=== PATIENT | female | born 1945 | race Asian ===

== ENCOUNTER → 2021-02-09 | Day surgery (SDC) | payer OTHER ==
--- NOTE | 2021-02-05 13:18 | RAD REPORT ---
EXAM DESCRIPTION: RAD - Chest Pa And Lat (2 Views) - 02/05/2021 1:08 pm CLINICAL HISTORY: preop, pending cardiac catheterization COMPARISON: No prior chest imaging available. Lung base images from 2018 CT abdomen study were revie wed. TECHNIQUE: Frontal and lateral views of the chest were obtained. FINDINGS: The lungs are normal volume with mild scattered fibrotic lung change. In the lower right l shamir field superimposed on the posterior right ninth rib at is a 10 millimeter nodular density. The l shamir base images from the 2018 study are not sufficient for evaluating this portion of the chest. No o ther mass or nodule identified. No acute infiltrate. No failure or volume overload. Heart size is normal and central vasculature is within normal limits. No pleural effusion or pneumo thorax seen. No acute bony finding noted. No aortic abnormality. IMPRESSION: Small 10 mm nodule lower right lung field is present with no comparison imaging availabl e. Right lung field finding may be a true nodule or potentially remodeling from posterior right rib frac ture. Patient has underlying fibrosis. If no old outside chest imaging is available, contrast-enhanced CT chest study would be recommended f or further characterization.
[2021-02-05 13:56] LABS: BUN Blood Urea Nitrogen 14 mg/dL (7-18); Bicarbonate 30 mmol/L (21-32); Glucose Level 105 mg/dL (74-106); Sodium Level 142 mmol/L (136-145)
[2021-02-05 14:16] LABS: Absolute Lymphocytes (CBC) 0.8 K/uL (0.7-4.9); Basophils % 1.3 % (0-1.3); Lymphocytes % 17.7 % (15.3-44.8); MPV 7.6 fL (7.6-11.3); RBC Red Blood Cell Count 4.04 M/uL (3.86-4.86)
[2021-02-05 14:19] LABS: Protime INR 0.85
[~2021-02-09] MED LIST: ATROPINE SULF 1 MG/10 ML SYR IV ONE; FENTANYL CITR 100 MCG/2 ML ONE; HEPA 1000U/500MLS 1,000 UNIT/500 ML BAG IV ONE; LIDOCAINE 1% 20 ML MDV ONE; MIDAZOLAM HCL 2 MG/2 ML INJ ONE; NA CHLORIDE 0.9% 0 ML ONE; NA CHLORIDE 0.9% 500 ML ONE
[2021-02-09 08:16] VITALS: TEMP 97.1
--- NOTE | 2021-02-09 09:47 | OP ---
Date of Procedure: 02/09/2021 Surgeon: Eric Chin MD Machine Washer: Mr. Ritchie Terrell. Procedure In Detail: The patient was brought to the clinical lab scientist today on 02/09/2021. She underwent a l eft heart catheterization with selective coronary arteriogram. Indication was chest pain with abnorm al stress test. In the clinical lab scientist, she was prepped and draped in the routine sterile fashion. Given V ersed and fentanyl for sedation. A 6-Russian sheath introduced in the right common femoral artery suc cessfully. Angiography there was normal. Angio-Seal was used to close the case. Lance catheters left and right were used to cannulate the left main and right main respectively. Her RCA was normal and was right dominant. Her left system, left main, LAD, and circumflex were very small, but no foca l stenosis. There were no complications. Blood loss was 5 mL. Anesthesia: Total conscious sedation was 45 minutes. Postoperative Diagnoses: Abnormal stress test, atypical chest pain, normal coronaries, small coronar y arteries. Plan: Plan is to continue medical therapy. The patient will go home after 2 hours of bedrest and I will see her in the office in 2 weeks. KELSEY/CARLENE Voice ID: [id number] Report ID: [id number]
[2021-02-09 10:27] VITALS: BP 109/60; O2SAT 93
== END ==
LOC: CCL 07:27
DX: R07.89 Other chest pain (principal); I10 Essential (primary) hypertension; E78.2 Mixed hyperlipidemia; K21.9 Gastro-esophageal reflux disease without esophagitis
CPT/HCPCS: 93005; 85025; 80048; 36415; 85610; 85730; 71046; 93454; C1893; C1760; J2250; J3010; J7040; J1644; J0583; U0002

== ENCOUNTER 2021-08-31 12:27 | Day surgery (SDC) | payer OTHER ==
[2021-08-31] MEDS ORDERED: Ringers Lactate 1,000 ML IV ONE (12:44)
[2021-08-31 13:11] VITALS: TEMP 98.6
[2021-08-31] MEDS ORDERED: NA CHLORIDE 0.9% 1,000 ML ONE (14:13)
[2021-08-31] MEDS: LIDOCAINE 1% W/EPI 1:100,000 MDV 20 ML VIAL ONE ×2 (14:42→15:28)
[2021-08-31] MEDS ORDERED: LIDOCAINE 1% MPF 30 ML VIAL ONE (15:05)
[2021-08-31] MEDS ORDERED: MIDAZOLAM HCL 2 MG/2 ML INJ ONE (15:05)
[2021-08-31] MEDS ORDERED: propofoL 200 MG/20 ML VIAL IV ONE ×2 (15:06→15:30)
[2021-08-31] MEDS ORDERED: IBUPROFEN 200 MG TAB PO PRN (15:55)
--- NOTE | 2021-08-31 15:59 | P.BOP ---
Preoperative diagnosis: PMB, RLQ pain Postoperative diagnosis: same Primary procedure: Hysteroscopy d/c Estimated blood loss: min Specimen: EMC (curette and pipelle used) Findings: abn vascular tissue noted at fundal endometrium and the rightwall Anesthesia: MAC Complications: None Transferred to: Recovery Room Condition: Good
[2021-08-31 17:34] VITALS: BP 107/61; O2SAT 16
== END 2021-08-31 16:36 | disposition home or self-care (01) ==
LOC: OR 12:27
PROVIDERS: ATTEND Obstetrics & Gynecology
PROC: 0UJD8ZZ Inspection of Uterus and Cervix, Via Natural or Artificial Opening Endoscopic (ICD-10-PCS; 2021-08-31)
PROC: 0UDB7ZX Extraction of Endometrium, Via Natural or Artificial Opening, Diagnostic (ICD-10-PCS; principal; 2021-08-31 13:30)
DX: N95.0 Postmenopausal bleeding (principal); R10.31 Right lower quadrant pain; Z20.822 Contact with and (suspected) exposure to COVID-19
CPT/HCPCS: 88305; 58558; U0003; J2704 ×2; J2250; J7120; J7030

== ENCOUNTER 2021-11-14 08:34 | Emergency (ER) | payer OTHER ==
--- OUTSIDE RECORDS SUMMARY | 2021-11-14 08:44 | XMS REPORT | Clinical Summary ---
:1945 Author Organization [facility] MD [facility] Address [address] [place] [address] Care Team Providers Name Role Phone Belgicagopal Unavailable Lynda Rogers MD Primary Care Provider Suzanne Tipton MD Unavailable Tahir Rucker MD Unavailable Allergies No known active allergies Medications Medication Sig Dispensed Refills Start Date End Date Status atorvastatin (LIPITOR) Take 1 tablet by 0 03/16/2021 Active 20 mg tablet mouth as needed. pantoprazole (PROTONIX) Take 1 tablet by 0 Active 40 mg EC tablet mouth as needed. methotrexate 2.5 mg Take 4 tablets by 0 03/16/2021 Active tablet mouth once a week. leflunomide (ARAVA) 20 Take 1 tablet by 0 03/16/2021 Active mg tablet mouth once a week. melatonin 3 mg tablet Take 3 mg by 0 Active mouth nightly as needed. folic acid (FOLVITE) 1 Take 1 mg by 0 Active mg tablet mouth daily. 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 10/20/2021 Encounters Date Type Specialty Care Team Description 11/12/2021 Ancillary Procedure Radiology [place], Cancer Carole Howell MD 11/12/2021 Ancillary Procedure Radiology [place]astoalonzo[place], Cancer Carole Howell MD 11/12/2021 Ancillary Procedure Radiology Matthewt[place]oug Cancer Carole Howell MD 11/12/2021 Ancillary Procedure Radiology [place], Cancer Carole Howell MD 11/12/2021 Ancillary Procedure Radiology Matthewtoalonzoil, Cancer Carole Howell MD 11/12/2021 Ancillary Procedure Radiology Matthewt[place], Cancer Carole Howell MD 11/12/2021 Ancillary Procedure Radiology Kyleil, Cancer Carole Howell MD 11/10/2021 Telemedicine Lymphoma and [place], Follicular lymp luigi Myeloma Carole Howell MD grade II of l ymph nodes of multip le sites 11/09/2021 Telephone Lymphoma and Visitacion, Myeloma Nidia Angel RN 11/09/2021 Orders Only Lymphoma and Mathur, Staci, Follicular lymphoma Myeloma [employer] grade II of lym ph nodes of multip le sites (Primary Dx) 11/03/2021 Hospital Encounter Radiology Staci Mathur, Folli cular lymphoma [employer] grade II of lymph Amanuel Hardy MD nodes of mu ltiple sites 11/03/2021 Travel 11/02/2021 Telephone Radiology Ame Li MA 11/02/2021 Orders Only Radiology Edin Blake PA 10/30/2021 Ancillary Procedure Radiology [place], Cancer Carole Howell MD 10/30/2021 Ancillary Procedure Radiology [place], Cancer Carole Howell MD 10/30/2021 Ancillary Procedure Radiology [place], Cancer Carole Howell MD 10/30/2021 Ancillary Procedure Radiology [place], Cancer Carole Howell MD 10/30/2021 Ancillary Procedure Radiology Matthew[place], Cancer Carole Howell MD 10/30/2021 Ancillary Procedure Radiology [place], Cancer Carole Howell MD 10/29/2021 Orders Only Lymphoma [place], Carole Howell MD 10/29/2021 Orders Only Lymphoma and Mathur, Staci, Myeloma [employer] 10/29/2021 Lab Requisition Doug Ambrosio MD Fletes, James R, MD 10/21/2021 Lab Requisition Doug Ambrosio MD Witson, Anne S., MD 10/20/2021 Ancillary Procedure Radiology [place], Cancer Carole Howell MD 10/20/2021 Ancillary Procedure Radiology [place], Cancer Carole Howell MD 10/20/2021 Hospital Encounter Lab Staci Mathur, Folli cular lymphoma [employer] WORK[employer] grade II of lym ph nodes of multip le sites 10/20/2021 Office Visit Lymphoma and [place], Follicular lymp luigi Myeloma Carole Howell MD grade II of l ymph nodes of multip le sites (Primary Dx) 10/20/2021 Documentation Lymphoma and Chata Rubio Myeloma 10/20/2021 Orders Only Lymphoma and Mathur, Staci, Myeloma [employer] WORK[employer] 10/20/2021 Travel 10/20/2021 Lab Requisition Doug Ambrosio MD Joseph, John K., MD 10/19/2021 NPR Patient Access [place], Services Carole Howell MD 10/15/2021 Travel 10/15/2021 Telephone Patient Access Ahuja, Adelita Brown RN after 11/14/2020 Surgical History Surgery Date Site/Laterality Comments HERNIA REPAIR Medical History Medical History Date Comments Irregular heart beat 2 yrs ago Fatty liver 5 yrs ago Menopause 20 yrs ago Rheumatoid arthritis 20 yrs ago Arthritis 20 yrs ago Malignant lymphoma 5 yrs ago Family History Medical History Relation Name Comments Colon cancer Sister Relation Name Status Comments Sister Alive Social History Tobacco Use Types Packs/Day Years Used Date Never Smoker 0 0 Smokeless Tobacco: Never Used Alcohol Use Standard Drinks/Week Comments Not Currently 0 (1 standard drink = 0.6 oz pure alcoho l) Sex Assigned at Date Recorded Female 10/16/2021 3:21 PM [employer] Job Start Date Occupation Industry Not on file Not on file Not on file COVID-19 Exposure Response Date Recorded In the last month, have you been in contact with No / Unsure 11/03/2021 10:22 AM [employer] someone who was confirmed or suspected to have Coronavirus / COVID-19? Obstetrics History Last Filed Vital Signs Vital Sign Reading Time Taken Comments Blood Pressure 140/81 11/03/2021 3:55 PM [employer] Pulse 67 11/03/2021 3:55 PM [employer] Temperature 36.8 C (98.2 F) 11/03/2021 3:55 PM [employer] Respiratory Rate 13 11/03/2021 3:55 PM [employer] Oxygen Saturation 93% 11/03/2021 3:55 PM [employer] Inhaled Oxygen Concentration - - Weight 54.9 kg (121 lb 0.5 oz) 11/03/2021 10:48 AM [employer] Height 147.5 cm (4' 10.07") 10/20/2021 12:05 PM [employer] Body Mass Index 25.23 10/20/2021 12:05 PM [employer] Plan of Treatment Health Maintenance Due Date Last Done Comments COVID-19 Vaccination (1) 1957 Procedures Procedure Name Priority Date/Time Associated Comments Diagnosis IR CT GUIDED BIOPSY Routine 11/03/2021 3:01 Follicular Resu lts for this RETROPERITONEAL PM [employer] lymphoma grade II procedu re are in of lymph nodes of the result s multiple sites section. CYTOLOGY IMAGE-GUIDED Routine 11/03/2021 2:19 Follicular Re sults for this FNA INTERPRETATION PM [employer] lymphoma grade II proc edure are in of lymph nodes of the result s multiple sites section. HP FC LYMPHOMA B Routine 11/03/2021 2:19 EXTENDED INTERPRETATION PM [employer] AND REPORT HP FC FLOW CYTOMETRY Routine 11/03/2021 2:19 Res ults for this BLOOD COLLECTION PM [employer] procedure a re in the results section. PATHOLOGY BIOPSY Routine 11/03/2021 2:18 Follicular Results for this INTERPRETATION PM [employer] lymphoma grade II procedur e are in of lymph nodes of the result s multiple sites section. EKG, 12-LEAD (PORTABLE) Routine 11/03/[address] BOOTHE ROSETTE PATH Routine 10/20/2021 1:51 Resu lts for this REVIEW PM [employer] procedure are i n the results section. .DR. BOOTHE PROT ELEC Routine 10/20/2021 1:51 Res ults for this PATH REVIEW PM [employer] procedure are i n the results section. TMP HIV 1/2 AG&AB PATH Routine 10/20/2021 1:51 R esults for this INTERP PM [employer] procedure are i n the results section. TMP HCVAB INTERP Routine 10/20/2021 1:51 Results for this PM [employer] procedure are i n the results section. TMP INTERPRETATION Routine 10/20/2021 1:51 Resul ts for this ANTIBODY SCREEN NEGATIVE PM [employer] pro cedure are in the results section. CLOT EXPIRATION DATE Routine 10/20/2021 1:51 Res ults for this PM [employer] procedure are i n the results section. FREE KAPPA/FREE LAMBDA Routine 10/20/2021 1:51 R esults for this RATIO PM [employer] procedure are i n the results section. HEPATITIS B SURFACE AG Routine 10/20/2021 1:51 R esults for this W/CONFIRM PM [employer] procedure are i n the results section. HEPATITIS B CORE TOTAL Routine 10/20/2021 1:51 R esults for this ANTIBODY PM [employer] procedure are i n the results section. ANTIBODY SCREEN Routine 10/20/2021 1:51 Follicular Results for this PM [employer] lymphoma grade II procedure are in of lymph nodes of the result s multiple sites section. ABORH Routine 10/20/2021 1:51 Follicular Results for this PM [employer] lymphoma grade II procedure are in of lymph nodes of the result s multiple sites section. .GLOMERULAR FILTRATION Routine 10/20/2021 1:51 Follicular R esults for this RATE PM [employer] lymphoma grade II procedure are in of lymph nodes of the result s multiple sites section. SERUM CREATININE Routine 10/20/2021 1:51 Follicular Results for this PM [employer] lymphoma grade II procedure are in of lymph nodes of the result s multiple sites section. MANUAL DIFFERENTIAL Routine 10/20/2021 1:51 Follicular Resu lts for this PM [employer] lymphoma grade II procedure are in of lymph nodes of the result s multiple sites section. Results CBC Routine 10/20/2021 1:51 Follicular Results for this PM [employer] lymphoma grade II procedure are in of lymph nodes of the result s multiple sites section. IMMUNOFIXATION Routine 10/20/2021 1:51 Follicular Results f or this ELECTROPHORESIS PM [employer] lymphoma grade II procedu re are in of lymph nodes of the result s multiple sites section. FREE LAMBDA LIGHT CHAIN Routine 10/20/2021 1:51 Follicular Results for this PM [employer] lymphoma grade II procedure are in of lymph nodes of the result s multiple sites section. FREE KAPPA LIGHT CHAIN Routine 10/20/2021 1:51 Follicular R esults for this PM [employer] lymphoma grade II procedure are in of lymph nodes of the result s multiple sites section. HIV-1/2 ANTIGEN AND Routine 10/20/2021 1:51 Follicular Resu lts for this ANTIBODIES, FOURTH PM [employer] lymphoma grade II proc edure are in GENERATION of lymph nodes of the result s multiple sites section. HEPATITIS C VIRUS Routine 10/20/2021 1:51 Follicular Result s for this ANTIBODY PM [employer] lymphoma grade II procedure are in of lymph nodes of the result s multiple sites section. HEPATITIS B SURFACE Routine 10/20/2021 1:51 Follicular Resu lts for this ANTIGEN, SERUM PM [employer] lymphoma grade II procedur e are in of lymph nodes of the result s multiple sites section. HEPATITIS B CORE Routine 10/20/2021 1:51 Follicular Results for this ANTIBODY PM [employer] lymphoma grade II procedure are in of lymph nodes of the result s multiple sites section. THYROID STIMULATING Routine 10/20/2021 1:51 Follicular Resu lts for this HORMONE PM [employer] lymphoma grade II procedure are in of lymph nodes of the result s multiple sites section. FREE THYROXINE Routine 10/20/2021 1:51 Follicular Results f or this PM [employer] lymphoma grade II procedure are in of lymph nodes of the result s multiple sites section. BETA 2 MICROGLOBULIN Routine 10/20/2021 1:51 Follicular Res ults for this PM [employer] lymphoma grade II procedure are in of lymph nodes of the result s multiple sites section. IMMUNOGLOBULIN M SERUM Routine 10/20/2021 1:51 Follicular R esults for this PM [employer] lymphoma grade II procedure are in of lymph nodes of the result s multiple sites section. IMMUNOGLOBULIN G SERUM Routine 10/20/2021 1:51 Follicular R esults for this PM [employer] lymphoma grade II procedure are in of lymph nodes of the result s multiple sites section. IMMUNOGLOBULIN A SERUM Routine 10/20/2021 1:51 Follicular R esults for this PM [employer] lymphoma grade II procedure are in of lymph nodes of the result s multiple sites section. PROTEIN ELECTROPHORESIS, Routine 10/20/2021 1:51 Follicular Results for this SERUM PM [employer] lymphoma grade II procedure are in of lymph nodes of the result s multiple sites section. VITAMIN D 25 HYDROXY Routine 10/20/2021 1:51 Follicular Res ults for this LEVEL PM [employer] lymphoma grade II procedure are in of lymph nodes of the result s multiple sites section. ELECTROLYTE PANEL Routine 10/20/2021 1:51 Follicular Result s for this PM [employer] lymphoma grade II procedure are in of lymph nodes of the result s multiple sites section. ASPARTATE Routine 10/20/2021 1:51 Follicular Results for this AMINOTRANSFERASE PM [employer] lymphoma grade II proced ure are in of lymph nodes of the result s multiple sites section. MAGNESIUM LEVEL Routine 10/20/2021 1:51 Follicular Results for this PM [employer] lymphoma grade II procedure are in of lymph nodes of the result s multiple sites section. ALANINE AMINOTRANSFERASE Routine 10/20/2021 1:51 Follicular Results for this PM [employer] lymphoma grade II procedure are in of lymph nodes of the result s multiple sites section. LACTATE DEHYDROGENASE Routine 10/20/2021 1:51 Follicular Re sults for this PM [employer] lymphoma grade II procedure are in of lymph nodes of the result s multiple sites section. ALKALINE PHOSPHATASE Routine 10/20/2021 1:51 Follicular Res ults for this PM [employer] lymphoma grade II procedure are in of lymph nodes of the result s multiple sites section. FRACTIONATED BILIRUBIN Routine 10/20/2021 1:51 Follicular R esults for this PM [employer] lymphoma grade II procedure are in of lymph nodes of the result s multiple sites section. URIC ACID Routine 10/20/2021 1:51 Follicular Results for this PM [employer] lymphoma grade II procedure are in of lymph nodes of the result s multiple sites section. SERUM CREATININE Routine 10/20/2021 1:51 Follicular PM [employer] lymphoma grade II of lymph nodes of multiple sites BLOOD UREA NITROGEN Routine 10/20/2021 1:51 Follicular Resu lts for this PM [employer] lymphoma grade II procedure are in of lymph nodes of the result s multiple sites section. GLUCOSE, RANDOM Routine 10/20/2021 1:51 Follicular Results for this PM [employer] lymphoma grade II procedure are in of lymph nodes of the result s multiple sites section. PHOSPHORUS LEVEL Routine 10/20/2021 1:51 Follicular Results for this PM [employer] lymphoma grade II procedure are in of lymph nodes of the result s multiple sites section. CALCIUM LEVEL TOTAL Routine 10/20/2021 1:51 Follicular Resu lts for this PM [employer] lymphoma grade II procedure are in of lymph nodes of the result s multiple sites section. ALBUMIN LEVEL Routine 10/20/2021 1:51 Follicular Results fo r this PM [employer] lymphoma grade II procedure are in of lymph nodes of the result s multiple sites section. TOTAL PROTEIN Routine 10/20/2021 1:51 Follicular Results fo r this PM [employer] lymphoma grade II procedure are in of lymph nodes of the result s multiple sites section. TYPE AND SCREEN Routine 10/20/2021 1:51 Follicular PM [employer] lymphoma grade II of lymph nodes of multiple sites APTT Routine 10/20/2021 1:51 Follicular Results for this PM [employer] lymphoma grade II procedure are in of lymph nodes of the result s multiple sites section. PROTHROMBIN TIME Routine 10/20/2021 1:51 Follicular Results for this PM [employer] lymphoma grade II procedure are in of lymph nodes of the result s multiple sites section. COMPLETE BLOOD COUNT W/ Routine 10/20/2021 1:51 Follicular DIFFERENTIAL PM [employer] lymphoma grade II of lymph nodes of multiple sites CONFIRM ABORH TYPE Routine 10/20/2021 1:43 Resul ts for this PM [employer] procedure are i n the results section. OSI PET CT SKULL TO MID Routine 10/08/2021 3:58 Cancer Results for this THIGH PM [employer] procedure are i n the results section. OSI CT ABDOMEN AND Routine 09/04/2021 4:23 Cancer Resul ts for this PELVIS AM [employer] procedure are i n the results section. PATHOLOGY OUTSIDE Routine 08/31/2021 Results fo r this INTERPRETATION procedure are in the results section. OSI MAMMO BILATERAL Routine 04/06/2021 4:23 Cancer Resu lts for this AM CDT procedure are i n the results section. OSI CHEST Routine 02/05/2021 4:23 Cancer Results for this AM CDT procedure are i n the results section. after 11/14/[address] GUIDED BIOPSY RETROPERITONEAL (11/03/2021 3:01 PM [employer]) Specimen Narrative Amanuel Hardy MD - 11/03/2021 3:[address] Date of Procedure: 11/03/21 Attending Physician: Amanuel Hardy MD Customer Operations Intern: Vladimir Junior Pre Procedure Diagnosis: Follicular ly mphoma grade II of lymph nodes of multiple sites Post Procedure Diagnosis: Unchanged Indication: New mass / nodule for tiss ue diagnosis Protocol Number: N/A Title of Procedure: Percutaneous Computed Tomography-Guided Biopsy Operative Findings: Percutaneous image-guided biopsy of ri ght retroperitoneal mass. Consent: The procedure, risks, indicat ions and alternatives were explained. All questions were answered a nd informed consent was obtained. I have reviewed the history and physical dictated by the mid-level practitioner / fellow. Sedation/Anesthesia: Moderate sedation for pain control and a nxiety was administered by a dedicated nurse under my supervision. There was continuous monitoring of oxygen saturation, heart rate and interm ittent monitoring of blood pressure during the procedure. Medicat ion given was midazolam and fentanyl. I was present for the admin istration of the medications indicated above. Procedure Events Event Event Time Sedation Start 11/03/2021 2:15 PM Sedation End 11/03/2021 2:52 PM Procedure in Detail: A time out was performed prior to the st art of the procedure and the correct patient, procedure, presence of consent, site, and side were confirmed with all members of the team. With the patient in the prone position, the skin overlying the area of interest was prepped and draped in the u sual sterile fashion. Lidocaine 1% was used for local anesthesia. Using a posterior approach under Compute d Tomography image-guidance, a 17 gauge needle was advanced down to the ri ght retroperitoneal mass. An image was obtained and placed into the medical record. Samples were obtained for evaluation. Sampling: Cytology: A 22 gauge needle was use d to obtain sample(s) for cytologic assessment. Total number of samples: 5 Core Biopsy: An 18 gauge needle use d to obtain samples for surgical pathology evaluation. Total number of samples: 4 Specimens Disposition: Diagnostic Biopsy: The biopsy sampl es were submitted to pathology. Additional Comments: None Estimated Blood Loss: Minimal Immediate Complications: None Disposition: PACU Plan: 1. No follow-up with Interventional Radi ology required. I certify my physical presence at the [facility] of the procedure. I personally reviewed the image(s) and the REINIER's inte rpretation and agree with the written report. (ABNORMAL) Cytology Image-Guided FNA Interpretation (11/03/2021 2:19 PM [employer]) Gross Description A: [facility] Specimens procured: 3 Diff Quik; 2 Pap Stain Slides 10 ml, cloudy bloody fluid in RPMI 1 Flow 1 Cell Block 1H&E Date/Time Placed in Formalin: 11/03/21 @ 3:14 PM Size: N/A Immediate assessment for specimen adequacy was made x1 by Dr. Claire. Immediate Assessment Adequate cellularity, [facility] further review needed Major Classification MALIGNANT (A) [facility] Electr onically signed by Mercedes Claire MD on 11/05/2021 at 1 :30 PM Diagnosis A. Lymph node(s), right, retroperitoneum, fine n eedle aspiration: [facility] Electronically signed by Mercedes [id number] B-CELL LYMPHOMA (See comment) MD Alethea on 11/05/2021 at 1 :30 PM Comment Direct smears and cell block show predominantly small lymphocytes. Immunophenotyping by flow cytometry shows an aberrant B-cell population with lambda light chain restriction expressing CD10, CD19, CD20 [facility] , CD22, CD23 and CD38, and n egative for CD5, CD11c and CD30. The morphologic features along with these results are consistent with recurrent/persistent follicular lymphoma. Please see the concurrently a cquired needle core biopsy ([id number]) for additional evaluation. Retained/Biomarker SR: 5 S, 1 CB [facility] Testing Informational Points Some tests reported [facility] here may have been developed and performance characteristics determined by [facility] Pathology and Laboratory Medicine. These tests have not been specifically cleared or approved by the U.S. Food and Drug Administration. This case originated at [facility], [address] [place] [address]. Specimen Fine Needle Asp - Lymph Node(s), Right, Retroperitoneum Performing Organization Address City/[facility]/ZIP Code Phon e Number [facility] [place], [place] [id number] [place] [address] FC Lymphoma B Extended Interpretation and Report (11/03/2021 2:19 PM [employer]) Specimen Narrative This result has an attachment that is no t available. Flow Cytometry Specimen Collection -Fine Needle Asp (11/03/2021 2:19 PM [employer]) Pathologist [facility] Flow Cytometry Yes [facility] (Received) Comment: [facility] CENTER Test performed by: [facility] Flow Cytometry Laboratory [address] [place] [address] Hailey Ap Link [id number] [facility] Specimen Fine Needle Asp Performing Organization Address City/[facility] Phon e Number [facility] CANCER Unless otherwise noted, [place] [address] CENTER all lab tests performed by: Division of Pathology and Laboratory Medicine [address] [place] [address] Pathology Biopsy Interpretation (11/03/2021 2:18 PM [employer]) Submitted Follicular lymphoma grade [facility] Clinical History II of lymph nodes of multiple sites [C82.18] Diagnosis Lymph node, right retroperitoneum, core biopsies: [facility] Electronically signed by Alfredo lyles FOLLICULAR LYMPHOMA, FOLLICULAR PATTERN, LOW-GRADE (s ee comment) MD Greg on 11/07/2021 at 4:02 PM Comment This is a 76-year-old woman with a 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 The PET/histologic [facility] sections show needle shaped fragments of lymphoid tissue CT scan on 09/2021 showed hypermetabolic adenopathy above and below the diaphragm, suspicious for relapsed lymphoma. Histologic sections show nee dle shaped fragments of lymphoid tissue with atypical lymphoid infiltrate. The lymphoid infiltrate has a vaguely nodular growth pattern and is comprised of a mixture of smal l centrocytes and centroblas ts at variable proportions. The large cells are not increased (~8 per high-power field), supporting grade 2. Sheets of large cells or necrosis are not seen. Immunohistochemical staining shows that the majority of the lymphoid cells are positive for PAX5, BCL6 and BCL2, and negative for CD3, Cyclin D1 and SOX11. A small subset of the lymphoid cells are posi tive for CD10. CD3 stains s cattered T cells. CD21 is essentially negative except for the minimal residual foci of follicular dendritic cell meshworks. Ki-67 highlights those micro-follicles and shows a low proliferation index of approximately 20%. Flow cytometric immunophenot yping identified a lambda light chain restricted B cell population (79% of total cells) that expresses CD10 (partial), CD19, CD20, CD22, CD23, CD38, CD45 (dim) and CD200 (par tial). These aberrant B ginger ls are negative for CD5, CD11c, CD30, CD43, CD44 and ROR1. Overall, the morphologic and immunophenotypic findings are compatible with persistent follicular lymphoma, follicular pattern, low-grade. Medical necessity justificat ion for the immunohistochemical stains that were needed in addition to the flow cytometric immunophenotypic studies for the best diagnosis possible is as follows: The flow c ytometric studies are not cl early inbound customer service representative of all the features requiring evaluation in this specimen. Gross Description A: [facility] Lymph node(s), right, retrop eritoneum, right retroperitoneal lymph node biopsy: Three quiles-brown core biopsies ranging from 0.7 to 1.5 cm in length with a diameter of less than 0.1 cm, entirely submitted in A1-A2. GM Disclaimer "Some tests reported here [facility] may have been developed and performance characteristics determined by [facility] Pathology and Laboratory Medicine. These tests have not been specifically cleared or approved by the U.S. Food and Drug Administration. If applicable, controls were reviewed and showed appropriate reactivity." Specimen Tissue - Lymph Node(s), Right, Retroperi toneum Performing Organization Address City/State/ZIP Code Phon e Number [facility] [place] [address] [address] [place] EKG, 12-Lead (Portable) (11/03/2021) Specimen Narrative This result has an attachment that is no t available. Performing Organization Address City/State/ZIP Code Phon e Number TALISHA IECG Hepatitis B Core Total Antibody (10/20/2021 1:51 PM CLAM DREDGE BOAT CAPTAIN) [facility] HBc Total Ab-[place] Negative Negative [facility] Comment: CANCER CENTER Test Performed by: [facility] [address] [facility], [place] [address] Electrical Repairer: Danish Garcia M.D. Ph.D.; CLIA# [id number] Specimen Blood Performing Organization Address City/[facility]/ZIP Code Phon e Number [facility] CANCER Unless otherwise noted, [place] [address] CENTER all lab tests performed by: Division of Pathology and Laboratory Medicine [address] [place] [address] [facility]2 Ag&Ab Path Interp (10/20/2021 1:51 PM CLAM DREDGE BOAT CAPTAIN) [facility] HIV 1/2 Ag&Ab Negative for HIV-1 antigen a nd HIV-1/HIV-2 antibodies. No laboratory evidence of HIV infection. If acute HIV infection is suspected, consider testing for HIV-1 RNA. [facility] Interp Comment: CENTER KAMI RICH MD, PhD - [id number] Dictated by: KAMI RICH MD, PhD - [id number] Dictated Date/Time: 10.21.19 10:39 AM CLAM DREDGE BOAT CAPTAIN Transcribed Date/Time: 10.21.2021 10:39 AM CLAM DREDGE BOAT CAPTAIN Electronically Signed By: BRITTANY RICH MD, PhD - [id number] on 10.21.2021 10:39 AM Specimen Blood Performing Organization Address City/[facility]/ZIP Code Phon e Number [facility] CENTER [address] [place] [address] Protein Electrophoresis Path Review (10/20/2021 1:51 PM CLAM DREDGE BOAT CAPTAIN) [facility] SPE Path Interp The serum protein electropho retic pattern shows a barely discernible protein peak in the gamma region which corresponds with an IgM kappa band by immunofixation studies. 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 Comment: [place] [id number] Dictated by: [place] [id number] Dictated Date/Time: 10.21.19 16:27 PM CLAM DREDGE BOAT CAPTAIN Transcribed Date/Time: 10.21.2021 16:27 PM CLAM DREDGE BOAT CAPTAIN Electronically Signed By: [place] [id number] on 10.21.2021 16:27 PM Specimen Blood Performing Organization Address City/[facility] Phon e Number [facility] CANCER Unless otherwise noted, [address] all lab tests performed by: Division of Pathology and Laboratory Medicine [address] [place] [address] Jaiden ROSETTE Path Review (10/20/2021 1:51 PM CLAM DREDGE BOAT CAPTAIN) [facility] ROSETTE Path Int The serum protein immunofixa tion electrophoretic patterns obtained with the use of antisera against IgG, IgA, IgM, bound [place] and bound Lambda light chain proteins show a small IgM kappa band in the gamma region. 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 CANCER CENTER Comment: [place] [id number] Dictated by: [place] [id number] Dictated Date/Time: 10.21.19 16:27 PM CLAM DREDGE BOAT CAPTAIN Transcribed Date/Time: 10.21.2021 16:27 PM CLAM DREDGE BOAT CAPTAIN Electronically Signed By: [place] [id number] on 10.21.2021 16:27 PM Specimen Blood Performing Organization Address City/[facility] Phon e Number [place] [facility]CER Unless otherwise noted, [address] all lab tests performed by: Division of Pathology and Laboratory Medicine [address] [place] [address] Glucose, Random (10/20/2021 1:51 PM CLAM DREDGE BOAT CAPTAIN) [facility] Glucose Random 97 70 - 199 mg/dL [facility] Comment: CANCER CENTER Effective 04/14/16, the gluco se reference intervals have been updated based on [place] Diabetes [employer] guidelines (Standards of Medical Care in Diabetes 2016. Diabetes Care 2016; 39: S13-S22). Fasting blood glucose: Normal: 70-99 mg/dL Impaired fasting glucose (in creased risk for diabetes or pre-diabetes): 100- 125 mg/dL Diabetes mellitus: >/=126 mg/dL Random blood glucose: Normal: 70-199 mg/dL Note: Random glucose >100 mg/dL is assoc iated with increased risk for diabetes Specimen Blood Performing Organization Address City/[facility]/ZIP [facility] Phon e Number [facility] CANCER Unless otherwise noted, [address] all lab tests performed by: Division of Pathology and Laboratory Medicine [address] [place] [address] HIV-1/2 Antigen and Antibodies, Fourth Generation (10/20/2021 1:51 PM CLAM DREDGE BOAT CAPTAIN) [facility] HIV 1/2 Ag & Ab, Non Reactive Non Reactive [facility] 4th Gen Comment: CENTER Performed at: [facility] Blood [facility]or [facility] [address] [place] [address] Specimen Blood Performing Organization Address [facility] Phon e Number [facility] [address] [place] [address] .Serum Creatinine (10/20/2021 1:51 PM CLAM DREDGE BOAT CAPTAIN) [facility] nature Creatinine 0.53 0.51 - 0.95 mg/dL [facility] C ENTER Specimen Blood Performing Organization Address City/[facility]/ZIP [facility] Phon e Number [facility] CANCER Unless otherwise noted, [address] all lab tests performed by: Division of Pathology and Laboratory Medicine [address] [place] [address] (ABNORMAL) .CBC (10/20/2021 1:51 PM CLAM DREDGE BOAT CAPTAIN) [facility] WBC 3.6 (L) 4.0 - 11.0 [facility] K/[facility] CENTER RBC 3.99 (L) 4.00 - 5.50 [facility] CENTER Hgb 12.5 12.0 - 16.0 [facility] gm/dL CANCER CENTER Hct 38.3 37.0 - 47.0 % [facility] MCV 96 82 - 98 fL [facility] MCH 31.3 (H) 27.0 - 31.0 pg [facility] MCHC 32.6 31.0 - 36.0 [facility] gm/dL [facility] RDW-SD 48.0 (H) 35.1 - 46.3 fL [facility] RDW-CV 13.9 12.0 - 15.5 % [facility] Platelet count 217 140 - 440 K/uL [facility] MPV 9.0 4.0 - 10.4 fL [facility] INRBC 0.0 <=0.0 % [facility] Comment: [facility] The INRBC (instrument NRBC) value reflects the enumera tion of nucleated red blood cells contained in a 200uL samp le of whole blood analyzed by the instrument. This value may differ from the NRBC value reported in a manual differ ential, which is based on a 100 cell differential. Specimen Blood Performing Organization Address City/[facility] Phon e Number [facility] Unless otherwise noted, [place] [address] CENTER all lab tests performed by: Division of Pathology and Laboratory Medicine [address] [place] [address] HCV Ab Path Interp (10/20/2021 1:51 PM CLAM DREDGE BOAT CAPTAIN) Pathologist [facility] HCV Ab Path There is NO serologic evidence of Hepatitis C vi vicenta antibody. [facility] Interp Comment: CENTER KAMI RICH MD, PhD - [id number] Dictated by: KAMI RICH MD, PhD - [id number] Dictated Date/Time: 10.21.19 10:41 AM CLAM DREDGE BOAT CAPTAIN Transcribed Date/Time: 10.21.2021 10:41 AM CLAM DREDGE BOAT CAPTAIN Electronically Signed By: BRITTANY RICH MD, PhD - [id number] on 10.21.2021 10:41 AM Specimen Blood Performing Organization Address City/[facility] Phon e Number [facility] C[facility] [address] [place] [address] Clot Expiration Date (10/20/2021 1:51 PM CLAM DREDGE BOAT CAPTAIN) Pathologist Sig nature T & S Expiration 10/23/2021 [facility] Specimen Blood Performing Organization Address City/State/ZIP Code Phon e Number [facility] CANCER Unless otherwise noted, [address] all lab tests performed by: Division of Pathology and Laboratory Medicine [address] [place] [address] Free [place]/Free Lambda Ratio (10/20/2021 1:51 PM CLAM DREDGE BOAT CAPTAIN) Pathologist Sig nature FKap/FLam RT 1.14 0.26 - 1.65 [facility] Specimen Blood Performing Organization Address City/State/ZIP Code Phon e Number [facility] CANCER Unless otherwise noted, [address] all lab tests performed by: Division of Pathology and Laboratory Medicine [address] [place] [address] Glomerular Filtration Rate (10/20/2021 1:51 PM CLAM DREDGE BOAT CAPTAIN) eGFR-AA 106 >=60 [facility] Comment: mL/min/1.73 [facility] Normal eGFR: >= 60 mL/min/1.73 m2 sq. m Note: The eGFR is calculated using the CKD-EPI equation. The eGFR declines with age. eGFR <60 mL/min/1.73 m2 is considered as "decreased". This equation should only be used for patients 18 and older. According to the National dney Foundation's Kidney Disease Outcome Quality Initiative (KDOQI) classification and 2012 Kidney Disease Improving Global Outcomes (KDIGO) Clinical Practice Guideline, the stage of CKD should be categorized based on estimated GFR. Stage Description GFR mL/min/1.73 m2 1 Normal or high GFR >=90 2 Mildly decreased GFR 60-89 3a Mildly to moderately decreased GFR 45-59 3b Moderately to severely decreased GFR 30-44 4 Severely decreased GFR 15-29 5 Kidney failure <15 eGFR-ÁLVARO 92 >=60 [facility] Comment: mL/min/1.73 [facility] Normal eGFR: >= 60 mL/min/1.73 m2 sq. m Note: The eGFR is calculated using the CKD-EPI equation. The eGFR declines with age. eGFR <60 mL/min/1.73 m2 is considered as "decreased". This equation should only be used for patients 18 and older. According to the National dney Foundation's Kidney Disease Outcome Quality Initiative (KDOQI) classification and 2012 Kidney Disease Improving Global Outcomes (KDIGO) Clinical Practice Guideline, the stage of CKD should be categorized based on estimated GFR. Stage Description GFR mL/min/1.73 m2 1 Normal or high GFR >=90 2 Mildly decreased GFR 60-89 3a Mildly to moderately decreased GFR 45-59 3b Moderately to severely decreased GFR 30-44 4 Severely decreased GFR 15-29 5 Kidney failure <15 Specimen Blood Performing Organization Address City/[facility] Phon e Number [facility] CANCER Unless otherwise noted, [address] all lab tests performed by: Division of Pathology and Laboratory Medicine [address] [place] [address] Fractionated Bilirubin (10/20/2021 1:51 PM CLAM DREDGE BOAT CAPTAIN) Pathologist [facility] Bili Total <0.3 <=1.2 mg/dL [facility] Comment: CANCER CENTER Direct and indirect bilirubi n will not be reported when Total bilirubin result is <0.3 mg/dL Indocyanine Green (ICG) may cause falsely elevated bilirubin results. Total and direct bilirubin must not be measured from samples containing indocyanine green. False elevation of total negrito irubin can be seen in patients with IgG concentrations above 28 g/L. Bili Direct <0.2Comment: <=0.3 mg/dL [facility] Indocyanine Green (ICG) CANCER CENTER may cause falsely elevated bilirubin results. Total and direct bilirubin must not be measured from samples containing indocyanine green. Specimen Blood Performing Organization Address [facility] Phon e Number [facility] CANCER Unless otherwise noted, [address] all lab tests performed by: Division of Pathology and Laboratory Medicine [address] [place] [address] Hepatitis C Virus Ab (10/20/2021 1:51 PM CLAM DREDGE BOAT CAPTAIN) [facility] HCVAb. Non Reactive Non Reactive [facility] Comment: CENTER Antibody detection in the im munocompromised and immunosuppressed population may be delayed or absent entirely. Therefore serial testing, correlation with other clinical findings, and supplemental testin g (if available) should be taken into consideration when interpreting the results. Performed at: [facility] [address] [place] [id number] Specimen Blood Performing Organization Address City/[facility] Phon e Number [facility] [address] [place] [address] Hepatitis B Surface Ag w/Confirm (10/20/2021 1:51 PM CLAM DREDGE BOAT CAPTAIN) Hep Bs Ag-[place] Negative Negative [facility] Comment: CANCER CENTER Test Performed by: [facility] [address] [facility], [place] [address] Electrical Repairer: Danish Garcia M.D. Ph.D.; CLIA# [id number] Specimen Blood Performing Organization Address City/[facility] Phon e Number [facility] CANCER Unless otherwise noted, [address] all lab tests performed by: Division of Pathology and Laboratory Medicine [facility] Hepatitis B Total Ig Core Ab (SCREENING) (anti-HBc total Ig; HBcAb total Ig) (10/20/2021 1:51 PM CLAM DREDGE BOAT CAPTAIN) Pathologist Sig nature HBcAb Received See NoteComment: [facility] HBcAb was sent to a CANCER CENTER reference lab for testing. Expect results on Hepatitis B Core Total Ab within 96 hours. Specimen Blood Performing Organization Address [facility] Phon e Number [facility] CANCER Unless otherwise noted, [address] all lab tests performed by: Division of Pathology and Laboratory Medicine [facility] TMP Interpretation Antibody Screen Negative (10/20/2021 1:51 PM CLAM DREDGE BOAT CAPTAIN) Pathologist [facility] TMP Auto Neg ABSC At the present time, patien t plasma shows no evidence of RBC alloantibodies. [place] MD COOPER Interp Comment: [facility] KAMI RICH MD, PhD - [id number] Dictated by: KAMI RICH MD, PhD - [id number] Dictated Date/Time: 10.20.19 22:45 PM CLAM DREDGE BOAT CAPTAIN Transcribed Date/Time: 10.20.2021 22:45 PM CLAM DREDGE BOAT CAPTAIN Electronically Signed By: BRITTANY RICH MD, PhD - [id number] on 10.20.2021 22:45 PM Specimen Blood Performing Organization Address City/[facility] Phon e Number [facility] CANCER Unless otherwise noted, [address] all lab tests performed by: Division of Pathology and Laboratory Medicine Yoni Hwang aPTT (10/20/2021 1:51 PM CLAM DREDGE BOAT CAPTAIN) Pathologist Sig nature aPTT 30.8 24.7 - 36.8 second(s) [facility] CENTER Specimen Blood Narrative [facility] - 2 2:33 PM CLAM DREDGE BOAT CAPTAIN This lab cannot be scheduled at the foll owing locations due to collection/proccessing restrictions: [facility] and [facility]. Performing Organization Address City/[facility] Phon e Number [facility] Unless otherwise noted, [address] all lab tests performed by: Division of Pathology and Laboratory Medicine [address] [place] Free Lambda Light Chain (10/20/2021 1:51 PM CLAM DREDGE BOAT CAPTAIN) Pathologist Sig nature Free Lambda 20.49 5.71 - 26.30 mg/L [facility] Specimen Blood Performing Organization Address [facility] Phon e Number [facility] Unless otherwise noted, [address] all lab tests performed by: Division of Pathology and Laboratory Medicine [address] (ABNORMAL) Free [place] Light Chain (10/20/2021 1:51 PM CLAM DREDGE BOAT CAPTAIN) Pathologist Sig nature Free [place] 23.37 (H) 3.30 - 19.40 mg/L [facility] Specimen Blood Performing Organization Address [facility] Phon e Number [facility] CANCER Unless otherwise noted, [address] all lab tests performed by: Division of Pathology and Laboratory Medicine [address] [place] ABORh (10/20/2021 1:51 PM CLAM DREDGE BOAT CAPTAIN) Pathologist Sig nature ABORh. B POS [facility] Specimen Blood Performing Organization Address City/[facility] Phon e Number [facility] CANCER Unless otherwise noted, [address] all lab tests performed by: Division of Pathology and Laboratory Medicine [address] Vitamin D 25OH (10/20/2021 1:51 PM CLAM DREDGE BOAT CAPTAIN) Vitamin D 25 OH 55 30 - 100 ng/mL [facility] Comment: CANCER CENTER Reference Range: Deficiency: <10 ng/mL Insufficiency: 10-29 ng/mL Sufficiency: 30-100 ng/mL Potential toxicity: >100 ng/mL Specimen Blood Performing Organization Address City/[facility]/ZIP Code Phon e Number [facility] CANCER Unless otherwise noted, [address] all lab tests performed by: Division of Pathology and Laboratory Medicine Yoni Hwang (ABNORMAL) Differential (10/20/2021 1:51 PM CLAM DREDGE BOAT CAPTAIN) Neutrophil % 60.3 42.0 - 66.0 % [facility] Lymphocyte % 20.7 (L) 24.0 - 44.0 % [facility] Monocyte % 12.9 (H) 2.0 - 7.0 % [facility] Eosinophil % 4.1 (H) 1.0 - 4.0 % [facility] Basophil % 1.4 (H) 0.0 - 1.0 % [facility] IGRE % 0.6 (H)Comment: 0.0 - 0.4 % [facility] IGRE % count CANCER CENTER includes Metamyelocytes, Myelocytes, and Promyelocytes. Neutrophil Abs 2.19 1.70 - 7.30 [facility] Lymphocyte Abs 0.75 (L) 1.00 - 4.80 [facility] Monocyte Abs 0.47 0.08 - 0.70 [facility] Eosinophil Abs 0.15 0.04 - 0.40 [facility] Basophil Abs 0.05 0.00 - 0.10 [facility] IG Abs 0.02 0.00 - 0.04 [facility] Specimen Blood Performing Organization Address City/[facility]/ZIP Code Phon e Number [facility] CANCER Unless otherwise noted, [address] all lab tests performed by: Division of Pathology and Laboratory Medicine [facility] [place] Hepatitis B Surface Ag (10/20/2021 1:51 PM CLAM DREDGE BOAT CAPTAIN) Pathologist Sig nature HBsAg Received See NoteComment: [facility] HBsAg was sent to a CANCER CENTER reference lab for testing. Expect results on Hepatitis B Surface Antigen w/ Confirm within 96 hours. Specimen Blood Performing Organization Address City/[facility]/ZIP Code Phon e Number [facility] CANCER Unless otherwise noted, [address] all lab tests performed by: Division of Pathology and Laboratory Medicine [address] [place], [place] [address]irma Hwang Prothrombin Time (10/20/2021 1:51 PM CLAM DREDGE BOAT CAPTAIN) Pathologist Sig nature PT 12.3 11.5 - 13.9 second(s) [facility] ER CENTER INR 0.99 0.90 - 1.10 [facility] Specimen Blood Narrative [facility] - 2 2:33 PM CLAM DREDGE BOAT CAPTAIN This lab cannot be scheduled at the foll owing locations due to collection/proccessing restrictions: [facility] and [facility]. Performing Organization Address City/State/ZIP Code Phon e Number [facility] Unless otherwise noted, [address] all lab tests performed by: Division of Pathology and Laboratory Medicine [address] [place] Antibody Screen (10/20/2021 1:51 PM CLAM DREDGE BOAT CAPTAIN) Pathologist Sig nature ABSC. Negative ABSC [facility] CENTE R Specimen Blood Performing Organization Address City/[facility]/ZIP Code Phon e Number [facility] Unless otherwise noted, [address] all lab tests performed by: Division of Pathology and Laboratory Medicine [address] SERUM Immunofixation (10/20/2021 1:51 PM CLAM DREDGE BOAT CAPTAIN) Pathologist Sig nature ROSETTE susp. MK [facility] Specimen Blood Performing Organization Address City/[facility]/ZIP [facility] Phon e Number [facility] Unless otherwise noted, [address] all lab tests performed by: Division of Pathology and Laboratory Medicine [address] [place] Uric Acid (10/20/2021 1:51 PM CLAM DREDGE BOAT CAPTAIN) Pathologist Sig nature Uric Acid 4.3 2.4 - 5.7 mg/dL [facility] TER Specimen Blood Performing Organization Address City/[facility]/ZIP Code Phon e Number [facility] Unless otherwise noted, [address] all lab tests performed by: Division of Pathology and Laboratory Medicine [address] BUN (10/20/2021 1:51 PM CLAM DREDGE BOAT CAPTAIN) Pathologist Sig nature BUN 12 6 - 23 mg/dL [facility] Specimen Blood Performing Organization Address City/[facility]/ZIP Code Phon e Number [facility] Unless otherwise noted, [address] all lab tests performed by: Division of Pathology and Laboratory Medicine [facility] [address] H[address] Alanine Aminotransferase (10/20/2021 1:51 PM CLAM DREDGE BOAT CAPTAIN) Pathologist Sig nature ALT 23 <=33 U/L [facility] Specimen Blood Performing Organization Address City/[facility]/ZIP Code Phon e Number [facility] CANCER Unless otherwise noted, [address] all lab tests performed by: Division of Pathology and Laboratory Medicine [address] Aspartate Aminotransferase (10/20/2021 1:51 PM CLAM DREDGE BOAT CAPTAIN) Pathologist Sig nature AST 21 <=32 U/L [facility] Specimen Blood Performing Organization Address City/State/ZIP [facility] [place] Phon e Number [facility] CANCER Unless otherwise noted, [address] all lab tests performed by: Division of Pathology and Laboratory Medicine Yoni Hwang TSH (10/20/2021 1:51 PM CLAM DREDGE [employer] CAPTAIN) Pathologist Sig nature TSH 0.91 0.27 - 4.20 mcunit/mL [facility] CENTER Specimen Blood Performing Organization Address City/[facility]/ZIP Code Phon e Number [facility] Unless otherwise noted, [address] all lab tests performed by: Division of Pathology and Laboratory Medicine Yoni Hwang Free T4 (10/20/2021 1:51 PM CLAM DRED[employer]TAIN) Pathologist Sig nature T4 Free 1.55 0.93 - 1.70 ng/dL [facility] ENTER Specimen Blood Performing Organization Address City/[facility]/ZIP Code Phon e Number [facility] CANCER Unless otherwise noted, [address] all lab tests performed by: Division of Pathology and Laboratory Medicine Rufina5 Yumiko Hwang (ABNORMAL) SPEP (10/20/2021 1:51 PM CLAM DR[employer]) Pathologist Sig nature TOT PROTEIN 7.7 6.4 - 8.3 gm/dL [facility] Albumin 4.7 3.6 - 5.4 gm/dL [facility] Alpha 1 Globulin 0.3 0.2 - 0.4 gm/dL [facility] Alpha 2 Globulin 0.7 0.5 - 1.0 gm/dL [facility] Beta Globulin 0.8 0.5 - 1.1 gm/dL [facility] Gamma Globulin 1.2 0.7 - 1.6 gm/dL [facility] Paraprotein1 0.3 (H) 0.0 - 0.0 gm/dL [facility] Specimen Blood Performing Organization Address [facility] Phon e Number [facility] CANCER Unless otherwise noted, [address] all lab tests performed by: Division of Pathology and Laboratory Medicine [address] [place] Total Protein (10/20/2021 1:51 PM CLAM [employer]) Pathologist Sig nature Total Protein 7.7 6.4 - 8.3 g/dL [facility] TER Specimen Blood Performing Organization Address City/[facility] Phon e Number [facility]ER Unless otherwise noted, [address] all lab tests performed by: Division of Pathology and Laboratory Medicine [address] [place] Phosphorus Level (10/20/2021 1:51 PM CLAM [employer]) Pathologist Sig nature Phosphorus 3.4 2.5 - 4.5 mg/dL [facility] TER Specimen Blood Performing Organization Address [facility] Phon e Number [facility] Unless otherwise noted, [address] all lab tests performed by: Division of Pathology and Laboratory Medicine [address] [place] Alkaline Phosphatase (10/20/2021 1:51 PM CLAM [employer]) Pathologist Sig nature Alk Phos 98 35 - 104 U/L [facility] Specimen Blood Performing Organization Address City/[facility] Phon e Number [facility] Unless otherwise noted, [address] all lab tests performed by: Division of Pathology and Laboratory Medicine [address] [place] Magnesium Level (10/20/2021 1:51 PM CLAM [employer]) Pathologist Sig nature Magnesium 2.2 1.6 - 2.6 mg/dL [facility] TER Specimen Blood Performing Organization Address [facility] Phon e Number [facility] Unless otherwise noted, [address] all lab tests performed by: Division of Pathology and Laboratory Medicine [address] [place] (ABNORMAL) LDH (10/20/2021 1:51 PM CLAM DR[employer]TAIN) LDH 247 (H)Comment: 135 - 214 U/L [facility] Results greater than [facility] 1651 U/L may not be reliable due to matrix effect with extended dilution as it exceeds the front end assistant s recommended limit. Caution should be exercised when interpreting such values and done in conjunction with clinical context. Specimen Blood Performing Organization Address [facility] Phon e Number [facility] Unless otherwise noted, [address] all lab tests performed by: Division of Pathology and Laboratory Medicine [address] [place] IgA (10/20/2021 1:51 PM CLAM [employer]) Pathologist Sig nature IgA 240 85 - 499 mg/dL [facility] CENT ER Specimen Blood Performing Organization Address [facility] Phon e Number [facility] Unless otherwise noted, [address] all lab tests performed by: Division of Pathology and Laboratory Medicine [address] [place] (ABNORMAL) IgM (10/20/2021 1:51 PM CLAM [employer]) Pathologist Sig nature IgM 658 (H) 35 - 242 mg/dL [facility] CENT ER Specimen Blood Performing Organization Address [facility] Phon e Number [facility] Unless otherwise noted, [address] all lab tests performed by: Division of Pathology and Laboratory Medicine [address] [place] IgG (10/20/2021 1:51 PM CLAM [employer]) Pathologist Sig nature IgG 996 610 - 1,616 mg/dL [facility] C ENTER Specimen Blood Performing Organization Address [facility] Phon e Number [facility] Unless otherwise noted, [address] all lab tests performed by: Division of Pathology and Laboratory Medicine [address] [place] Calcium Level (10/20/2021 1:51 PM CLAM [employer]) Pathologist Sig nature Calcium Lvl 9.8 8.4 - 10.2 mg/dL [facility] CE NTER Specimen Blood Performing Organization Address [facility] Phon e [facility] CANCER Unless otherwise noted, [address] all lab tests performed by: Division of Pathology and Laboratory Medicine [address] [place] Beta 2 Microglobulin (10/20/2021 1:51 PM CLAM [employer]) Pathologist Sig nature Beta2 Microglob 2.0 0.8 - 2.3 mg/L [facility] Specimen Blood Performing Organization Address City/[facility]/ZIP [facility] [place] Phon e Number [facility] Unless otherwise noted, [address] all lab tests performed by: Division of Pathology and Laboratory Medicine Rufina5 Yumiko Hwang Albumin Level (10/20/2021 1:51 PM CLAM [employer]) Pathologist Sig nature Albumin Lvl 4.4 3.5 - 5.2 gm/dL [facility] TER Specimen Blood Performing Organization Address [facility] Phon e Number [facility] Unless otherwise noted, [address] all lab tests performed by: Division of Pathology and Laboratory Medicine [address] Electrolyte Panel (10/20/2021 1:51 PM CLAM [employer]) Pathologist Sig nature Sodium Lvl 142 136 - 145 mEq/L [facility] Potassium Lvl 4.2 3.5 - 5.1 mEq/L [facility] Chloride 106 98 - 107 mEq/L [facility] CO2 23 22 - 29 mEq/L [facility] Anion Gap 13 4 - 14 mEq/L [facility] Specimen Blood Performing Organization Address City/[facility]/ZIP [facility] [place] Phon e Number [facility] Unless otherwise noted, [address] all lab tests performed by: Division of Pathology and Laboratory Medicine [facility] Yumikoirma Hwang Confirm ABORh (10/20/2021 1:43 PM CLAM DR[employer]TAIN) Pathologist Sig nature ABORh Confirm. B POS [facility] CENT ER Specimen Blood Performing Organization Address [facility] Phon e Number [facility] Unless otherwise noted, [address] all lab tests performed by: Division of Pathology and Laboratory Medicine [facility] [place] OSI PET CT Skull to Mid Thigh (10/08/2021 3:58 PM CLAM DRED[employer] CAPTAIN) Specimen Narrative Systemgenerated, Documentation - 022 3:58 PM CLAM DR[employer]TAIN Study acquired at another institution. For comparison only. No MD Brandon originated interpretation requested or a vailable. OSI CT Abdomen and Pelvis (09/04/2021 4:23 AM CLAM DREDGE [employer] CAPTAIN) Specimen Narrative Systemgenerated, Documentation - 022 4:23 AM CLAM [employer]TAIN Study acquired at another institution. For comparison only. No MD Brandon originated interpretation requested or a vailable. Pathology Outside Interpretation (08/31/2021) Pathologist Sig nature Materials Received Accession#, Stained, Block, Unstained Collect ed Received [facility] A. [id number], 2 SS, 1 BLOCKS, 0 USS 08/31/2021 2 Diagnosis Outside ([id number], 08/31/20 21) designated as endometrial biopsy (L1, L2): [facility] Electronically sarai d by Magali Mucus and blood with scant f ragments of endocervical glands and rare strips of possible endometrial surface epithelium. (See comment) MD Eric on 10/21/2021 at 1: 35 PM Fragments of crushed stroma. PXR Comment The biopsy is [facility] insufficient for evaluation of the endometrium. Procurement of additional tissue may be considered, if clinically indicated. Biomarker Block(s) [facility] Disclaimer "Some tests reported [facility] here may have been developed and performance characteristics determined by [facility] Pathology and Laboratory Medicine. These tests have not been specifically cleared or approved by the U.S. Food and Drug Administration. If applicable, controls were reviewed and showed appropriate reactivity." Specimen Tissue Performing Organization Address City/State/ZIP Code Phon e Number [facility] [place] [address] [address] [place] OSI Mammo (04/06/2021 4:23 AM CDT) Specimen Narrative [facility] - 10/30/2021 4:23 AM CL[employer]TAIN Study acquired at another institution. For comparison only. No [facility] originated interpretation requested or a vailable. Performing Organization Address City/State/ZIP Code Phon e Number [facility] OSI Chest (02/05/2021 4:23 AM CDT) Specimen Narrative Systemgenerated, Documentation - 022 4:23 AM CLAM [employer]ED[employer]TAIN Study acquired at another institution. For comparison only. No [facility] originated interpretation requested or a vailable. after 11/14/2020 Insurance Payer Benefit Plan Subscriber ID Effective Phone Address Typ e / Group Dates MEDICARE MEDICARE PART [id number] 2009-Pres [phone] [facility] Medicare A AND B ent [id number] [address] [facility] [place] [address] AETNA SENIOR AETNA SENIOR [id number] 2019-Prese [address] [employer] [place] [id number] [place] [address] Care Teams Gaming Cashier Relationship Specialty Start Date End Date Marimar Tinajero PCP - External Hematology and Oncology 10/13/[address] [place] [address] Carole Rogers PCP - General Lymphoma and Myeloma 10/14/21 MD Lynda [address] [place] [address] [id number] Gabbie Tipton, Physician Rheumatology 10/15/[address] [place] [id number] Garfield Rucker Physician Internal Medicine 10/15/21 MD Tahir [address] [place] [address] [phone]
--- OUTSIDE RECORDS SUMMARY | 2021-11-14 08:45 | XMS REPORT | Continuity of Care Document ---
:1945 Author Organization [facility] t Address [address] [place] [address] Care Team Providers Name Role Phone [phone] Primary Care Physician Unavailable SYSTEM, NOT IN Attending Clinician Unavailable Gina Cho Attending Clinician Unavailable Lynda Rogers MD Attending Clinician Lynda ROGERS Attending Clinician Unavailable Zeus JARAMILLO, B Attending Clinician Kevan PINA Attending Clinician Antony LEUNG Attending Clinician KEVAN Attending Clinician Unavailable Johnathon Li MA Attending Clinician Unavailable Kya Perez Attending Clinician Libra Ambrosio MD Attending Clinician Gilma LEUNG, R Attending Clinician Juan Luis LEUNG, S. Attending Clinician Ana Rubio Attending Clinician Unavailable Elan LEUNG, K. Attending Clinician Seymour JARAMILLO Attending Clinician Unavailable KNOW Admitting Clinician Unavailable Payers Payer Name Policy Type Policy Effective Date Expiration Date Sour ce Number MEDICAREMEDICARE PART [id number] 2009 MD Brandon Palacios AND 00:00:00 [id number] 2009- [phone] [facility] [address] [address]Medicare AETNA SENIOR [id number] 2019 MD Taylor SUPPLEMENTAETOR[place]O SENIOR 00:00:00 SUPPLEMENT-SECONDARY [id number] 2020 -[facility] [address] [place] [id number] Problems Condition Condition Condition Status Onset Resolution Last Treating Co mments Source Name Details Category Date Date Treatment Clinician Date 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 of multiple multiple sites sites Paresthesi Problem Active 2021-04-06 M emoria a 00:34:14 l (finding) Bhanu Paresthesi a (finding) Active Problem 04/06/2021 [facility] Rheumatoid Problem Active 2021-04-06 M emoria arthritis 00:34:14 l (disorder) Frankie n Rheumatoid arthritis (disorder) Active Problem 04/06/2021 [facility] Chest pain Problem Resolve 2021-04-06 Memoria (finding) d 00:34:14 l Chest Bhanu pain (finding) Resolved Problem 04/06/2021 [facility] Carpal Problem Active 2021-04-06 Memor ia tunnel 00:34:14 l syndrome Carpal Frankie n (disorder) tunnel syndrome (disorder) Active Problem 04/06/2021 [facility] Hyperlipid Problem Active 2021-04-06 M emoria emia 00:34:14 l (disorder) Frankie n Hyperlipid emia (disorder) Active Problem 04/06/2021 [facility] Monoclonal Problem Active 2021-04-06 M emoria gammopathy 00:34:14 l (disorder) Frankie n Monoclonal gammopathy (disorder) Active Problem 04/06/2021 [facility] Allergies, Adverse Reactions, Alerts Allergy Allergy Status Severity Reaction(s) Onset Inactive Treating Comm ents Source Name Type Date Date Clinician No Known DA Active [facility] [place] [facility] [place] No Known DA Active [facility] [place] [facility] [place] Family History Family Member Diagnosis Comments Start Date Stop Date Source Natural sister Colon cancer MD Quintero son Social History Social Habit Start Date Stop Date Quantity Comments Source Exposure to Not sure MD Taylor SARS-CoV-2 (event) Alcohol intake 2021-11-03 2021-11-03 Ex-drinker MD [place] n 00:00:00 00:00:00 (finding) Tobacco use and 2021-10-20 2021-10-20 Smokeless tobacco MD Taylor exposure 00:00:00 00:00:00 non-user Sex [birth year] F MD Juan on 00:00:00 00:00:00 Smoking Status Start Date Stop Date Source Never smoked tobacco MD Taylor Medications Ordered Filled Start Stop Current Ordering Indication Dosage Frequency Signature Comments Components Source Medication Medication Date Date Medication? Clinician (SIG) Name Name melatonin 3 Yes 3mg Take 3 mg M D mg tablet 2-22 by mouth Drake o 14:37: nightly as n 58 needed. folic acid Yes 1mg Take 1 mg MD (FOLVITE) 1 2-22 by mouth Aleksandr rso mg tablet 14:37: daily. n 57 leflunomide Yes 0 Memori a 20 mg oral 6-28 Refill(s) l tablet 19:28: Bhanu 00 atorvastati Yes 20 mg = 1 M emoria n 20 mg 6-28 tab, 0 l oral tablet 19:28: Refill(s) H erm Folic Acid Yes 1 mg = 1 Mem oria 1 MG Oral 6-28 tab, PO, l Tablet 19:28: Daily, # Bhanu 00 30 tab, 0 Refill(s) predniSONE Yes 2.5 mg = 1 M emoria 2.5 mg oral 6-28 tab, PO, l tablet 19:28: Daily, # 7 Ana M nn 00 tab, 0 Refill(s) pantoprazol Yes 40 mg = 1 M emoria e 40 mg 6-28 tab, PO, l oral 19:28: Daily, # [place] enteric 00 30 tab, 0 coated Refill(s) tablet Famotidine Yes 0 Memoria 20 MG Oral 6-28 Refill(s) l Tablet 19:28: Bhanu 00 methotrexat Yes 0 Memori a e 2.5 mg 6-28 Refill(s) l oral tablet 19:28: Frankie n 00 atorvastati Yes 1{tbl} Take 1 MD n (LIPITOR) 6-28 tablet by And erso 20 mg 00:00: mouth as n tablet 00 needed. pantoprazol Yes 1{tbl} Take 1 MD e 6-28 tablet by Anderso (PROTONIX) 00:00: mouth as n 40 mg EC 00 needed. tablet methotrexat Yes 4{tbl} Take 4 MD e 2.5 mg 6-28 tablets by Leon so tablet 00:00: mouth once n 00 a week. leflunomide Yes 1{tbl} Take 1 MD (ARAVA) 20 6-28 tablet by Aleksandr rso mg tablet 00:00: mouth once n 00 a week. Vital Signs Vital Name Observation Time Observation Value Comments Source Systolic blood 2021-11-03 21:55:00 140 mm[Hg] pressure Diastolic blood 2021-11-03 21:55:00 81 mm[Hg] MD Mary Jane rosenberg pressure Heart rate 2021-11-03 21:55:00 67 /min MD Quintero son Body temperature 2021-11-03 21:55:00 36.78 Norma MD Suzanne frankelon Respiratory rate 2021-11-03 21:55:00 13 /min MD Suzanne frankelon Oxygen saturation in 2021-11-03 21:55:00 93 /min MD Taylor Arterial blood by Pulse oximetry Body weight 2021-11-03 16:48:00 54.9 kg MD Quintero son BMI 2021-11-03 16:48:00 25.23 kg/m2 MD Quintero son Body height 2021-10-20 18:05:00 147.5 cm MD Leon vanegas Systolic (mm Hg) 2021-04-03 13:39:00 Charly riajonathan Bhanu Diastolic (mm Hg) 2021-04-03 13:39:00 Kevin orial Bhanu Heart Rate 2021-04-03 13:39:00 [facility] Respitory Rate 2021-04-03 13:39:00 Kevinori al [place] Height 2021-04-03 13:39:00 152.4 cm [facility] [place] Weight 2021-04-03 13:39:00 [facility] [place] BMI Calculated 2021-04-03 13:39:00 Radha amezquita Bhanu Systolic (mm Hg) 2021-03-16 19:10:00 Charly plunkett [place] Diastolic (mm Hg) 2021-03-16 19:10:00 Mem orial Bhanu Heart Rate 2021-03-16 19:10:00 [facility] [place] Respitory Rate 2021-03-16 19:10:00 Memori al Bhanu Height 2021-03-16 19:10:00 147.32 cm [facility] [place] Weight 2021-03-16 19:10:00 [facility] Bhanu BMI Calculated 2021-03-16 19:10:00 Memmarlene al Bhanu Procedures Procedure Date / Time Performing Clinician Source Performed IR CT GUIDED BIOPSY 2021-11-03 21:01:52 Robb Mathur MD RETROPERITONEAL HP FC FLOW CYTOMETRY BLOOD 2021-11-03 20:19:00 Robb Mathur COLLECTION HP FC LYMPHOMA B EXTENDED 2021-11-03 20:19:00 Robb Mathur MD INTERPRETATION AND REPORT CYTOLOGY IMAGE-GUIDED FNA 2021-11-03 20:19:00 Robb Mathur MD INTERPRETATION PATHOLOGY BIOPSY 2021-11-03 20:18:00 Robb Mathur MD INTERPRETATION EKG, 12-LEAD (PORTABLE) 2021-11-03 00:00:00 Vladimir Junior MD COMPLETE BLOOD COUNT W/ 2021-10-20 19:51:00 Robb Mathur MD DIFFERENTIAL PROTHROMBIN TIME 2021-10-20 19:51:00 Robb Mathur MD APTT 2021-10-20 19:51:00 Robb Mathur MD TYPE AND SCREEN 2021-10-20 19:51:00 Robb Mathur MD TOTAL PROTEIN 2021-10-20 19:51:00 Robb Mathur MD ALBUMIN LEVEL 2021-10-20 19:51:00 Robb Mathur MD CALCIUM LEVEL TOTAL 2021-10-20 19:51:00 Robb Mathur MD PHOSPHORUS LEVEL 2021-10-20 19:51:00 Robb Mathur MD GLUCOSE, RANDOM 2021-10-20 19:51:00 Robb Mathur MD BLOOD UREA NITROGEN 2021-10-20 19:51:00 Robb Mathur MD SERUM CREATININE 2021-10-20 19:51:00 Robb Mathur MD URIC ACID 2021-10-20 19:51:00 Robb Mathur MD FRACTIONATED BILIRUBIN 2021-10-20 19:51:00 Robb Mathur MD ALKALINE PHOSPHATASE 2021-10-20 19:51:00 Robb Mathur MD LACTATE DEHYDROGENASE 2021-10-20 19:51:00 Robb Mathur ALANINE AMINOTRANSFERASE 2021-10-20 19:51:00 Robb Mathur MD MAGNESIUM LEVEL 2021-10-20 19:51:00 Robb Mathur MD ASPARTATE AMINOTRANSFERASE 2021-10-20 19:51:00 Robb Mathur ELECTROLYTE PANEL 2021-10-20 19:51:00 Robb Mathur MD n VITAMIN D 25 HYDROXY LEVEL 2021-10-20 19:51:00 Robb Mathur PROTEIN ELECTROPHORESIS, 2021-10-20 19:51:00 Robb Mathur MD SERUM IMMUNOGLOBULIN A SERUM 2021-10-20 19:51:00 Robb Mathur MD IMMUNOGLOBULIN G SERUM 2021-10-20 19:51:00 Robb Mathur MD IMMUNOGLOBULIN M SERUM 2021-10-20 19:51:00 Robb Mathur MD BETA 2 MICROGLOBULIN 2021-10-20 19:51:00 Robb Mathur MD rsema FREE THYROXINE 2021-10-20 19:51:00 Robb Mathur MD THYROID STIMULATING HORMONE 2021-10-20 19:51:00 Robb Mathur MD HEPATITIS B CORE ANTIBODY 2021-10-20 19:51:00 Robb Mathur MD HEPATITIS B SURFACE 2021-10-20 19:51:00 Robb Mathur MD ANTIGEN, SERUM HEPATITIS C VIRUS ANTIBODY 2021-10-20 19:51:00 Robb Mathur HIV-1/2 ANTIGEN AND 2021-10-20 19:51:00 Robb Mathur MD Leon vanegas ANTIBODIES, FOURTH GENERATION FREE KAPPA LIGHT CHAIN 2021-10-20 19:51:00 Robb Mathur MDson FREE LAMBDA LIGHT CHAIN 2021-10-20 19:51:00 Robb Mathur MD nderson IMMUNOFIXATION 2021-10-20 19:51:00 Robb Mathur MD ELECTROPHORESIS Results CBC 2021-10-20 19:51:00 Robb Mathur MD MANUAL DIFFERENTIAL 2021-10-20 19:51:00 Robb Mathur MD Leon vanegas SERUM CREATININE 2021-10-20 19:51:00 Robb Mathur MD .GLOMERULAR FILTRATION RATE 2021-10-20 19:51:00 Robb Mathur MD ABORH 2021-10-20 19:51:00 Robb Mathur MD ANTIBODY SCREEN 2021-10-20 19:51:00 Robb Mathur MD HEPATITIS B CORE TOTAL 2021-10-20 19:51:00 Robb Mathur MD ANTIBODY HEPATITIS B SURFACE AG 2021-10-20 19:51:00 Robb Mathur MD W/CONFIRM FREE KAPPA/FREE LAMBDA 2021-10-20 19:51:00 Robb Mathur MDson RATIO CLOT EXPIRATION DATE 2021-10-20 19:51:00 Robb Mathure rson TMP INTERPRETATION ANTIBODY 2021-10-20 19:51:00 Robb Mathur MD SCREEN NEGATIVE TMP HCVAB INTERP 2021-10-20 19:51:00 Robb Mathur MD TMP HIV 1/2 AG&AB PATH 2021-10-20 19:51:00 Robb Mathur MD INTERP .DR. BOOTHE PROT ELEC PATH 2021-10-20 19:51:00 Robb Mathur MD REVIEW .DR. BOOTHE ROSETTE PATH REVIEW 2021-10-20 19:51:00 Robb Mathur CONFIRM ABORH TYPE 2021-10-20 19:43:00 Robb Mathurers on OSI PET CT SKULL TO MID 2021-10-08 21:58:00 Nino Rogres MD THIGH OSI CT ABDOMEN AND PELVIS 2021-09-04 10:23:00 NastoupNino washington MD PATHOLOGY OUTSIDE 2021-08-31 00:00:00 Mya Mcknight MD INTERPRETATION OSI MAMMO BILATERAL 2021-04-06 09:23:00 NasNino carreon MD OSI CHEST 2021-02-05 09:23:00 NasNino carreon MD And erson Cardiac catheterization [facility] Plan of Care Planned Activity Planned Date Details Comments Source Future Scheduled Test 1956 00:00:00 COVID-19 Vaccination MD Taylor (1) [code = COVID-19 Vaccination (1)] Encounters Start End Encounter Admission Attending Care Care Encounter Source Date/Time Date/Time Type Type Clinicians Facility Department ID 2021-10-14 Outpatient SYSTEM, MDA ADRIAN [id number] 12:00:46 PROVIDER Drake dowell [id number] 07:30:00 [place] [id number] [facility] 2021-11-12 2021-11-12 Outpatient EL NASTOUPIL, MDA ADRIAN [id number] 09:39:20 09:39:20 NINO dowell 2021-11-12 2021-11-12 Outpatient EL NASTOUPIL, MDA ADRIAN [id number] 09:38:59 09:38:59 NINO dowell 2021-11-12 2021-11-12 Outpatient EL NASTOUPIL, ADRIAN CAMPBELL [id number] 09:38:45 09:38:45 NINO dowell 2021-11-12 2021-11-12 Outpatient EL NASTOUPIL, ADRIAN CAMPBELL [id number] 09:38:35 09:38:35 NINO dowell 2021-11-12 2021-11-12 Outpatient EL NASTOUPIL, ADRIAN CAMPBELL [id number] 09:38:21 09:38:21 NINO dowell 2021-11-12 2021-11-12 Outpatient EL NASTOUPIL, ADRIAN CAMPBELL 1089 [id number] 09:37:19 09:37:19 NINO dowell 2021-11-12 2021-11-12 Outpatient EL NASTOUPIL, MDA MDA 1089 [id number] 09:37:01 09:37:01 NINOSOLEDAD Juan robbie dowell 2021-11-10 2021-11-10 Outpatient EL NASTOUPIL, MDA MDA 1089 [id number] 08:03:01 08:03:01 NINOSOLEDAD Juan robbie dowell 2021-11-03 2021-11-03 Outpatient EL MATHUR, MDA MDA [id number] 10:23:18 23:59:00 ROBB Juan robbie dowell 2021-10-30 2021-10-30 Outpatient EL NASTOUPIL, MDA MDA 1089 [id number] 03:56:29 03:56:29 NINOSOLEDAD Juan robbie dowell 2021-10-30 2021-10-30 Outpatient EL NASTOUPIL, MDA MDA [id number] [id number] 03:56:28 03:56:28 NINOSOLEDAD Juan robbie dowell 2021-10-30 2021-10-30 Outpatient EL NASTOUPIL, MDA MDA 1089 [id number] 03:56:27 03:56:27 NINOSOLEDAD Juan robbie dowell 2021-10-30 2021-10-30 Outpatient EL NASTOUPIL, MDA MDA 1089 [id number] 03:56:26 03:56:26 NINOSOLEDAD Juan robbie dowell 2021-10-30 2021-10-30 Outpatient EL NASTOUPIL, MDA MDA 1089 [id number] 03:56:25 03:56:25 NINOSOLEDAD Juan robbie dowell 2021-10-30 2021-10-30 Outpatient EL NASTOUPIL, MDA MDA 1089 [id number] 03:56:24 03:56:24 NINOSOLEDAD Juan robbie dowell 2021-10-19 2021-10-22 Outpatient EL NASTOUPIL, MDA MDA [id number] 13:34:15 08:04:25 NINO Drake robbie dowell 2021-10-20 2021-10-20 Outpatient EL MATHUR, MDA MDA [id number] 13:30:00 23:59:00 ROBB Drake robbie dowell 2021-10-20 2021-10-20 Outpatient EL NASTOUPIL, MDA MDA [id number] 15:48:21 15:48:21 NINO dowell 2021-10-20 2021-10-20 Outpatient EL NASTOUPIL, MDA MDA 1088 [id number] 15:47:14 15:47:14 NINO dowell 2021-10-20 2021-10-20 Outpatient EL NASTOUPIL, MDA MDA [id number] 11:34:40 13:53:05 NINO dowell 2021-06-10 2021-06-10 Outpatient EL Marquis, [facility] [id number] [facility] 05:53:00 05:53:[address] [place] [address] 2021-06-04 2021-06-04 Outpatient MHIE JAY [id number] Memoria 10:15:00 10:15:00 02 l Bhanu 2021-04-03 2021-04-04 Outpatient nullFlavo MNA [id number] Memoria 13:15:00 04:59:59 r Neurology 01 l Rosa Drummond 2021-03-16 2021-03-17 Outpatient nullFlavo MNA [id number] Memoria 19:00:00 04:59:59 r Neurology 00 l Rosa Drummond Results Test Description Test Time Test Comments Results Result Comments Source Pathology Biopsy Interpretation 2021-11-07 22:02:05 Test Item Value Reference Range Interpretation Comme nts Submitted l6bwfBHlFAHhm3ygZHNtbGCxVsPaNwIcMzYjQaakwDDvIIypchVmRNkhr3JkF7UmGrLqBZlpebOkELRm SesgcewiNDVjGAE3vuTfBKQaUGhtXNCeRWggNd4coINiuDwePtBnRUPye4gdguFUutvatEo3g0iwAJGm KsA3pUJnROqaR6zkdgTmwDQwYBPaVYe7wU05OLPzzL5 Clinical frLBbMMpcsnBcRmX2CJdrNIZrTcA8LWWmrHWvJNGeR1hbIGGlGWvfRBUsRCfhtLXcMVB8dChmk8D0fIU bgNHbvQfcCkWbDmSuCgLHm7VhRPu4aGntB9WfHPRwSwH2aEZpVDAyBBsmDKAuDHMrhmR5fT42DYsfazB 4dLFdi5Lpu35an464zE0eyLChJHZ5LQJmOBZrgYUuGX History QbVKH2MDDzbTEaU3jtPAKoMJ8cjvjeHRixYJtcVVAbzSM5ZVHbzUBzH5JbTECwNCpeHXCmmhn7AgRnRf 5kdFYklPjwPFszv7pjf9akgNUgVio3IFYcMcCvCoyrCEmvx8Bja6jnIEPpvh4gZFF1qAXzsJstr1O7dJ UkGYFtlEJxvdZpIRCjWqJ3EVunND0tgu16UDMmBIG7r (test code s9hbSVgjHojcuEnyOOdDVedG2VfUCXkd127OCKcF7DcQUWfp0O8cnDsKiWhWOGbzGH4tpC0RCPsNSx2g UVptrE7efHuuTJxN4prtU3wBYMyUO0hznipn7nqWBriSNnaRHYonRN3mmA7OXWmkDRaC1OwvJ6qESPrA NlsGXQqpac0YcNeFs7bbYEysQlbUSfpHkliEIazJXOo = 82773) koAiqdUlwCqmRANmMMBzYPhfECItWFbfHERbOSRtLjHqmAbfdCjpvE6kPbDeIqRqPOwuTD1nXRSdD6cr gUCoXLHrJDQwJ3fnXiZopO9tsYklSYocdbUcHVOspIeeZ1QlTSRadXqhdUfneRSdC2IcCDRxJKgdq3Te tLulbCfdpy4tLVZmu0HawNNeaJepfIVfn9l1DZAdF2G 3Ue2bWS8nuFrbwY3ySvXpEkHxEuzoLP1yNMQaS4eniCOuQKYzAXLbN4yjFgXcsN5sxWtpQMfkroAdYBM hcn19 Diagnosis b4cqvCWuVMGcdRI2QeKbXXSxg6ygh6YcuYUkyUBkBCiauADeofWqvf27eRK8xW04CF4hJSNbBkO0DUHv sxC9Pyv3QENkNPTyjGQnY273q9mms4jfoyQapYA1yJfeJBPspmixNuH9TZckIZDxvdglUXl5ISmeMPLb mYW4FAMdeDNsU0AlSYVcGI8mnbv0UPO5GDxkFEIgIqU (test code 5WAJgzIQcUGIszZlhAWhpr380BHH2QgDgWHBiuxNjjDvjvQ8wKmPdEKCHgO2tkAUeu7HmWEGvzXfqbOE gRPObq7Agrfh5q78xiX2bPODltmTaChncsECcNXW1LBIflqwqKDDaqCKnNEZKUAaPT9TFUAEzYRsACJw QSEQkPTAJBScYD7OQPRNzHQFVWUOFTkpkMX8AQOlTBX = 34) BNGVnaTGGjS02jbKXbvMyqhMCrFZYzbs7= Comment q9eaxKLaOAPscAK3DxQoTRYev2utv7CubVFevLLxUOowgBZthgSnmq61qWU9sG27CC0aCKCuIjX1ANCh thL7Gfr9BGYxWBXqrEQbF010f8dnn5kfuxTzcWT0WEKkXXOwP6DwPF1cOFGsrUSwO26atGWbTIQ4XWEp BEPajNTbWIEgEYP3OGCiaHUeP7ibOSSfEG9wvkuuASs (test code sFNuaONUjeRQ1OISodWIpM2JkASAqOFxkAKIynan8CwSmQx7dzFLajVqwTCtcZQAkWLOvRLafZCLlTcK qXLrzfzEspkViKQa4WRdqSPFyh6vkYJbqhCYgDYdztLkuLOLvbXX3u3I6KL9dHUmxRYEfNLWpGVRbp23 fG1evjeFtGLxevM8wbQA6zTjjv2LzgA4sNFXgnp2zfi = 9835) [file] lbnRpZmllZCBhIGxhbWJkYSBsaWdodCBjaGFpbiByZX H3tmrhxRGoYQRrV9WyoHZyp6F2pLL0qA2vBNt8LTUsa9WswX76IGnsL4ZhvIKmEQGiMMGpREuftfVcx9 EeXNGWODFjSBJsgkTuXPijJYLFUAV1JTJZPYIvMIZEKXQuXRSWBCJxHQSBAVB7NMYGEDR7IUpuiX6qRM FuZCBDRDIwMCAocGFydGlhbCkuICBUaGVzZSBhYmVyc dWfgKVKYDOdvXioNSCmQVCmUHkjhEd4OULgc0GcR6E7VUWZFYOdRilfR3IdGLaoI5V4UpfgU8L0MEDka eCdSk2YJT7vbMWuNAKordHDvrFbKJzuJSJ4kCRrsW3woAgszP7buINtLG5wACfotGOzo7MyDL5gcNnfg FVcEzaqLBgmX5BvDTUbVIAstDWnhOdfqWMba9h5dFGd PPMiyND2KL56JIUppOgpE0AuWYVqyZbrvMpgrYAcWXGwfZwvS7McOVTicQA2gDPavwjtvF72CLfwBNBx WgWcsULnLEXrlotsnZTjjxexBIivmxGdT5IdGE3iYMzhQDlfvoFsNPXpzAJ1SCk1l5VcGrciEEFcw02j Bt2fXECkUXDfrY06nw2soHG3l9CiTD1hC4ExJXR3NJc goeA7cBI2TIzirxKxluVkWMQcQTfsVTTpZFf7qJ4yHDBqHHJoFIHjgR99QKX0jI3gCDQiePBjjJ9wkJ9 xrCeawa04jBFzKsMnyGIgbOPeDPHsdeC4dPFcOvCihMYndWOmqw7nxGHmhR8vo2lmvKOsrBNfALFwXb2 crP29guovclJNfNXuZfjxusTdqDLatQF4udmiNDQ1tF QsHUFpVZPdSU5hjSNorBRjkyb1RMKgjZOuc7MujPS4mHWcYU1tEWKkwLF7yVTtLiLpcRXfFVEyouNnsM yjrU5dTAP9GLi0JQXon07bqJ0bjIrqntQzpLCuuM2kuw8luRCoQUFxikUhQ3HeEJNdeu9= Gross u8vazIRwATDeyYLJYGxqLMiukqUxXZCabVEcZ7PvmkhoSElyYC9dVG1ijVnobVLmmECuTB3ZYAFhRwUx GPGixOKhbzFhUdZyLFXxfARmrEH8TSBoEK4ldeouFTwaIEhzGQLancM2ZKEimXZhW8WyTEAsSE5mxwns BCG7OBptbN4vuqUOLjdcTi8dvIFqjBpdWtTjMcOnUZL Descriptio tLBDwDGDfyAftQGFzPNm1tC7EFrblS27xu9O8Krj2SBJrTQNrV6StPT5jUAEuzURbC03SVtwbTLV4TTQ FKkiyCAMhIX9Cz8egXJSvyADsGAP4CQryqPExZIFhVLWhWXg1OAOqRNjedNRcMM6vbVxqOlivqWjee4Y rcHKvZDilOSYsEUAnIVroBSGvTC0BYiJhODMyRUV0Nm n (test luQLo1VQw1PT7JCgPqKBPbIIOnNYHdWyXvBZy6DJstQG9EMMs9QtkhDFt0ZTG2GOL5HOTeSGPlYaYvCU WeUUPsINcaFDaxseWlGSDiKLUtGYatZkpuKDfgQ78yoEszoM4rKcebwdPrMQU2JJTwvyZYVfwkzMSawi xlcGljTmVzdERvYzEgDQpcbHRycGFyXGxpbjBccmluM code = HKIRnjinMNdnEbbXTHiNXbutqJcWTt2lFLqGN3dTJVzeqxjXENmZ7q7ONSiRBMzn6Fumsz3r68phP1eE LVhF8n3HUSckSKjvMDmuEJiibYcsVRouM3giSXxz7JuYDEqh9TimNeuTsGfF1DvMNJUvUUeFYL1GC6vX qWib61iW07jAMSizV4iq9gxmaQfUN5taW0gNQGau14x [id number] BU38BRHyXCTeRFVngFEehjRbOW1lkKcrm8a5lJZrVQOrRQ3xtOIjAU8iIPzrd9EanUgewgFhNvZsE98e CEOucCnzTBl0USY9Lr1ykZXiBLYzwgPMIZ8XUk8pEIuilv76YZR5y6izbPRnPSosUcbqqABqmyF9YOhB IFZFFGcLAvGlSI1eQVtVRchCCGxGFtfqFRHwPjqwwGT ) JSZN9PPrriEbaeId6y2sfhBBzu7g2SJvxJIO0pOjTs9frjVZgVLipNtqwyELvafG2XGzHSHLQXGwTIgI lXA0gYDeVHisGNgN8FaNlUDL3KMzUN2GHuLY2Hvz8HIo5ySwxZxtbdrOzgHZyRxEQpY0kgJrorY8daPT aQ3iyVkJfUOSRNiitfMgbSeUzpPDeXdBfimR3UKCfkR HqWGX8JU0gGVKdxtnzOZBuZFHmEKO2EJarwL90hPMzJNMyKYIuvZBwcWfzbCJosnUDGglmbM6zJhXge3 xotJg1WBGTWzaohYZldyqbiuL2IUUtp4lswIzue8DqlBKmXL3wsKmdwC0uXyNcAxQUEq2= Disclaimer e2zxiCZqXLJioXAeOaLkSIFdZHLzw7oeZFWhrZYeIfXzJqGdQdZyVgwvrBKcSJBcBuPyc1vkf218oHEi w9qpAVAiWnR3qHZdBJHxmGCpL906JRRjMShxi2vqm6FxMAOhbBApw5N0RHATqfnwvXa1dBdbJ99mo5Y5 VzjgL4oeRHXcFAOuV8HmFV9rQVZyFtl3BHS8TWB8UHJ (test code lCDUuN4UcCB1dVNXexMGfEJt1a5hwaBiqWZCrGLR7j4brNQidcnKnED7ahb6zeWn7h2yzuyEtXZYdAUF xyIRHMCVrK0EoePswSi0maYn7iKsiFaojHGR9Obg2NZ5ndb66mzr5pGgoBJJlnyeqBnY9HZcdYYWlasj zEQs9HTgdXNSrlST2VSWqgRJfO4LqKKNyIS4eanv2ZL = 9844) A3VDknJAWkQhV0ZAXcmZVdPLZmfHcrQVpox609ZAJ4VkRhBC5sY3Yrp0K2gU3cxUPzQKAvqUGpBkTeEU Bede4fvMOuNRxts1BxSJM5eqS8vVHfkUXdBCMuFO67Fqwkk8OrZsxnKIC8TRDvubJie8Tfc3huBkOgkr CvX1ltV9QcQRCxDCIuSTGhEuZitcPnu3Oil9UwxKGnf Rb1l0sgXBHfZZLdzSsxm8ukTBS9GNHuT7R1tCXbt6ooJCceOJTdtBJ6bpT4MYBsmENvN0YkdN6vFNFlB I0cayk1l4zlQMO8EKuqFKTzIkC0wrO8SBTyeBFnHWAvdKsnCPxkt518KWN0YwZsXHKox8DsX4EkeQvoR 48ytXmfV24wEIYygTariL4xlJstbM2mDrFgYhYlUAhv cQfvjUItwxbuKRzrtxA1OKsqdrzrPREcOIaoU6hhEjTsXYVuyWjfNAmqo0PiPEImMSZuRxvkefH7GAUG x51fKGSku5AjWJJxcI3ccDZaZOxyzaVjiFD0OBshloVtMzWhcaKbXYPumX1fHVZsIA8oEVQwnpTnrc1p lmIiCDYuBNVtC5QruiwqyKeutbAfAOLmtr9qqmLaCRV 0WNYXMY2QHJArTPVyd60fQGHieBctqD9owGHgysQrOIPgm3RuzQ6mbSAQUUFtI1dmQC4uXRgxo3MjgTD pvSGjqNT5XIDmo7OnZmDfqfWyfPPqpCWlU1WhiEegS9obKORuASPtdaCnvNJpl8XzIQPapIQ7jJJxCI5 QFvFHm36qNYCrKWHFcpAaZONbxNlwvSQ7waR0vY5fWg ICKqMaeIDmpWEpItyiMFDbq048uw6ozeM5LUNgSEEwlqpfs9IaZIVhMBKhxG90CXEuMFReom2gczxejS FjuiBnJ0Psfvu9sY2qELIqTZxiJJUxMJJzQwSkwBLfGhNqWhQvbUqmtDnaDQzuUxDiVFBlTRrcN2unIz FcZnMyMlxwYXJ9 [facility] Oogvagkhhjoerg5676-48-27 19:30:47 Test Item Value Reference Range Interpretation Comments Gross Description (test z2djkWNeIUVxhFRLVWgw code = [id number]) KIunzmDnSCZapAPvG9Ke ipmxDQknYY4iSO4dkRkj nHTnvBQcWM7TBFOhBtBj XHBhcGVydzEyMjQwXHBh sVHwjZW3IOMwZT4vdbpu VCuhIAezIJJynmT3QNYe gKOzX6FrHZLxEH9hcwky YIU5MDbwnI0rnzSQGuya Jt7hyUAksNxmPtWzVvLt YXJzZXQwXGZuaWwgQXJp ZZm8yO3EKfidY01kn8A1 Wkj4QWJzMWSlY5MkFJ7z NZHzgWKyZ68MWfhmYMC8 EHGKSfslARQxVC8Jk7qo OLHsxPZtVCE9KZpzwEDd XINyGKSjDUy0SNGfTYao tCQzGZ4yhTtvItdluLkp h9RzhFFpXPdfZFZkNWHr BSabAIVkAM8NAdOuVWZc EMEoEDfsRFr4GMf7PC2Y UyAiICAgNTAxOTQwMiIg EMh2NPsgOA7CCVz5EuX0 QkUwHXG6FNG4XyZhHGUg MiBcXGYgQXJpYWwgXFxm cyAxMCBcXGZiIFxcZmwg LJqhP85lpUeikZ1aPxyb wqQlOBV6TTNhsxVXResv bGFpblxlcGljTmVzdERv YzEgDQpcbHRycGFyXGxp bjBccmluMCANClxsdHJj aFxjZjFcZnMyMCBTcGVj xK3zcvSwdBEuP9CgRGU6 XHBhciANCjMgRGlmZiBR dWlrOyAyIFBhcCBTdGFp olHCaSfdNCUnqXNwEH5T GIWskAvxZKqfay91IKV2 n8enrZCeXBnuOpslaIEd qcR1KZsLGLLCHYaYDbDk WS4cYYuOF5VDDSxFAjmx UUT3GDfveUI8y3kxtSUx u3p2CBngBXU6bGVji1Vi yGEeeKJjuHMfcRS0IVUa AFzzd1tfNQAoCZqlk5Tm DLmQZRFEXE8ZLT3mfBJ1 S2rIKMHAY4lJbXZ7l1vg gOEtl7m8MOraKDO5sQHd f09iuPyyEpzysML8CJbv GrqlcA6ocSQZNZXCZeqT YxuttsOrLX6WUWcFVX1V vKH8m4qeqHNfv3n0AXcv XTV5dSopzRPfynwnxSJr nWywbn57AHS4KUWgZErb czIwICBmbHVpZHtcZmll aNG4UAvgYlcglK0srNLG TBLQTdrWSpodlfUqMX2L QAZIIO6NhAY6WkEayUP1 TA13MVSwIBZtqEDaCTgx P320WHCxMNkgULr4asEf XGNmMVxmczIwICBpbiBS KO7HECEnazHQGlCtKdio r5esDYRnAIvdGFWpwTbg NgffR7oiJYfjUIdnKKHs RCiBDXYdI6AujXWePTbi T6BqBYjoHVGmso5mxYmd OiBccHJvdGVjdHtcZmll iGG5VPbgUbcokJ4wrQEL XCGWYmcURkdsnfYdCS1A LQ6DCcYXLB60TYCbUsP9 X0yIN5RKGJWHCTO7TQg6 xGE9dW79XDXgRXCbiAUz IVegW488JNBsDKEtRkZ6 KDXrQQnax2ikEEMiBLva z8OhFYtAKUAQDG2YFO1s tJQ3ZLtAH1DTZIn9UWN1 MnwzfFRPREFZREFURXww aZe5ZGx0qXiuWrpesnDc rEAnTtUMnD5eoDqyfC6e xGEpX5qvX6OdDZDmOkFy ZSKsOXCfw1PmY3F3GLNn KXplh2iwJDXkJAapi3Us QWdVLEGAEN4JHB5qjHD2 BHfZG5EVR2eEtFssqBG2 Ae9ZrAL7lGckaXl8k5nx oWDbp7v8XRnrMQL4zAV3 ONGdQQ01WUAfDPvqo6mz JGWgLMinh3MrKPkIPBKC LL4HRT8ivZF9WGkVM6VU GUf1Pqc0qX0LL9ggwPy4 IGv3uDtkPwihiwFqdSCo YaENpQ2vdQhnhE6ijDUj I5zeT6OdORVeGeVjkKCd SU5ODALxxjGAPxKvlxO6 PL7hLLxxJZKiZCmIrC8d ZGlhdGUgYXNzZXNzbWVu bDAxk2Uav0JnJ4mmPT0q NVAetCYtT0irl2QoKB5m ZYEgIZCfn0CfF9S1ASFv LNujn2igBZXqTCpqj0Hj TMhHCDTDEM3BUG4gzAX3 LStECYCYA9lDxFU8HvK4 wOO1XQ36CXZyWXLdlDCu RMilR050sQD4STRyEQyj o7ikOATlJJwtn2JhRWoI IMJMYK7OET4kgJS7KPtR KIOHCNgiHZq2MRw4vJE3 o0kycMKqc6l6ZLleLLP2 fVxwbGFpblxsdHJjaFxj ZjFcZnMyMCAgYnkgRHIu NXpgoAwjdg5JSxa6MWXS PRJXPUaFAJ6JRZGXPXHX PF5SHIzKIbHoBYR8KKum YGM4LoMoQtT6LaC0WN3k JHLXJAYADXcHYX6LXDCY TEXCHE3ZUfCzF2zCNMPP UkRfTUVUQURBVEFfQkVH FB8rAup0Gcdyf0V2L3vT RENBUkRfTUVUQURBVEFf HO3QDTKVTRBFBP1XSVVC I83RGKHVCBBWB9KGC3iA TEJry4RbrUjyWmD7IiGr BM47FSb5DKRkunD5Wfdi GYl2OSj6YOAOYUEUQZ4E DHIXS40KICLPPKDVG6OB AOOHOdIFMOOOO21GHZXF DTVXT7EYF8cOOCVOYtNS RGOSS97ZNHJOTWHKR6WF INNSIMKHDvDDFuBCNL6I NCIDGHSPCB1XZDcEMjPb KFENZ2WZLcATA6oaDDSF OSRMLWPjIB6LJRidBARz I69jn4JSj9FqSGBrx6cl eFdeh5GimTTcHYlyDUCi mNJvRDqeqN4uZsPni2bn jMq4IBjfqyW9QCUzuf0j tDztrC4eEYqny2vyMIK1 XHNsbXVsdDAgDQpccGxh jB1yZdNpKzn2LUprSYYu B2GoO8KdkwV3ASVgTMlk XGZzMTYgDQp9 Immediate Assessment Adequate (test code = 9837) cellularity, further review needed Major Classification MALIGNANT A (test code = 9839) Diagnosis (test code = k2uumHDbIAZnuTT7IsYt 34) LFWkq3mfs4ZhpSJpsPUb IPmmbVVqwjJuzv35qLQ6 tY01QZ9rYWNlPwH8NFRo tbD8Ggb6HYKnRVYhjLTy V567j3eza7ixxbIlqQV1 JBAaNETtV9GwRX9eDHKw pEQdU60awEMqFSS4RIHe WAQtsLYcLMFoNQG5MESd jGPeQ0ixISXhKW3jpree BMefEUjuRWXcwKQ5LBHj fFZqG5ZxYHLsLCppAPNj uun7SdFuGl2icQSviWkw SXtiI9flgT5iDyP6IMhe N8yeoB6aJSn3TCtrRHHp pDW5snD0CTTogHXrA8Cm lB0eOORsXU5hnpp5t0il CBT8GDhePJRxJiV7vtL5 NDBccGFyZFxwbGFpblxm gdOwRGEmWIWKAyEMfG2z rUGxd0XjFRLiZBNcvVhv pXpwvfW1wt9rXNOtkZ1x FWNyJFIvlA6tQT9cJNOx IJPuq7YktdU1gC5xKiwv YXJcdGFiXHBhclxmaTcy MGURQAAqATUVL6rSDUPB UMEtQ6WDXUDMAH7PVZ5D APLtO1BzAFxPKYLzW95c bWVudClccGFyXGNmMVxw TRHxhZn0WwBgGwkyXBGq cn0= Comment (test code = c9zceYLoTCAqiDK1OyEe 9835) RMFeu7aai2LcgIVaqNFk REeuvNSplwHdav87sCR8 yI80AO2sRXUwXeQ2DEEe ilT1Vhe9JKGkWZVvaNDj B541o3smj3mosaVhkTH4 gNrgLXCuxggsZxK0VNbh LFSttlhxIHa4ANilMKEp jPE0ABSzcXQcO9VcQQQz YM8sxfk0BOW1FWzwUODd EsR8HMWhrFSwPHSnpNyf WHdpb382VSL4WvLhWUEv ktFcoOeukA7lVeBkKRVT pTLtQ6Faf43gBFMjLJGm TGOzDOruSPZmi8YpCUEe i3dcbWKfLC6axF3ghwUv lQKpaRTdlWResW2lkM4d uUUeya0fPC9rgA0tvNqb nz21mQNhmwbnWmksAzlv snWoxQHmgKU0bhulp1ha p3HuZP8aLGOrlvAbadMf Ko9mHLtzBGNibPJeARKm d77gi4n9uODiHN0kAIOd wLiwhHJkQ6xayM3cowCt sRRtD4Cmm53kWOqirvYv u7udClCNMQBtMVWBIMQ7 LCBDRDIwLCBDRDIyLCBD ZAWvAOUvCTXVCII2MSVt axJzsdKjDAAulkYyZv3k FOUCSIlwG9KwXCQzXT5h WHXWVpDhPSIeYYOtj4Yb lB9wa9zyPsUxDTF2gDRo pcCxvB4aTsU0dNQdLELd SQPsRQPsn8OerMRyIGRm FYWgpbFkl3SockTxj1c4 ePAwJTV8kkBxdyYpgPTz j5gnyELjoVQex3zqzPE5 lLWiSRd9tUAdl84pMiME fNVnz1Ken0RcVFAiGSHz g75koDRfHI18zXwaESTq dWlyZWQgbmVlZGxlIGNv dlRzZogrtKZ7DUqNLvLs NOV3MPTgAJSrb2NmEKIh gQOqx38ecXGwacOhbMQ7 hC6eOdJkqTShSNYenaxn YXJ9 Retained/Biomarker s9fmhGOjUXOmkUS1DoKz Testing (test code = ZMFzr6xtv9MhmIErsGEn 9838) LWueeCPkdlWcqk13fWI9 eA93ZC7pBVUdAyM6NUCp dtU3Dfb3HXRyFVFafTWy A328q9xxi4mztdXsyPE0 oAlwNLIshtsaXiS4ITwm AUBjvesbGAu9QBtkIKBt zYD6KHGbxTPbD1CvPRNu FG8itwo9LXD6KQjjAILy UxT5LKZhmGKnVRHekLrc UIcxu366KIU3HjBmDULo rpCflHsybQ7gUxUeFOGB UjogNSBTLCAxIENCXHBh cn0= Informational Points l8gdrFBgDUGbgMQaKsHw (test code = 9836) CFJmRLHgu9nnGNIawJMq ZzEwMzNcZnRuYmpcdWMx KHVnDtIad7qfu590pDQe r0ywVQAmUrA3uTEgPJYn kFHjD408UCHoNDvrg5bf p5SdRLZkcKMhn8T8BPCI JXcyPEDGLCw7p7cjRzYw PzP8hPNaMTeiJ3ikqiUx kWOxMNYqFNy0jT50TAGv pW5tcVKgSFruaqVfKxT9 ZPpnTGOuIwQ0FYJyvKFr TCUuF8ylGKPeRTlcGSOc UYxegBWnEOP3dSywh1X7 bGVzaGVldHtcZjBcZnMy EnZMt7QjQEr9xZhvF6Bl ZAPvAaP0gJWmABSkOWuk KVUqJZLpbkZ5sV16YEbs ffW3nWXur1Zec17um060 qR2tcZJtLII7UKWrJHFf qYQrDAZcRRE3FTJylGGc O3cwUSVaRO7evjeoAIcz NIbmHMTxcPI8NVRbwCKf R0HuNVBkMBvlQAZhynd3 HqKhUe8tfIYxhAyhOThq z2wzs9uylEXqSjv9KWCp EtAxYzqzJFmjy0Swh7dq ZMIjgs8kWVR9nSXmwOli n4L0kAMmOLKjmUEdjtKx ZCBtyi18zITvdFZxvTDf gf4musLjkSArxFWlFXB3 cHNocnRuXGZldDRcYWVu PGRbM6keOzVkkbRrT9xd P2QuLTRbMAQyESUrWpUl paLgm8Cfx0BdrEAhaGh9 v0zfCXMkFXIwkBlug0mk DRB4VUWiP9E6aQVcu5bk NDpeTOMtxHP3gtR6NLTw rDAuS9JyeD2vYMYmSD2w syg0t5pfAMC5ZMkiOTTs XuX9yuQ1NMDriKQoGGSj gEjsVEtqo177YZX2BySr EMEhv4SeY8NmkHywE54u eZrrZ56yNKZfxIufnC7s nQgqjB0pPuVoMgHlBLok bFxwbGFpblxmMVxmczE4 TWpxuvfjRSVuHMqtH6kr KtUvAVEagQkrYSgpd2Sl DNUlFJFaDClfwSMIy75i AWFhg8LqSGYrkZ5epSVd ABczwlWvbGQ2PWawwyJi EtEgwfIdKVDpqA2uZZUv MQ0oRKBflxOnir8wdnIi CJJgCXBnV7NszebogNnh ieKrDAZfve2brlShGZL7 LBKUOG5QGXMhIGJqn35y DYJzzRfyuQ9uoNRmooXl MPUep1WupJ6ilWJFZJWn C8rfLG9wVAvrc6OsrRAr pOPfmXI1EMJrx1HwHpZh bnDpzITkaTLhJ6LvqNrh V6boQGCxFBXciqKxfSAv f6MwGNHekDM5gQDvOW4N HbHRl17lMQAxFHYGdeRl BTCvbDmukXH8slT3bR8r EkRUjAtjSFIsp2Qsw8Ah J8wsAQTpVLDegFBhnVmt rR4kDbZwDoQnLNyaHD5u EZXtS3eilAHjGQNqAMIw O6ixFeYrqX8khKivAHrd ZjJcZnMxOFxsdHJjaFxp WQofc5MtPR3ydvCVnQTt yGT7iM6fp7e1XPibYx1g LUYpxymzfNmrlK8pBmIo TiPrVCtzVM0zOKCvS1ec yIJzHJIoLKRhC8lrXrOg dI7rbRdtCRztVvCvCrBk OFxpICwgXHBsYWluXGYx XGZzMThcbGFuZzEwMzNc aGljaFxmMVxkYmNoXGYx QMxaW8ybArErG9DaUPVl ZUvhyDTwA1rftTNnCTTo HoEfaS33j3hzzUJXutm5 XNbeM94mgc1wSRTESBfh cdR4HeF6HR0pbBoqhB1w FoUaUlOdPxofNW8mYMVk W2ojnLOrZYMpZXCxU3rs SlAlaQ8cjGbdTivfhiIt XHBhcn0= Lab Interpretation (test Abnormal code = 11835-4) MD Taylor[facility] Cytometry Specimen Collection -Fine Needle Kbk4565-22-49 14:05:08 Test Item Value Reference Range Interpretation Comments Flow Cytometry Yes Test performe d by:The (Received) (test [facility] code = 8319) MD Taylor Can cer CenterFlow Cyto metry Bgyzdaqtov1014 [place] [address] Beaker Ap Link (test [id number] A code = 28583) MD TaylorProtein Electrophoresis Path Fuekmp6295-33-45 22:27:31SPE Path InterpThe serum protein electrophoretic pattern shows a barely discernible protein peak in the gamma region which corresponds with an IgM kappa band by immunofixation studies. 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 Comment: ASH BOOTHE MD, PhD [id number] by: ASH BOOTHE MD, PhD [id number] Date/Time: 10.21.2021 16:[address] TRAFFIC CONTROL TECHNICIAN Transcribed Date/Time: 10.21.2021 16:27 PM CSTElectronically Signed By: [place] [id number] on 10.21.2021 16:27 PM 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 Comment: ASH BOOTHE MD, PhD [id number] by: ASH BOOTHE MD, PhD [id number] Date/Time: 10.21.2021 16:[address] TRAFFIC CONTROL TECHNICIAN Transcribed Date/Time: 10.21.2021 16:27 PM CSTElectronically Signed By: [place] [id number] on 10.21.2021 16:27 PM [facility] Center[facility] Avdbudjctujplx2685-62-07 22:27:29 Test Item Value Reference Range Interpretation Comments ROSETTE (test code = 5948) susp. [facility]tl[facility]ZE[facility]61[facility]58-38 22:27:28 Test Item Value Reference Range Interpretation Comments TOT PROTEIN (test code = 7.7 See_Comment [A utomated message] 8545) The system [employer] generated this result transmitted ref erence range: 6.4 - 8. 3 gm/dL. The refe rence range was not u sed to interpret this result as normal/abnor mal. Albumin (test code = 4.7 See_Comment [Autom ated message] 4081-7) The system [employer] generated this result transmitted ref erence range: 3.6 - 5. 4 gm/dL. The refe rence range was not u sed to interpret this result as normal/abnor mal. Alpha 1 Globulin (test 0.3 See_Comment [Aut omated message] code = 2865-4) The system [employer] generated this result transmitted ref erence range: 0.2 - 0. 4 gm/dL. The refe rence range was not u sed to interpret this result as normal/abnor mal. Alpha 2 Globulin (test 0.7 See_Comment [Aut omated message] code = 2868-8) The system [employer] generated this result transmitted ref erence range: 0.5 - 1. 0 gm/dL. The refe rence range was not u sed to interpret this result as normal/abnor mal. Beta Globulin (test code 0.8 See_Comment [A utomated message] = 2871-2) The system [facility] generated this result transmitted ref erence range: 0.5 - 1. 1 gm/dL. The refe rence range was not u sed to interpret this result as normal/abnor mal. Gamma Globulin (test 1.2 See_Comment [Autom ated message] code = 2874-6) The system [employer] generated this result transmitted ref erence range: 0.7 - 1. 6 gm/dL. The refe rence range was not u sed to interpret this result as normal/abnor mal. Paraprotein1 (test code 0.3 See_Comment H [Au tomated message] = 35808-9) The system [facility] generated this result transmitted ref erence range: 0.0 - 0. 0 gm/dL. The refe rence range was not u sed to interpret this result as normal/abnor mal. Lab Interpretation (test Abnormal code = 17099-5) MD Zuleyma Angel Core Total Gyhcruhp2561-54-63 21:57:51 Test Item Value Reference Range Interpretation Comments HBc Total Ab-Lewis Negative Negative Test Perf ormed by:Lewis (test code = [facility] - 62475-0) [employer] [address] [place], [place] [address]Jhb Director: Shahram Garcia M.D. Ph. D.; CLIA# [id number] MD Zuleyma Angel Surface Ag w/Odudvsh6136-79-36 21:40:33 Test Item Value Reference Range Interpretation Comments Hep Bs Ag-Lewis Negative Negative Test Perform ed by:Lewis (test code = [facility] - 5196-1[facility] Super ior [address] [place], [place] [address]Juy Director: Shahram Garcia M.D. Ph. D.; IA# [id number] [facility] Tkanzusztcgpvk8791-74-79 19:35:36 Test Item Value Reference Range Interpretation Comments Materials Received (test o5ghuTOmRMPwzUOnWlPj code = 9973) QQSoMZWab1uyDHUxcYRo ZzEwMzNcZnRuYmpcdWMx OJLyAtTnm0dgv443dOTr o6hjVDNwXcK6yCQrHUWw dVYcG791WYZrKNgct8wk h3TkVKNyyHEcv8X0NQKL svjhcGa8lItwF45xi8R1 WmcmE7nsJCBjPKKrC4Rr OV0eOXSxHso6EPQ8UTZ7 JKIbVSZmH5RoVV9mYUZs lSYpLDd4j9nziBfyJISt SRL8h5ygIHqwdjEeVX5q hw4dhPx5z6olerPjNFIq SKEmzKHCLIToK9EozWbd Yd1isWe5mVzcGuxzBTK1 Xjy7KI3ppw82svs3gWcz KCAiupewYlP5JSnwFHIr dkddFZm5DQzjLKRnaHnd MFxtYXJncjcyMFxtYXJn fAD9ZYHvbLRkK0NlKNYa YZmlGAHuyvr0WpPjTg4g tXJksEbcIQbbm8kvq1dj rAPmNis0LXDhMoBrYrlm XHcwi5Vdo6itVKWgys9z IES5zQRbhMdcf8V1cIQf TEOqaMZwplQvPMApyt21 jYAhvPEyeZBlyl9kccGd cOSayYZyXZA9dBWuppZn WTFafNEmQEUtRJ8gsCUz PGLldH5usyxyRSBgGyAa resoVYHpsKfkujGwDg5q nTlnYGP3LDgiK1bkaH2g SxQ3UCkhD1fhsW3xNSu1 BIgoePT5LOBhcW1eBU7o yofzw8czRmTrKF9qrozc l3pbOfYlFQ6uodr6f6ro QQH6BJilIIBgLvS0rvK5 NDBcaGVhZGVyeTcyMFxm f542LRF1AgOrYLFsy7Gs S6PrtIbzH11kuImxA51a KDAmpGyqlX3weLpxnF8b EfXqJxVhGIs1sk46KUe9 wzydxTptAAm8gqGfZVCv BYP2VGFljKYhBLMhT8a6 eaNzVATmIVM2HBXovIDn ANKiT4g5bnDdVJU7JGq1 cnBhZGRmdDNcdHJwYWRk YjBcdHJwYWRkZmIzXHRy aQHejLAhtPQumT7alPkg IXLtbGYybA5lVVR4AZLj cmgzMjBcdHJoZHJcbHRy vs28FXBqjjOlqURyzMpd mIVjHZO1KORnDICyUFHu OTM1WZUbMoLuqnVhRGcz bGJyZHJiXGJyZHJzXGJy NFS3GJNsNcPyaxGwTHxb bGJyZHJsXGJyZHJzXGJy FIE2YCZiOdRitsBnCUrl bGJyZHJyXGJyZHJzXGJy OGU6DCNaRtUvfvQmWYyp bHBhZHQxMFxjbHBhZGZ0 A5xpdUOyVJGoNRuvoBYn EFUrG9znsSHfYQjhOHSv cGFkZmwzXGNscGFkYjBc S5hePGSgFmBhF6RsaKq4 MDAwXGNsdmVydGFsdFxj dYQcJLY0DDPtDROzTMGc KEZ8TPMaBkVnelJhENfw bGJyZHJiXGJyZHJzXGJy EIJ9NBEsIfJhjyHtGRnm bGJyZHJsXGJyZHJzXGJy AAD5NCCwStTfjqQnKCes bGJyZHJyXGJyZHJzXGJy NOC4DURwLbRoiuHqHCuv bHBhZHQxMFxjbHBhZGZ0 X6bfaQCsOFTeEEvnkBQz KDZjQ7levGVzOWgoVUYv cGFkZmwzXGNscGFkYjBc V3cxRMHnKnHcM1TpmVg4 NjAwXGNsdmVydGFsdFxj bBSfLRX9PYQxUGQfINLd GCS8JBHyWlGnesTbBVnu bGJyZHJiXGJyZHJzXGJy YNU0UGIwBmWkumMpDNiy bGJyZHJsXGJyZHJzXGJy EOR4ZNYlKvPvssIgTBbp bGJyZHJyXGJyZHJzXGJy HBY5GPBfOtHqwyUdPVyi bHBhZHQxMFxjbHBhZGZ0 Q9bajIShTWHyMQtjoGSy GMJkH7okmYMzUJhiFDBc cGFkZmwzXGNscGFkYjBc T2skATDoFvYhR6BmmXs8 HmLfLKTghsEjiS17Mnxu b6NtJCBiFDS9IRdqOVzu bFxwbGFpblxmMVxmczIw ZSoqlfwvGVRwXHaaZ5cy ZtLjZHObiYhbSZwxa1Ga XGYxXGNmMlxmczIwXGIg WAXrXUYskX4zGsbjS2Bn qX6sUHnzIscrV2ayYRBy e6SwiS7eKRfyoJOqpovm MVxmczIwXGxhbmcxMDMz GUnpY7dvKgMgPPLxpQew CLdno5RrOXNuJZSaLphk rvTiVBn8anRrKVDxiFdh jWKfXRmhlqIqsJrjw9Dc noAuwFciNKBrWLz5aiAj rapzeIj1kVGqiAisUDWy cHqajX8aStFvCtMeAFyz bGFpblxmMVxmczIwXGxh rprxICGpFJzpW7efYhLp GQHimGctOXssm8FiOMOy JVKtAdphqmLmFVQnX24v bGVjdGVkXHBsYWluXGYx XGZzMjBcbGFuZzEwMzNc aGljaFxmMVxkYmNoXGYx XIwtE3mzYmVaG5PhKJIa VwXspIVvL9sfG9DucCrc YXJkXGludGJsXHNzcGFy EPO6hCZhdoScfPLvjGEm UQVvQAdvYPT8zTShxtvt cRVevzmjTXbmadN9CDUq YWluXGYxXGZzMjBcbGFu ZzEwMzNcaGljaFxmMVxk GaQzJGZeOHmbC3otFlBp X9KtQWXwMsRgCcYQPEFi aXZlZFxwbGFpblxmMVxm czIwXGxhbmcxMDMzXGhp A7tyAvTrNNWznKygOLhb h4ZpOEApNZZqUhxzstSu XAo1qlRcVWVcgFepmK04 Pzecqe86CCPtg0hqMFFc B3OpoLFvCSPniBDlIHkg MDhcdHJwYWRkZmwzXHRy cGFkZHIxMDhcdHJwYWRk ZnIzXHRycGFkZHQwXHRy vRBuLCY2R3e4pyDnJJSi FOq7qlJoSEFiGxPnmJEp VOK2LZa3AfhdafO2eOGb K1q3JfdyorIyLJxjoFUw pp53IAHdlhRzoPNoaFrb pSAuXUF1NNMhKLCoXLGl OVJ4DQTvUkOqhcPsUCak bGJyZHJiXGJyZHJzXGJy ABV9PUYrRlIettXwXGnu bGJyZHJsXGJyZHJzXGJy ZZE8TGUyWfKkagIqMDtk bGJyZHJyXGJyZHJzXGJy JOZ7VGSiJaUbrcLpHYyj bHBhZHQxMFxjbHBhZGZ0 D6yjcDBpEJCsZLmobGJp PEOgS0uvzAMlUPhdKTCs cGFkZmwzXGNscGFkYjBc O8bxBVTfBuWcC8JkoVa2 MDAwXGNsdmVydGFsdFxj nZLeZZH5YPIfHAScYZTj NUR1MJEuPuYnveZuKKlb bGJyZHJiXGJyZHJzXGJy REE9RYSqPvCkflRkFMeb bGJyZHJsXGJyZHJzXGJy VFB2QRWtSwNhhsScQCna bGJyZHJyXGJyZHJzXGJy ZUR6EHJwXxDsfyQzIXut bHBhZHQxMFxjbHBhZGZ0 G7fprERwVEYxOInvmHNx DUFmI7zgaVTfNXojQTDv cGFkZmwzXGNscGFkYjBc P9hwYZJpJlAeG9HhkMw7 NjAwXGNsdmVydGFsdFxj iCVrFXG6YZNxJEFbAYKe IRJ5YMZyVbGvekGcQSyq bGJyZHJiXGJyZHJzXGJy QND4EFQoSyFfgaJwKEjd bGJyZHJsXGJyZHJzXGJy JPE2OAPlUhSilqXaVBaj bGJyZHJyXGJyZHJzXGJy OTJ6HFPjEwPyfeRiZJrz bHBhZHQxMFxjbHBhZGZ0 C5tcbFVnNARdQVvzxPWd UMRhI9siiFZbRYedKREy cGFkZmwzXGNscGFkYjBc A4szBUBxEqSeF0VaiRy6 InKuAPYepgSelV22Svxi a7YsXZBpAHJ7WPyhICcp bFxwbGFpblxmMFxmczI0 XHBsYWluXGYxXGZzMjBc bGFuZzEwMzNcaGljaFxm LInrLzTiBTQiAEjiI8li RpBeT6AdDCEkLiOwWT7n HkO1OIZmJKDaXCCnAAAX KDWvWIOBA5HBWrsuXJYD T6KfsXjxaF1cTnGjWtIh KYmjWY6mZDDfZ1uqsAVu SZQlSWTeE9spXnRzdB1h aFxmMVxjZjJcZnMyMFxs dHJjaFxjZWxsXHBhcmRc jQ61Mhxsq2GnMEXvCTN1 MFxzMFxxbFxwbGFpblxm DVnjiaA9EXSvZWumQHXn XGZzMjBcbGFuZzEwMzNc aGljaFxmMVxkYmNoXGYx MHjpT2qeExDrP8OlXOZu MjAgMTIvMTMvMjAyMVxw bGFpblxmMVxmczIwXGxh fqmfVXBjMLgcG7qdWoYf VHTlgWdwAQwyk2UqRREz YFCvYvypjdIeKIk5fiKo XGNlbGxccGFyZFxpbnRi sLree4ZqnbSmbJuuTPCq XHFsXHBsYWluXGYwXGZz FkIkeDebbB2vTeRxUaKi EOnmXJ3bKGHqB2medNBw MRSaWSLlG2umKvTiaF7f aFxmMVxjZjJcZnMyMCAy LzIvMjAyMlxwbGFpblxm MVxmczIwXGxhbmcxMDMz NYdpS7yiWcCsDTAdbUai SSlfd7LzFGZeRCOyAhsi pcFzWIg4gzLcAXYwwOix fL15Rfxjhl87BZEdwoFl v6CoNNNuHZA3GMeqQVsf bFxwbGFpblxmMFxmczI0 XHBsYWluXGYxXGZzMjBc bGFuZzEwMzNcaGljaFxm TWbqAvMpXOWcZPtxI1gd ZjFcZnMyMFxwYXJ9 Diagnosis (test code = k7dstDXgGWDwmBU4FsUe 34) VMLrp5lxm1OapUQmgJZr XYilaNGypvKdrk08fAU4 vV36KN1mZYStTdU3MXIr zxE4Ztz2ZDKrSNYvaKQr X650j2bhe4hptyFslYY5 FMAtDLYqN2RrMJ0lLKAt cBXeL96nzEAbFWL9NPLu EVFbfOYdRUTmQHT4XSCz fBTiY7lcAHIkDA4abgqw KCdiKWddPSPowGF2PYPv oYOuJ2IhWMMtGLnzAHFm ajn3MoRkKn8dgCYpsMpd MFxwYXJkXHBsYWluXGZz LtLjF8LkWN02wNHlRNEj KDIxOklTMTgyMCwgMTIv MTMvMjAyMSkgZGVzaWdu YXRlZCBhcyBlbmRvbWV0 qhnmhWSawB4ri4esVSgr BUSXCsy6ANZragyqRbCg cGFyXGxpNzIwXGxpbjcy GOHWkWG6raJamtPhShpw o1Hfh9b7sCCmX6CaxANb zkCvoZLfgQAmo2CwDV9i f9AvxvGiI7DkXAysLK5a cyBhbmQgcmFyZSBzdHJp uZOpj8UetV9be4exbMSp FP2ru62ilKZjQGcvl4Er ZaGoRDQdiEx9yANkgUHl WkSxT5WaXWYmvM6ziiUp XGLmbrozYSUaQoCeB36r xjIuDE4cORPupUVvTZHz s9Aeo46mZkchQYYmpRks XGxpbjBccGFyXHBhcmQg UFhSXHBhcn0= Comment (test code = n0smfXJiEPQxxJT3OvRx 9835) HDCjs0abe0KtbXHexIQc OCunaUHmeuOsuv06fIM3 lN90YF6nEELzPfC3NSKx ysE4Xvw6CAAoPZRaqNRm K383j7wum2qljlTzsNZ9 hZefTDFnddlkGcQ7CUvc QVAmyfyeXPx5TDhqWIJt eUJ0LDGojYBtH1KqNACp NI0sjhx3PPK2OZtfVHUa LeZ0XEOelNVmNNIpaKhr TOyfe474GZL7YsDvSPRz guKuzQjmrU6wAxXzVVAA eNMtToxrtOF0BJqbQWxk r0MpHrlaoFGdqGBub1Yo ZXZhbHVhdGlvbiBvZiB0 kJEiMB8bq20rpLAwbR3l YSVZeq9xyQJbjKRqpCJd ZiBhZGRpdGlvbmFsIHRp k2X9JOYfENfrUuTvI68d l2evTXOiXQaunUFgW5fe hlywTQwelDIixhYsE7H5 ZWQuXHBhcn0= Biomarker Block(s) (test v7rsuPCmZBBiwMI1FyWp code = 9841) PTVhl1ppd4UagSYakJLy ZXuglKOeabPzmf40vEG0 xW65PR5zEICuTfZ0KAJr jjB5Wxw1FXPoVDFbwTWt U912h3ovh7qymuPypAQ0 mJfnCDNiyapqZiC2QKsn LDOitbfnCIq9QHasZVXp mYR8DYRgzGZiI4YeCRLh TT2zlom1NGH8DAtdCGWe RtJ8SORcrIRtNORafPmi LKfzf160RHC4WiFyRZGc gnRscDtppJ9hXfMhVGCE QVxwYXJ9 Disclaimer (test code = n7aqiOEbAZPsqURmVcNa 9844) XHCkRIKhn4jfHZRgmDZd ZzEwMzNcZnRuYmpcdWMx POUuVyScc8mkn800qUCz i3lfRMNpWuH5zOAyPOEu aQMhJ158MDUpAIdxo4lx m1HnDEVniDHkx4V1KUWU qadhkVf1pPyrN92jv8T8 OnvaW4geJQJsBYAvO6Dp ND7jATKrVwp2RME8PMJ6 UBZpMJVcZ9FuUC3dDKIw dGWnDNz6k5tawVphRBTy EXA9w9meJSnpseNiAC0j mi2frDf4s8nywkDqISQy FPNwyMSKPVKiV4YmvMdx Jr3jyTz3sUllVobcPVQ1 Lhp1QR6emy38bew1qWsn WTPpkcewYlP6LQsaQNLb xkfuHDf7LHbeHNJyuPE5 WMZdbVSpR9VvEYBwKP2o heu8PML4SXgsMSOxQbO1 NDBcaGVhZGVyeTcyMFxm t176FLE4YkZlSJ3dL5Iw g6L3jT9ikSTrOYSdnQVa SpMhSZKoyt2jwUJlGFtp m4DcXGZ4klZ6cXSyqZOm RZOmBY90Amxvm5RkZzwi GOC2KFWxldUip6Eum8po PuRsezFoP4ybI7IxXSFb MFSuHXBfNuAcfbKtp5Mw f5FsoDIelEq2o6ghRCYo UDMtoAemk1ukYHB4QLTf P9B5uJMhy2miXRhhXYLv oEG0leJ9FMWljURxF4Uf yL5eQNRnWM9vkjs2a6qo PWU0ICtiWEJtWxX7baJ6 NDBcaGVhZGVyeTcyMFxm o319NOH8ViByMMBwz5Gs G4DvqNbuM54kgXcwY71i ZWBdgAbjdB0brRavwL7v ZjBcZnMyNFxxbFxwbGFp vxmbPLsiexG6CTiocdba GCVrPInqG4oiGqIbNYGx hGzdEZpmr2ElLMDbFOHf TyhslpD8YFJRb03wUOUk o9FiENSjpE9ckUDsGYjg mvXrkXY4TZnrbbZnShDf ghScQCPoyS4hWNPtNF3d ESDlboVncc8vasGxHTMs CTWvK7CzsftruAasmvPx YONzqj6ppkAaMPB7LVIB EB1WQPGtOOBlj70sOKCc cPsuuJ5tkYBlvxWhUQAq h7QeaJ1piCENKEHaY7ni JM8nZVewl6YdyRUhzTSi hMQ9AGZte7ViAhXurqEj sZCtiGHwQ5IyuKmuI8fj FAPvWOHlsiSgcZLnp4Hg TIEsxBG7rTVoDM3NVxKG h21uZUKqSZCLgdFuVVAi xKhlnMZ2mbC2tV9pUaOE ZiBhcHBsaWNhYmxlLCBj f141iy8jssM5TFRuSQOm djpii8QcFYKoIPUxlJ18 ZNZkNMEjwi1cehaeaJAa fkGzL1Ckuok3wP6zJDIm YWluXGYxXGZzMjJcbGFu ZzEwMzNcaGljaFxmMVxk VrZxHMXlIRevN2hsNsZv ZnMyMlxwYXJ9 MD Leigh March Arb/Free Lambda [id number] 18:12:56 Test Item Value Reference Range Interpretation Comments FKap/FLam RT (test code = 5566) 1.14 0.26-1.65 MD Leigh Lambda Light [id number] 18:12:55 Test Item Value Reference Range Interpretation Comments Free Lambda (test code = 5630) 20.49 mg/L 5.71-26.30 MD Leigh March Arb Light [id number] 18:12:54 Test Item Value Reference Range Interpretation Comments Free March Arb (test code = 5629) 23.37 mg/L 3.30-19.40 H Lab Interpretation (test code = Abnormal 25263-7) MD TaylorBeta 2 Bokrjfwyziawy7927-07-01 18:12:53 Test Item Value Reference Range Interpretation Comments Beta2 Microglob (test code = 5090) 2.0 mg/L 0.8-2.3 MD TaylorUhgrdmcjUpW1708-68-65 18:12:52 Test Item Value Reference Range Interpretation Comments IgM (test code = 6023) 658 mg/dL 35-242 H Lab Interpretation (test code = Abnormal 26738-4) MD TaylorYpfpuadhHdW7387-89-01 18:12:51 Test Item Value Reference Range Interpretation Comments IgG (test code = 6001) 996 mg/dL 610-1616 MD WashingtonTncqtkhmBzR6424-52-37 18:12:50 Test Item Value Reference Range Interpretation Comments IgA (test code = 5992) 240 mg/dL 85-499 MD TaylorChristine HCV Ab Path Ziqlfs7928-38-27 16:41:24 Test Item Value Reference Range Interpretation Comments HCV Ab Path There is NO Interp (test serologic code = 8923) evidence of ____KAMI RHOADES EA Hepatitis C MD HILARIO, PhD - virus antibody. [id number] d by: Payam GAGNON, PhD - [id number] D ate/Time: 10.21.2021 10:[address] [employer]FFIC CONTROL TECHNICIAN Transcribed Da te/Time: 10.21.2021 10:4 1 AM CSTElectronical ly Signed By: KAMI RICH MD, PhD - [id number] on 10.21.2021 1 0:41 AM MD Farris HIV 1/2 Ag&Ab Path [id number] 16:39:21 Test Item Value Reference Range Interpretation Comments HIV 1/2 Ag&Ab Negative for Interp (test HIV-1 antigen and code = 9394) HIV-1/HIV-2 ____KAMI RHOADES EA antibodies. No MD HILARIO, Ph D - laboratory [id number] b y: KAMI evidence of HIV KIRAN Palacios MD, PhD - [place] [id number] Date/Time: acute HIV 10.21.2021 10:[address] TRAFFIC CONTROL TECHNICIAN infection is Transcribed Da te/Time: suspected, 10.21.2021 10:3 9 AM consider testing CSTElectron ically Signed for HIV-1 RNA. By: KAMI RICH MD, PhD - [id number] on 10.21.2021 1 0:39 AM MD TaylorHIV-1/2 Antigen and Antibodies, Fourth [id number] 04:59:03 Test Item Value Reference Range Interpretation Comments HIV 1/2 Ag & Ab, Non Reactive Non Reactive Performed a t: 4th Gen (test code [facility] = 9280) [address] [address] MD Farris Interpretation Antibody Screen Rnyttyas1426-30-99 04:45:54 Test Item Value Reference Range Interpretation Comments TMP Auto Neg At the present ABSC Interp time, patient (test code = plasma shows no ____KAMI Ramirez ORREA 7535) evidence of RBC MD HILARIO, P hD - alloantibodies. [id number] d by: Payam GAGNON, PhD - [id number] D ate/Time: 10.20.2021 22:[address] TRAFFIC CONTROL TECHNICIAN Transcribed Da te/Time: 10.20.2021 22:4 5 PM CSTElectronical ly Signed By: KAMI RICH MD, PhD - [id number] on 10.20.2021 2 2:45 PM MD Amor C Virus [id number] 04:10:08 Test Item Value Reference Range Interpretation Comments HCVAb. (test Non Reactive Non Reactive Antibody detect ion in the code = 5762) immunocompromis ed and immunosuppresse d population may be delayed or absent entirely. There fore serial testing, correl ation with other clinical findings, and supplementa l testing (if available) should be taken into cons ideration when interpreti ng the results.Perform ed at:[facility] [id number] [place] [address] MD TaylorAntibody [id number] 00:31:15 Test Item Value Reference Range Interpretation Comments ABSC. (test code = 890-4) Negative ABSC MD TaylorVxtxlsnkVSVAj1398-99-19 00:31:14 Test Item Value Reference Range Interpretation Comments ABORh. (test code = 882-1) B POS MD TaylorClot Expiration [id number] 00:31:08 Test Item Value Reference Range Interpretation Comments T & S Expiration (test code = 10/23/2021 5318) MD TaylorConfirm [id number] 00:07:10 Test Item Value Reference Range Interpretation Comments ABORh Confirm. (test code = 882-1) B POS MD TaylorVitamin D [id number] 22:02:24 Test Item Value Reference Range Interpretation Comments Vitamin D 25 OH (test 55 ng/mL 30-100 Refere nce Range: code = 8018) Deficiency: <10 ng/mLInsuff iciency: 10-29 ng/mLSufficienc y: 30-100 ng/mLPotential toxicity: >10 0 ng/mL MD Zafarpatitis B Surface [id number] 21:37:06 Test Item Value Reference Range Interpretation Comments HBsAg Received (test See Note HBsAg w as sent to a code = 75506) reference lab for testing. Expec t results on Hepa titis B Surface Antigen w/ Confirm within 96 hours. MD TaylorHepatitis B Total Ig Core Ab (SCREENING) (anti-HBc total Ig; HBcAb total Ig)2021-10-20 21:37:05 Test Item Value Reference Range Interpretation Comments HBcAb Received (test See Note HBcAb w as sent to a code = 63751) reference lab for testing. Expec t results on Hepa titis B Core Total Ab w ithin 96 hours. MD [id number] 21:35:06 Test Item Value Reference Range Interpretation Comments TSH (test code = 0.91 See_Comment [Automated message] The 7578) system which ge nerated this result transmit ethel reference range : 0.27 - 4.20 mcunit/mL. The reference range was not used to interpr et this result as rakel l/abnormal. MD TaylorFractionated Uxmxaoyco4728-09-23 21:35:05 Test Item Value Reference Range Interpretation Comments Bili Total (test <0.3 See_Comment Direct and indirect code = 5096) bilirubin will not be reported when T otal bilirubin resul t is <0.3 mg/dLIndocyanin e Green (ICG) may cause false ly elevated bilirubin resul ts. Total and direct bilirubi n must not be measured from s amples containing indo cyanine green. False el evation of total bilirubin can be seen in patients wit h IgG concentrations above 28 g/L. [Automated mes feliciano] The system which ge nerated this result transmit ethel reference range: <=1.2 mg /dL. The reference range was not used to interpret th is result as normal/abnormal . Bili Direct (test <0.2 See_Comment Indocyanin e Green (ICG) may code = 5094) cause falsely e levated bilirubin resul ts. Total and direct bilirubi n must not be measured from s amples containing indo cyanine green. [Automat ed message] The system whic h generated this result tra nsmitted reference range : <=0.3 mg/dL. The refe rence range was not used to interpret this result as normal/abnormal . MD Leigh [id number] 21:35:03 Test Item Value Reference Range Interpretation Comments T4 Free (test code = 7502) 1.55 ng/dL 0.93-1.70 MD TaylorGlucose, [id number] 20:59:40 Test Item Value Reference Range Interpretation Comments Glucose Random (test 97 mg/dL 70-199 Effecti ve 04/14/16, the code = 9360) glucose referen ce intervals have been updated based o n [employer] jose delines (Standards of M edical Care in Diabete s 2016. Diabetes Care 2 016; 39: S13-S22).Fastin g blood glucose:Normal: 70-99 mg/dLImpaired f asting glucose (increa sed risk for diabetes or pre-diabetes): 100-125 mg/dLDiabetes m ellitus: >/=126 mg/dL Ra ndom blood glucose:N ormal: 70-199 mg/dLNot e: Random glucose >100 mg /dL is associated with increased risk for diabetes MD TaylorGlomerular Filtration [id number] 20:59:39 Test Item Value Reference Range Interpretation Comments eGFR-AA (test code 106 See_Comment Normal eG FR: >= 60 = 8062) mL/min/1.73 m2N ote: The eGFR is calculated u sing the CKD-EPI equatio n. The eGFR declines with a ge. eGFR <60 mL/min/1.73 m2 is considered as "decreased". This equation should only be used for patients 18 and older. According to e [employer]'s Kidney Disease Outcome Quality Initiative (KDO QI) classification and 2012 Kidney Disease Improving Global Outcomes (KDIGO) Clinical Practi ce Guideline, the stage of CK D should be categorized bas ed on estimated GFR. Stage Description GFR mL/min/1.73 m21 Normal or high GFR >=902 Mildly decrease d GFR 60-893a M ildly to moderately decr eased GFR 45-593b Moderat lupe to severely decrea sed GFR 30-444 Severely decreased GFR 15-295 Kid dora failure <15 [Automa ethel message] The system foc.us generated this result tra nsmitted reference range : >=60 mL/min/1.73 sq. m. The reference range was not used to interpret is result as normal/abnormal . eGFR-ÁLVARO (test code 92 See_Comment Normal e GFR: >= 60 = 8063) mL/min/1.73 m2N ote: The eGFR is calculated u sing the CKD-EPI equatio n. The eGFR declines with a ge. eGFR <60 mL/min/1.73 m2 is considered as "decreased". This equation should only be used for patients 18 and older. According to e [employer]'s Kidney Disease Outcome Quality Initiative (KDO QI) classification and 2012 Kidney Disease Improving Global Outcomes (KDIGO) Clinical Practi ce Guideline, the stage of CK D should be categorized bas ed on estimated GFR. Stage Description GFR mL/min/1.73 m21 Normal or high GFR >=902 Mildly decrease d GFR 60-893a M ildly to moderately decr eased GFR 45-593b Moderat lupe to severely decrea sed GFR 30-444 Severely decreased GFR 15-295 Kid dora failure <15 [Automa ethel message] The system foc.us generated this result tra nsmitted reference range : >=60 mL/min/1.73 sq. m. The reference range was not used to interpret is result as normal/abnormal . MD TaylorPhosphorus [id number] 20:59:38 Test Item Value Reference Range Interpretation Comments Phosphorus (test code = 6817) 3.4 mg/dL 2.5-4.5 MD TaylorUric [id number] 20:59:37 Test Item Value Reference Range Interpretation Comments Uric Acid (test code = 7955) 4.3 mg/dL 2.4-5.7 MD [id number] 20:59:36 Test Item Value Reference Range Interpretation Comments LDH (test code = 6111) 247 U/L 135-214 H Resul ts greater than 1651 U/L may no t be reliable due to matrix effect w ith extended diluti on as it exceeds the roulette dealer s recommended l imit. Caution should be exercised when interpreting gunderson ch values and done in conjunction wit h clinical contex t. Lab Interpretation (test Abnormal code = 05780-0) MD TaylorTotal [id number] 20:59:35 Test Item Value Reference Range Interpretation Comments Total Protein (test code = 7649) 7.7 g/dL 6.4-8.3 MD TaylorCalcium [id number] 20:59:34 Test Item Value Reference Range Interpretation Comments Calcium Lvl (test code = 5258) 9.8 mg/dL 8.4-10.2 MD TaylorMagnesium [id number] 20:59:33 Test Item Value Reference Range Interpretation Comments Magnesium (test code = 6359) 2.2 mg/dL 1.6-2.6 MD TaylorAlbumin [id number] 20:59:32 Test Item Value Reference Range Interpretation Comments Albumin Lvl (test code 4.4 See_Comment [Aut omated message] The = 7774) system which ge nerated this result tra nsmitted reference range : 3.5 - 5.2 gm/dL. The refe rence range was not used to interpret this result as normal/abnormal . MD TaylorAlkaline [id number] 20:59:31 Test Item Value Reference Range Interpretation Comments Alk Phos (test code = 4768) 98 U/L 35-104 MD TaylorAspartate [id number] 20:59:30 Test Item Value Reference Range Interpretation Comments AST (test code = 21 U/L See_Comment [Automated message] The 8031) system which ge nerated this result transmit ethel reference range : <=32. The reference range was not used to interpr et this result as rakel l/abnormal. MD TaylorAlanine Wvbxmzoqxptndmvw7226-11-23 20:59:29 Test Item Value Reference Range Interpretation Comments ALT (test code = 23 U/L See_Comment [Automated message] The 3545) system which ge nerated this result transmit ethel reference range : <=33. The reference range was not used to interpr et this result as rakel l/abnormal. MD TaylorElectrolyte [id number] 20:59:28 Test Item Value Reference Range Interpretation Comments Sodium Lvl (test code = 142 See_Comment [Au tomated message] The 5943) system which ge nerated this result tra nsmitted reference range : 136 - 145 mEq/L. The reference range was not u sed to interpret this result as normal/abnormal . Potassium Lvl (test 4.2 See_Comment [Automa ethel message] The code = 6854) system which ge nerated this result tra nsmitted reference range : 3.5 - 5.1 mEq/L. The reference range was not u sed to interpret this result as normal/abnormal . Chloride (test code = 106 See_Comment [Auto mated message] The 4162) system which ge nerated this result tra nsmitted reference range : 98 - 107 mEq/L. The refe rence range was not u sed to interpret this result as normal/abnormal . CO2 (test code = 5227) 23 See_Comment [Aut omated message] The system which ge nerated this result tra nsmitted reference range : 22 - 29 mEq/L. The refe rence range was not u sed to interpret this result as normal/abnormal . Anion Gap (test code = 13 See_Comment [Aut omated message] The 9325) system which ge nerated this result tra nsmitted reference range : 4 - 14 mEq/L. The refe rence range was not u sed to interpret this result as normal/abnormal . MD Taylor.Serum [id number] 20:59:27 Test Item Value Reference Range Interpretation Comments Creatinine (test code = 5399) 0.53 mg/dL 0.51-0.95 MD [id number] 20:59:26 Test Item Value Reference Range Interpretation Comments BUN (test code = 5055) 12 mg/dL 6-23 MD [id number] 20:33:10 Test Item Value Reference Range Interpretation Comments aPTT (test 30.8 See_Comment [Automated mes fleiciano] code = 6773) The system foc.us generated this result transmitted ref erence range: 24.7 - 3 6.8 second(s). The reference range was not used to int erpret this result as normal/abnormal . ELIZABETH (test code This lab cannot be = ELIZABETH) scheduled at the following locations due to collection/proccess ing restrictions: [email or web address] and [facility]. MD TaylorProthrombin [id number] 20:33:09 Test Item Value Reference Range Interpretation Comments PT (test code 12.3 See_Comment [Automated me ssage] = 6746) The system foc.us generated this result transmitted ref erence range: 11.5 - 1 3.9 second(s). The reference range was not used to int erpret this result as normal/abnormal . INR (test code 0.99 0.90-1.10 = 5973) ELIZABETH (test code This lab cannot be = ELIZABETH) scheduled at the following locations due to collection/proccess ing restrictions: [email or web address] and [facility]. MD TaylorX[id number] 20:29:48 Test Item Value Reference Range Interpretation Comments Neutrophil % (test code = 60.3 % 42.0-66.0 6491) Lymphocyte % (test code = 20.7 % 24.0-44.0 L 6194) Monocyte % (test code = 12.9 % 2.0-7.0 H 6422) Eosinophil % (test code = 4.1 % 1.0-4.0 H 5520) Basophil % (test code = 1.4 % 0.0-1.0 H 5068) IGRE % (test code = 5958) 0.6 % 0.0-0.4 H IG RE % count includes Metamyelocytes, Myelocytes, and Promyelocytes. Neutrophil Abs (test code 2.19 K/uL 1.70-7.30 = 6492) Lymphocyte Abs (test code 0.75 K/uL 1.00-4.80 L = 6195) Monocyte Abs (test code = 0.47 K/uL 0.08-0.70 6423) Eosinophil Abs (test code 0.15 K/uL 0.04-0.40 = 5521) Basophil Abs (test code = 0.05 K/uL 0.00-0.10 5069) IG Abs (test code = 5954) 0.02 K/uL 0.00-0.04 Lab Interpretation (test Abnormal code = 06926-4) MD Taylor.[id number] 20:29:36 Test Item Value Reference Range Interpretation Comments WBC (test code = 8034) 3.6 K/uL 4.0-11.0 L RBC (test code = 6932) 3.99 See_Comment L [Aut omated message] The system foc.us generated this result transmitted ref erence range: 4.00 - 5 .50 M/uL. The refer ence range was not u sed to interpret this result as normal/abnor mal. Hgb (test code = 5898) 12.5 See_Comment [Aut omated message] The system foc.us generated this result transmitted ref erence range: 12.0 - 1 6.0 gm/dL. The refe rence range was not u sed to interpret this result as normal/abnor mal. Hct (test code = 5860) 38.3 % 37.0-47.0 MCV (test code = 6222) 96 fL 82-98 MCH (test code = 6220) 31.3 pg 27.0-31.0 H MCHC (test code = 6221) 32.6 See_Comment [Au tomated message] The system foc.us generated this result transmitted ref erence range: 31.0 - 3 6.0 gm/dL. The refe rence range was not u sed to interpret this result as normal/abnor mal. RDW-SD (test code = 48.0 fL 35.1-46.3 H 6972) RDW-CV (test code = 13.9 % 12.0-15.5 6971) Platelet count (test 217 K/uL 140-440 code = 6832) MPV (test code = 6282) 9.0 fL 4.0-10.4 INRBC (test code = 0.0 % See_Comment The INRBC (instrument 5974) NRBC) value ref lects the enumeration of nucleated red b lood cells contained in a 200uL sampleof whole blood analyzed by the instrument. Thi s value maydiffer from the NRBC value repo rted in a manual differential,wh ich is based on a 100 cell differential. [Automated mess age] The system foc.us generated this result transmitted ref erence range: <=0.0. T he reference range was not used to int erpret this result as normal/abnormal . Lab Interpretation Abnormal (test code = 71999-4) MD TaylorUNC [facility]ERNLuis-[id number] 06:51:00 Test Item Value Reference Range Interpretation Comments HEMOGLOBIN POC (test code = HBP) 11.6 g/dL 12-17 L HEMATOCRIT POC (test code = HCTP) 34.0 % 38-51 L SODIUM POC (test code = NAP) 145 mmol/L 138-146 N POTASSIUM POC (test code = KP) 4.5 mmol/L 3.5-4.9 N CHLORIDE POC (test code = CLP) 108 mmol/L 98-109 N CO2 POC (test code = CO2P) 23 mmol/L 24-29 L IONIZED CALCIUM POC (test code = 1.18 mmol/L 1.12-1.32 N CAIP) GLUCOSE POC (test code = GLUP) 93 mg/dL 70-105 N BUN POC (test code = BUNP) 27 mg/dL 8-26 H CREATININE POC (test code = 0.5 mg/dL 0.6-1.3 L CREATP) GLOMERULAR FILTRATION RATE POC 120 mL/min 60-115 H (test code = GFRP)
[2021-11-14] MEDS ORDERED: HYDROCODONE/APAP 5/325 MG TAB ONE (09:16)
[2021-11-14] MEDS ORDERED: KETOROLAC 30 MG/ML INJ ONE (10:02)
--- NOTE | 2021-11-14 11:06 | EDPHYS ---
Physician Documentation [facility] Name: Deepti Rome Age: 76 yrs Sex: Female : 1945 Arrival Date: 11/14/2021 Time: 08:37 Bed 11 Private MD: ED Physician Saman Ferreira HPI: 11/14 08:51 This 76 yrs old Female presents to ER via Ambulatory with complaints of Left ms3 Ankle Pain. 08:51 The patient presents with pain, that is chronic. The complaints affect the left foot. ms3 Context: resulted from Stopped RA medications. Onset: The symptoms/episode began/occurred acutely. Modifying factors: the symptoms are aggravated by weight bearing. Associated signs and symptoms: The patient has no apparent associated signs or symptoms. Severity of symptoms: in the emergency department the symptoms are unchanged. 6-year-old female presents for left ankle pain that has been ongoing since she was instructed to quit taking her methotrexate secondary to diagnosis of lymphoma. Patient states her pain is worse with walking. Patient denies alleviating factors. Patient states her pain is a 9/10 and throbbing.. Historical: - Allergies: 08:48 No Known Allergies; ph - PMHx: 08:48 Hypertensive disorder; Rheumatoid arthritis; GERD; ph - Immunization history:: Client reports receiving the 2nd dose of the Covid vaccine. - Social history:: Smoking status: Patient denies any tobacco usage or history of. ROS: 08:54 Constitutional: Negative for fever, and chills. Eyes: Negative for injury, pain, ms3 redness, and discharge, ENT: Negative for injury, pain, and discharge, Neck: Negative for injury, pain, and swelling, Cardiovascular: Negative for chest pain, and palpitations. Respiratory: Negative for shortness of breath, cough, wheezing, and pleuritic chest pain, Abdomen/GI: Negative for abdominal pain, nausea, vomiting, diarrhea, and constipation, Back: Negative for injury and pain, : Negative for injury, bleeding, discharge, and swelling, Skin: Negative for injury, rash, and discoloration. 08:54 MS/extremity: Positive for pain. Exam: 08:55 Constitutional: This is a well developed, well nourished patient who is awake, alert, ms3 and in no acute distress. Head/Face: Normocephalic, atraumatic. Neck: Trachea midline, no cervical lymphadenopathy. Supple, full range of motion without nuchal rigidity, or vertebral point tenderness. No Meningismus. Chest/axilla: Normal chest wall appearance and motion. Nontender with no deformity. Cardiovascular: Regular rate and rhythm with a normal S1 and S2. No gallops, murmurs, or rubs. Normal PMI, no JVD. No pulse deficits. Respiratory: Lungs have equal breath sounds bilaterally, clear to auscultation and percussion. No rales, rhonchi or wheezes noted. No increased work of breathing, no retractions or nasal flaring. Abdomen/GI: Soft, non-tender, with normal bowel sounds. No distension or tympany. No guarding or rebound. No evidence of tenderness throughout. Back: No spinal tenderness. No costovertebral tenderness. Full range of motion. Skin: Warm, dry with normal turgor. Normal color with no rashes, no lesions, and no evidence of cellulitis. Neuro: Awake and alert, GCS 15, oriented to person, place, time, and situation. Cranial nerves II-XII grossly intact. Motor strength 5/5 in all extremities. Sensory grossly intact. Cerebellar exam normal. Normal gait. Psych: Awake, alert, with orientation to person, place and time. Behavior, mood, and affect are within normal limits. 08:55 Musculoskeletal/extremity: Extremities: noted in the left lateral ankle, left Achilles, left medial ankle and anterior aspect of left ankle: pain, ROM: intact in all extremities, Pulses: are normal with no appreciated deficits, Sensation intact. Compartment Syndrome exam of affected extremity: is normal. Joints: All joints are normal except Weight bearing: able to fully bear weight. Vital Signs: 08:45 BP 177 / 99; Pulse 78; Resp 18; Temp 97.7; Pulse Ox 100% on R/A; ph 11:11 BP 159 / 89; Pulse 71; Resp 18; Temp 97.9; Pulse Ox 99% on R/A; ph MDM: 08:49 Patient medically screened. ms3 08:57 Differential diagnosis: arthritis. Data reviewed: vital signs, nurses notes. ms3 11:10 Counseling: I had a detailed discussion with the patient and/or guardian regarding: the ms3 historical points, exam findings, and any diagnostic results supporting the discharge/admit diagnosis, the need for outpatient follow up, a lockstitch tunnel elastic operator. 11:11 ED course: Discussed physical exam findings with patient. Patient follow-up with her ms3 lockstitch tunnel elastic operator in 48 hours. Patient understands agrees with plan. All questions were answered. Return precautions discussed include worsening symptoms, or any other concerns. On reevaluation patient's pain mildly improved, no apparent distress, ambulatory in emergency department.. Administered Medications: 09:15 Drug: HYDROcodone-acetaminophen 5 mg-325 mg 1 tabs Route: PO; ph 11:12 Follow up: Response: No adverse reaction; Pain is unchanged, physician notified; RASS: ph Alert and Calm (0) 10:02 Drug: Ketorolac 15 mg Route: IM; Site: right deltoid; ab2 11:12 Follow up: Response: No adverse reaction ph Disposition Summary: 11/14/21 11:05 Discharge Ordered Location: Home ms3 Condition: Stable ms3 Diagnosis - Pain in left ankle and joints of left foot ms3 - Rheumatoid arthritis, unspecified ms3 - Elevated blood-pressure reading, without diagnosis of hypertension ms3 Followup: ms3 - With: Private Physician - When: - Reason: Re-evaluation by your physician Discharge Instructions: - Discharge Summary Sheet ms3 - Joint Pain ms3 - Arthritis ms3 Forms: - Medication Reconciliation Form ms3 - Thank You Letter ms3 - Antibiotic Education ms3 - Prescription Opioid Use ms3 Signatures: Sandrita Gonzalez, RN RN ph Saman Ferreira DO DO ms3 Contreras Bueno ab2
--- NOTE | 2021-11-14 11:06 | ER ---
Nurse's Notes [facility] Name: Deepti Rome Age: 76 yrs Sex: Female : 1945 Arrival Date: 11/14/2021 Time: 08:37 Bed 11 Private MD: Diagnosis: Pain in left ankle and joints of left foot;Rheumatoid arthritis, unspecified;Elevated blood-pressure reading, without diagnosis of hypertension Presentation: 11/14 08:45 Chief complaint: Patient states: L ankle/foot pain, hx RA, states that she was recent;y ph dx w/ lymphoma and reports that her DR instructed her to stop taking her methotrexate, has tried taking Tylenol #3 w/ no relief. Coronavirus screen: Vaccine status: Patient reports receiving the 2nd dose of the covid vaccine. Ebola Screen: No symptoms or risks identified at this time. Initial Sepsis Screen: Does the patient meet any 2 criteria? No. Patient's initial sepsis screen is negative. Does the patient have a suspected source of infection? No. Patient's initial sepsis screen is negative. Risk Assessment: Do you want to hurt yourself or someone else? Patient reports no desire to harm self or others. Onset of symptoms was November 14, 2021. 08:45 Method Of Arrival: Ambulatory ph 08:45 Acuity: ALEXANDRA 3 ph Historical: - Allergies: 08:48 No Known Allergies; ph - PMHx: 08:48 Hypertensive disorder; Rheumatoid arthritis; GERD; ph - Immunization history:: Client reports receiving the 2nd dose of the Covid vaccine. - Social history:: Smoking status: Patient denies any tobacco usage or history of. Screenin:51 Abuse screen: Denies threats or abuse. Denies injuries from another. Nutritional ph screening: No deficits noted. Tuberculosis screening: No symptoms or risk factors identified. Fall Risk None identified. Assessment: 08:50 General: Appears in no apparent distress. Behavior is calm, cooperative, appropriate ph for age. Pain: Complains of pain in L ankle. Neuro: Level of Consciousness is awake, alert, obeys commands, Oriented to person, place, time, situation. Derm: Skin is intact, is healthy with good turgor, Skin is pink, warm \\T\\ dry. Musculoskeletal: Circulation, motion, and sensation intact. Range of motion: intact in all extremities. 11:10 Reassessment: Patient appears in no apparent distress at this time. Patient and/or ph family updated on plan of care and expected duration. Pain level reassessed. Patient is alert, oriented x 3, equal unlabored respirations, skin warm/dry/pink. Pt states, " The medicines really haven't helped much but I am ready to go home." PT d/c home, states that she will follow up w/ PCP. Vital Signs: 08:45 BP 177 / 99; Pulse 78; Resp 18; Temp 97.7; Pulse Ox 100% on R/A; ph 11:11 BP 159 / 89; Pulse 71; Resp 18; Temp 97.9; Pulse Ox 99% on R/A; ph ED Course: 08:37 Patient arrived in ED. rg4 08:48 Triage completed. ph 08:48 Saman Ferreira DO is Attending Physician. ms3 08:48 Arm band placed on. ph 08:50 Sandrita Gonzalez RN is Primary Nurse. ph 08:51 Patient has correct armband on for positive identification. Bed in low position. Call ph light in reach. Side rails up X 1. Door closed. Noise minimized. 11:09 No provider procedures requiring assistance completed. Patient did not have IV access ph during this emergency room visit. Administered Medications: 09:15 Drug: HYDROcodone-acetaminophen 5 mg-325 mg 1 tabs Route: PO; ph 11:12 Follow up: Response: No adverse reaction; Pain is unchanged, physician notified; RASS: ph Alert and Calm (0) 10:02 Drug: Ketorolac 15 mg Route: IM; Site: right deltoid; ab2 11:12 Follow up: Response: No adverse reaction ph Outcome: 11:05 Discharge ordered by . ms3 11:12 Discharged to home ambulatory. ph 11:12 Condition: good 11:12 Discharge instructions given to patient, Instructed on discharge instructions, follow up and referral plans. Demonstrated understanding of instructions, follow-up care. 11:12 Patient left the ED. ph Signatures: Sandrita Gonzalez, Connie Goncalves RN, ph rg4 Saman Ferreira DO DO ms3 Contreras Bueno ab2
[2021-11-14 11:40] VITALS: BP 159/89; TEMP 97.9; O2SAT 99
== END 2021-11-14 11:12 | disposition home or self-care (01) ==
LOC: ER 08:34
DX: M06.9 Rheumatoid arthritis, unspecified (principal); I10 Essential (primary) hypertension
CPT/HCPCS: 96372; 99283

== ENCOUNTER 2023-02-17 05:43 | Emergency (ER) | payer OTHER ==
--- OUTSIDE RECORDS SUMMARY | 2023-02-17 05:47 | XMS REPORT | Clinical Summary ---
:1945 Author Organization [facility] MD Quintero [facility] Address [address] [place] [address] Care Team Providers Name Role Phone TanviMarimar Unavailable Carole Rogers MD Primary Care Provider [phone] Gabbie Tipton MD Unavailable Garfield Rucker MD Unavailable [phone] Allergies No known active allergies Medications Medication Sig Dispensed Refills Start Date End Date Status atorvastatin Take 1 tablet 0 03/16/2021 Ac tive (LIPITOR) 20 mg by mouth as tablet needed. pantoprazole Take 1 tablet 0 03/16/2021 Ac tive (PROTONIX) 20 mg by mouth as EC tablet needed. methotrexate 2.5 Take 4 0 03/16/2021 Ac tive mg tablet tablets by mouth once a week. leflunomide Take 1 tablet 0 03/16/2021 Act ricky (ARAVA) 20 mg by mouth tablet every other day. folic acid Take 1 mg by 0 Active (FOLVITE) 1 mg mouth daily. tablet coenzyme Q10 (Co Take 100 mg 0 A ctive Q-10) 100 mg by mouth capsule daily. UNABLE TO FIND Take 1 tablet 0 A ctive by mouth daily. Immune system magnesium oxide Take 400 mg 0 Ac tive (MAOX) 400 mg by mouth as tablet needed. multivit with Take 1 tablet 0 Ac tive calcium,iron,min by mouth (MULTIPLE VITAMIN, daily. WOMENS ORAL) melatonin 3 mg Take 3 mg by 0 Di scontinued tablet mouth nightly 2 (Thera py as needed. 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 10/20/2021 Encounters Date Type Specialty Care Team Description 05/04/2022 Office Visit Lymphoma and Myeloma NastoupilCarole ollicular lymphoma MD Lynda grade II of lym ph nodes of multip le sites 05/04/2022 Travel 04/12/2022 Telephone Lymphoma and Myeloma Jes Seymour RN 03/15/2022 Orders Only Lymphoma and Myeloma NastoupilCarole ollicular lymphoma MD Lynda grade II of lym ph nodes of multip le sites (Primary Dx) after 02/17/2022 Surgical History Surgery Date Site/Laterality Comments HERNIA [...] Tobacco Use Types Packs/Day Years Used Date Smoking Tobacco: Never Smokeless Tobacco: Never Alcohol Use Standard Drinks/Week Comments Not Currently 0 (1 standard drink = 0.6 oz pure alcoho l) Sex Assigned at Date Recorded Female 10/16/2021 3:21 PM [employer]LE [employer] Job Start Date Occupation Industry Not on file Not on file Not on file Obstetrics History Last Filed Vital Signs Vital Sign Reading Time Taken Comments Blood Pressure 144/75 05/04/2022 12:27 PM CDT Pulse 73 05/04/2022 12:27 PM CDT Temperature 36.4 C (97.5 F) 05/04/2022 12:27 PM CDT Respiratory Rate 20 05/04/2022 12:27 PM CDT Oxygen Saturation 97% 05/04/2022 12:27 PM CDT Inhaled Oxygen Concentration - - Weight 55.1 kg (121 lb 7.6 oz) 05/04/2022 12:24 PM CDT Height - - Body Mass Index 25.33 10/20/2021 12:05 PM [employer]OUBLE NEEDLE [employer] Plan of Treatment Health Maintenance Due Date Last Done Comments COVID-19 Vaccination (#1) 02/15/1946 Procedures Procedure Name Priority Date/Time Associated Comments Diagnosis FRACTIONATED BILIRUBIN Routine 05/04/2022 11:07 Follicular R esults for this AM CDT lymphoma grade II procedure are in of lymph nodes of the result s multiple sites section. TOTAL PROTEIN Routine 05/04/2022 11:07 Follicular Results fo r this AM CDT lymphoma grade II procedure are in of lymph nodes of the result s multiple sites section. ASPARTATE Routine 05/04/2022 11:07 Follicular Results for this AMINOTRANSFERASE AM CDT lymphoma grade II proced ure are in of lymph nodes of the result s multiple sites section. ALANINE AMINOTRANSFERASE Routine 05/04/2022 11:07 Follicular Results for this AM CDT lymphoma grade II procedure are in of lymph nodes of the result s multiple sites section. ALKALINE PHOSPHATASE Routine 05/04/2022 11:07 Follicular Res ults for this AM CDT lymphoma grade II procedure are in of lymph nodes of the result s multiple sites section. ALBUMIN LEVEL Routine 05/04/2022 11:07 Follicular Results fo r this AM CDT lymphoma grade II procedure are in of lymph nodes of the result s multiple sites section. CALCIUM LEVEL TOTAL Routine 05/04/2022 11:07 Follicular Resu lts for this AM CDT lymphoma grade II procedure are in of lymph nodes of the result s multiple sites section. .GLOMERULAR FILTRATION Routine 05/04/2022 11:07 Follicular R esults for this RATE AM CDT lymphoma grade II procedure are in of lymph nodes of the result s multiple sites section. SERUM CREATININE Routine 05/04/2022 11:07 Follicular Results for this AM CDT lymphoma grade II procedure are in of lymph nodes of the result s multiple sites section. ELECTROLYTE PANEL Routine 05/04/2022 11:07 Follicular Result s for this AM CDT lymphoma grade II procedure are in of lymph nodes of the result s multiple sites section. BLOOD UREA NITROGEN Routine 05/04/2022 11:07 Follicular Resu lts for this AM CDT lymphoma grade II procedure are in of lymph nodes of the result s multiple sites section. GLUCOSE LEVEL Routine 05/04/2022 11:07 Follicular Results fo r this AM CDT lymphoma grade II procedure are in of lymph nodes of the result s multiple sites section. MANUAL DIFFERENTIAL Routine 05/04/2022 11:07 Follicular Resu lts for this AM CDT lymphoma grade II procedure are in of lymph nodes of the result s multiple sites section. Results CBC Routine 05/04/2022 11:07 Follicular Results for this AM CDT lymphoma grade II procedure are in of lymph nodes of the result s multiple sites section. THYROID STIMULATING Routine 05/04/2022 11:07 Follicular Resu lts for this HORMONE AM CDT lymphoma grade II procedure are in of lymph nodes of the result s multiple sites section. LACTATE DEHYDROGENASE Routine 05/04/2022 11:07 Follicular Re sults for this AM CDT lymphoma grade II procedure are in of lymph nodes of the result s multiple sites section. COMPREHENSIVE METABOLIC Routine 05/04/2022 11:07 Follicular PANEL AM CDT lymphoma grade II of lymph nodes of multiple sites COMPLETE BLOOD COUNT W/ Routine 05/04/2022 11:07 Follicular DIFFERENTIAL AM CDT lymphoma grade II of lymph nodes of multiple sites after 02/17/2022 Results .Serum Creatinine (05/04/2022 11:07 AM CDT) athologist Signature Creatinine 0.63 0.51 - 0.95 [facility] mg/dL [facility]ENTER Specimen Anatomical Collection Method Collection Time Receive d Time (Source) Location / / Volume Laterality Blood 05/04/2022 11:07 05/04/2022 AM CDT 11:27 AM CDT Carole Rogers MD LAB BLOOD ORDERABLES Performing Organization Address City/State/ZIP Code Phon e Number [facility] DIAGNOSTIC Unless otherwise noted, [place], [place] [address] CENTER all lab tests performed by: Division of Pathology and Laboratory Medicine [address] [place] (ABNORMAL) .CBC (05/04/2022 11:07 AM CDT) Analysis Performed At Patho logist Time Signature WBC 3.7 (L) 4.0 - 11.0 [facility] K/uL DIAGNOSTIC CENTER RBC 3.59 (L) 4.00 - [facility] 5.50 M/uL DIAGNOSTIC CENTER Hgb 12.3 12.0 - [facility] 16.0 gm/dL DIAGNOSTIC CENTER Hct 35.6 (L) 37.0 - [facility] 47.0 % DIAGNOSTIC CENTER MCV 99 (H) 82 - 98 fL [facility] CENTER MCH 34.3 (H) 27.0 - [facility] 31.0 pg DIAGNOSTIC CENTER MCHC 34.6 31.0 - [facility] 36.0 gm/dL DIAGNOSTIC CENTER RDW-SD 45.6 35.1 - [facility] 46.3 NM DIAGNOSTIC CENTER RDW-CV 12.9 12.0 - [facility] 15.5 % DIAGNOSTIC CENTER Platelet count 164 140 - 440 [facility] K/uL DIAGNOSTIC CENTER MPV 8.7 4.0 - 10.4 [facility] CENTER INRBC 0.0 <=0.0 % [facility] Comment: The INRBC (instrument NRBC) value reflec ts the enumeration of nucleated red blood cells contained i n a 200uL sample of whole blood analyzed by the instrumen t. This value may differ from the NRBC value reported in a manual differential, which is based on a 100 cell differentia l. Specimen Anatomical Collection Method Collection Time Receive d Time (Source) Location / / Volume Laterality Blood 05/04/2022 11:07 05/04/2022 AM CDT 11:19 AM CDT Carole Rogers MD LAB BLOOD ORDERABLES Performing Organization Address City/State/ZIP Code Phon e Number [facility] DIAGNOSTIC Unless otherwise noted, [place], [place] [address] CENTER all lab tests performed by: Division of Pathology and Laboratory Medicine [address] [place] [address] Glomerular Filtration Rate (05/04/2022 11:07 AM CDT) athologist Signature eGFR-AA 100 >=60 [place] [facility] mL/min/1.73 DIAGNOSTIC sq. m CENTER Comment: Normal eGFR: >= 60 mL/min/1.73 m2 Note: The eGFR is calculated using the C KD-EPI equation. The eGFR declines with age. eGFR <60 mL/min/1.73 m2 is considered as "decreased". This equation should only be used for patients 18 and older. According to the National Kidney Foundat ion's Kidney Disease Outcome Quality Initiative (KDOQI) classification and 2012 Kidney Disease Improving Global Outcomes (KDIGO) Clinical Practice Guideline, the stage of CKD should be categorized based on estimated GFR. Stage Description GFR mL/min/1. 73 m2 1 Normal or high GFR >=90 2 Mildly decreased GFR 60-89 3a Mildly to moderately decreased GFR 45-59 3b Moderately to severely decreased GFR 30-44 4 Severely decreased GFR 15-29 5 Kidney failure <15 eGFR-ÁLVARO 87 >=60 mL/min/1.73 sq. m [place] [facility] Comment: Normal eGFR: >= 60 mL/min/1.73 m2 Note: The eGFR is calculated using the C KD-EPI equation. The eGFR declines with age. eGFR <60 mL/min/1.73 m2 is considered as "decreased". This equation should only be used for patients 18 and older. According to the National Kidney Foundat ion's Kidney Disease Outcome Quality Initiative (KDOQI) classification and 2012 Kidney Disease Improving Global Outcomes (KDIGO) Clinical Practice Guideline, the stage of CKD should be categorized based on estimated GFR. Stage Description GFR mL/min/1. 73 m2 1 Normal or high GFR >=90 2 Mildly decreased GFR 60-89 3a Mildly to moderately decreased GFR 45-59 3b Moderately to severely decreased GFR 30-44 4 Severely decreased GFR 15-29 5 Kidney failure <15 Specimen Anatomical Collection Method Collection Time Receive d Time (Source) Location / / Volume Laterality Blood 05/04/2022 11:07 05/04/2022 AM CDT 11:27 AM CDT Carole Rogers MD LAB BLOOD ORDERABLES Performing Organization Address City/State/ZIP Code Phon e Number [facility] Unless otherwise noted, [address] all lab tests performed by: Division of Pathology and Laboratory Medicine [address] [place] [address] Fractionated Bilirubin (05/04/2022 11:07 AM CDT) athologist Signature Bili Total 0.3 <=1.2 mg/dL [facility]ENTER Comment: Indocyanine Green (ICG) may cause falsel y elevated bilirubin results. Total and direct bilirubin must not be measured from samples containing indocyanine green. False elevation of total bilirubin can b e seen in patients with IgG concentrations above 28 g/L. Bili Direct <0.2 <=0.3 mg/dL [facility] Comment: Indocyanine Green (ICG) may cau se falsely elevated bilirubin results. Total and direct bilirubin must not be measure d from samples containing indocyanine green. Bili Indirect See Note 0.0 - 0.9 mg/dL [place] [facility] Comment: Unable to calculate Indirect Bi lirubin result due to some parameters are outside reportable range Specimen Anatomical Collection Method Collection Time Receive d Time (Source) Location / / Volume Laterality Blood 05/04/2022 11:07 05/04/2022 AM CDT 11:27 AM CDT Carole Rogers MD LAB BLOOD ORDERABLES Performing Organization Address City/State/ZIP Code Phon e Number [facility] DIAGNOSTIC Unless otherwise noted, [place] [address] [place] all lab tests performed by: Division of Pathology and Laboratory Medicine [address] [place] [address] (ABNORMAL) Differential (05/04/2022 11:07 AM CDT) athologist Signature Neutrophil % 64.4 42.0 - [facility] 66.0 % DIAGNOSTIC CENTER Lymphocyte % 14.6 (L) 24.0 - [facility] 44.0 % DIAGNOSTIC CENTER Monocyte % 15.9 (H) 2.0 - 7.0 [facility] % DIAGNOSTIC CENTER Eosinophil % 3.0 1.0 - 4.0 [facility] % DIAGNOSTIC CENTER Basophil % 0.5 0.0 - 1.0 [facility] % DIAGNOSTIC CENTER IGRE % 1.6 (H) 0.0 - 0.4 [facility] % DI[facility] CENTER Comment: IGRE % count includes Metamyelo cytes, Myelocytes, and Promyelocytes. Neutrophil Abs 2.39 1.70 - 7.30 K/uL [place] [facility] Lymphocyte Abs 0.54 (L) 1.00 - 4.80 K/uL [place] [facility] Monocyte Abs 0.59 0.08 - 0.70 K/uL [place] [facility]STIC [place] Eosinophil Abs 0.11 0.04 - 0.40 K/uL [place] [facility] Basophil Abs 0.02 0.00 - 0.10 K/uL [place] [facility]IC [place] IG Abs 0.06 (H) 0.00 - 0.04 K/uL [place] [facility] L[place] [facility] [place] Specimen Anatomical Collection Method Collection Time Receive d Time (Source) Location / / Volume Laterality Blood 05/04/2022 11:07 05/04/2022 AM CDT 11:19 AM CDT Carole Rogers MD LAB BLOOD ORDERABLES Performing Organization Address City/State/ZIP Code Phon e Number [facility] DIAGNOSTIC Unless otherwise noted, [place] [address] [place] all lab tests performed by: Division of Pathology and Laboratory Medicine [facility] BUN (05/04/2022 11:07 AM CDT) athologist Signature BUN 16 6 - 23 [facility] mg/dL DIAGNOSTIC CENTER Specimen Anatomical Collection Method Collection Time Receive d Time (Source) Location / / Volume Laterality Blood 05/04/2022 11:07 05/04/2022 AM CDT 11:27 AM CDT Carole Rogers MD LAB BLOOD ORDERABLES Performing Organization Address City/[facility]/ZIP Code Phon e Number [facility] DIAGNOSTIC Unless otherwise noted, [address] all lab tests performed by: Division of Pathology and Laboratory Medicine [facility] [place] ALT (05/04/2022 11:07 AM CDT) athologist Signature ALT 31 <=33 U/L [facility] Specimen Anatomical Collection Method Collection Time Receive d Time (Source) Location / / Volume Laterality Blood 05/04/2022 11:07 05/04/2022 AM CDT 11:27 AM CDT Carole Rogers MD LAB BLOOD ORDERABLES Performing Organization Address City/[facility]/ZIP Code Phon e Number [facility] DIAGNOSTIC Unless otherwise noted, [address] all lab tests performed by: Division of Pathology and Laboratory Medicine [facility] [place] (ABNORMAL) Aspartate Aminotransferase (05/04/2022 11:07 AM CDT) athologist Signature AST 33 (H) <=32 U/L [facility] Specimen Anatomical Collection Method Collection Time Receive d Time (Source) Location / / Volume Laterality Blood 05/04/2022 11:07 05/04/2022 AM CDT 11:27 AM CDT Carole Rogers MD LAB BLOOD ORDERABLES Performing Organization Address City/[facility]/ZIP [facility] Phon e Number [facility] DIAGNOSTIC Unless otherwise noted, [address] all lab tests performed by: Division of Pathology and Laboratory Medicine [address] [place] [address] [place] TSH (05/04/2022 11:07 AM CDT) athologist Signature TSH 1.79 0.27 - 4.20 [facility] mcunit/mL DIAGNOSTIC CENTER Specimen Anatomical Collection Method Collection Time Receive d Time (Source) Location / / Volume Laterality Blood 05/04/2022 11:07 05/04/2022 AM CDT 11:27 AM CDT Carole Rogers MD LAB BLOOD ORDERABLES Performing Organization Address City/[facility]/ZIP Code Phon e Number [facility] DIAGNOSTIC Unless otherwise noted, [address] all lab tests performed by: Division of Pathology and Laboratory Medicine [address] Total Protein (05/04/2022 11:07 AM CDT) athologist [facility] Total Protein 7.5 6.4 - 8.3 [facility] g/dL DIAGNOSTIC CENTER Specimen Anatomical Collection Method Collection Time Receive d Time (Source) Location / / Volume Laterality Blood 05/04/2022 11:07 05/04/2022 AM CDT 11:27 AM CDT Carole Rogers MD LAB BLOOD ORDERABLES Performing Organization Address City/[facility]/ZIP Code Phon e Number [facility] DIAGNOSTIC Unless otherwise noted, [address] all lab tests performed by: Division of Pathology and Laboratory Medicine [address] Alkaline Phosphatase (05/04/2022 11:07 AM CDT) athologist [facility] Alk Phos 87 35 - 104 [facility] U/L DI[facility]STIC CENTER Specimen Anatomical Collection Method Collection Time Receive d Time (Source) Location / / Volume Laterality Blood 05/04/2022 11:07 05/04/2022 AM CDT 11:27 AM CDT Carole Rogers MD LAB BLOOD ORDERABLES Performing Organization Address City/[facility]/ZIP Code Phon e Number [facility] DIAGNOSTIC Unless otherwise noted, [place] [phone] [place] all lab tests performed by: Division of Pathology and Laboratory Medicine [address] (ABNORMAL) LDH (05/04/2022 11:07 AM CDT) athologist [facility] LDH 310 (H) 135 - 214 [facility] U/L [facility] CENTER Comment: Results greater than 1651 U/L m ay not be reliable due to matrix effect with extended dilution as it exceeds the manu facturer's recommended limit. Caution should be exercised when interpreting such valu es and done in conjunction with clinical context. Specimen Anatomical Collection Method Collection Time Receive d Time (Source) Location / / Volume Laterality Blood 05/04/2022 11:07 05/04/2022 AM CDT 11:27 AM CDT Carole Rogers MD LAB BLOOD ORDERABLES Performing Organization Address City/[facility]/ZIP Code Phon e Number [facility] DIAGNOSTIC Unless otherwise noted, [address] all lab tests performed by: Division of Pathology and Laboratory Medicine [address] [place] Glucose Level (05/04/2022 11:07 AM CDT) athologist Signature Glucose Level 93 70 - 99 [facility] mg/dL DI[facility]IC [facility]ENTER Comment: Effective 04/14/16, the glucose reference intervals have been updated based on [place] [employer] guidelines (Standards of Medical Care in Diabetes 2016. Diabetes Care 2016; 39: S13-S22). Fasting blood glucose: Normal: 70-99 mg/dL Impaired fasting glucose (increased risk for diabetes or pre-diabetes): 100- 125 mg/dL Diabetes mellitus: >/=126 mg/dL Random blood glucose: Normal: 70-199 mg/dL Note: Random glucose >100 mg/dL is assoc iated with increased risk for diabetes Specimen Anatomical Collection Method Collection Time Receive d Time (Source) Location / / Volume Laterality Blood 05/04/2022 11:07 05/04/2022 AM CDT 11:27 AM CDT Carole Rogers MD LAB BLOOD ORDERABLES Performing Organization Address City/[facility]/ZIP Code Phon e Number [facility] DIAGNOSTIC Unless otherwise noted, [address] all lab tests performed by: Division of Pathology and Laboratory Medicine [address] [place] (ABNORMAL) Calcium Level (05/04/2022 11:07 AM CDT) P athologist Signature Calcium Lvl 10.3 (H) 8.4 - 10.2 [facility] mg/dL DIAGNOSTIC CENTER Specimen Anatomical Collection Method Collection Time Receive d Time (Source) Location / / Volume Laterality Blood 05/04/2022 11:07 05/04/2022 AM CDT 11:27 AM CDT Carole Rogers MD LAB BLOOD ORDERABLES Performing Organization Address City/State/ZIP Code Phon e Number [facility] DIAGNOSTIC Unless otherwise noted, [place] [phone] [place] all lab tests performed by: Division of Pathology and Laboratory Medicine [facility] [place] Albumin Level (05/04/2022 11:07 AM CDT) athologist Signature Albumin Lvl 4.7 3.5 - 5.2 [facility] gm/dL DIAGNOSTIC CENTER Specimen Anatomical Collection Method Collection Time Receive d Time (Source) Location / / Volume Laterality Blood 05/04/2022 11:07 05/04/2022 AM CDT 11:27 AM CDT Carole Rogers MD LAB BLOOD ORDERABLES Performing Organization Address City/[facility] Code Phon e Number [facility] DIAGNOSTIC Unless otherwise noted, [place] [phone] [place] all lab tests performed by: Division of Pathology and Laboratory Medicine [facility] [place] (ABNORMAL) Electrolyte Panel (05/04/2022 11:07 AM CDT) athologist Signature Sodium Lvl 142 136 - 145 [facility] mEq/L DIAGNOSTIC CENTER Potassium Lvl 4.5 3.5 - 5.1 [facility] mEq/L DI[facility]IC CENTER Chloride 105 98 - 107 [facility] mEq/L DI[facility]STIC CENTER CO2 30 (H) 22 - 29 [facility] mEq/L DI[facility] CENTER Anion Gap 7 4 - 14 [facility] mEq/L DI[facility] CENTER Specimen Anatomical Collection Method Collection Time Receive d Time (Source) Location / / Volume Laterality Blood 05/04/2022 11:07 05/04/2022 AM CDT 11:27 AM CDT Carole Rogers MD LAB BLOOD ORDERABLES Performing Organization Address City/[facility]/ZIP Code Phon e Number [facility] DIAGNOSTIC Unless otherwise noted, [place] [phone] [place] all lab tests performed by: Division of Pathology and Laboratory Medicine [place] after 02/17/2022 Insurance Payer Benefit Plan Subscriber ID Effective Phone Address Typ e / Group Dates MEDICARE MEDICARE PART [id number] 2009-Pres [phone] [facility] Medicare A AND B ent [id number] [facility] 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
--- OUTSIDE RECORDS SUMMARY | 2023-02-17 05:50 | XMS REPORT | Continuity of Care Document ---
:1945 Author Organization [facility] t Address [address] [place] [address] [place] [id number] Care Team Providers Name Role Phone Asked, No Pcp Primary Care Physician Unavailable SYSTEM, PROVIDER NOT IN Attending Clinician Unavailable MEI_Marquis_Elan_ Attending Clinician Unavailable Elan Cho Attending Clinician Unavailable Elan Cho Attending Clinician [phone] Nino Rogers MD Attending Clinician NINO ROGERS Attending Clinician Unavailable Dawn JARAMILLO, Jes Smith Attending Clinician Unavailable Nayla LEUNG, Sukhjinder Blake Attending Clinician Nidia Schulz RN Attending Clinician Kevan PINA, Staci Attending Clinician Amanuel Hardy MD Attending Clinician Ame Li MA Attending Clinician Unavailable Hayden PIZANO, Edin Boland Attending Clinician Doug Ambrosio MD Attending Clinician Kenny Dillard MD Attending Clinician Mya Mcknight MD Attending Clinician Chata Rubio Attending Clinician Unavailable Shekhar Ansari MD Attending Clinician Seymour JARAMILLO, Stephanie Attending Clinician Unavailable Joe Stack Attending Clinician MEI_Marquis_Elan_ Admitting Clinician Unavailable Physician, No Primary or Family Admitting Clinician Unavaila ble KNOW, DOES_NOT Admitting Clinician Unavailable Payers Payer Name Policy Type Policy Number Effective Date Expiration Date Sami grier MEDICARE B-[place]: [id number] 2009 Poll Everywhere 00:00:00 [employer] LIFE [id number] INS[employer]ANCE COMPANY (MEDICARE SUPPLEMENT) Problems Condition Condition Condition Status Onset Resolution Last Treating Co mments Source Name Details Category Date Date Treatment Clinician Date 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 00:00: [place] of lymph of lymph 00 MD nodes of nodes of [place] o multiple multiple n sites sites [facility] Trigger Trigger Problem Active Sherice thumb of Thumb of 8-23 Orthop e right hand Right Hand 00:00: di c 00 Sports Medicin e 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 00:00: dic of right of Right 00 Sports wrist Wrist Medicin e 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 00:00: dic of left of Left 00 Sports wrist Wrist Medicin e Paresthesi Paresthes Problem Active 2021-04-06 Memoria a ia 00:34:14 l (finding) (finding) Herm rocael Active Problem 04/06/2021 [facility] Rheumatoid Problem Active 2021-04-06 M emoria arthritis Rheumatoid 00:34:14 l (disorder) arthritis Her hadley (disorder) Active Problem 04/06/2021 [facility] Chest pain Chest Problem Resolve 2021-04-06 Memoria (finding) pain d 00:34:14 l (finding) [place] Resolved Problem 04/06/2021 [facility] Carpal Carpal Problem Active 2021-04-06 Charly nora tunnel tunnel 00:34:14 l syndrome syndrome Frankie n (disorder) (disorder) Active Problem 04/06/2021 [facility] Hyperlipid Problem Active 2021-04-06 Payam moya emia Hyperlipid 00:34:14 l (disorder) emia Frankie n (disorder) Active Problem 04/06/2021 [facility] 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 l 00:34:14 l (disorder) gammopathy El rmann (disorder) Active Problem 04/06/2021 [facility] Allergies, Adverse Reactions, Alerts Allergy Allergy Status Severity Reaction(s) Onset Inactive Treating Comm ents Source Name Type Date Date Clinician No Known DA Active [facility] 06[facility]11 [facility] 00:[facility]: [facility] 00 are [place] No Known DA Active U [facility] Allergie 06-04 [facility] 00:[facility]: [facility] 00 are [place] No Known DA Active U [facility] Allergie 06-04 [facility] 00:00: [facility] 00 are [place] No Known No Known Active Memori a Medicati Medicati l on on Bhanu Allergie Allergie s s Family History Family Member Diagnosis Comments Start Date Stop Date Source Natural sister Colon cancer [facility] MD [facility] Social History Social Habit Start Date Stop Date Quantity Comments Source Sexual orientation 2022-04-07 Heterosexual Meth odist 09:09:40 (finding) Hospital Gender identity 2022-04-07 Identifies as Method ist 09:09:40 female gender [facility] (finding) Alcohol intake 2022-04-09 2022-04-09 [facility] 00:00:00 00:00:00 non-drinker Hospital (finding) History of Social 2022-04-09 2022-04-[address] function 00:00:00 00:00:00 Hospital Tobacco use and 2021-10-20 2021-10-20 Smokeless tobacco Un iversity of exposure 00:00:00 00:00:00 non-user [place] MD Taylor [facility] Sex Ass[birth year] F [facility] 00:00:00 00:00:00 Hospital Smoking Status Start Date Stop Date Source Social History [facility] Medications Ordered Filled Start Stop Current Ordering Indication Dosage Frequency Signature Comments Components Source Medication Medication Date Date Medication? Clinician (SIG) Name Name coenzyme Yes 100mg Take 100 Univ ers Q10 (Co 8-16 mg by ity of Q-10) 100 12:51: mouth [place] mg capsule 41 daily. MD Anna dowell [facility] UNABLE TO Yes 1{tbl} Take 1 Univ ers FIND 8-16 tablet by ity of 12:51: mouth [place] [address] [facility] magnesium Yes 400mg Take 400 Uni vers oxide 8-16 mg by ity of (MAOX) 400 12:51: mouth as John as mg tablet 41 needed. MD Anna dowell [facility] multivit Yes 1{tbl} Take 1 Unive rs with 8-16 tablet by ity of calcium,iro 12:51: mouth [place] n,min 41 daily. (MULTIPLE Anderso VITAMIN, n WOMENS Cancer ORAL) [place] coenzyme Yes 100mg Take 100 Univ ers Q10 (Co 8-16 mg by ity of Q-10) 100 12:51: mouth [place] mg capsule 41 daily. MD Anna dowell [facility] UNABLE TO Yes 1{tbl} Take 1 Univ ers FIND 8-16 tablet by ity of 12:51: mouth [place] [address] [facility] magnesium Yes 400mg Take 400 Uni vers oxide 8-16 mg by ity of (MAOX) 400 12:51: mouth as John as mg tablet 41 needed. MD Anna dowell [facility] multivit Yes 1{tbl} Take 1 Unive rs with 8-16 tablet by ity of calcium,iro 12:51: mouth [place] n,min 41 daily. (MULTIPLE Anderso VITAMIN, n WOMENS Cancer ORAL) [place] coenzyme Yes 100mg Take 100 Univ ers Q10 (Co 8-16 mg by ity of Q-10) 100 12:51: mouth [place] mg capsule 41 daily. MD Anna dowell [facility] UNABLE TO Yes 1{tbl} Take 1 Univ ers FIND 8-16 tablet by ity of 12:51: mouth [place] [address] [facility] magnesium Yes 400mg Take 400 Uni vers oxide 8-16 mg by ity of (MAOX) 400 12:51: mouth as John as mg tablet 41 needed. MD Anna dowell [facility] multivit Yes 1{tbl} Take 1 Unive rs with 8-16 tablet by ity of calcium,iro 12:51: mouth [place] n,min 41 daily. (MULTIPLE [place] VITAMIN n WOMENS Cancer ORAL) [place] folic acid Yes 1mg Take 1 mg Un laly (FOLVITE) 1 8-16 by mouth ity of mg tablet 12:49: daily. [place] 43 MD Anna dowell [facility] folic acid Yes 1mg Take 1 mg Un laly (FOLVITE) 1 8-16 by mouth ity of mg tablet 12:49: daily. [place] 43 MD Anna dowell [facility] folic acid Yes 1mg Take 1 mg Un laly (FOLVITE) 1 8-16 by mouth ity of mg tablet 12:49: daily. [place] [address] MD Anna dowell [facility] melatonin 3 2021- No 3mg Take 3 mg Univers mg tablet 05-04 by mouth ity o f 12:49: 00:00 nightly as [place] 20 :00 needed. MD Anna dowell [facility] melatonin 3 2021- No 3mg Take 3 mg Univers mg tablet 05-04 by mouth ity o f 12:49: 00:00 nightly as [place] 20 :00 needed. MD Anna dowell [facility] melatonin 3 2021- No 3mg Take 3 mg Univers mg tablet 05-04 by mouth ity o f 12:49: 00:00 nightly as [place] 20 :00 needed. MD Anna dowell [facility] ubidecareno Yes Take by Met josseline jaimes (COQ-10 7-[address] ORAL) 13:10: Hospita 21 l ubidecareno Yes Take by Met josseline jaimes (COQ-10 7-[address] ORAL) 13:10: Hospita 21 l ubidecareno Yes Take by Met josseline jaimes (COQ-10 7-[address] ORAL) 13:10: Hospita 21 l folic acid Yes 1mg QD Take 1 mg Me thodi (FOLVITE) 1 7-[address] MG tablet 13:10: daily. Hospit a 01 l folic acid 0 Yes 1mg QD Take 1 mg Me thodi (FOLVITE) 1 7-[address] MG tablet 13:10: daily. Hospit a 01 l folic acid 0 Yes 1mg QD Take 1 mg Me thodi (FOLVITE) 1 7-[address] MG tablet 13:10: daily. Hospit a 01 l pantoprazol Yes TAKE 1 Meth ani e 5-[address] (PROTONIX) 00:00: MOUTH ONCE H ospita 40 MG EC 00 DAILY IN l tablet THE MORNING ONE HOUR BEFORE FOOD pantoprazol Yes TAKE 1 Meth ani e 5-[address] (PROTONIX) 00:00: MOUTH ONCE H ospita 40 MG EC 00 DAILY IN l tablet THE MORNING ONE HOUR BEFORE FOOD pantoprazol Yes TAKE 1 Meth ani e 5-[address] (PROTONIX) 00:00: MOUTH ONCE H ospita 40 MG EC 00 DAILY IN l tablet THE MORNING ONE HOUR BEFORE FOOD atorvastati Yes 20 mg = 1 M emoria n 20 mg 6-28 tab, 0 l oral tablet 19:28: Refill(s) H ermann 00 Folic Acid Yes 1 mg = 1 Mem oria 1 MG Oral 6-28 tab, PO, l Tablet 19:28: Daily, # Bhanu 00 30 tab, 0 Refill(s) predniSONE 2020-0 Yes 2.5 mg = 1 M emoria 2.5 mg oral 6-28 tab, PO, l tablet 19:28: Daily, # 7 Ana M nn 00 tab, 0 Refill(s) pantoprazol 0 Yes 40 mg = 1 M emoria e 40 mg 6-28 tab, PO, l oral 19:28: Daily, # [place] enteric 00 30 tab, 0 coated Refill(s) tablet Famotidine Yes 0 Memoria 20 MG Oral 6-28 Refill(s) l Tablet 19:28: Bhanu 00 methotrexat 0 Yes 0 Memori a e 2.5 mg 6-28 Refill(s) l oral tablet 19:28: Frankie n 00 leflunomide Yes 0 Memori a 20 mg oral 6-28 Refill(s) l tablet 19:28: [place] 00 atorvastati Yes 20 mg = 1 [...] tab, PO, l oral 19:28: Daily, # [place] enteric 00 30 tab, 0 coated Refill(s) tablet Famotidine Yes 0 Memoria 20 MG Oral 6-28 Refill(s) l Tablet 19:28: [place] 00 methotrexat Yes 0 Memori a e 2.5 mg 6-28 Refill(s) l oral tablet 19:28: Frankie n leflunomide Yes 0 Memori a 20 mg oral 6-28 Refill(s) l tablet 19:28: [place] 00 atorvastati Yes 1{tbl} Take 1 Un laly n (LIPITOR) 6-28 tablet by ity of 20 mg 00:00: mouth as [place] tablet 00 needed. MD Anna dowell [facility] pantoprazol Yes 1{tbl} Take 1 Un laly e 6-28 tablet by ity of (PROTONIX) 00:00: mouth as John as 20 mg EC 00 needed. MD evan dowell [facility] methotrexat Yes 4{tbl} Take 4 Un laly e 2.5 mg 6-28 tablets by ity o f tablet 00:00: mouth once [place] 00 a week. MD Anna dowell [facility] leflunomide Yes 1{tbl} Take 1 Un laly (ARAVA) 20 6-28 tablet by ity of mg tablet 00:00: mouth [place] 00 every [facility] 1{tbl} Take 1 Un laly n (LIPITOR) 6-28 tablet by ity of 20 mg 00:00: mouth as [place] tablet 00 needed. MD Castillo [facility] pantoprazol Yes 1{tbl} Take 1 Un laly e 6-28 tablet by ity of (PROTONIX) 00:00: mouth as John as 20 mg EC 00 [facility]. [facility] 4{tbl} Take 4 Un laly e 2.5 mg 6-28 tablets by ity o f tablet 00:00: mouth once [place] a week. MD Anna dowell [facility] leflunomide Yes 1{tbl} Take 1 Un laly (ARAVA) 20 6-28 tablet by ity of mg tablet 00:00: mouth [place] 00 every [facility] Yes 1{tbl} Take 1 Un laly n (LIPITOR) 6-28 tablet by ity of 20 mg 00:00: mouth as [place] tablet 00 needed. MD Castillo [facility] pantoprazol Yes 1{tbl} Take 1 Un laly e 6-28 tablet by ity of (PROTONIX) 00:00: mouth as John as 20 mg EC 00 needed. [facility] Yes 4{tbl} Take 4 Un laly e 2.5 mg 6-28 tablets by ity o f tablet 00:00: mouth once [place] 00 a week. MD Castillo [facility] leflunomide Yes 1{tbl} Take 1 Un laly (ARAVA) 20 6-28 tablet by ity of mg tablet 00:00: mouth [place] 00 every MD other day. [facility] methotrexat Yes 4{tbl} Take 4 Me thodi e 2.5 MG 6-[address] tablet 00:00: mouth. Hospita 00 l leflunomide Yes 1{tbl} Q7D Take 1 Me thodi (ARAVA) 20 6-[address] MG tablet 00:00: mouth once Ho spita 00 a week. l methotrexat 0 Yes 4{tbl} Take 4 Me thodi e 2.5 MG 6-[address] tablet 00:00: mouth. Hospita 00 l leflunomide 0 Yes 1{tbl} Q7D Take 1 Me thodi (ARAVA) 20 6-[address] MG tablet 00:00: mouth once Ho spita 00 a week. l methotrexat 0 Yes 4{tbl} Take 4 Me thodi e 2.5 MG 6-[address] tablet 00:00: mouth. Hospita l leflunomide Yes 1{tbl} Q7D Take 1 Me thodi (ARAVA) 20 6-[address] MG tablet 00:00: mouth once Ho spita 00 a week. l acetaminoph acetaminoph No acetaminop Sherice en 300 en 300 hen 300 Orthope mg-codeine mg-codeine mg-codeine dic 30 mg 30 mg 30 mg Sports tablet Take tablet Take tablet Medicin 1 tablet by 1 tablet by Take 1 e mouth every mouth every tablet by six to six to mouth eight hours eight hours every six as needed as needed to eight for pain for pain hours as needed for pain allopurinol allopurinol No allopurino Sherice 100 mg 100 mg l 100 mg Orthope tablet TAKE tablet TAKE tablet dic 1 TABLET BY 1 TABLET BY TAKE 1 Sports MOUTH ONCE MOUTH ONCE TABLET BY Medicin DAILY DAILY MOUTH ONCE e DAILY allopurinol allopurinol No allopurino Sherice 300 mg 300 mg l 300 mg Orthope tablet TAKE tablet TAKE tablet dic 1 TABLET BY 1 TABLET BY TAKE 1 Sports MOUTH ONCE MOUTH ONCE TABLET BY Medicin DAILY - DAILY - MOUTH ONCE e START 48 START 48 DAILY - HOURS HOURS START 48 BEFORE BEFORE HOURS FIRST FIRST BEFORE TREATMENT TREATMENT FIRST TREATMENT atorvastati atorvastati No atorvastat Sherice n 10 mg n 10 mg in 10 mg Ortho pe tablet tablet tablet dic Sports Medicin e atorvastati atorvastati No atorvastat Sherice n 20 mg n 20 mg in 20 mg Ortho pe tablet TAKE tablet TAKE tablet dic 1 TABLET BY 1 TABLET BY TAKE 1 Sports MOUTH ONCE MOUTH ONCE TABLET BY Medicin DAILY -STOP DAILY -STOP MOUTH ONCE e PRAVASTATIN PRAVASTATIN DAILY -STOP PRAVASTATI N cephalexin cephalexin No cephalexin Sherice 500 mg 500 mg 500 mg Orthope capsule capsule capsule dic TAKE 1 TAKE 1 TAKE 1 Sports CAPSULE BY CAPSULE BY CAPSULE BY Medicin MOUTH EVERY MOUTH EVERY MOUTH e 12 HOURS 12 HOURS EVERY 12 FOR 10 DAYS FOR 10 DAYS HOURS FOR 10 DAYS folic acid folic acid No folic acid Sherice 1 mg tablet 1 mg tablet 1 mg O rthope TAKE TWO TAKE TWO tablet dic (2) (2) TAKE TWO Sports TABLET(S) TABLET(S) (2) Medic in BY MOUTH BY MOUTH TABLET(S) e ONCE A DAY. ONCE A DAY. BY MOUTH ONCE A DAY. leflunomide leflunomide No leflunomid Sherice 10 mg 10 mg e 10 mg Orthope tablet tablet tablet dic Sports Medicin e leflunomide leflunomide No leflunomid Sherice 20 mg 20 mg e 20 mg Orthope tablet TAKE tablet TAKE tablet dic ONE (1) ONE (1) TAKE ONE Sport s TABLET BY TABLET BY (1) TABLET Medicin MOUTH THREE MOUTH THREE BY MOUTH e DAYS A DAYS A THREE DAYS WEEK. WEEK. A WEEK. methotrexat methotrexat No methotrexa Sherice e sodium e sodium te sodium Or thope 2.5 mg 2.5 mg 2.5 mg dic tablet TAKE tablet TAKE tablet Sports FIVE (5) FIVE (5) TAKE FIVE Me dicin TABLETS BY TABLETS BY (5) e MOUTH ONCE MOUTH ONCE TABLETS BY A WEEK. A WEEK. MOUTH ONCE A WEEK. pantoprazol pantoprazol No pantoprazo Sherice e 20 mg e 20 mg le 20 mg Ortho pe tablet,nakia tablet,nakia tablet,del dic yed release yed release ayed S ports release Medicin e pantoprazol pantoprazol No pantoprazo Sherice e 40 mg e 40 mg le 40 mg Ortho pe tablet,nakia tablet,nakia tablet,del dic yed release yed release ayed S ports TAKE 1 TAKE 1 release Medicin TABLET BY TABLET BY TAKE 1 e MOUTH ONCE MOUTH ONCE TABLET BY DAILY IN DAILY IN MOUTH ONCE THE MORNING THE MORNING DAILY IN ONE HOUR ONE HOUR THE BEFORE FOOD BEFORE FOOD MORNING ONE HOUR BEFORE FOOD prednisone prednisone No prednisone Sherice 5 mg tablet 5 mg tablet 5 mg O rthope TAKE ONE TAKE ONE tablet dic (1) TO TWO (1) TO TWO TAKE ONE Sports (2) (2) (1) TO TWO Medicin TABLET(S) TABLET(S) (2) e BY MOUTH BY MOUTH TABLET(S) DAILY WITH DAILY WITH BY MOUTH FOOD OR FOOD OR DAILY WITH MILK. MILK. FOOD OR MILK. propranolol propranolol No propranolo Sherice 10 mg 10 mg l 10 mg Orth[facility] tablet TAKE tablet TAKE tablet dic 1 TABLET BY 1 TABLET BY TAKE 1 Sports MOUTH TWICE MOUTH TWICE TABLET BY Medicin DAILY DAILY MOUTH e BEFORE BEFORE TWICE MEAL(S) MEAL(S) DAILY BEFORE MEAL(S) sulfamethox sulfamethox No sulfametho Sherice azole 800 azole 800 xazole 800 Orthope mg-trimetho mg-trimetho mg-trimeth dic prim 160 mg prim 160 mg oprim 160 Sports tablet TAKE tablet TAKE mg tablet Medicin 1 TABLET BY 1 TABLET BY TAKE 1 e MOUTH EVERY MOUTH EVERY TABLET BY 12 HOURS 12 HOURS MOUTH FOR 10 DAYS FOR 10 DAYS EVERY 12 HOURS FOR 10 DAYS valacyclovi valacyclovi No valacyclov Sherice r 500 mg r 500 mg ir 500 mg Or thope tablet TAKE tablet TAKE tablet dic 1 TABLET BY 1 TABLET BY TAKE 1 Sports MOUTH ONCE MOUTH ONCE TABLET BY Medicin DAILY DAILY MOUTH ONCE e DAILY allopurinol allopurinol No allopurino Sherice 100 mg 100 mg l 100 mg Orthope tablet TAKE tablet TAKE tablet dic 1 TABLET BY 1 TABLET BY TAKE 1 Sports MOUTH ONCE MOUTH ONCE TABLET BY Medicin DAILY DAILY MOUTH ONCE e DAILY allopurinol allopurinol No allopurino Sherice 300 mg 300 mg l 300 mg Orthope tablet TAKE tablet TAKE tablet dic 1 TABLET BY 1 TABLET BY TAKE 1 Sports MOUTH ONCE MOUTH ONCE TABLET BY Medicin DAILY - DAILY - MOUTH ONCE e START 48 START 48 DAILY - HOURS HOURS START 48 BEFORE BEFORE HOURS FIRST FIRST BEFORE TREATMENT TREATMENT FIRST TREATMENT atorvastati atorvastati No atorvastat Sherice n 10 mg n 10 mg in 10 mg Ortho pe tablet tablet tablet dic Sports Medicin e atorvastati atorvastati No atorvastat Sherice n 20 mg n 20 mg in 20 mg Ortho pe tablet TAKE tablet TAKE tablet dic 1 TABLET BY 1 TABLET BY TAKE 1 Sports MOUTH ONCE MOUTH ONCE TABLET BY Medicin DAILY -STOP DAILY -STOP MOUTH ONCE e PRAVASTATIN PRAVASTATIN DAILY -STOP PRAVASTATI N folic acid folic acid No folic acid Sherice 1 mg tablet 1 mg tablet 1 mg O rthope TAKE TWO TAKE TWO tablet dic (2) (2) TAKE TWO Sports TABLET(S) TABLET(S) (2) Medic in BY MOUTH BY MOUTH TABLET(S) e ONCE A DAY. ONCE A DAY. BY MOUTH ONCE A DAY. leflunomide leflunomide No leflunomid Sherice 10 mg 10 mg e 10 mg Orthope tablet tablet tablet dic Sports Medicin e leflunomide leflunomide No leflunomid Sherice 20 mg 20 mg e 20 mg Orth[facility] tablet TAKE tablet TAKE tablet dic ONE (1) ONE (1) TAKE ONE Sport s TABLET BY TABLET BY (1) TABLET Medicin MOUTH THREE MOUTH THREE BY MOUTH e DAYS A DAYS A THREE DAYS WEEK. WEEK. A WEEK. methotrexat methotrexat No methotrexa Sherice e sodium e sodium te sodium Or thope 2.5 mg 2.5 mg 2.5 mg dic tablet TAKE tablet TAKE tablet Sports FIVE (5) FIVE (5) TAKE FIVE Me dicin TABLETS BY TABLETS BY (5) e MOUTH ONCE MOUTH ONCE TABLETS BY A WEEK. A WEEK. MOUTH ONCE A WEEK. pantoprazol pantoprazol No pantoprazo Sherice e 20 mg e 20 mg le 20 mg Ortho pe tablet,nakia tablet,nakia tablet,del dic yed release yed release ayed S ports release Medicin e pantoprazol pantoprazol No pantoprazo Sherice e 40 mg e 40 mg le 40 mg Ortho pe tablet,nakia tablet,nakia tablet,del dic yed release yed release ayed S ports TAKE 1 TAKE 1 release Medicin TABLET BY TABLET BY TAKE 1 e MOUTH ONCE MOUTH ONCE TABLET BY DAILY IN DAILY IN MOUTH ONCE THE MORNING THE MORNING DAILY IN ONE HOUR ONE HOUR THE BEFORE FOOD BEFORE FOOD MORNING ONE HOUR BEFORE FOOD prednisone prednisone No prednisone Sherice 5 mg tablet 5 mg tablet 5 mg O rthope TAKE ONE TAKE ONE tablet dic (1) TO TWO (1) TO TWO TAKE ONE Sports (2) (2) (1) TO TWO Medicin TABLET(S) TABLET(S) (2) e BY MOUTH BY MOUTH TABLET(S) DAILY WITH DAILY WITH BY MOUTH FOOD OR FOOD OR DAILY WITH MILK. MILK. FOOD OR MILK. propranolol propranolol No propranolo Sherice 10 mg 10 mg l 10 mg Orthope tablet TAKE tablet TAKE tablet dic 1 TABLET BY 1 TABLET BY TAKE 1 Sports MOUTH TWICE MOUTH TWICE TABLET BY Medicin DAILY DAILY MOUTH e BEFORE BEFORE TWICE MEAL(S) MEAL(S) DAILY BEFORE MEAL(S) valacyclovi valacyclovi No valacyclov Sherice r 500 mg r 500 mg ir 500 mg Or thope tablet TAKE tablet TAKE tablet dic 1 TABLET BY 1 TABLET BY TAKE 1 Sports MOUTH ONCE MOUTH ONCE TABLET BY Medicin DAILY DAILY MOUTH ONCE e DAILY Vital Signs Vital Name Observation Time Observation Value Comments Source Height 2022-07-06 00:00:00 57 [in_i] [facility] BP Diastolic 2022-05-28 00:00:00 79 mm[Hg] [facility] Height 2022-05-28 00:00:00 57 [in_i] [facility] BMI (Body Mass 2022-05-28 00:00:00 26 kg/m2 Sherice [facility]opedic Index) Sports Medicine BP Systolic 2022-05-28 00:00:00 110 mm[Hg] [facility] Body Weight 2022-05-28 00:00:00 120 [lb_av] [facility] Systolic blood 2022-05-04 17:27:32 144 mm[Hg] Univer [facility]ity of [facility] Diastolic blood 2022-05-04 17:27:32 75 mm[Hg] Unive rsity of pressure [facility] Heart rate 2022-05-04 17:27:32 73 /min [facility] Body temperature 2022-05-04 17:27:32 36.39 Norma Univ ers[facility] Respiratory rate 2022-05-04 17:27:32 20 /min Univ ers[facility] Oxygen saturation in 2022-05-04 17:27:32 97 /min [facility] of Arterial blood by Calvin bustillo Pulse oxim[facility] Body weight 2022-05-04 17:24:00 55.1 kg [facility] BMI 2022-05-04 17:24:00 25.33 kg/m2 [facility] Systolic blood 2022-04-07 18:04:00 127 mm[Hg] [facility] pressure Diastolic blood 2022-04-07 18:04:00 75 mm[Hg] [facility] pressure Heart rate 2022-04-07 18:04:00 82 /[facility] Body height 2022-04-07 18:04:00 [facility].8 [facility] Body weight 2022-04-07 18:04:00 53.071 kg [facility] BMI 2022-04-07 18:04:00 25.32 kg/m2 [facility] Body height 2021-10-20 18:05:00 147.5 cm [facility] Systolic (mm Hg) 2021-04-03 13:39:00 Charly rial Bhanu Diastolic (mm Hg) 2021-04-03 13:39:00 Mem orial Bhanu Heart Rate 2021-04-03 13:39:00 [facility] [place] Respitory Rate 2021-04-03 13:39:00 Memori al [place] Height 2021-04-03 13:39:00 152.4 cm [facility] Weight 2021-04-03 13:39:00 [facility] BMI Calculated 2021-04-03 13:39:00 Memori al [place] Systolic (mm Hg) 2021-03-16 19:10:00 Charly rial Bhanu Diastolic (mm Hg) 2021-03-16 19:10:00 Mem orial [place] Heart Rate 2021-03-16 19:10:00 [facility] Bhanu Respitory Rate 2021-03-16 19:10:00 Memori al Bhanu Height 2021-03-16 19:10:00 147.32 cm [facility] B[facility]u Weight 2021-03-16 19:10:00 [facility]haun BMI Calculated 2021-03-16 19:10:00 Memori al [place] Procedures Procedure Date / Time Performing Clinician Source Performed XR, hand, 3 or more view 2022-05-28 00:00:00 Hannah finnegan [facility] COMPLETE BLOOD COUNT W/ 2022-05-04 16:07:00 Nastoupil, Nino [facility] DIFFERENTIAL [facility]. [facility] COMPREHENSIVE METABOLIC 2022-05-04 16:07:00 Nastoupil, Nino [facility] PANEL J. [facility] LACTATE DEHYDROGENASE 2022-05-04 16:07:00 Nastoupil, Nino Uni [facility] Center J. [facility] THYROID STIMULATING 2022-05-04 16:07:00 Nastoupil, [facility] HORMONE J. MD Taylor [facility] Center Results CBC 2022-05-04 16:07:00 Nastoupil, [facility] Gina. [facility] MANUAL DIFFERENTIAL 2022-05-04 16:07:00 Nastoupil, [facility] Gina. [facility] GLUCOSE LEVEL 2022-05-04 16:07:00 Nastoupil, [facility] Gina. [facility] BLOOD UREA NITROGEN 2022-05-04 16:07:00 Nastoupil, [facility] Gina. [facility] ELECTROLYTE PANEL 2022-05-04 16:07:00 Nastoupil, [facility] J. [facility] SERUM CREATININE 2022-05-04 16:07:00 Nastoupil, [facility] Gina. [facility] Center .GLOMERULAR FILTRATION 2022-05-04 16:07:00 [facility] CALCIUM LEVEL TOTAL 2022-05-04 16:07:00 Nastoupil, [facility] Gina. [facility] ALBUMIN LEVEL 2022-05-04 16:07:00 Nastoupil, [facility]. [facility] ALKALINE PHOSPHATASE 2022-05-04 16:07:00 Nastoupil, [facility] Gina. [facility] ALANINE AMINOTRANSFERASE 2022-05-04 16:07:00 Nastoupil, [facility] ASPARTATE AMINOTRANSFERASE 2022-05-04 16:07:[address] [facility] Lynda LEUNG [facility] TOTAL PROTEIN 2022-05-04 16:07:00 [facility] FRACTIONATED BILIRUBIN 2022-05-04 16:07:00 Nino Rogers [facility] Lynda LEUNG [facility] IR CT GUIDED BIOPSY 2021-11-03 21:01:52 Staci Mathur [facility] RETROPERITONEAL [facility] HP FC FLOW CYTOMETRY BLOOD 2021-11-03 20:19:00 Staci Mathur [facility] COLLECTION [facility] HP FC LYMPHOMA B EXTENDED 2021-11-03 20:19:00 Staci Mathur [facility] INTERPRETATION AND REPORT [facility] CYTOLOGY IMAGE-GUIDED FNA 2021-11-03 20:19:00 Staci Mathur [facility] INTERPRETATION [facility] PATHOLOGY BIOPSY 2021-11-03 20:18:[address] [facility] INTERPRETATION [facility] EKG, 12-LEAD (PORTABLE) 2021-11-03 00:00:00 Vladimir Junior [facility] COMPLETE BLOOD COUNT W/ 2021-10-20 19:51:00 Staci Mathur [facility] DIFFERENTIAL [facility] PROTHROMBIN TIME 2021-10-20 19:51:00 Staci Mathur [facility] APTT 2021-10-20 19:51:[address] [facility] TYPE AND SCREEN 2021-10-20 19:51:[address] [facility] TOTAL PROTEIN 2021-10-20 19:51:00 Kevan [facility] ALBUMIN LEVEL 2021-10-20 19:51:00 Kevan [facility] CALCIUM LEVEL TOTAL 2021-10-20 19:51:00 Staci Mathur [facility] PHOSPHORUS LEVEL 2021-10-20 19:51:00 Staci Mathur [facility] GLUCOSE, RANDOM 2021-10-20 19:51:[address] [facility] BLOOD UREA NITROGEN 2021-10-20 19:51:00 [facility] CREATININE 2021-10-20 19:51:00 Staci Mathur [facility] URIC ACID 2021-10-20 19:51:[address] [facility] FRACTIONATED BILIRUBIN 2021-10-20 19:51:00 Staci Mathur [facility] ALKALINE PHOSPHATASE 2021-10-20 19:51:00 Staci Mathur [facility] LACTATE DEHYDROGENASE 2021-10-20 19:51:00 [facility] ALANINE AMINOTRANSFERASE 2021-10-20 19:51:00 Staci Mathur [facility] MAGNESIUM LEVEL 2021-10-20 19:51:[address] [facility] ASPARTATE AMINOTRANSFERASE 2021-10-20 19:51:00 Staci [facility]ur [facility] ELECTROLYTE PANEL 2021-10-20 19:51:00 Staci Mathur [facility] VITAMIN D 25 HYDROXY LEVEL 2021-10-20 19:51:00 Staci Mathur [facility] PROTEIN ELECTROPHORESIS, 2021-10-20 19:51:00 Staci Mathur [facility] SERUM [facility] IMMUNOGLOBULIN A SERUM 2021-10-20 19:51:00 Staci Mathur [facility] IMMUNOGLOBULIN G SERUM 2021-10-20 19:51:00 Staci Mathur [facility] IMMUNOGLOBULIN M SERUM 2021-10-20 19:51:00 Staci Mathur [facility] BETA 2 MICROGLOBULIN 2021-10-20 19:51:00 Staci Mathur [facility] FREE THYROXINE 2021-10-20 19:51:[address] [facility] THYROID STIMULATING 2021-10-20 19:51:00 Staci Mathur [facility] HORMONE [facility] HEPATITIS B CORE ANTIBODY 2021-10-20 19:51:00 [facility] SURFACE 2021-10-20 19:51:00 Kevan [facility] ANTIGEN, SERUM [facility] HEPATITIS C VIRUS ANTIBODY 2021-10-20 19:51:00 [facility] HIV-[facility]/2 ANTIGEN AND 2021-10-20 19:51:00 Staci Mathur [facility] ANTIBODIES, FOURTH [facility] FREE KAPPA LIGHT CHAIN 2021-10-20 19:51:00 Staci Mathur [facility] FREE LAMBDA LIGHT CHAIN 2021-10-20 19:51:00 Staci Mathur [facility] IMMUNOFIXATION 2021-10-20 19:51:00 Staci Mathur [facility] ELECTROPHORESIS [facility] Results CBC 2021-10-20 19:51:[address] [facility] MANUAL DIFFERENTIAL 2021-10-20 19:51:00 Staci Mathur [facility] SERUM CREATININE 2021-10-20 19:51:00 Kevan [facility] .GLOMERULAR FILTRATION 2021-10-20 19:51:00 [facility] RATE [facility] ABORH 2021-10-20 19:51:[address] [facility] ANTIBODY SCREEN 2021-10-20 19:51:[address] [facility] HEPATITIS B CORE TOTAL 2021-10-20 19:51:00 [facility] ANTIBODY [facility] HEPATITIS B SURFACE AG 2021-10-20 19:51:00 Staci Mathur [facility] W/CONFIRM [facility] FREE KAPPA/FREE LAMBDA 2021-10-20 19:51:00 Staci Mathur [facility] RATIO [facility] CLOT EXPIRATION DATE 2021-10-20 19:51:00 Staci Mathur [facility] TMP INTERPRETATION 2021-10-20 19:51:00 Staci Mathur [facility] ANTIBODY SCREEN NEGATIVE MD Brandon [facility] TMP HCVAB INTERP 2021-10-20 19:51:00 Staci Mathur [facility] TMP HIV 1/2 AG&AB PATH 2021-10-20 19:51:00 Staci Mathur [facility] INTERP [facility] .DR. BOOTHE PROT ELEC PATH 2021-10-20 19:51:00 [facility] .DR. BOOTHE ROSETTE PATH REVIEW 2021-10-20 19:51:00 Staci Mathur [facility] CONFIRM ABORH TYPE 2021-10-20 19:43:00 Staci Mathur [facility] OSI PET CT SKULL TO MID 2021-10-08 21:58:00 Nino Rogers [facility] THIGH J. [facility] OSI CT ABDOMEN AND PELVIS 2021-09-04 10:23:[address] [facility] Lynda [facility] PATHOLOGY OUTSIDE 2021-08-31 00:00:[address] [facility] INTERPRETATION [facility] Cardiac catheterization [facility] Plan of Care Planned Activity Planned Date Details Comments Source Future Scheduled 2022-12-18 COVID-19 VACCINE (#1) [facility] Test 03:59:45 [code = COVID-19 VACCINE (#1)] Future Scheduled 2022-12-18 65+ [facility]UMOCOCCAL [facility] Test 03:59:45 VACCINE (1 - PCV) [code = 65+ PNEUMOCOCCAL VACCINE (1 - PCV)] Future Scheduled 2022-12-18 Hepatitis C screening [facility] Test 03:59:45 (procedure) [code = 969560283] Future Scheduled 2022-12-18 SHINGLES VACCINES (1 [facility] Test 03:59:45 of 2) [code = SHINGLES VACCINES (1 of 2)] Future Scheduled 2022-12-18 INFLUENZA VACCINE [facility] Test 03:59:45 [code = INFLUENZA VACCINE] Future Scheduled 2022-10-12 COVID-19 Vaccination [facility] [place] Test 10:54:26 (#1) [code = COVID-19 [facility] (#1)] Center Future Scheduled 2022-06-18 HEPATITIS B VACCINES [facility] Test 10:02:34 (1 of 3 - 3-dose series) [code = HEPATITIS B VACCINES (1 of 3 - 3-dose series)] Future Scheduled 2022-06-18 COVID-19 VACCINE (#1) [facility] Test 10:02:34 [code = COVID-19 VACCINE (#1)] Future Scheduled 2022-06-18 65+ PNEUMOCOCCAL [facility] Test 10:02:34 VACCINE (1 - PCV) [code = 65+ PNEUMOCOCCAL VACCINE (1 - PCV)] Future Scheduled 2022-06-18 Hepatitis C screening [facility] Test 10:02:34 (procedure) [code = 240449332] Future Scheduled 2022-06-18 SHINGLES VACCINES (1 [facility] Test 10:02:34 of 2) [code = SHINGLES VACCINES (1 of 2)] Future Scheduled 2022-06-18 INFLUENZA VACCINE [facility] Test 10:02:34 [code = INFLUENZA VACCINE] Future Scheduled 2022-06-11 COVID-19 Vaccination [facility] [place] Test 14:12:19 (#1) [code = COVID-19 [facility]ination (#1)] Center Future Scheduled 2022-06-11 COVID-19 Vaccination [facility] [place] Test 14:12:19 (#1) [code = COVID-19 [facility] Vaccination (#1)] Center Future Scheduled 2022-05-20 COVID-19 VACCINE (#1) [facility] Test 13:12:19 [code = COVID-19 VACCINE (#1)] Future Scheduled 2022-05-20 65+ P[facility]UMOCOCCAL [facility] Test 13:12:19 VACCINE (1 - PCV) [code = 65+ PNEUMOCOCCAL VACCINE (1 - PCV)] Future Scheduled 2022-05-20 Hepatitis C screening [facility] Test 13:12:19 (procedure) [code = [id number]] Future Scheduled 2022-05-20 SHINGLES VACCINES ([address] [facility] Test 13:12:19 of 2) [code = SHINGLES VACCINES (1 of 2)] Future Scheduled 2022-05-20 INFLUENZA VACCINE [facility] Test 13:12:19 [code = INFLUENZA VACCINE] Future Scheduled 2022-05-20 HEPATITIS B VACCINES [facility] Test 13:12:19 (1 of 3 - 3-dose series) [code = HEPATITIS B VACCINES (1 of 3 - 3-dose series)] Encounters Start End Encounter Admission Attending Care Care Encounter Source Date/Time Date/Time Type Type Clinicians Facility Department ID 2022-05-06 Outpatient SYSTEM, ADRIAN CAMPBELL [id number] 12:50:43 PROVIDER Drake o delmer 2021-10-14 Outpatient SYSTEM, ADRIAN CAMPBELL [id number] 12:00:46 PROVIDER Drake o delmer 2022-07-06 2022-07-06 Outpatient AO_Marquis_Br AO AO [id number] Sherice 00:00:00 00:00:00 Zeinab [id number] [facility] 2022-07-06 2022-07-06 Elan AO [place] - Orth[place] [id number] Sherice 00:00:00 00:00:00 MD Marquis: [place] - Orthope 25396 AO_Ofc dic [place] LWO_[place] [facility] [place] [address] [place] [address] , Ph. 2022-07-05 2022-07-05 Outpatient AO_Parass_Br AOSM AO [id number] Sherice 00:00:00 00:00:00 Zeinab [id number] [facility] 2022-06-30 2022-06-30 Outpatient AO_Mills_Br AOSM AOSM [id number] Sherice 00:00:00 00:00:00 Zeinab [id number] [facility] 2022-06-23 2022-06-23 Outpatient AO_Mills_Br AOSM AOSM [id number] Sherice 00:00:00 00:00:00 Zeinab [id number] [facility] 2022-06-21 2022-06-21 Outpatient AO_Mills_Br AOSM AOSM [id number] Sherice 00:00:00 00:00:00 Zeinab [id number] [facility] 2022-06-16 2022-06-16 Outpatient DAVID ParikhIA DAYS [id number] 07:46:00 07:46:00 Elan Brown [facility] [place] 2022-05-28 2022-05-28 Outpatient AO_Mills_Br AOSM AOSM [id number] Sherice 00:00:00 00:00:00 Zeinab [id number] [facility] 2022-05-28 2022-05-28 Outpatient Marquis, AOSM AOSM [id number] 00:00:00 00:00:00 Elan [id number] 2022-05-28 2022-05-28 Elan SANTIAGO [place] - Ortho [id number] Sherice 00:00:00 00:00:00 MD Marquis: Ember Nobles - Orthope [id number] AO_Ofc dic [place] NCO_[address], [facility] [address] [place] [address] , Ph. 2022-05-27 2022-05-27 Outpatient AO_Mills_Br AOSM AOSM [id number] Sherice 00:00:00 00:00:00 Zeinab [id number] [facility] 2022-05-17 2022-05-17 Outpatient AO_Mills_Br AOSM AOSM [id number] Sherice 00:00:00 00:00:00 Zeinab [id number] [facility] 2022-05-04 2022-05-04 Office EL Nastoupil, 1.2.840.1 [id number] Univers 13:20:00 13:21:31 Visit Nnio Howell 89936.1.1 i ty of 3.412.2.7 [place] .3.781019 MD Tripp [facility] 2022-05-04 2022-05-04 Office Nastoupil, 1.2.840.1 [id number] [facility] 13:20:00 13:21:31 Visit Nino Howell 74436.1.1 i ty of 3.412.2.7 [place] .3.000056 MD Tripp [facility] 2022-05-04 2022-05-04 Outpatient EL NASTOUPIL, MDA MDA [id number] 10:46:52 10:46:52 NINO dowell 2022-05-04 2022-05-04 Travel 1.2.840.1 1.2.096.971 [id number] Univers 00:00:00 00:00:00 03901.1.1 350.1.13.41 ity of 3.412.2.7 [place].698 [place]3.932[place] 084.Raven Tripp [facility] 2022-05-04 2022-05-04 Travel 1.2.840.1 1.2.519.534 [id number] Univers 00:00:00 00:00:00 18455.1.1 350.1.13.41 ity of 3.412.2.7 [place]7.3.698 [place] .3.500591 084.8 MD Tripp [facility] 2022-04-12 2022-04-12 Telephone Seymour, 1.2.840.1 [id number] [id number] Univers 00:00:00 00:00:00 Jes Smith 58166.1.1 ity of 3.412.2.7 [place] .3.219608 MD Tripp [facility] 2022-04-12 2022-04-12 Telephone Seymour, 1.2.840.1 [id number] [id number] Univers 00:00:00 00:00:00 Jes Smith 12557.1.1 ity of 3.412.2.7 [place] .3.015649 MD Tripp [facility] 2022-04-07 2022-04-07 Office Winslow, 1.2.840.1 [id number] Methodi 13:00:00 13:50:49 Visit Sukhjinder 26568.1.[address] [facility] 3.430.2.7 Hospit a .3.143272 l .8 2022-04-07 2022-04-07 Office [place]low, 1.2.840.1 [id number] Methodi 13:00:00 13:50:49 Visit Sukhjinder 69097.1.[address] [place] 3.430.2.7 Hospit a .3.299022 l .8 2022-04-07 2022-04-07 Travel 1.2.840.1 1.2.507.466 8270 [id number] Methodi 00:00:00 00:00:[address] 3.430.2.7 0.2.7.3.698 Ho spita .3.760874 084.8 l .8 2022-04-07 2022-04-07 Travel 1.2.840.1 1.2.584.929 4259 [id number] Methodi 00:00:00 00:00:[address] 3.430.2.7 0.2.7.3.698 Ho spita .3.282689 084.8 l .8 2022-03-15 2022-03-15 Orders Nastoupil, 1.2.840.1 [id number] Univers 00:00:00 00:00:00 Only Nino Howell 82781.1.1 i ty of 3.412.2.7 [place] .3.677696 MD .8 [facility] 2022-03-15 2022-03-15 Orders Nastoupil, 1.2.840.1 [id number] [id number] Univers 00:00:00 00:00:00 Only Nino Sue50.1.1 i ty of 3.412.2.7 [place] .3.982337 .8 [facility] 2022-02-03 2022-02-03 Outpatient AO_Mills_Br AOSM AOSM 509 [id number] Sherice 00:00:00 00:00:00 Zeinab [id number] [facility] 2021-11-12 2021-11-12 Ancillary EL Nastoupil, 1.2.840.1 [id number] 1 [id number] Univers 20:30:00 20:35:00 Procedure Nino Howell 81327.1.1 ity of 3.412.2.7 [place] .3.205909 MD Guillen8 [facility] 2021-11-12 2021-11-12 Ancillary EL Nastoupil, 1.2.840.1 [id number] 1 [id number] Univers 20:25:00 20:30:00 Procedure Nino Howell 79318.1.1 ity of 3.412.2.7 [place] .3.255889 MD Tripp [facility] 2021-11-12 2021-11-12 Ancillary EL Nastoupil, 1.2.840.1 [id number] 1 [id number] Univers 20:20:00 20:25:00 Procedure Nino Howell 32328.1.1 ity of 3.412.2.7 [place] .3.720235 MD Guillen8 [facility] 2021-11-12 2021-11-12 Ancillary EL Nastoupil, 1.2.840.1 [id number] 1 [id number] Univers 20:15:00 20:20:00 Procedure Nino Howell 24415.1.1 ity of 3.412.2.7 [place] .3.085805 MD Guillen8 [facility] 2021-11-12 2021-11-12 Ancillary EL Nastoupil, 1.2.840.1 [id number] 1 [id number] Univers 20:10:00 20:15:00 Procedure Nino Howell 67575.1.1 ity of 3.412.2.7 [place] .3.296305 MD Tripp [facility] 2021-11-12 2021-11-12 Ancillary EL Nastoupil, 1.2.840.1 [id number] 1 [id number] Univers 20:05:00 20:10:00 Procedure Nino Howell 53850.1.1 ity of 3.412.2.7 [place] .3.569116 MD Tripp [facility] 2021-11-12 2021-11-12 Ancillary EL Nastoupil, 1.2.840.1 [id number] 1 [id number] Univers 20:00:00 20:05:00 Procedure Nino Howell 87550.1.1 ity of 3.412.2.7 [place] .3.582051 MD Tripp [facility] 2021-11-10 2021-11-10 Telemedici EL Nastoupil, 1.2.840.1 [id number] Univers 15:40:00 16:00:00 ne Nino Howell 01632.1.1 i ty of 3.412.2.7 [place] .3.844515 MD Tripp [facility] 2021-11-09 2021-11-09 Telephone Visitacion, 1.2.840.1 [id number] Univers 00:00:00 00:00:00 Nidia Angel 66068.1.1 ity of 3.412.2.7 [place] .3.004058 MD Tripp [facility] 2021-11-09 2021-11-09 [facility] Kevan, 1.2.840.1 [id number] Univers 00:00:00 00:00:00 Only Staci 36585.1.1 ity of 3.412.2.7 [place] .3.236061 MD Tripp [facility] 2021-11-03 2021-11-03 [facility] Staci Scanlon 1.2.840.1 [id number] Univers 10:23:18 23:59:00 Amanuel Hernandez 30721.1.1 ity of 3.412.2.7 [place] .3.262940 MD Guillen8 [facility] 2021-11-03 2021-11-03 Travel 1.2.840.1 1.2.967.653 6355 [id number] Univers 00:00:00 00:00:00 14791.1.1 350.1.13.41 ity of 3.412.2.7 [place]7.3.698 [place] .3.427241 084.8 MD Guillen8 [facility] 2021-11-02 2021-11-02 Yogi Li 1.2.840.1 [id number] Univers 00:00:00 00:00:00 Ame Diego 68150.1.1 ity of 3.412.2.7 [place] .3.160266 MD Guillen8 [facility] 2021-11-02 2021-11-02 Edin Rosa 1.2.840.1 [id number] [id number] Univers 00:00:00 00:00:00 Only Boland 18540.1.1 ity of 3.412.2.7 [place] .3.017206 MD Tripp [facility] 2021-10-30 2021-10-30 Ancillary EL Nastoupil, 1.2.840.1 [id number] 1 [id number] Univers 02:40:00 02:45:00 Procedure Nino Howell 11774.1.1 ity of 3.412.2.7 [place] .3.124246 MD Tripp [facility] 2021-10-30 2021-10-30 Ancillary EL Nastoupil, 1.2.840.1 [id number] 1 [id number] Univers 02:35:00 02:40:00 Procedure Nino Howell 57881.1.1 ity of 3.412.2.7 [place] .3.264425 MD Tripp [facility] 2021-10-30 2021-10-30 Ancillary EL Nastoupil, 1.2.840.1 [id number] 1 [id number] Univers 02:30:00 02:35:00 Procedure Nino Howell 65901.1.1 ity of 3.412.2.7 [place] .3.960535 MD Tripp [facility] 2021-10-30 2021-10-30 Ancillary EL Nastoupil, 1.2.840.1 [id number] 1 [id number] Univers 02:25:00 02:30:00 Procedure Nino Howell 36919.1.1 ity of 3.412.2.7 [place] .3.567418 MD Guillen8 [facility] 2021-10-30 2021-10-30 Ancillary EL Nastoupil, 1.2.840.1 [id number] 1 [id number] Univers 02:20:00 02:25:00 Procedure Nino Howell 34893.1.1 ity of 3.412.2.7 [place] .3.548376 MD Guillen8 [facility] 2021-10-30 2021-10-30 Ancillary EL Nastoupil, 1.2.840.1 [id number] 1 [id number] Univers 02:15:00 02:20:00 Procedure Nino Howell 67136.1.1 ity of 3.412.2.7 [place] .3.815714 MD Guillen8 [facility] 2021-10-29 2021-10-29 Orders Nastoupil, 1.2.840.1 [id number] Univers 00:00:00 00:00:00 Only Nino Howell 37651.1.1 i ty of 3.412.2.7 [place] .3.298155 MD Guillen8 [facility] 2021-10-29 2021-10-29 Orders Mathur, 1.2.840.1 [id number] Univers 00:00:00 00:00:00 Only Staci 25603.1.1 ity of 3.412.2.7 [place] .3.585791 MD Guillen8 [facility] 2021-10-29 2021-10-29 Lab Doug Ambrosio Libra 1.2.840.1 [id number] Univers 00:00:00 00:00:00 Kenny Mathew 09187.1.1 ity of n 3.412.2.7 [place] .3.431755 MD Tripp [facility] 2021-10-19 2021-10-22 NPR EL Nastoupil, 1.2.840.1 [id number] [id number] Univers 15:00:00 08:04:25 Nino Howell 94071.1.1 i ty of 3.412.2.7 [place] .3.273884 MD Tripp [facility] 2021-10-21 2021-10-21 [facility] Doug Ambrosio 1.2.840.1 [id number] Univers 00:00:00 00:00:00 Mya Flores 42682.1.1 ity of n 3.412.2.7 [place] .3.552479 MD Tripp [facility] 2021-10-20 2021-10-20 Hospital [facility], 1.2.840.1 [id number] [id number] Univers 13:30:00 23:59:00 Tray Small 53928.1.1 it y of 3.412.2.7 [place] .3Wilmer750705 MD Tripp [facility] 2021-10-20 2021-10-20 Ancillary EL Nastoupil, 1.2.840.1 [id number] 1 [id number] Univers 20:05:00 20:10:00 Procedure Nino Howell 59919.1.1 ity of 3.412.2.7 [place] .3Wilmer741579 MD Tripp [facility] 2021-10-20 2021-10-20 Ancillary EL Nastoupil, 1.2.840.1 [id number] 1 [id number] Univers 20:00:00 20:05:00 Procedure Nino Howell 94998.1.1 ity of 3.412.2.7 [place] .3Wilmer788627 MD Tripp [facility] 2021-10-20 2021-10-20 Office EL Ken, 1.2.840.1 [id number] Univers 12:00:00 13:53:05 Visit Nino GinaWilmer 63380.1.1 i ty of 3.412.2.7 [place] .3.180210 MD Guillen8 [facility] 2021-10-20 2021-10-20 Documentat Ramiro, 1.2.840.1 [id number] 10 [id number] Univers 00:00:00 00:00:00 talia Perez 75270.1.1 ity of 3.412.2.7 [place] .3.317401 MD Guillen8 [facility] 2021-10-20 2021-10-20 Neel Mathur, 1.2.840.1 [id number] Univers 00:00:00 00:00:00 Only Staci 47187.1.1 ity of 3.412.2.7 [place] .3.179587 MD Guillen8 [facility] 2021-10-20 2021-10-20 Travel 1.2.840.1 1.2.705.828 [id number] Univers 00:00:00 00:00:00 07514.1.1 350.1.13.41 ity of 3.412.2.7 [place]7.3.698 [place] .3.5034[place] 084.8 MD Guillen8 [facility] 2021-10-20 2021-10-20 Doug Lockwood 1.2.840.1 [id number] Univers 00:00:00 00:00:00 Shekhar Kiran 50326.1.1 ity of n 3.412.2.7 [place] .3.312164 MD Guillen8 [facility] 2021-10-15 2021-10-15 Travel 1.2.840.1 1.2.888.139 [id number] Univers 00:00:00 00:00:00 21674.1.1 350.1.13.41 ity of 3.412.2.7 2.[place]7.3.698 [place] .3.991484 084.8 MD Guillen8 [facility] 2021-10-15 2021-10-15 Telephone Ahuja, 1.2.840.1 [id number] Univers 00:00:00 00:00:00 Stephanie 06538.1.1 it y of 3.412.2.7 [place] .3.502792 MD Guillen8 [facility] 2021-06-10 2021-06-10 Inpatient JUSTO Cho, [facility] DAYS [id number] [facility] 07:30:00 05:53:[address] 2021-06-04 2021-06-04 Outpatient MHIE MHIE [id number] [facility] 10:15:00 10:15:00 02 jonathan [place] 2021-06-04 2021-06-04 Outpatient MHIE MHIE [id number] [facility] 10:15:00 10:15:00 02 jonathan Bhanu 2021-04-03 2021-04-04 Outpatient nullFlavo MNA [id number] Memoria 13:15:00 04:59:59 r Neurology 01 jonathan Lee [place] 2021-04-03 2021-04-04 Outpatient nullFlavo MNA [id number] [facility] 13:15:00 04:59:59 r Neurology 01 jonathan [place] 2021-04-03 2021-04-03 Outpatient ALEX Stack OLESYA [id number] 08:15:00 23:59:59 Joe 01 Danish 2021-04-03 2021-04-03 Outpatient MHIE MHIE [id number] Memoria 08:15:00 08:15:00 01 jonathan Drummond 2021-03-16 2021-03-17 Outpatient nullFlavo MNA [id number] Memoria 19:00:00 04:59:59 r Neurology 00 jonathan Drummond 2021-03-16 2021-03-17 Outpatient nullFlavo MNA [id number] Memoria 19:00:00 04:59:59 r Neurology 00 jonathan Drum[place] 2021-03-16 2021-03-[id number] 14:00:00 23:59:59 Joe 00 [place] 2021-03-16 2021-03-16 Outpatient [facility] [id number] [facility] 14:00:00 14:00:00 00 l [place] Results Test Description Test Time Test Comments Results Result Comments Source VÍCTOR 2022-06-16 08:49:00 Test Item Value Reference Range Interpretation Comme nts HEMOGLOBIN POC (test code = HBP) 12.2 g/dL 12-17 N HEMATOCRIT POC (test code = HCTP) 36.0 % 38-51 L SODIUM POC (test code = NAP) 144 mmol/L 138-146 N POTASSIUM POC (test code = KP) 4.0 mmol/L 3.5-4.9 N CHLORIDE POC (test code = CLP) 108 mmol/L 98-109 N CO2 POC (test code = CO2P) 26 mmol/L 24-29 N IONIZED CALCIUM POC (test code = CAIP) 1.21 mmol/L 1.12-1.32 N GLUCOSE POC (test code = GLUP) 106 mg/dL 70-105 H BUN POC (test code = BUNP) 24 mg/dL 8-26 N CREATININE POC (test code = CREATP) 0.6 mg/dL 0.6-1.3 N GLOMERULAR FILTRATION RATE POC (test code = GFRP) > 60 mL/min 60-1 15 N Pathology Biopsy Aulunzfadilqbm9080-21-46 22:02:05 Test Item Value Reference Range Interpretation Comments Submitted Clinical History i2oizDAbVCInm3yrAXO (test code = 75880) mbGFuZzEwMzNcZnRuYm pcdWMxIHtccnRmMVxzc 4NhL3BsJiIoUQsstkPj XGRlZmxhbmcxMDMzXGZ 0bmJqXHVjMVxkZWZmMH azNj6ifYDmxQmfStYgW OPue5toncTGqmjzmNg0 b9jxHWYqPxO9zLUnBTe wC4wrepUxnEDgONWvVK d2fX12QPWfiX9qlUZeA CrfdgAmNbA1AEkgTFVx ZwY9KXUviXZzURFlI9b yZWQwXGdyZWVuMFxibH JfDZE8gHsec0A1tLXgg GVldHtcZjBcZnMyMiBO o8QuPRh4zCssF9LuYMD vSnC5dSKmEAQbDEunIC DpUIAnvvD3mU88ZDywr sV5hXRpu5Bau90qh418 cW8dgLQxQCF7LWMlRNV hfXAeKMMeLPC1DNUdhJ VcR8mfHHVwKW8nodlhH FiwJHdpCFUasUU1RRDk oOUfJ2AeVKDtBMvmBPM fipn9FqSbQg6svVSmaP juKDvcw5pzs1esiWNeU hx0GAXoWkDgGcyiYKwq b5Idy3vfYDEfaz2oRRP 2eNVvzInby8F2mIJwBM PwnERlwyUzQWHyWiV0N GonVT0thy54BMGjLPV9 sc6pkQIfqHsvgoSwkQR zIDqeR9XuULPmx852UG MsB7PrIFZyo8H5dbOjS eEzYMLokLM6ypA8HYWg FAa2dRVcdpT3khUrqTD qT8qcyW5zBWWeUP5jgx lqv9ctAYwhYMzoNOFbr UW5wkQ6YAHonTRhX7Ag jP5lSVQcJKcqIJJktud 5ZtEmJe3otCPdqPxmRJ xzYmtwYWdlXHBnbmNvb nRccGduZGVjXHBsYWlu XHBsYWluXGYwXGZzMjR atEbbdAlicU0mHmSbEe GbQMczEQ7lVUKrG4tai DAlNASzNTEbJ2hlQlJy cE4pwVmcEYcvwtVsWGO adOawA8MpROEqlMyoaB zszDUwW4AbBEZpSErmx 0WcfKwlzMdqvi3lLURg m5LlbPYpmXthmOXzf3r 4UTIrX3V2Bj8eLU0amG wauF4qNsJvNlHsGqudZ U8hOPNwH6biqQWpDYCd HWOmG4ijHnHdoH9djUx dVEaugkUhHFBngw52 Diagnosis (test code = 34) p7pvcRNqMILfgHJ2DzB eMMVie6yjt9IigOFmgA RxUNqziXOkkaIinf03o JV4uR51RP1sLJGcNhX0 ECWwnyY4Hme4HHQeONI coZAjH340e1kfs2fcnr TszJA3jYxfNWEjhanyA vH5MTblMPMgfzbePDk8 IQrhHTXpeFY9ZBKpmMQ jF4JeWZRyDP2zhzg2OT Q8YPubHERrPuW8HZBcg HYbRZGlfMurSMsve652 DBU2CuNzPKHyboJqqOg oiS2uYfUkGLDMoF4htL Kex1RjIEPncKjvqPTjP MGpj4Gmidl8h93tqL6s IGNvcmUgYmlvcHNpZXM 6XHBhclxwYXJcdGFiIE BYKNjFX8JUIGEcUIoRN NzWEVGxMUIUZRvKU4XV QVIgUEFUVEVSTiwgTE9 XLUdSQURFIChzZWUgY2 9tbWVudClccGFyXHBhc n0= Comment (test code = 9835) j9awxKCuAEAhvWO6QmD aSPBhj0nxb1AipJDimQ SmVExrqQItvuZjbo41o MN2zC42YZ4nPZXqGqD1 WZKczjZ3Soa0TXUbPLW xdNAvC998c5wik6etzk QznNA2EPVbSUZaH8HbK J4xCVOqaVKpL54dxUUm JLG6KEOhGVQieVFdGDG wIZO8VHXtbBCfR3wjNL DmRX3lrhsjNPmuNEznO APqdDY8MOAntAIpU1Pk APTsKFciWULoptq4YyS jIw3qxVIsqYihCFhsDV JkXHBsYWluXGZzMjAgV RyuxfLbarTeUFg1RCau UAZiq5maHClsvQSsLVu atLmpJHGwlFP9v2L6VE 9mIElnTSBrYXBwYSBtb 93rF0kypdLwHMfsuA6h xCS8nSofw2DvrA6gAVC vjz1jidOaZVTnB30rNx zxUP6rHDHnQKhAFuoxY F1kLDJdbTshU6PsXPCv wQgnqXrhvPCdpI9jNiO jAuLnaXT7oHLfyI7zoZ EuXXVxJHLbm77kxA6iu iQfiMHbcI8xUrBnQEmc RAWTOW4zfQL5o4tfK7s cENKoE5Paz57qRWLqy4 cgbmVlZGxlIHNoYXBlZ FTxvmCuhVBudLHms4Lt nMvlqFiecMJgaQwac1X pPNDFXYMyVE6fj82lSU 6pZQYpZIHet3klPXFsr SBbzc7gtNLpu6tlMtUf GHVky2BwpCy8YIEas7E wTHQzZVDiTSnwaqI6sD UgZGlhcGhyYWdtLCBzd YXduDBcs0AxPNSgpdSg EYdkfMZeILSrwS6tyD6 sPI1utYTsDZKvdwROoA B6s5pmK5teXCIeD0Fls 23pGVMxf4invuBrLCpr IHNoYXBlZCBmcmFnbWV svZSuf7EvjDngyVcrrI JuvYffx3GbABvviUdfA XP3dAyvVJvfvNwjwMtc tXFooO6pcHa0wfL7UJ3 xQPByUFMthE0feV8zAF BpbmZpbHRyYXRlIGhhc aZbLSQpN2YktFimzw1b lNfviaOzvj00kDivsCP 0dEOdfaVeqjGlkZDnD3 0liJRmm3AdHR0iFXErt Gl7rOJhMPBlScHmgYFc iEYjWI81ym9dnMQrrtG auyClI5DihURrXozwo7 XuFFS8OHKoqakfAqqfY PDfo8MnqkQnz85tFtZy VGhlIGxhcmdlIGNlbGx uPVXfWPGzc1MwaR3kpl Puf4GxQRb+OCBwZXIga MkbeH9xa2bfbtCznGWs RFjbCSW6nIDsrhVhemj nS3XuDHNcDp5nYZQsJV A3ayJdKlYuOSDvIUUyG NuedoRpkvUyZJKeo3Fe erXejdFlex18WOTtAE4 tXKLgbsyeDQDfIV5zvP 1ncDvxnS9pxZQhwWIhj IJzbHCglppqZnZyeK27 fvL1sGQ2FWMdAPUyMWt saxr0aAOcGbJ6oOVnwS dxjFopvCZdE4DriRYgC VTvOTUba7v3qEOaZGHv ldZKZEa8BKUBN1z2ZPO uDETKZ9ixPBHsgjRgmf ApSSVfqjMiNx6gPFELN rphT7gmwQksEOWiFLOv RUFHP8wrTK9uLNEjy28 zgNvrx1Mtj8K5AJ0pMY FxBGNleH3feV8nYWHfO LdqaeQmdjKexK5pgGNw tkLkBw6cJRBBYECeVMK WDIHbd0FnnO7iVURjMY O8RSVxLAESQQKapDhjA iWsU6LgWDJyfbXqs3Wi bnRpYWxseSBuZWdhdGl 2GNJcxSMwmEPgFq1pVW FgPFMczU5xiPRmWLVfj 3ryzMSgHVYjL1zka7Re Hd4vlYdeeFrtweRqYO2 mrdf4dQAhE0CbuODoEM Psx95iz6PjLGHDlC38B yBoaWdobGlnaHRzIHRo e8NkUY7wU1OsFEVtlNo nA8ejjdYblkQng6gdi4 ZfMVKur8xdyWZalVczO XJhdGlvbiBpbmRleCBv NzRcbKBpm9nsgCU7FQg 2CSGeZI8raBRtMBEftl JVfR72KUT2wM0kIGFsw TXgwZ3suW6xfPnizx40 eXBpbmcgaWRlbnRpZml lZCBhIGxhbWJkYSBsaW ubqARliMInxrQmIRD0h gwraQKfMVReO7FawCEo r1D6zPE2xR3ePXn6RXR td0DklQ61UOtlV1WgvC MpIHRoYXQgZXhwcmVzc 2VzIENEMTAgKHBhcnRp LAtdOSCABKA4RRNQPYB wLCBDRDIyLCBDRDIzLC SCDVH6QWZVTQQ8OXwjl J5lYRRlESQIMMRlMZAt cGFydGlhbCkuICBUaGV zZSBhYmVycmFudCBCIG NlbGxzIGFyZSBuZWdhd Vn3TPIed1DmM6H0GZKL FSRuZhlzL7OoAXcxU7O 8HgopO0O7REIsdaSiDq 9UWH9wySIoKYGoijTTl bWdQJncTBF8cNIkrF6u oXswvI9gpHLzRQ7xBNr xzCJxa9CcRK7ecGmvtC QkYlsjDQyaL0PuANTfW AIodNWyrGyomNPgz8w3 xOHbCKQakZP9CN58CBQ kgVngH1VtABQvcNkokB tvmWWzVAHbrLanV7KhX WIjxTG6mIUomxvppE96 LWdyYWRlLiBccGFyXHB hclxsaTFccmkxXGxpbj MwA2YpNQ5oGPreXQwjw dZpMZLmgKT4SEp6z3Lj LmgrLHUiv39gWw5cHJA eGAEjrO32os5qhPM1n0 IcBB3gO4OyHNL7ZKgor kF2bZS2EOhypjObapZq HOUkFNrdQDBbQXd3bK3 jHLOuMOHsACYzyS51LP B9wE4yPFOkvLIxuQ2gh J9waOuqes93sDReVnNb bJHiwIDvQBQgvpL7yEM pExCxqNZefORuxn9epA DonW6dt1tkrVHmpRTiT PYiHx9duZ95ykeaxrIZ aGUgZmxvdyBjeXRvbWV 0jjltVWV1pNYgTXZvOA JmCA2cwHQywDBhjrn0R RBuoLMwf5CzcEM7lQCb WD2xBIQhyVW5kYZnXtJ hdHVyZXMgcmVxdWlyaW 7xBZO5LIz4PHQew49xm B3hfTyeelXpbWGhmH9e us0ajBQbGHDpsgRfO2K wXHBhcn0= Gross Description (test t4klmVLzVOIgeSZRXAs code = [id number]) wMFxhbnNpXHNwbHRwZ3 VosqrhSLkwFF8tUR8hk SrmiZFelPCqCB6JOTMi ZmYxXHBhcGVydzEyMjQ cOIZliJYjuXS4QOPxBV 1hcmdsMTgwMFxtYXJnc pP7ORHjlJSvD9WtGDUc II1bmjdaHYX1ISdmwU4 hsbLLUaqlWl8bpERgqY tcZjFcZmNoYXJzZXQwX XIutMaaAFEyRZb2eT3Y IjnrA51cp7W1Peg7HHP jHSWkG1YkCP9uDIXdxO SxI47WJjqyOFV3BJWKI oeeRSKoVM4Iz1kfHDQs vDNrMAI7KOjiwAAvGGX rQURnGWy8IRQeSHxujS VkPE6hxZbaIiusoXmiy 2VjdCBcXGlkIDUxMDAy AGleWJMcXG6GUpNgDKK qTBM7JluqXXy2CYi2DP 9WUyAiICAgNTAxOTQwM rUvCMz7GPkdIY4QGWc0 EmleXIr2SFD9JCZ4KEG cXHQgMiBcXGYgQXJpYW wgXFxmcyAxMCBcXGZiI LxfFepkTXqiO55jfGxf qF7sIxlpudYlNLE9WUG hciANClxwbGFpblxlcG ljTmVzdERvYzEgDQpcb HRycGFyXGxpbjBccmlu MCANClxsdHJjaFxiXGN zRMrztfBiSGx4cOCvOC 7vTRMvodndMJVjJ0h8S YYqQJQyw9Fqped9x56t mN8yNZAkP8d6DTOxnEA vcGVyaXRvbmVhbCBseW 5xyBDwl1ObADYus6Nso QcyUmIqE1HaYBEFnNHm LUP3OF2xHfLnl59eX29 fSFKxzW9mp5voedIwIZ 9doF8lJCErs64lPL21S HRvIDEuNSBjbSBpbiBs WK7lhPvht1w7tAAuKVO lLQ8ljJYqGZ5mFMunb5 KoxWfkfnRbEtCuI53kY SMheEksNPs8QWX3Gm4y uYDuKDFewgWGSZ4FMi7 rSEhuos88GYH5e4cawS IfJFvqCiajzGHauxN0J DyQUEAOLDcNLgFnOU5c PUxJTktCRUdJTnwyMTA mGngxgWPYBTJ2XPiiyT bhvEs0o6uyeGRdl1b7E UfuQYT0dUdLs9lxcQWz HAliZmpdpMUmziG2TFl BSEYQENpEJzFbFG3eOJ qMQmnWCkB1VlQyYON4D PmKA3IHhEZ4Pod4MOk5 fXtcZmxkcnNsdCBcJzF QdA6afAxvbP2svAKbY7 hcZnMyMCANClxlcGljT sGisTIgLiJhltM4YILo aHHgGNL3VS8sZSCshuo qTOBlSHIlFJL7UBtmhY 11bHQwXGZzMTZccGFyf SnusVAekaGATeodmA0f PjYrk4lesQh1TBEVSut rmPKetgyyqnE1RVAfw7 nutPoet2GsqNPeCP3yk QtfgB9hHcWsZnZKYd4= Disclaimer (test code = x2eqdKTkILDaiIWuScF 9844) mJHMyDAFnk0pyKRIldF FuZzEwMzNcZnRuYmpcd ZYxAYRfLtPgr6ybd221 cAAcz7ckCUCoZrQ4kLP vCIQazPSdX130KBHqHO jhx3slu6OiAUYdhEBvd 6W2BDTPyltayRl8pFnk G31ff7W8YrecQ0nzPPH fJYYkO3MuAI4zFOSoPc y2KCE7YEY3ODAdYFWwO 0JlCE0xKKGcgLQjSCj4 o0uadSabMSIgSXD7l8h nTYdaejOhOE1cus1ybJ c9r7iajoBiXOZaABDyo BQNXXBcL8McdEkaCm9e oTg8yNftEehsHJI4Qbp 1UX2wtk64iwk6cDiaKZ VcmmlyDyV7HTceKLPln qevHOd4GWttTAUgoTD5 BCGphIJvY3CwESXjDG4 ttdw5TKS7VJfeMLKnSp P7WOWagXEiVMZswHynX Xzts902NTX4XdZnAF6u E2Oix7D9aE2ivNHmDRJ frGZbKuPyDLOdjd5mfJ FuSAfvv7PzYFS5qaV0o JAtfHTsUGRyDU63Gzmx n0RnBrapRKV3YEAnisH il5Fip3dtLlPrdzOfY6 tdB0ZxZUVjBDObVZKaA rHtwcQme6Sex4WqmCPz iKl9x9elEZZwDTSytEr yl1lbFNU8XTTcX3Q6cE Jsc7tyEYdiHIQxzHV5n hA1ZKLtvNKrT3ZdgJ8j NUSoKX6utds4y4ftEHS 1UKdaZGQdCsP3vgY4VM BcaGVhZGVyeTcyMFxmb 548GMG1KmZuLRPfo2Dr N2ScxUrhF75pyBymJ06 uKRFnaYfqyX4sfRyetR 5cZjBcZnMyNFxxbFxwb UGixlbmKBocnbW7RCsy pkgnSPByJBikX5ggOeU xSCAzgKhoDVwqk1TyEW SbRUTcQegdaaZ9OQWOl 64kKKUpx4TlISYwlO5z dRHdSNweabUzmPL3QNa hdmUgYmVlbiBkZXZlbG 8kVAKmBG0kTYFmgxUyg h8odiVfOLRvIRUeF0Wb cmlzdGljcyBkZXRlcm1 ogiCcAJA2GJYZQJ5UXK DaBXPeb40jLTHulVtiz A7osZFxthHkXVTee0Ij mL4fqCNJTXUtD6lxMY7 uFBbbn1OwjWImbYVarM B8LCAeg0DjDoTogoBqr FEcuALcD9HhbVveG3hk YPTqQBZtkkTjoYErn0Q sSLJnsPV4xUCyQM9KTg CFv79rQOQhMHPKjsDeO MYqlNwirTQ9leS5bT6z LiBJZiBhcHBsaWNhYmx uQBMon073vi7jnkV5RV LgLALfgrwnf7WaVAXtL QDrhI44BBCmZTOovb2i hppuwYRsnsQoC8Ghxto 4dM7eXQXpTGqwQBVmUK ZzMjJcbGFuZzEwMzNca GljaFxmMVxkYmNoXGYx UYblQ6epDpPqNvQiCwg wYXJ9 [facility] Interpretation 2021-11-07 22:02:05 Test Item Value Reference Range Interpretation Comments Submitted Clinical History t8qmhVCdFGZwp0vmRXS (test code = 27264) mbGFuZzEwMzNcZnRuYm pcdWMxIHtccnRmMVxzc 5OdG1WgQpPxWAjsojKq XGRlZmxhbmcxMDMzXGZ 0bmJqXHVjMVxkZWZmMH ldHj6ebUMytTwfEjSsM KLzt7xvgtLRatugeNa6 k4qcGFBjWxM3xYVdBPc xA1qcriKgiPMcKZCwYY k7uF41EHOcqL0llETwA EzxpgEdXpG9SCbtVZSw CkF2CSQlfZAzBGIoG9y yZWQwXGdyZWVuMFxibH TpSIR5aSvqx4C1qZAjz GVldHtcZjBcZnMyMiBO v4JgXZd1lPxwD9PqBNK eWyK6tYQkWMGnEUvwLG BdUZVqukM1eX40CBkho yR8sAYlq0Zjb89yb811 uZ6llYRyPXE8VUQcGWQ wnIUeQCXrJSE3KOVbpV CpH0luIHIjYG5edfuqU AfkCMviARYzeBR2BQNf gJXkJ8JgBZCcCXwkSOI prea4WvOgSb9ngZZwdE gnJMnrq1jcf4dcmIUtO di2UCSoEcCeQtjcQHvd p6Shg1qlGZLxbm9lZAK 2zEAoePldt6A6nPTwSI StnVZnuqSiPFDdIuL4S YoePY7ztk64OJVeXAE5 sr0paREndZuyaxSirOA iLHviS9JrZKUip012BO HqC4LxPBJcz4P8bhTkT wHsBCYqvED7waJ0KRXq NIg6pMMqryL3vvUmdQX mE5efvQ9hUKZoRH4ftd pry5xoJUssFKdlCYTje LM8paC1SPBjvKEcB1Ul dA9dCSQyMYosAJMxwqy 4JjGuVz8zsSMnxQkuKF xzYmtwYWdlXHBnbmNvb nRccGduZGVjXHBsYWlu XHBsYWluXGYwXGZzMjR rhIivaOethV2gNlGsKg WwYYbtET0jFFEeZ4qiv XWwTFApVFNpS1evYuOw mZ8qaWboKDfpblBcNAQ wrRrdO5HyMTPigEbyfP nmrSCxY3DaWMLwTUbvf 4IfoSyupUjiyz0hBVVl l0CniQIfrMozjOHre1t 5RNOgX5J0Zy7sQQ6lxB xaeL6bHfWqLrAwMvahG O0rIPYcG3vidZQzTOSh HIDcH4erJsIlyS1khSp kSVfzcsQrAVEcte55 Diagnosis (test code = 34) f0isjYMfKZNzjXO6ZcT cKZFde8nim7LguINgkQ WwXGrroFBqlgSkyq55u EV2lP21VW5kGWJpCxY7 CJWjmnK7Iad7PGSbIRR kxXRsR970b8gab9qioe JtbTV3kPohADFgeaybY cB9VJgmTGBpxktkRKk8 GIprFVWhfPE2HXXwfTN oG2CmAMBzSZ4tept0SA G5AAgvBAFzXfU8MBToz EWlGUIltKphOQrdp852 CVZ5HpSkTCVpepCtmUg riC2iWjQaUVPMlL5alX Rcu7RvEAEqsUiajVMlH ZBek4Acioj2t43ksV6e IGNvcmUgYmlvcHNpZXM 6XHBhclxwYXJcdGFiIE IAQImYL3WCMQRuUIySQ BzABEJmEMYFCSaVE6OO QVIgUEFUVEVSTiwgTE9 XLUdSQURFIChzZWUgY2 9tbWVudClccGFyXHBhc n0= Comment (test code = 9835) v2oxrIXfBMAdaEC1ImB iNWTtk9wod2QfbHBumQ NmCJdaxKXsnlTnzl06v WE3yV43EG5oVMTuFnE6 TMEbqtN8Pen4YSMtOJR rxKImE509h1bwq0entu CfnPW8CAMwZMRdL6PuT J7lGSZhiEWnI84qcHDn EXZ2TOThOSCteIZnHEV rDCS4EAHvtFEpM3flEC FpQF0prpvoAOjoXKuvX MYqjAE5XNUdtIUjY7Bi CJBgJXulMZQubdd2CgD hGr8mbHBwgRroAXwtVR JkXHBsYWluXGZzMjAgV GingdWxfoRwMZu2MGlt SWKsp6llZCxlaHOrNXk edMjzDCIjvYG6x3U0VB 9mIElnTSBrYXBwYSBtb 93tS8kychViFRvgfL8l qRK3mVnrc7TtxB4xNAT vgl2duuXlZDRqN73xQv xyLO8zPFWwJNjTWlffD F1dOHFlyKbuK8FmOZAh qJqpgUfuwUJbnA1kDlI gGrJuqFK4pNWtlT7khJ XsWVPuRMAyk04qhU7ah vTphTGcgN5rIkQdYLpw MWGQMN2qtLP1e5alV3u tKRXtL2Afa57fACSdw3 cgbmVlZGxlIHNoYXBlZ VSjbpGviGUleWHqu5Iy fCnyvDpruVTweTfmn4W mISVMOTKzUU0iz02mIU 6iDBPiEZXed4lpUMVyw HHjtv8vhRQvu8kbSqFg ODZjj4SvqMj3HNLej0T uLIFsNBNaHUxwwbN7oE UgZGlhcGhyYWdtLCBzd HWnxJJer2XaEPZpwtKh HFoieXDsQYFmoQ3miU4 bMW9axNZtZZBovcIRqA U3i4awY2ufPOXuZ0Gyv 98rMEBad1jrnkZgJJny IHNoYXBlZCBmcmFnbWV vhSTzc3NpgVpkiQxeoI NhmTiwi4XpWUrqdWsxU SP6qWkeXVvfzVqxhRrp xTKlsZ4vgRg7dyX3AZ1 kBTWqFSTkhL9ctE2hMF BpbmZpbHRyYXRlIGhhc pAvGWDyA1ZqiTmlms8y fXjparAove41tBdkzVF 7sQQpolTdkdPchYFaS1 7oxMAer9NyKM2wGALnm Ng8vSPjPLEvHpJoeQUo oIJmUV92gd8edCBhjzW sjrDyX0TpsFEaQtnkw8 LcHPZ6KZBgnzabIwlbA OBdn1AyzvVxa18tHfBm VGhlIGxhcmdlIGNlbGx cNHLeMBSci2TnaN2imo Ydp8OcHGl+OCBwZXIga BmxmU1dp6iqhvHkrKPo PIxxWCV2jRNnroQwuro mN8CsTUZbNe1vHCKyYC X1tlOpCvYcIHIqXXFuO QuamjIwcuGvRKCnx1Sw zzEudaPhdv62YNEdRM3 cRXQsfsymCWFqJO8uvR 7vqYmzpA8guZUgaRIir JUgjGZjwepkWiIxvB35 slH5vEH7MHFgTIWcNPb thij4jHJcGvS2cAXiqS dwsUzbzGUnQ8GudWNrF FAnWGQsb6o3uDHfLKBl llESLHa2HQWXG4f4IJG xTSJGS9hmDWXkznXpwp NdJHUdjtPvKc8aUSCYR uusQ4cpnGipZNUuZSXt UUYIR5mdBC1vOXMjm35 ovKkjp3Mkq4R0WR8vYN YrACAgsB2huT2jGOHeE VxjhnPvddCkzC2bcQQe imYwGm4vBQWOCOGzNTS HTZCzs3KvvG7hVOJmNT Q8NNYaUQHLZGMuhEmfN lMpN3AkXMNxgsBtl3Ij bnRpYWxseSBuZWdhdGl 8ALEzoWQteCUoLw5iBP ZoPHBlsI4dsOIyVJPny 7cijTZeFPZqL8zdx8Yl Aw2tnMuhnCkoplXdZG0 mvlf2vWNvG1AuzDGqSL Hwe78rk8MlBBNOmY37I yBoaWdobGlnaHRzIHRo v9AnPD4eO6MtALNkuEq uS7cbnpOollGlg2obi9 XpSEYrm3lglQLxzUvdG XJhdGlvbiBpbmRleCBv XeJayFWyz8lsbLD2YHs 2VIGcNL7nsTRwBHWpfz BKbK75VBS3tR8iOQFrv ESboC5afW2ebBmwpc06 eXBpbmcgaWRlbnRpZml lZCBhIGxhbWJkYSBsaW fydBRseLNmhiIzAJT0a ubsjJApWBWqB5WaiBKt n4V8jSN9bW2aWWq8WRL cn4ElpK77OAqeK2HbdB MpIHRoYXQgZXhwcmVzc 2VzIENEMTAgKHBhcnRp TZdbJABOBFP7PPLHBDV wLCBDRDIyLCBDRDIzLC YHHWG1JUZNHVF8EKsqg S6cWGJvKRMVQMDhLFTl cGFydGlhbCkuICBUaGV zZSBhYmVycmFudCBCIG NlbGxzIGFyZSBuZWdhd Gi3DLOrl6GpK8E5UQSU NVEqPpygG0CuLWllK8W 5UkeqL3X5DZKfxrWcAx 9EWQ6ipYPjZQXatgXLd zHuMCtzEMA9yFPxdN8d iFjmvH0zvOWmCT8hRCf zgJZtq5MnRR6rgKavmZ MvLxkjHFscE1TzMSMtN WZgeGCfoXhtyUDkd0y8 dXSjGBBzrKW4TH14GYW nbJrxB8WqYFClvToveJ fbpKEeJGYksVexB9GcP LStzSG6iSKqwthxnP71 LWdyYWRlLiBccGFyXHB hclxsaTFccmkxXGxpbj GbK2GsXE3nTUycFLper bEaHNBtqIC3RMh2l5Sa XnqgBSAuk94xYl2iBWZ hXNQshC99ss6laZP1e8 LpOB9sF2YcSSK6TXwsx wF0mRR9EVkoyvJzrpLr YCEtMFdsVUWsDXv6oY2 mPUVzDKWfQQHfsM52KF U7eN0cGWTjcFZqhH6ic L5ncSygbd57fZFdIbRr xQEirGViDNNzkiX6sSL eViTtpOGlaIGoaj5vvT UqvA8bh7kdvLJadAUtW RQiLo3cxU49nomalzRE aGUgZmxvdyBjeXRvbWV 3lbvlLEQ3lCFbIGByKS BbNB5jwLGstKPzgoc4A CUhjKUei5WmzZE1oKUq RH4mDBVdcMJ5gQNkVgV hdHVyZXMgcmVxdWlyaW 5rJNY0LHw1SVIlg46za H0hkHcgceGnfOCpxV2f ex4mwUYiBHLcbtVbD9N wXHBhcn0= Gross Description (test z2mwgPMbCWMazPYOUXl code = [id number]) wMFxhbnNpXHNwbHRwZ3 DmhqlcUMnhCE6eNR9lb JcnsXAlzVHhXL6JFGSe ZmYxXHBhcGVydzEyMjQ kQGQzfTWwbUU6JZRyIQ 1hcmdsMTgwMFxtYXJnc eW9QURarWSmI5KkZUMv MH7rwvimAYO8LXsnaQ8 ezpQPNmijHj7xmCPqxW tcZjFcZmNoYXJzZXQwX KOwqNhjCVUvBRo7yY1A UiidA56ie0E3Lcw6RED bGIAuH6KoLV8sRZKfeP CgB83ZTfsyMQB3GWGTC abnTUHxYZ2Nk4rqSTKj oURvRKF2TWznpOFpASU nJNDiYWo7ZPPlBWblcH LkAS0lrEilZdnjcLvwt 2VjdCBcXGlkIDUxMDAy JZzgBIHmSU9BArKvFIM mZBZ8CpgqOBa9AAl6RJ 9WUyAiICAgNTAxOTQwM aTqWOj2KAhxGL4YYRb5 CugjZUp5WYR0WDT3NWB cXHQgMiBcXGYgQXJpYW wgXFxmcyAxMCBcXGZiI JbhZkjyLTyuC48zmGgp lV1cMmhmakJwTUT4NFI hciANClxwbGFpblxlcG ljTmVzdERvYzEgDQpcb HRycGFyXGxpbjBccmlu MCANClxsdHJjaFxiXGN rCFrqkkPsZUy2uWXiPO 4qYEZjhjfaFKNgF8e9J MHqFUXzu4Gqvta5f57j wZ8gMUNiJ1i0HQJvbDO vcGVyaXRvbmVhbCBseW 4bdTZyl7ZcVJJpd5Nrg ZasBoUgO7JhDOMMcEHl OBJ3WU1zVwLah65yK23 vQEKwxZ8pk8tuyqCvZX 1oqL3iAVUjy15xJX71X HRvIDEuNSBjbSBpbiBs XS3kwDsjf1u5qNViYYI zKE7amDNtYE0bTIuve9 TboFdktbRjScFuE77lO GRugFerGAx9JDP6Wk1g yRZrHOBwqpRZDQ8UCx1 sZYtlbs49GQR8i9teiT TtEIvhNvwpeLVrdaR0U PiPHTJSODjDDdKpGH2w PUxJTktCRUdJTnwyMTA vUxymhHBTNCK8OXrheP lmkTb5x8uymIGtj9m6V OmoVZQ5xRvPh6piaWQx OOspMyshsYKhywX8YDg GFEZKCUvZJzNxAU9eHB yYHljGKpK8VcRqPPG6K EkWX3ZClNP9Yti4WIu8 fXtcZmxkcnNsdCBcJzF IrW7phFsleI5qdWElH6 hcZnMyMCANClxlcGljT uRbqMTdJeYczlB5LOZg yLZgTWD9AJ4jVCEjder hIZYoHUXtFOA4UHqgiL 11bHQwXGZzMTZccGFyf VkenIWbukZYUbsgpT4k ZlQed2feyRp5UFELHao enOKgycvdjgC9WOJlw1 pyvLgjq4VyfJLbJM0cs GkpaJ4tGyNfAlYZHt6= Disclaimer (test code = c4svyGVrJQRwyCRzGlB 9844) gYLVmNRRws5beAARixX FuZzEwMzNcZnRuYmpcd VMaKWCbIjSig1zzw243 aONxx5ljGEVmNpV1bGE oNKWyoQJeA515YYTkNX pax8paf0ZuVMUkrBThu 1S3QJNLsulniQh6iPxs J50dl4S2TmmyP9lkXNN wFALlV8IiPX5rTZKsSk v8AQG5UBV2BUTxPKEhN 1ChEC4wQRGnyVUiNMy8 m2ijyKhzEDGtUUJ8y5o qJQoehvAuKW4jno1xkT b8x4dlpxLjLUTeCCQfy DPQFNOoY4MiyQffMr9m cLe0hKvbXpghLBB9Kub 1TF1gmx26tgq1fHmlON IcffgyKhX3DMltUNYla pfkFYk7DKzxOXMsrOZ3 ARBdfRQpM3BwHQMoMX4 snmb1HPG8UUkvYEKtMw U7HHEniQVzPYHusYdwD Kxya809BKQ9DeUcDA8c V0Mdn8Y9kF2xxYJdAXN obIVkChZhDWQlod7yqE EmDAppv4CfULY6uvO3h QNjrQLvQRYdPP67Jchl k9RbVnryISK2GVQvpkP ca3Ugv0lcCjDdycZhY6 ccL0GxGAOjIBVlRXXkK cJgtnHqb6Mxt4CutZIc oFy4c2jwSTOtDFJtcLa rq9wfFOC9VGHkE7D7wS Nwa3aoSBlbKVTxzRE1x qJ0YARnqUMoP1HhvQ9x BQZvMJ0xfag6r2bwWUZ 6DOplJHUuGhM7dqG1OW BcaGVhZGVyeTcyMFxmb 592ZVV6LmFvPWLfh4Vt D9PlsYviV32huLdiH55 yNZSxeTdxvZ3qzJswiP 5cZjBcZnMyNFxxbFxwb LGbrwtwZAmtwbJ6EJzb dpsdBZVvWMpdZ7fgWxW cVSPkbUavZRawi2GoZA RwKODqXyougoH9OHEWf 11yGUIba4JjJWEexX7r fSHiJAsmttEpgFV6CDf hdmUgYmVlbiBkZXZlbG 7oUJAyOA0fDDEievWix l6vcwZnEWVnIAScK4Yo cmlzdGljcyBkZXRlcm1 avuDbQBS1DVPLZH8ZWE SsPGOyu31fVJKyiHhsp Z6yqSEdwvSkPTAyt8Ib iF5cmMPJOVWiY4qrXS1 nBNqyf7ObjOJwlOOgjF F9KKTwc6OlFfHqzkYuu LVmsBSjM2NubSgdM8nw GGBgZTHbzlOunEThu8W rHFGspSI4vPOqMV5NFk NGy32yZTRyTSXNtkLvT NKtrUqjaYY1lmA7kX3n LiBJZiBhcHBsaWNhYmx aRGZtj745xz8tlmP9TE WzSDJqkjtdc4XaLGRdZ JFikK11QTAcKLShup4q pxkgrSOowbFjS0Nnyky 6jP6iIHLrKAhqTGBhAV ZzMjJcbGFuZzEwMzNca GljaFxmMVxkYmNoXGYx TRiwF7rgFlGgYwEfLno wYXJ9 [facility] Xqmfvibggnekru4098-34-07 19:30:47 Test Item Value Reference Range Interpretation Comments Gross Description (test x3zdcDUnEJEayFPNWJft code = [id number]) LHfzqcEtWWIspERdW5Xf knmnNRsfYR3pVF4zoHhu gMZgbZTsIC0NSHGkUcOw XHBhcGVydzEyMjQwXHBh oYXxpYE6XGGiQN9eeymq LKezUYasRCQzdyO6ZIOt qCFwW7TqGKIfNC0vvkuq UEY6WHmejR4ygzLBNytp Ph5yjNCahLdoJnYoJsAu YXJzZXQwXGZuaWwgQXJp QOe0dE8XGjjcR05tv9I2 Urx3OSXfJSUtJ7TnQX9n PZDvdKFfU51DAnjiXLJ6 SKZTXaukEWSaOF1Hx8yq UTAboFCtDJQ4XSphnGYl BFPmPAAzXIj9WWCcKElu aDXhTH7xoWcuGpwleTwa e1WpkUViHCozTTZwUMKo TFylYFZmTQ8BAgUyGDRs VXIjUQzqJSu7VIf3HB6K UyAiICAgNTAxOTQwMiIg QNv6CYenQW4ZLDl2VeL1 MoBeRQF9GYL7WeQxGCWd MiBcXGYgQXJpYWwgXFxm cyAxMCBcXGZiIFxcZmwg ACwyH40vdTxfcD8fItin vtHrFXO5URNdovFZAfrf bGFpblxlcGljTmVzdERv YzEgDQpcbHRycGFyXGxp bjBccmluMCANClxsdHJj aFxjZjFcZnMyMCBTcGVj uH4cpbYflUQwI3NdEZV0 XHBhciANCjMgRGlmZiBR dWlrOyAyIFBhcCBTdGFp vxSEtBlyDSIyqFFkZL5V HBHwuPzkXMssho63GNK1 r4rjlAKuTJlwLubdpNJx bmY1LLjKYWBUWPoGJqEu VU4wIUhOK0CJWNeAEqtd IHD6RCcpbTU3c3rcnYWv t4m3IVmzLOS7eRShj6Bs oUFnaMLglBRkkKS6IXXa POdgu3jqRRIwTGkxv3Sa HQnDFVVYVA7VAV9fwCS8 R2aOHGRZC4xXzZC9k1xx uEKun6c0VAkgXMT2nVDt h98uwJlbJcihhQE7XLlh OuvgxA3pqIKXHYUHDprP TawkxaBuOO2RRDcGZP8T pPQ4i0jrnHCfo8a4OBuw MZV3pIetjEMujcjduFVx sVgfvg37PNF8TMUkTPvw czIwICBmbHVpZHtcZmll tBI7HQtpSdwiwK3rfXKH TISYVkfSWgjvujQxJP2K ONCKDE0SmJH6TxPsvRX3 XJ24WFZjBKYqpAVyRYzr Y840PUVdTPicHZr8irDq XGNmMVxmczIwICBpbiBS GB0TUXEvbrPMOzIzGxhs y8bvCHTwRXxzKSFcnUko LlroZ9fsLJpzBCugEXRk ASrUERKuV8PhfJTbEDel U3PkGYoqSUWwjh1uoCil OiBccHJvdGVjdHtcZmll xNB1SQdnYobaoA2ruYFE OCJXGwcUVfqugcOnME5W OL0HQiCLBV81VTVfRwT8 W4yBF9TQMKXAKCE1FZq1 nZT1sR73RSZqWVBocAFp FMurX353XBVyTUBgHfK9 RFQoZWjzf0wgZGUnNUgy u5GuQWeSQLEXTD0FRU8l jED2SJjRC4CTKBk9PGE3 MnwzfFRPREFZREFURXww hDm7MOx4mGgvKxjkhgIe wEBuGeQUmD8enIinaB9f jSQhS7dzO4OmBLYtNtOg VHVxDBWjx3BnI1D4VVOu YQemb8rxUMAjABqpu4Jx XDdNXHLJSA7SQK9kbYV7 ILxEL1QIG0kGkHsnkIV6 Uw9RbRB5kLuujZf2z4qn iQYnd4h0ITgwJSK3zFH1 NYZbBR30ADYnKFldp1te LAVbFWtmp5ApKUwQWREB XS6ILX9cpQI9VLvLK9HU YVx6Ydl6vQ3IU7gaoUu5 ZVa0tSlcWgpsrwGctBNt FuQLfY3phHqktK5lgBQd X9puV2WsTFQuUqSibWZb GP4HJQAqdjLAZbMmvoG6 DO4qNAcgEWHpFAqUqF8w ZGlhdGUgYXNzZXNzbWVu xTWcj8Hyw4OcZ3mmWU5l DRSagMRmG7qzr3XjXI6h VOHsYGTwb0UoM3M4RQMu CCpco0qgLIBxQFmsy3Bf WObHWMVNNF5ONL4epXB3 LHmDQXONH6pMtLP4NvG0 pAV9US08NULzRZFjnEBq OGlyD709sGX5HHLxXRjy t6wvMMOqHApjm4MrBGpH KYOJFJ0ENU0xeED5ZIbG RBAADDzvCTc2YDq6iPK6 d0pegWKft2e5XAkxGID5 fVxwbGFpblxsdHJjaFxj ZjFcZnMyMCAgYnkgRHIu TNrpmAcvdj1ESms7LSBB OKPRKNhFIX6EDTWHQOPJ MN0EWNiSYuWvZEY8QOon BKR7UcOkPfT5XlU4IR6f KKPZWIMJHNtXMQ3LVHWL XRXBHP4HZcFiB7eRXCCS UkRfTUVUQURBVEFfQkVH PQ3nJac2Qiluj0Q1V7cK RENBUkRfTUVUQURBVEFf VM3LWKHUTEQCJV1CFMEO F84CXHVGXJPJH7FQN4eB TFQky9FvkCykLcT0PnBj FL73CNr7MOOmtsY2Ntxo VNk7PMc9CNWJMBGZJD8Y CHTMX05NECDUQPIOK3VC GVWDOmRKMZGFE62JVDPD VMIOU7CIQ2qLJGEGFhVJ VDLJO38JBEYJEGHEF7KT VYGSVCQNEpCEYlPLRF9Z EBIZOXBFEK2MWBuQKzJo VKNSQ5EGCkXCT3vkOACR LFMXRNVpFT3NNPchMONd N16vr7CUb7VwRDBpk4yg kRdim7JjaAJaWBcmDOHm cFXfMUaggF4wGyMbz0bg lVr1QXutbsB0PKMwgl9q jAscyX6fUYfmm7leOTY0 XHNsbXVsdDAgDQpccGxh vI3nMpXlThv8QKgaTQOl V3MjJ2JgdjU9XCBeQJzy XGZzMTYgDQp9 Immediate Assessment Adequate (test code = 9837) cellularity, further review needed Major Classification MALIGNANT A (test code = 9839) Diagnosis (test code = s2ubkBDtASRovGN9YhIb 34) KLGxe4jjv5MsyTTokLFv JDpguQYvjbJxvr30gIM1 yE57FN2wUKQxMlU9DXTm grF7Omx8LRWbSPPsnGIr T813i9run0afxhJwrNL2 BFQqZDXiI1LaPI0xGDLb yBSrG76nlEWyGQG1HEIl UNUvdBBzFYKhNYF6WDZc cHFlS8ioXVSqTA9rqguu CHspPRuhVHNttQX3JBAi fOOzP1WkVPGnXUahLZGr svn1RlTdSq5guZKyeLxs BCfnE1wvcY2qRoU3WEee H0ympU0lYTt0VGmdXMIr dHU5rbP4TIBgkAHpS7Km lB5fFCXoEQ3dggr1f4bt VWK1HXeiZVPbJkB2nqH5 NDBccGFyZFxwbGFpblxm pgVfOTHdISKGPfAAcP8i cTUid3DbBLDtSERjsYwy aOebqgT8bo7nZVWduE9t OSKtXWUcoI3lWM5zAOWc XRQwp9VafqD1iK4oCmth YXJcdGFiXHBhclxmaTcy GZJJRWRiNVUDG2lAVDXI NQLiJ8USJWPJTB3ZBN4J SDHpX9KfATmAAOWvO59y bWVudClccGFyXGNmMVxw NCMqvKa6QhGeBaywCMSw cn0= Comment (test code = f5gtaDZiYVMalXG3KyNh 9815) XJWql9def3KdlJYurNXr AFwqtZDfsqQfjg91vSL6 iJ80BZ2gYVVlIrB3CRSv rvJ5Adl4ZIYzRLBtdSYw J756w2jvl8cmecTjqHS7 rNiqVKApecnmKxD2FWwr TCOnkzbuDPz4JFmwZJWk oTV6HRLhgUKaA5CbYQKf AD6kqbk4UZI8UNfoMSZj MsS9WTBemSDzXHNpsBvd PFszv942YSU9LwDoJETu jvMfsFpxjH1bZgDmQSKH hEMiZ4Izs47zAAUnAWAb MBPlLUhxRJQts6FpFGSb m5hksHBaZE6ffT0oqtFq zOOroQYhaQLabQ2dqM2v nWIxty6mBN8mzE1hkYfw pg51lTZcybsuOvwxNlok xvIdjNIioEO7gdrgh8gm n3OoKE0eOVZhlyJnyfXb Ni5wTFamBNBemFAdOCUc v28cz4s9fMLcJQ5kCYGc zUvwjQKlM1hifX1exbYr rDPwU5Vmt92pHHnmqjHu g7fqPxMLLKKpMINQWFM1 LCBDRDIwLCBDRDIyLCBD XLEbYBLbJWYTTPP7GHQz wxZmvpWrYNKdzxPnCd9i MHUASKteW0VnOFNuXI0h MOSMBnJsFNKcOQAhe5Er jZ9kl1nnHyYuGGE5uMPd rlYatJ1vViV8vWWoUAAz UHYqBZJxl6YehGDsOLOz GYTljiZqj2JbjoOef6i0 aDAdKAP8urMzhxDxqNSk p7fiyTPlvMCax2oiiAL2 oBVbGHb5hWVdo83qXxQA sWMbm2Ihc0EbSBHhFABn h06vuUUxSJ58rBhoYQJq dWlyZWQgbmVlZGxlIGNv bpPjHfvvnIN1PWdCBwXl HDO6UOIaZTQza4KtBDHf jBBeo43swSXgczNzdFN6 rG4zGxOfhPZpXDUjknau YXJ9 Retained/Biomarker a0xkpNOoQQBmrRJ5UuFj Testing (test code = WCWvc3ktm3JwlJWigILi 9841) OVdjaSVqhgDzas91rYN1 rG13FA5sRAYoXeQ2YZCo nrQ4Yyt0QOTrWEUgoHDl A803d8mfe6kxqcLqhYT6 wXyxPTIhmwknXnT5JIfo PHQniocxOPz7XQjtATNw aTB0CJChiKYtR3UlZFDf MM0hjmx3OVK1RVcjNHIi BcU5IYMcfLLyJOMruNjn UOqoq383WIN9LjCcVAVk caGntPuwnA8kGrEcCVUE UjogNSBTLCAxIENCXHBh cn0= Informational Points u8anyKLvSRErlJIbVvHg (test code = 9836) BTQgHQLko7aeSFUaiXTh ZzEwMzNcZnRuYmpcdWMx THJxJcNpk6tjk618iIBq s2svXWGbIxU2lCMwRKCv oXEfV377RTJuZEizs1bo q7XmQRIxcUEqy5K9DYGR RMfwGQEHASe6x0jxNzSr BlJ7eGVhIYvvP8dqmhQp hTGrVLGcCBw8eN04UVDg rD9ocOOfQQlztpFkQrU4 PEagPMGiBiI1ZJQofLUi CGSfQ6rvRSJhUPivMXVq YQoegIIfWOX4zJtbe9B1 bGVzaGVldHtcZjBcZnMy WuGFh4OoDCc3mEdiE8Ot MJVcOaE1cWIzFVEhIHbj KHBgRNRxxbM3iC67BYxx acA5eSPpe9Wma45ho145 lV1wwMFcTNJ1UVCiJUOi lQGaOPNrRJF7JWAdhYRm Q1zxCMIlEX3hhsbyKLmh BXfqBMSzoWC2RGOpzCMt N3CsBFBoMPqkIJWkbay7 PpEyXd9hpJJdhDrkSLrc d7cec1nxuVQzMhn3KKQt ZkKwJfapSOejz4Tjz9zq ORFzdz1uGIW3mFTybKqt n2L3kZXqAMRreXNobyMy GOTvxd20uCDpzEZegMPx rw2gopKfyNIyhFBuNVJ2 cHNocnRuXGZldDRcYWVu SZYqT2zwKzKtgmXkW9va E6JzUYGiYJCzSMJgGbSc xgHlo2Cdd4CggYNrgUj3 i2pyUZXnABKtkEyyo0ly ZVK4WLGhO6G6xEErj5gx TOouOWXcvNF9pnP7EUFs zURnX9TexG2vZATuCY2c ldo9v8imSRS5BVgaFHGj CuW8zoH8VQGogBOcIPGd aUpgCQrzw688XAI7IzZn XQDyg7AjP4QfnIcdM32b qZlgU43dULEzrPfxxB4l yHujvE3uCgLpJvOhYGtd bFxwbGFpblxmMVxmczE4 HHqptqvsWXChPLhuU0qf MaFaWCQfeGwjYJpbp6Kp DQVxMYFoAAbtnGGQp50h FFUei0JlZACgoK8lnBNy SPpwnjNwiEV6EVxqasSi HpNwoqIeYRBsfT5iBAQd VB0iTJGlzmTekf3acrDc XQVcMRAdZ1WpwmtipHsa wrScLEBlwp5qxdSyQAB3 ZGOLLH7HFIUzYXXma10u JVOuyMwqzV8ifRTqcgPl NRPfa6FcpE7owIYFBXNa Q5kgJI8kQQjac2AllEIj jCLohRD6BREfc3GrToYu kaCzpODrrXGaS5YeyQng Y1toSPFrLLQgqtSzrHIw p7EiVBTngEP4mKBrQR1A ZvOOd54kFTQdCQGDqfJi TNGpuHwcjLT3fdB5uV4m KhFQuKehIOUyw5Pos3Tn K3qvHFNpAJGsrGAbaNhe kD0xDoZdQiEbMNmjWW4y JYPfN7dksNXaSDBpOOWr N4aiCfMenF5ucXurASaz ZjJcZnMxOFxsdHJjaFxp OKddn8SsGQ3qjcTUcZAw jWI7dU1sp6y4MDqbWi9q COSnagvqdDbmdN9xWrYh FxWgHTzhBZ8jXYLpO9zq pUEeIEXvKAZxP9ooEsGn vG0lbSynWWctFzAxFgQk OFxpICwgXHBsYWluXGYx XGZzMThcbGFuZzEwMzNc aGljaFxmMVxkYmNoXGYx CGtsF4oiQoBfH6TsFVWe HVkoqBUjR2ahjTEsAEHb LwEwdO46q3etrAOIqgq9 DIqaH86uis7iZZVYNTef ndN8QoQ4OH9idYxliL3a NqAsQnKvNljiSV4fLAIq S2yshCOcZXGvCFSsX5tw TvMdfL7ayClvGgcxouBt XHBhcn0= Lab Interpretation (test Abnormal code = 54380-0) [facility] Bbiahokbyafnem8667-32-87 19:30:47 Test Item Value Reference Range Interpretation Comments Gross Description (test r7edbJAdMQLbnXHLLRtd code = [id number]) DVwkntYwCCRniURvE6Us lwjaIYakEE9lWN6diOpc pMVtfVIzJG8PDZTaMyXu XHBhcGVydzEyMjQwXHBh hDRnfUD7IGUkDO0bbccd RXcqYHbfSXVlzeL5KOWl hEKkE5OyMISsQP2gxrjq FLE8RLsjeU1ebdFOYbwm Bx1zvXNzdJskSdXaXjUf YXJzZXQwXGZuaWwgQXJp CAz6wB6NAuocG96ig4O8 Uem4PMDqGJIlA1GfAI6j IEFokEQhA60HVhykDLR0 PPHGQqdnROTlPS6Da2ix CLNphPHtXIY0KLnmmOOd ZLVfFLRlFRj7CUThFNhk oMZfVH8kkXqnLbsdtIhi w5NaoNSfUQnmZBQfVIQa HEpdHAFxIP6EIdDmLBHr NRGcLJhxDLk6FBi0RF3B UyAiICAgNTAxOTQwMiIg NYl8DYrwSH8VUJx7RgT4 TjJiNBF4FCJ1PoDjTGGn MiBcXGYgQXJpYWwgXFxm cyAxMCBcXGZiIFxcZmwg JZytU40alYisaE4rHhqo hjCpRDE1CHNqglRSQcjt bGFpblxlcGljTmVzdERv YzEgDQpcbHRycGFyXGxp bjBccmluMCANClxsdHJj aFxjZjFcZnMyMCBTcGVj rX1porTsjWXxH9AeBOP1 XHBhciANCjMgRGlmZiBR dWlrOyAyIFBhcCBTdGFp uuGKnZdnMCUumCRcGE2B UBQclMreFGdirs56QYK5 j9dslYPuBHiqRejdfVLg jhK0JApGIOJVXXtYVoHq JW5fLSrIG1QHNBeWQnpz AID7ATtenRT9r2bqySIj t0f2ABvmGIC9rMAgl6Zc bMJbpGRvwAWifSC9PIKl MIdot3yrBTVhXKxtm4Wa QFwMZOPDGV9SJS7ymLM9 Y5gYNFNUZ0oYyNA1k5ew kPRlk2y1FPkkSSE2jBQp o10nkPmqXknzaNT0BWoj HcvhaB8lfEZXNUDDWbdA NaafqpZbRQ7WTMfJJT1C vIA9m7thcUWpc7x7GOpt QYI8uQgjiUZzdwdvpVMk qUqtfo83SGH6STGwZRqq czIwICBmbHVpZHtcZmll nOM8RNdtQnrjnD8qbXHY XQCMSmmNTgbnsjMdXO3B UAMMZM8TkZB1FpSleMZ6 ER08KNApCNNpeEXnOJnr D791IOHwBKgwFNi3fpEr XGNmMVxmczIwICBpbiBS OP0ELZFqqoYRDzMeDunx s1opDZQaEHaiLTNohRei PjfwI3pdRHwqYYveGJCn NZuDYVMiP8PvrOAyHIja D4NxVNpcQSFkft1unTjm OiBccHJvdGVjdHtcZmll jYS6HWlqBpxekR9cdMNR QTPYPkpLRybmvmJvGC8Q GZ4XSiRMAR91VPTrJwJ6 Z3kTV0YLFWBMCQJ4WWk4 cYI3nS00UZVvFXElmHYx WTwrP944OMUdGYHhAjQ3 QHEpWNysh2whHGUgAFhp o6WwPYkQWMCUCL9HLW9g gLS7FLlQO4BTVWc9KYW0 MnwzfFRPREFZREFURXww zHj8KHo6tVvfIbuiwpSi eDCcVgKDiM5quYrefZ5v rNNuJ7vqR8FzLUYtVqUv QHMtNIMku4BrO1J3OGHp WRjwf7zeKXMlNQhzw1Mi IPlKJHGFQO1HRB1hhNO8 GNsBO5GAR7aWjMmdrDC0 Ns1GaGJ0wTcmbXq8p3en uFLnv0p6ZSjrKMR6oZU3 ABIkJB68NPMhNOcre8in EPRcXExdr2TkNLuFUPPC LX3VQJ1xyLF8CLhJW2XV ZKk6Xsj3lA0AF8wnbOd6 NFg8tXecXxmvwfDvsRBr DvNLsA0naZmcuI4coPDc W6klA0UdNLGeYmXptSDr WI0QCPQwkwSKDnUexfB4 OG2oNQuxUGTeTVyVyP0q ZGlhdGUgYXNzZXNzbWVu zVToe4Xye3CqH0icMO4a FWRbaCOsZ5csm1BeZM1z PGFtNWJom7CjL9P7CMSl CFyya2vtCAMbPQdqd3Ay SVzRRDPXUS7PKF6ceOK8 OJyEKTLKJ5jBjKS8YjO1 lZM6QM38WKPgYEVzmWGx DYurX477wPL0GHZmAZqr r7efNZVxZMcqr1PxTUkB LLCCTZ9SSA0seET4VLbJ DDBKHJfqVLx5SQd5hWA7 x7fnnIUjy9c8BBxuELB6 fVxwbGFpblxsdHJjaFxj ZjFcZnMyMCAgYnkgRHIu IStyxQmbff3SWlp7PWSD PEFPNCtQBZ9BMSULRYVG IC4DRNcJVlHzBSE6URoo ONX6CuPrIpO1YmX1WE7s DQHNEONDCUdLRA9EWXGN FHCIRU4SWeFmX4nFTCNL UkRfTUVUQURBVEFfQkVH YX7aDvi2Itkki1D7P5dS RENBUkRfTUVUQURBVEFf NQ1KSFHLJEYGOF3EKZXS S74CWJFZYEIKG9VKY7mX MDMcj8CuuCcjPfC7RmXy BX69XHp1DKImiaB1Ikzu TIi6XTt8KOGGXSEFUB3S JVNUM49OURDMWYRDM5TZ SDNNJmZCQSWUH31HMWOB QNHLD6PSB3nBZVDXFkOV PKBTZ75GAEIEVOAYO3JE FHPKDGOCOyAYQrVAWC3B JOAUSIMENU9EVRcGKkGl KMVQJ2VOQjCWJ5ghRZBG KWTEMBIzLG1VGIjuRAHr B18ol4VVg0PcOVObg7xi sWncs4ZltSRgPXjwHODv iAAgURbnyU5jRuSaj6fe fGe5SMvqdpU0JWPniw4k xQaahQ5vJBjzj0bvCSZ3 XHNsbXVsdDAgDQpccGxh qV7bUsTnQfl3PXnoNSVo Y7HtE7RarxA7ATZtEFap XGZzMTYgDQp9 Immediate Assessment Adequate (test code = 9837) cellularity, further review needed Major Classification MALIGNANT A (test code = 9839) Diagnosis (test code = b7xuxPZfBEXivFD3AqWs 34) QPCrn5thn5IswHUfnDGi JOifsIGihuPmvc67iIF5 vI17YK3fYRQyGhT4CKGj hnE8Rgn0DCOlNYXhlLNf D606i8rnd9fkdsLnzSL5 VACkIUXaS5QgSX7pNGYe zFIhX54hiFWkGZR3CFEj KUAazGRpEZStLTC0NFCs gSKbF2vfPSAmZF0exrgd YZwzLPxwJPMctYS6GGSq nBLbU7DbIBCcTBpaYZJc lzn8SyYvOf7dtGYdlAqn ROacM9fzqH0wGfE6NUfb G8vqxV7nEWo3DJnyKGJr bOH1txP5OAZxgIFrE7Ur aP6tCRJxDI0kjyk0a9qb KHB5SYiyOZZcNcT5hxZ5 NDBccGFyZFxwbGFpblxm arGgWLXuUFGIDjDVaZ6f pJImn3KfMOKmJAChcEcy rChqonT9no2yJYMvdP8z ISGcOLSgcH8xXA0cRGGo JSHcg9IvfuD9tK8sZnwl YXJcdGFiXHBhclxmaTcy NZGDZBUdXFQZG2xGPWWC EZIfB3KNNNPYAO2BUS7B IMJzG8LtMGsRJKYjX27i bWVudClccGFyXGNmMVxw FPRlaVs3ZoWuWilaTNYr cn0= Comment (test code = g8mjgKEeAMClnHF8ExPg 9835) YLBii0ysx4EyjATdpOTf RQvvrPAmywFjvn49lDR1 sC89FN9bMMPxUzL2LGUu qtT6Wgj0JDJnYRCfqYPv I430y1tvs1phrsUpaAE5 eRrqIEBlmbgrQkW8ASdd TBPuijqhFVo7LKqhLKFh xXA4INRoaISiU1FeGFYw FA6tmur4DYG4WKsgXYAk LsP3YMZvcUPrWLGuhJld RYgva840JZT9XtUeQGWv ujMzdKjuyX7eNaCgTNIG kJUjG4Dbj89mXHDoWLYz DCUtONpwMYRyp3VfXPAy v8tfzRKeGF7anL2nxcVl kSHmwLFinTPzqX6utE0n pUGada3fNW0scE7kpMwn au48mMLmxfesAtmaXqas ijHjyPNclRF4bqgyo7rm h4IgWJ7rRTOtjnVxxlOp Tm2iXIlbAXNivYWeJCMv t79xd4o2gLDlII7pCIBg wUskgJGsQ8lnvP8cazXg iMFiH4Wfs86dRNhahlWl r8jrLtTGXOFmZRJQGHC7 LCBDRDIwLCBDRDIyLCBD RVNrHNUvIRIEEJG5FOZa paHaqnTrOPUrvnLoFv1k OWWVAWuoN6WtAAIsFS9w XNBETzYyLLXmOHDdw0Tu qD8gt8yoYpFhMBO4fTZk wjIvfU1oXjN7dMUqLSGt GVUdNEHke0EkbYDiWKMr ACWllnFfv1PftnGaq0t5 nFMfRLT0gvZohaVwrNOq i1occHUtqGEoy6cuuOP8 iYUlHOt9sYEqy02eXaRS oTTbv0Czw3VbYECeDTOx k45pvOCfJD31yCxhFBAs dWlyZWQgbmVlZGxlIGNv xgPgPieumIG4SKyBGgIs ENA8OCOhWVUla6PrBSWr dDZuz35lvEFqngBwsOO1 sT2uMiHtnIDtWEXnesle YXJ9 Retained/Biomarker i3mezBOwSVVdcWP2XcLp Testing (test code = MROqx4cxs8YwkWVhcAIo 9838) QDmnuTSlsrNxxd42rEC4 pV05LJ3dVUOaDsG0LWAm whM4Yzp8LWNeMCMrxPEz Q831x3cga8dblfJrhIS5 bYhvKZMoaszlEhH4XZwy IBRxpefkVWm3CMeoNWCl mYQ7RWUhzRKnY8GcYAYd BT5xogg4VBE1QSxoRGLt EbU6MLWgkBQqOUUocEel EUnez801EHW4GyEnEYKz njNbvPcahE9uUfNrHUMM UjogNSBTLCAxIENCXHBh cn0= Informational Points w4jduOUuCCWwuEHdEiJf (test code = 9836) KUHqRXSzo9seQCJuwZXg ZzEwMzNcZnRuYmpcdWMx WBTgSnZpz5gcc372eRTy v9xaQLIbOxQ0mNKhOWTh kFIbZ216ESYnRRkhe2aq s4CtERAtjUCol9T6XRDI RZciRGEOQCb7r6akVtOd RxG9uHGmRAjdB5tjguNz xAAsQTDuZVf0xZ47WOBm uZ4snPMaZLxefeYnBtU6 CBnhGQNmUgK7ZVEmfXXw IOPgQ4olGPUvIGiqVCRj RUiycBYiGAU9cEpce8K3 bGVzaGVldHtcZjBcZnMy IpHDi8YlRMw3eUrfE4Bb LEMnOxQ5tEKcPKWgRWbu FUJgAQJqqtK1dC65UQym znN7dHXdf0Rul13fw823 lK0ngOCiMXQ5UGYuBMVs sACmBTEsCMR4GYRtrPFn H4vrZTDsHK9mycvwLCkx ILmoPMPunHO8LGUjwNXi W4LkOFTxQBgqBQOuebn3 OzJxSz3khEVewUtbAEmh t6icb4hcbVBbYzg8KMHy QpAdRsmpUEtuy9Jeq9vb QEGhwr2xTIR3vIGnkEek p6P8vCYyOLEcuWPwakVl BRYulu83rNRxyUEywWSw an3vhcElhEBmiNAyECU1 cHNocnRuXGZldDRcYWVu ANQcH8llYfBndlCkJ9ar I1GmXQMyPEXxSCCxSfNz ddSnf9Zph0PqyVGcoYs6 a8qdANSrDOAdxVnol7ap WOP0ITTdJ2Y8sWGsf3zj DXkeQAUvoFR1owG1FVDe bYYyS2AgiO3jITSxKA6m mpg9k0enGST9SGxvKFJh BwV8jbE6KLAtlKNtOIUj rLeuGNjoo015AYT3TbPj RZQkf1IxT0PgiIbtG43h eUedT68bPRSztFimeH9o zWgemG7rAkDxUdKvKVrb bFxwbGFpblxmMVxmczE4 ZXrutjscQAOpZWbnG0cg WwUmQVOtmSckCMxxx3Zj AKIzVLUaLDywpJNLz56s PNMfv1XjSPYhlO0cxFGz IOxvbkLpgPL9FBejpvLy RgKutxCvFDResM3yPNCg OK7cHWIogvKnjs3wmaXp SHPjHZSgR5CwuvlksNtk mnLuEOWndq7ppzEbOUC7 HWYISW7QPLRbDMJgb04z NVWdjJsbsK0lpIIysxLy OUVod7UvxH4vpTECBCNx E0jeEP1iVChlw5MtsXCv cOMujWJ2PDOck8GlCfGs ttCevCAynWNrM1TmbRtm Y5rdHJWyZUOajcUovXXy a4OuNFBcoLK3fGIoOF2V QeYYd30bWHIgHCSMbyBr RENdsIhjaTJ1bxI2dK2f YaDWxOeqFZYai5Nka4Oe X1emLYWeLYQinXPmlVhe wI6kGuCqIgNjNItaYE7o KKNpE6bpeLIyPAAxMHBh H1hdFwNqwK4zcVrrLXot ZjJcZnMxOFxsdHJjaFxp RKtzi0QtLU4evgJZdIBo oDU9nQ7rc7y9AXuzQe6g DLRdvgcwzZyrgM4vVsEn VyOjHNomUF5uUSZgV4ol cNAxVUVdTVJfL1dsAjWt mE1xwYglYVjmNbXyMgOi OFxpICwgXHBsYWluXGYx XGZzMThcbGFuZzEwMzNc aGljaFxmMVxkYmNoXGYx AWquF3dePgUdQ6UaFLXk GBjbfBCtL9eowHVsPTZp JkSpxF74g9vqcCQKgpd1 EVdoV56flz8tJSENXPde wyK2QlA0OW4bxEhtvN9u MeGyTfDeJzvaAY7mMPCe R8lypHEzJFYfBMAvL4uh FgVvbP8keSpkTsomdxAw XHBhcn0= Lab Interpretation (test Abnormal code = 94900-4) [facility] Spec[facility] Collection -Fine Needle [id number] 14:05:08 Test Item Value Reference Range Interpretation Comments Flow Cytometry Yes Test performe d by:The (Received) (test [facility] code = 8319) [facility] Cyto metry [id number] [place] [address] [employer] Link (test [id number] A code = 61998) [facility] Cytometry Specimen Collection -Fine Needle [id number] 14:05:08 Test Item Value Reference Range Interpretation Comments Flow Cytometry Yes Test performe d by:The (Received) (test [facility] code = 8319) [facility] [employer] Centerpay[facility] Cyto metry [address] [place] [address] [employer] Link (test [id number] A code = 17082) [facility]aProtein Electrophoresis Path Review 2021-10-21 22:27:31SPE Path InterpThe serum protein electrophoretic pattern shows a barely discernible protein peak in the gamma region which corresponds with an IgM kappa band by immunofixation studies. 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 [facility]roph[facility] Path Ydokni2707-46-48 22:27:31SPE Path InterpThe serum protein electrophoretic pattern shows a barely discernible protein peak in the gamma region which corresponds with an IgM kappa band by immunofixation studies. 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 [facility] MARYVALEUnAud[facility] L[facility] HospitalIFE Path Huqyaq0328-97-89 22:27:30IFE Path IntThe serum protein immunofixation electrophoretic patterns obtained with the use of antisera against IgG, IgA, IgM, bound 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 [facility] MARYVALEUnAudie L[facility] HospitalIFE Path Review 2021-10-21 22:27:30IFE Path IntThe serum protein immunofixation electrophoretic patterns obtained with the use of antisera against IgG, IgA, IgM, bound 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 [facility] LakeERUM Pdzsicldwlsplv0660-36-34 22:27:29 Test Item Value Reference Range Interpretation Comments ROSETTE (test code = 5948) susp. [facility] TomballERUM Rwnjqbwchajrph8973-83-32 22:27:29 Test Item Value Reference Range Interpretation Comments ROSETTE (test code = 5948) susp. [facility] TomballPEP2022-02-02 22:27:28 Test Item Value Reference Range Interpretation Comments TOT PROTEIN (test code = 7.7 See_Comment [A utomated message] 6695) The system [employer] generated this result transmitted ref erence range: 6.4 - 8. 3 gm/dL. The refe rence range was not u sed to interpret this result as normal/abnor mal. Albumin (test code = 4.7 See_Comment [Autom ated message] 5663-7) The system [facility] [employer] generated this result transmitted ref erence range: 3.6 - 5. 4 gm/dL. The refe rence range was not u sed to interpret this result as normal/abnor mal. Alpha 1 Globulin (test 0.3 See_Comment [Aut omated message] code = 2865-4) The system [employer] generated this result transmitted ref erence range: 0.2 - 0. 4 gm/dL. The refe rence range was not u sed to interpret this result as normal/abnor mal. Alpha 2 Globulin (test 0.7 See_Comment [Aut omated message] code = 2868-8) The system [facility] generated this result transmitted ref erence range: 0.5 - 1. 0 gm/dL. The refe rence range was not u sed to interpret this result as normal/abnor mal. Beta Globulin (test code 0.8 See_Comment [A utomated message] = 2871-2) The system [facility] [employer] generated this result transmitted ref erence range: 0.5 - 1. 1 gm/dL. The refe rence range was not u sed to interpret this result as normal/abnor mal. Gamma Globulin (test 1.2 See_Comment [Autom ated message] code = 2874-6) The system [facility] generated this result transmitted ref erence range: 0.7 - 1. 6 gm/dL. The refe rence range was not u sed to interpret this result as normal/abnor mal. Paraprotein1 (test code 0.3 See_Comment H [Au tomated message] = 12530-0) The system [facility] generated this result transmitted ref erence range: 0.0 - 0. 0 gm/dL. The refe rence range was not u sed to interpret this result as normal/abnor mal. Lab Interpretation (test Abnormal code = 82569-3) [facility] Cancer [id number] 22:27:28 Test Item Value Reference Range Interpretation Comments TOT PROTEIN (test code = 7.7 See_Comment [A utomated message] 8545) The system [facility] [employer] generated this result transmitted ref erence range: 6.4 - 8. 3 gm/dL. The refe rence range was not u sed to interpret this result as normal/abnor mal. Albumin (test code = 4.7 See_Comment [Autom ated message] 1407-7) The system [employer] generated this result transmitted ref erence range: 3.6 - 5. 4 gm/dL. The refe rence range was not u sed to interpret this result as normal/abnor mal. Alpha 1 Globulin (test 0.3 See_Comment [Aut omated message] code = 2865-4) The system [employer] generated this result transmitted ref erence range: 0.2 - 0. 4 gm/dL. The refe rence range was not u sed to interpret this result as normal/abnor mal. Alpha 2 Globulin (test 0.7 See_Comment [Aut omated message] code = 3488-8) The system [employer] generated this result transmitted ref erence range: 0.5 - 1. 0 gm/dL. The refe rence range was not u sed to interpret this result as normal/abnor mal. Beta Globulin (test code 0.8 See_Comment [A utomated message] = 2871-2) The system [employer] generated this result transmitted ref erence range: 0.5 - 1. 1 gm/dL. The refe rence range was not u sed to interpret this result as normal/abnor mal. Gamma Globulin (test 1.2 See_Comment [Autom ated message] code = 2874-6) The system [employer] generated this result transmitted ref erence range: 0.7 - 1. 6 gm/dL. The refe rence range was not u sed to interpret this result as normal/abnor mal. Paraprotein1 (test code 0.3 See_Comment H [Au tomated message] = 12972-9) The system [employer] generated this result transmitted ref erence range: 0.0 - 0. 0 gm/dL. The refe rence range was not u sed to interpret this result as normal/abnor mal. Lab Interpretation (test Abnormal code = 03281-0) [facility] B Core Total Antibody 2021-10-21 21:57:51 Test Item Value Reference Range Interpretation Comments HBc Total Ab-[place] Negative Negative Test Perf ormed by:[place] (test code = [facility] - 18577-0) [facility] ior [address] [employer] [address] [place] [id number] Director: Shahram Garcia M.D. Ph. D.; CLIA# [id number] [facility] B Core Total Antibody 2021-10-21 21:57:51 Test Item Value Reference Range Interpretation Comments HBc Total Ab-[place] Negative Negative Test Perf ormed by:[place] (test code = [facility] - 15818-1) [place] [employer] [address] [address] [employer] [address] [place], [place] [address]Lab Director: Shahram Garcia M.D. Ph. D.; CLIA# [id number] [facility]aHepatitis B Surface Ag w/Confirm 2021-10-21 21:40:33 Test Item Value Reference Range Interpretation Comments Hep Bs Ag-[place] Negative Negative Test Perform ed by:Charlotte (test code = [facility] - 5196-1) [facility] ior [address] [employer] [address] Director: Shahram Garcia M.D. Ph. D.; CLIA# [id number] [facility] B Surface Ag w/Confirm 2021-10-21 21:40:33 Test Item Value Reference Range Interpretation Comments Hep Bs Ag-Marcano Negative Negative Test Perform ed by:Charlotte (test code = [facility] - 5196-1) [facility] ior [address] [employer] [address] [place], [place] [address]Lab Director: Shahram Garcia M.D. Ph. D.; CLIA# [id number] [facility] Outside Interpretation 2021-10-21 19:35:36 Test Item Value Reference Range Interpretation Comments Materials Received (test k5gllYUaWSRopPUwLdPw code = 9973) CIPrZSUzl7gxTMSaeBDf ZzEwMzNcZnRuYmpcdWMx WMGuVoDcm2rve047oCUv j0veKWZgQfD8kKKnWEAq yTKbZ299CUHxTJjxr7fy d0ByNNFrxIDhq8V6BQCT zwuurGh3zIyiY03jv4G9 ZsfcF3hdOBVcDTDxQ7Bd KE1wVIUzRog6SGN2AVS3 XRAoCUGnN5GsBM7nXLEv hEXvKKn0j3ywyYlkRSUz VRH6g0vlUOvzncBoFG0l xu7xmCz9h9sgknWxVGJy JZZxzNNANEYcK5TqjPkh Ya9gmZd3xUjlIwekBGK2 Hoh9GF9lkb07yjd3dAqm VEYolwgjElY8WMwgDOJy yjkpSTo7ASbmPARztFwt MFxtYXJncjcyMFxtYXJn bBJ7TXYtjVKzG6ZiTFOm GLdjLSZubbj1InFtBn6w wROzbAcpNZdzc8atq6yh zAGqIxe4RXVyEeToBywm BQipw9Glv2qwUYAzvo2h KIM8cVCxvThmm5H1zKVi DLBduXNohkKkVJKbgg27 hPFhkKJzkVLgpg2nqlPf vFNoeNSoRLX4uOFdioYg SRKtdGAkLXJcTY6bbVSx ATYtkI1rvhgmIAPnTuPt gbpqOIYmmNqnoaGzPo8z gPvrDFN7WMtvN7cfgC6t DbU3WRngC2mjvG3yGSd5 NUlmuAK6AWYakT4tYQ0g llbet9umDqOyBM6diddp r6hsKnXjDU4qrtu2l3xk XJN7QLlzPLHbMbW5qtH5 NDBcaGVhZGVyeTcyMFxm w208OJK0XiYcUAVhk1Ob A9SznGqeJ93dnNupM58l YMJkqAsslD3uvAavbF8x GdChGrZgJQg5ae83PSc5 avwkgHqkCIn2maWoLVJa DHE2CTLxtRWpAECoP5d6 xtMcTOExIYE6VVQtlYSs LFBzN9j9ttBgTZS4MCy3 cnBhZGRmdDNcdHJwYWRk YjBcdHJwYWRkZmIzXHRy eUSthOZbrBEgaY6gaAlx LZVyfGUyzT5tHMR6XOQz cmgzMjBcdHJoZHJcbHRy mc64NQQgwwUdzDXabKdl cVLtRCM1QOMzICTtOGRe VRQ4ZFGjMoBzsdJvMImx bGJyZHJiXGJyZHJzXGJy OEU0DFEsCtBdelUwCJra bGJyZHJsXGJyZHJzXGJy QRT6BVIaGpRrzxMxETqr bGJyZHJyXGJyZHJzXGJy ITD5XQEjPoGwriZxBTjp bHBhZHQxMFxjbHBhZGZ0 O8fklJLwGCPgYYkpxLZl IFHsB7vllORrPBhnGNJw cGFkZmwzXGNscGFkYjBc P0pdZQRsPxMnK1CxpLs2 MDAwXGNsdmVydGFsdFxj eDZfCNQ3TXXiNYFwPKNc BIH8EKEtNtYmceIeAUko bGJyZHJiXGJyZHJzXGJy KEO0GXAkNnXvorYfGRuz bGJyZHJsXGJyZHJzXGJy FNY8DLFkBoQemgHnWYni bGJyZHJyXGJyZHJzXGJy BLT6PSIlHlHqrmLoQYft bHBhZHQxMFxjbHBhZGZ0 B0uyiFXsBGNkTVesoUPq BEKeN0lkrRDyXYqiOTKx cGFkZmwzXGNscGFkYjBc Q6bjEJMlLfVgX8SerAp7 NjAwXGNsdmVydGFsdFxj eMNmZOQ9NGSnIRZoJBLv UGY1OPBiGhQxrdUjPLel bGJyZHJiXGJyZHJzXGJy IMT5GZZjOvKlsaTbSLwd bGJyZHJsXGJyZHJzXGJy XOW2YZCmCfGpjhIxRBzz bGJyZHJyXGJyZHJzXGJy RSF4FKEqNiEavwJmCMax bHBhZHQxMFxjbHBhZGZ0 G1pypUEoXENxKObymMUk TBWnC7ohwVAuELgyZUNe cGFkZmwzXGNscGFkYjBc N2ybPDNuYzUjU2IwcHt1 ZoFkWVXwwsNbmP11Scvg j5HcQROkMJV1MTorFUfa bFxwbGFpblxmMVxmczIw VTueriarOPVcYYawF1sz ZzIjTNUseSpoUNarb1Dy XGYxXGNmMlxmczIwXGIg OEMgNLDxrU7gDxhvV0Xy rR0mLZlaOtzfF9dcGRDz n3JprB1cCWkosIPrujtq MVxmczIwXGxhbmcxMDMz WPrvP2cvTxKaZISqdRec RMixe9NgFOKhXKFfMvcj igWzRRr5vxYmOJTcrPax yZNaKFdtxlCwaJaaa3Aa uoZyjMimVKOjGKg7rfOe gcdktHg8nBQlkNocXMIp aSdatO2mLtMzSuXcOMwm bGFpblxmMVxmczIwXGxh inkqDBEaCFlyU3dxYoEr CFGmkWbnCReqr8JtEEXb TQZmRjdotvJiWDYdC37v bGVjdGVkXHBsYWluXGYx XGZzMjBcbGFuZzEwMzNc aGljaFxmMVxkYmNoXGYx JTerS5qsVlKuX8VeCZCi FoGntQJqA2wlH9PupHqo YXJkXGludGJsXHNzcGFy FQO8sCKwltPjvWHtnEYu LEOiRWyaBBB1aMNjbncq gWAuawrwJQkacuK4LWHw YWluXGYxXGZzMjBcbGFu ZzEwMzNcaGljaFxmMVxk ZnUtJIUsBFriK1dvBiPl L6IsCHUbErIpBiNBLXUn aXZlZFxwbGFpblxmMVxm czIwXGxhbmcxMDMzXGhp S8nvCkYnSLLgdRgjWYfx u9DdXTAgYGDqUtyrtxLl DRh9mfYfQTDnrAfrgM46 Kuveuk86CSOst1lwTKQu U7UduJHiBNEarBMkMPbx MDhcdHJwYWRkZmwzXHRy cGFkZHIxMDhcdHJwYWRk ZnIzXHRycGFkZHQwXHRy yRZqXQU5Z9l8vvSfNMGg KUq5pjJfLQQmWmLfmHTd MXP8VQn1ZlgqrnM0pQDa R8v0SbcwrjVdJSujcKBa ak01PUSzzfDpsTGpoAns pIBmPCS2LMAeEWZgHYMr TSX5VJSlLuKlopFsUGjz bGJyZHJiXGJyZHJzXGJy KMW7CAJkJaVhspIvEKtc bGJyZHJsXGJyZHJzXGJy DRB2ZEHfOpIfgyYzKBne bGJyZHJyXGJyZHJzXGJy QST5VELuGuAxmcJoQCbw bHBhZHQxMFxjbHBhZGZ0 P5yhiCXaFSArXOvddHWi JMBkL7iovZLuQGbwYOBh cGFkZmwzXGNscGFkYjBc J2ktIKCcCjIbA3ZwbNt5 MDAwXGNsdmVydGFsdFxj lDClCUZ0XESzNTKbFNIo HIG8LWJxLfZcpoOfXVrm bGJyZHJiXGJyZHJzXGJy MUS3WGZtIqDcziIuECty bGJyZHJsXGJyZHJzXGJy BJK3NXKrGiDtgkUkNPzc bGJyZHJyXGJyZHJzXGJy PUU4VLMtOiWqowTlTZkn bHBhZHQxMFxjbHBhZGZ0 N6uzxNWnATNlDSgevHUm YQTwZ9myiDAoWRccVHJt cGFkZmwzXGNscGFkYjBc U4uuDJBzKmViK0QxhOp0 NjAwXGNsdmVydGFsdFxj cARaXCP9AZFlPIEuUSRz FJF9TYGfMlZnqpOpCXto bGJyZHJiXGJyZHJzXGJy LEU1MZExCwGrxzClMQcg bGJyZHJsXGJyZHJzXGJy OWX3ZVUlMwOxifPoVFvr bGJyZHJyXGJyZHJzXGJy ARR7OHSiBbUfutIqVZjr bHBhZHQxMFxjbHBhZGZ0 C5xrsPKcZDThRUpvbUZv GPJyC8xxoRZzXJtbODHl cGFkZmwzXGNscGFkYjBc X3hyPAKuNsVaI3YeeYg3 QvYjSWYfygXchQ70Pqtu v0EiZUOlKZA5YMflXUbc bFxwbGFpblxmMFxmczI0 XHBsYWluXGYxXGZzMjBc bGFuZzEwMzNcaGljaFxm QCliYsQdREZkHHjwL0ey YlBlP6LyADVzMuNrJL4p KuJ7FMZgLWImZDBoPOYQ MIWfOOEEK1ILLqpyLAOF I8JaqPqlnZ9dGcIdCxVu JJzuYD2bAKZmF7qwuWUj TCApOIBgW3lfHwQfyD1c aFxmMVxjZjJcZnMyMFxs dHJjaFxjZWxsXHBhcmRc uX42Ekyrx7UvGIOoJTP9 MFxzMFxxbFxwbGFpblxm DXvxfyN5BDDrDQedTQQb XGZzMjBcbGFuZzEwMzNc aGljaFxmMVxkYmNoXGYx MWbyO9mgDeIaX1LjQDUm MjAgMTIvMTMvMjAyMVxw bGFpblxmMVxmczIwXGxh xyvrZEIbCQfjA6toTiHo AONwgBfqZOhyz0KwLRSj RPToZuezswCqPOv0xtJx XGNlbGxccGFyZFxpbnRi xEybk5WzxbYuwMfbEKJf XHFsXHBsYWluXGYwXGZz DjUlhOqhjU6oBwMtDdQv BObbPQ7mFLCeL0xieASw ZFLwGOWxA5edYhOnvV2d aFxmMVxjZjJcZnMyMCAy LzIvMjAyMlxwbGFpblxm MVxmczIwXGxhbmcxMDMz YZinI0heQvVsZWFqdVbd FJenq4QiORAdPOGgDbdl ruMzBZf0khOfIOHlnElz yB06Xuvmko21QRNlunGz e9MrBYZpLFF0THqtUXbf bFxwbGFpblxmMFxmczI0 XHBsYWluXGYxXGZzMjBc bGFuZzEwMzNcaGljaFxm HLvrFzRsBDRnIKqfN0nn ZjFcZnMyMFxwYXJ9 Diagnosis (test code = d6qjdRCjBQQdnIG7XjNm 34) UKMqe3idj1BtdWMfqHPx KKmvmTPmmcJfwk60cTQ5 qV16PF0pOPPoNkZ5XRXi kgF5Jwy4FFVsJLKdySNj F080m1udt8yxovDjvQG2 YLEkGSQhQ6XfOE7nQRAy bYGwD43rkGTzFVO2FQOz OYByqXRsWVPqTZL7QWPo vWEuT7hrCYRrIQ2hcote CJmzHTjlGQHmfMN0XRJv jTJxR6PfYZPqXEzjRSOc bdz3IaIqOx0maHNebAwa MFxwYXJkXHBsYWluXGZz AzPsB5ZrNB89iEPbOBZw KDIxOklTMTgyMCwgMTIv MTMvMjAyMSkgZGVzaWdu YXRlZCBhcyBlbmRvbWV0 vfywdESnlU6re0qxJJkd BYNIEay7LCBfdrakGdEw cGFyXGxpNzIwXGxpbjcy FNXCzHX6obBvuaKdJvut f6Cke7u3zSUyZ6XkmQYr ymBgdBZkfBMju0JqSL6l p5KurtHmP1IkXOsnWW2b cyBhbmQgcmFyZSBzdHJp uDYyh3HxbC9xv0cvgNGt FG7cm73eaXKiRIpsf0Bg YqBuVCZukWu6pXPnxHJd ZpKfN0XoLHOuiE8ydlBw JAKxkgsnCOKlGnYdY31l wyEbNH7cBHHahSQqFRBe o7Yzy64bTwutORWbvAtm XGxpbjBccGFyXHBhcmQg UFhSXHBhcn0= Comment (test code = b2ttuFTgDLGusUK4CzDl 9835) NYIgw1xre1UcvNUxyKIv YTlkjBVzhzFiad60yZP0 yF98AD6wQJRaFmH6KWBr rmC2Cmm7YKKnVLXcfSHl X803w5nqc6uiskSchEO0 xTygQBGertxtOeP0KFlz ORXgwnvdZCi4FHijKOMo aTY2KRDodAQzD8YgGFGg EU7ydoz9RTO6VXxpOLZe SyH6MGRfgUHiPDCdaCdk RGrbb740QRR2ZtGbIHOz jvPcvGlseF9kTpGyXSPU yYPlUvumwMS0CTawLHat m1OeTagzkRFsyARjn1Qo ZXZhbHVhdGlvbiBvZiB0 xBInRB4yx16gpDJcwN1p VUVCtj4oyMRvwNFyiIKx ZiBhZGRpdGlvbmFsIHRp e1L9XNXgYOfrExPgX87q j7chUFNoIUirkMKfV0mn cuwsPOltsYSpusNfF0O4 ZWQuXHBhcn0= [employer](s) (test y7qpeHCzGPPcfQQ1HdIy code = 9841) AXGzt9uat1IfjSCrkQQv UOepsCHqynVszu90uPG4 zC42DR5uNSLiXfT9AGOa rjJ4Nkd4LVOmDUSsfRZu L694o2rxw6wcoyZzwXI2 kJxgCHFanzmsHwN5KNsd HYGhqrofBCx7VWdfVEKg hGE5UNKwnAYzG9BtMUJe TQ7kjbq3HUI1RAlxFHXe OuM2TGQmwPQzKZWzsIva HPgjo064IZE8SeCiHYPj scUzfLcatY6kWnJdKCDT QVxwYXJ9 Disclaimer (test code = s4pclPCjWOSvtITlNeKt 9844) YMDeRCTfx7iaGDQtyLEh ZzEwMzNcZnRuYmpcdWMx VYUrRjMsd2kmx099qFJs f6gcLSBjOaC1uTVdIEPc rBIuI287ZNPnGXgul8uc k8DcCLOewRDmu1I9MHNU toeonIb9kEpeU20us9F7 NixhT9kyWLTxNJNwB4Df VY3bZCReWeg4AVD4UOP8 IFVcYUCaI5TlBC4vHJNi eRIaOSr5u8opuPoeIXJx ZWG3g0acEVvzhkMsCN5q uj1tkFb7s5dmoeGcVYAw KCHcoZYFMBJbY0GtuCxv Gj1hkEk3aMslLnoiWBI0 Dao9FK4jrt30amb5yZwp CMFagzxwRmX6SXotXZHo lphgEZn6MAyvCCWczUS2 YKOqfYQyM6DvVXHgIZ0z lxa4RIG1RXgwTTNgLbY3 NDBcaGVhZGVyeTcyMFxm y536VND3MhFcAG9gW5Sg w4P5sO6mcVBtIJVdgIBk YuMuEMSuin7kpRGfEBui a8XeTAP1htB5aMHohYAc KGTtNE80Dcdqy9ElTdvb ZLH9NOWdqkOpx0Zxp1ng ReCiacKiQ7xrW4BjGOTf JAMhMVWlVmVztpBwe2Pp u0RcxZKffKq7w1bdKAJh FKEddRwxj8cjFSN3JGRx X3R8sSLtx2hfOJuvXUCl kKB3ntW4SMCluNIfD6Al iN1dHNLpEH1psbd4m4gs TAW3HNlpUMZfAkA8yyG7 NDBcaGVhZGVyeTcyMFxm o850ECW8KdZmYPItc0Tt M7TohUexR40dqGbiS33u TCGlpMuwcQ0yvWjttQ2y ZjBcZnMyNFxxbFxwbGFp arxhQUrmtvU1DZclmjkv LZEjZSjbT8laYcVzZRUm zZmzJCvac5GcIPDhIOSj TfwkqzP4OTRQy79mMZIr v2PkUBBomP1eiHXwZNth kiMfsZU6STjqkvGmYmRv uiVbMKJgsB4gGVNjUB5n RYIwfiOrnj2hvpHsUQYc BZKoI1LtblvtlBdqbbUh JYAhwq5iyqFdMHO7KEIB AQ0HICPdTVUsg87pDQAh eHgvjE1jqVSgquIsQCNj d9KmpR7ucSEPZCVdB6rv KX4gEKpde3KmnTZgzDGk nJM2EEFoq3OrKeBylrAl mWQblKPxW6QnsIiaJ7zr TIPcAJQoieWfuDAzg8Oi EPJyxMT9iCYdAQ7YSfAN e02mJFAlAPNArlPsWLJh jDxgeKR1hkJ9gA9uCbDS ZiBhcHBsaWNhYmxlLCBj n622pi5syhT6PUMmDTZo osrkv0UbZKImSEXfqN32 REInVEJyzz9fiavsmAMu itHiD4Zwyyh7jO9pHDCb YWluXGYxXGZzMjJcbGFu ZzEwMzNcaGljaFxmMVxk GwUvIQLeFMwuW5vuJrBf ZnMyMlxwYXJ9 [facility] Interpretation 2021-10-21 19:35:36 Test Item Value Reference Range Interpretation Comments Materials Received (test s5furQReFLLhuTUzEbGz code = 9973) IKFlISOvi9xtMRWjeSPc ZzEwMzNcZnRuYmpcdWMx IYKqQqEdu6ezs646nPPf h2cqNQOoOvA0bPZdGAUq aOUpI840WLJhBHgue1lh v2QzCKGdnTSvh4W0TKLH ghifxXf9jDqqG83jm7P1 BomoU3rcTOHyZCDxS2Wl BU6jHXAiXdz5ZBU8YCC4 GBAwOBKgZ1ShMD0rMMAu mZCsOMo5l1iflCdzGIYt NLO3d7hbIDubpwXuGQ0l xn1ckEj6i7jbtwXwFVVs EZZrhXHBVDQkP4ElaPdl Rf3baUs6tTfzQfsvSHG4 Jxk0ZC4ako38ygr7kJsg QAMmxdszHtX7IXdfOEMk uxynUSa9YUwwYQKjeViq MFxtYXJncjcyMFxtYXJn tQE6LHIbcNJdA9LpIYQt UFhaXVBiakp9TiYuPm7x vGNlkYuaFPual9qru0xw hTUrOjz8YEFbJxZgXanx GVbaf4Qqz5seRXOoyn0i EVZ8hRJxnXhnj2N0hTWw EQFxiAFdylPuANTxlb46 eICzfHTyvKQqqc6nwlKu vMFlqGMiSOE4jVVbhoGo HENysKEeFODtPA8weMRt NRRxzA2audhcMSSoVmJy zhxvGSEfdZiztdScOo6n xRvxPAP2PFzlN0kkdZ2q BhN1LBhlP6beyM5yLRa7 BNzmuCZ8PBRjmC3gKQ1l yiukv9xaCyLgFB8hcpxy d2xbDtRyMZ4goyo1r7gm HPR0LTobALCjAiZ0bdU9 NDBcaGVhZGVyeTcyMFxm a588ONJ3CwMhFIKcg0Ft X9AhgVepJ98mwZikV48t GWPgnJlwdX9rtFpckP9j MzHxVxFtADt5ub38MZd2 ivaywHfgASk3osBnHRNv DVD8YAMycFCjDNCeA4p8 rgDdTZKcJOU7VAVkpRUh NAVsO9w4gkBwOSS0GOm3 cnBhZGRmdDNcdHJwYWRk YjBcdHJwYWRkZmIzXHRy gNQgyBWmkSPpzO2fkFki DABouLAwkX8zBRE4LTGj cmgzMjBcdHJoZHJcbHRy yy05PWUdjaGcdCKfmYdo dFFzKEF4OZMeRMFjLBNg QKM7RKSsAcPdpkEmODpx bGJyZHJiXGJyZHJzXGJy AAJ3JIByOgUkhjZuEIhg bGJyZHJsXGJyZHJzXGJy BJH0YOHxWiGvbfUoYGdh bGJyZHJyXGJyZHJzXGJy RHH2KGGjTlIydkMsIYns bHBhZHQxMFxjbHBhZGZ0 C7inwSNlZRCgAXqxpIQm BEIyJ5wlnVGvKDfqUUWx cGFkZmwzXGNscGFkYjBc F1odQDStFsReD9IevTt4 MDAwXGNsdmVydGFsdFxj qXGjPOS5TFReYRCqFGNr MQD0XKUgMcUotlWeOEkx bGJyZHJiXGJyZHJzXGJy YBK8AOJiPqHoocDlWAfg bGJyZHJsXGJyZHJzXGJy RQC3EEZlSpPbyfOeZTrq bGJyZHJyXGJyZHJzXGJy SXH1BHKtCpJwlxWiAPul bHBhZHQxMFxjbHBhZGZ0 S8qbwKYtNSDdYRfmgHEc JIWfF1xtdWLaRHkpWZVe cGFkZmwzXGNscGFkYjBc D3kvHKYoGdJdX6CouEy7 NjAwXGNsdmVydGFsdFxj wRPuMGR2TFXpZWElLGGo UYJ9GAEfAuWbgyNeBIcn bGJyZHJiXGJyZHJzXGJy MRC3OUZaNrZkleVyKEnj bGJyZHJsXGJyZHJzXGJy GLO5IPQsOaVlxhTwTPup bGJyZHJyXGJyZHJzXGJy NPG3IPRlZkTocxNtKWoc bHBhZHQxMFxjbHBhZGZ0 E8emjDKbPDKrTFinuLQr YWIfD2lhpREwFPpvINEa cGFkZmwzXGNscGFkYjBc S3zjRCRjWuNbC9BbvLe3 QsLuLYLhdbQegA51Nkgy h9SqSJYfAIC4FKjcCXei bFxwbGFpblxmMVxmczIw EGplkzetNWJwNZdsO3qg LwFdOBVxbQotRDfyq2Ej XGYxXGNmMlxmczIwXGIg HULtUZMjaM9wOglmJ7Lh bO3aMUfwXtalP2bbLJHa f1DoaS9wSKcaeFRwdgwz MVxmczIwXGxhbmcxMDMz TPemD5kvZjUpVRPpoEey RYotl8KrALSkUJVaJpjv jwXlHIe0cxSsVECezDku cCFwJGoogcXlaPkfw7Qm luFwgXpiYWIqQTf3faPv wwvktUt6kOXufJmkUZLj wWrxkJ1qBqKqXpSfZLvj bGFpblxmMVxmczIwXGxh mbcyGFRjQHdvZ2psYfYb UKQwyXklLPmny7MsRGPx JBLpPdvftyQsIIRwH03c bGVjdGVkXHBsYWluXGYx XGZzMjBcbGFuZzEwMzNc aGljaFxmMVxkYmNoXGYx GOeqF4veZmCcB5MlJRXn QoXjdLMtB6sbI2QzjGcf YXJkXGludGJsXHNzcGFy EWX2iYDmfuSqdZMzoJJr KJFeUPwhZZC3uQVsbcmm kOOluiziIQglxxW7NVSq YWluXGYxXGZzMjBcbGFu ZzEwMzNcaGljaFxmMVxk YjQsUFLaJPimL8ubBcHm Y1HuMISaCsPuJlQQAWRo aXZlZFxwbGFpblxmMVxm czIwXGxhbmcxMDMzXGhp T5fcRwPeGEMmjCilCZyf v6HgTJZoAPBwMcwxyaPc SWp9oiShQDVjqVzgyY49 Gxatwv75UQEai0zjGULm F4UmsJKyVTQoeFItGNco MDhcdHJwYWRkZmwzXHRy cGFkZHIxMDhcdHJwYWRk ZnIzXHRycGFkZHQwXHRy sWGcUKF0V4g2fjAsMAEm XYs9dhEqLYXpRmSgcPHa EHP7VRb2HrzfjhS0wDLi Z9u0JbmarjAaOMayaEMg ob97ESCcrqPvjFKxxUdx hMXeIZG4VCSeBJAuHPBk PEO4ABFzYaUotlRfBQxk bGJyZHJiXGJyZHJzXGJy NLY4ECExEjFjbvSqFQtg bGJyZHJsXGJyZHJzXGJy WYC8BUPjMsEemwZuIMka bGJyZHJyXGJyZHJzXGJy HAC1NFIpUlXzwiOgZAgu bHBhZHQxMFxjbHBhZGZ0 N0huaRNoDHAtIUzhoZKw PDScO5dvcOTyLCqnRKJt cGFkZmwzXGNscGFkYjBc D8zdVOKvYxPyB9ChbOn6 MDAwXGNsdmVydGFsdFxj xRHqRSE7YYXmHMPjHRZa QXC2KJKgZxOqwmAwWAah bGJyZHJiXGJyZHJzXGJy XOX8VHVbCvIybuWgCXwi bGJyZHJsXGJyZHJzXGJy RFJ4OPZoOeSojaUgUYxz bGJyZHJyXGJyZHJzXGJy LED8RZIxJzIlxwUyOAcw bHBhZHQxMFxjbHBhZGZ0 T6nhuNKuARPbITtleEEt OAGpB9cemLWcYTtqTVAs cGFkZmwzXGNscGFkYjBc Z5niESFoWhSdV2RjrCx4 NjAwXGNsdmVydGFsdFxj mBUhYUA0OVNoZTXlYBKh FAD2KGWjXgMbugTfUHvr bGJyZHJiXGJyZHJzXGJy VNU5EOFcXmXsleViYYsq bGJyZHJsXGJyZHJzXGJy DHX6SEUqMxNngwKzTZhn bGJyZHJyXGJyZHJzXGJy NKL4IUXyYpHmrmVgJNmy bHBhZHQxMFxjbHBhZGZ0 E9edgKPlAMFtDInhcHQu EFMbL2tfnZCkJKsxYMUb cGFkZmwzXGNscGFkYjBc A3khOEWdZcIzV8TjxQj3 ZnMsKFDfnoNrsI34Shjw u0EhJDVxMYO5EHssKSss bFxwbGFpblxmMFxmczI0 XHBsYWluXGYxXGZzMjBc bGFuZzEwMzNcaGljaFxm SXnyHcLwEUKcFXowV7fk FcSeB0KiISYnLuAiXU5y LpN7GVAiIFLiRKScWZNI YHEyHZVRC3APOmcdBYGL D2NqoQlywV5mBsPoZyXi AVkdGO8dXBOuP6gyzKUh JZSkBVQcL6fiCvFoyO5e aFxmMVxjZjJcZnMyMFxs dHJjaFxjZWxsXHBhcmRc jN43Hekfq1TyRQBeNNX9 MFxzMFxxbFxwbGFpblxm RJhwqgB0OPMzABwtXUOj XGZzMjBcbGFuZzEwMzNc aGljaFxmMVxkYmNoXGYx ITvwE6ykMnQpF8XbSMCt MjAgMTIvMTMvMjAyMVxw bGFpblxmMVxmczIwXGxh faozMLAcUMooG7upAfYx VGXywNsmSQuov8RhQIAs IESoHyskqmCpXKp5mfBl XGNlbGxccGFyZFxpbnRi kKawu8GrulBzkDidKOKh XHFsXHBsYWluXGYwXGZz VtAbsVfpnB1oTnUuShIt SWhuDP1jDQXkF3lroYSt XHHgURIbM7tjCyZgvA5k aFxmMVxjZjJcZnMyMCAy LzIvMjAyMlxwbGFpblxm MVxmczIwXGxhbmcxMDMz HHwnT8itNxMdWHJgySnf XLayc8FmMNUlPTIuWfpc ndAnLLc4bwDbSFDyuDaf gV91Qwjviu03CGKpouAz x6YnNTCwDUO7AIhcWZsi bFxwbGFpblxmMFxmczI0 XHBsYWluXGYxXGZzMjBc bGFuZzEwMzNcaGljaFxm ZLviXzMxFGKiRJfdJ5kn ZjFcZnMyMFxwYXJ9 Diagnosis (test code = f3kgpXZtAOGluFS3WdAk 34) SFTpi3kpn5GovXFhqBNp AKcbbFNbfsEhdn11wBA0 bE48XE9jTTYbTeR7GIRt amI1Iar4LKCfYPGdsIJe Y077z0wxe2xqquLtnLH2 CMXvQMRrK6VqEX1fEBEw bBBaG15yfKQqNAY6HCSh IWVbaDEhWYGqEMW9MPJs rHXzC2owLQFuCW9qenum NQhpUSnmPMActYA8VVRf jCBsR0YdWSClWWxtFQTf oya6XvYjOz2wxDSqoWhc MFxwYXJkXHBsYWluXGZz RlMjS5NcOM84sDWzPTAb KDIxOklTMTgyMCwgMTIv MTMvMjAyMSkgZGVzaWdu YXRlZCBhcyBlbmRvbWV0 lsiveTJqbZ3iu3asTSdu XCSOCal7KAFzugowIuKc cGFyXGxpNzIwXGxpbjcy GQVZkCG5gnRyvvSuHmiu m7Mlv5y9xKTmR8PbnSDm itJyhOAshRLgi5ZdLD2j e9UmddVwL2DiOTllZF6e cyBhbmQgcmFyZSBzdHJp mJZcm5ItnR3hp4oynPQa HI9xi85voBZuLBkiw9Lq EvZkQYQjkOc6mSEvoTBk JvYoY4VgEWXwfC0ncgCo SPQridigULLzGqPwV48j jnMyBV2yIJLdcKVgNSGr x1Ztq46tCfyvQDWbzSoh XGxpbjBccGFyXHBhcmQg UFhSXHBhcn0= Comment (test code = z1ejlMXyWUInvCQ4EnBf 9835) LYIpi9his2DhdNJsoSZo MIprwYZsffIipn29iFD6 qA34SQ6vLJXqCxH4WOIg dpX3Mct7AKQcZAGfmMAm K754u4axn5jtulIboVP2 fRwbNFLnndzzYjZ5TMvr YFDiuhjmQMc9CYydUXXq kKP4CPYofLRoN0FvGMXe CH6wxkx1VOO7CIvjMBKi EzQ5HQGyoPIaMXKfuQvr MQaoc151JRL8OxNoJKQw lxSglQlffO9cIqKeRYDF wBCoFblusMN9XCpcJAnc a6DxIbgzeQAklQDqg4Ka ZXZhbHVhdGlvbiBvZiB0 mTMjSX8si00yoMWjvE6f BFNYrm9pmWWzlQZblYCz ZiBhZGRpdGlvbmFsIHRp j4U1OXTtKSehPcDtZ50z b2dqGYFcYAmvpKCoT2tv ofluJHfswTSuciTtO0K7 ZWQuXHBhcn0= Biomarker Block(s) (test u6xqxTCyTLKztEL5LvMy code = 9841) FUIcw9qsv0GzfGUvkKDn USckoREhltTfqe24oVU1 rQ38OT5pIOWpTxE1OEVn xtG9Tpm2FVOqLZWbiLPk E628p8ljn3noizHkmGJ0 lNokUQOzitseKsF0STjg TUCrxmbmXDv2XXfrQMNk tOV0YZGtbWAlU5DvUDXl DY4elks6AWA4XAgnRHGj WfW0ALCzyDOuHXUfkDem JKvzu668ITC0MhXhWTCh edWdtBtabE8fMwQuCRVU QVxwYXJ9 Disclaimer (test code = t3wiiEXnPZCbaOTtDcWs 9881) IGGgPMMrz5pkDUCtjQKj ZzEwMzNcZnRuYmpcdWMx AIMuWbPqe2hgw504oQNk q7zlDWDaLiF9zCBoERWc pVRpU017VDWvLZmjy4wk e3OzZHCetQXpd6X7FJNZ mpbqsHh4yHzsF39gt5G7 ObbbM6orAYUpXSQlB3Fx OT3dWDWrZxj0XUC1OLS2 YQMbDJMdN9KhBF3rVAGq mCPjTNl1t5payLofWJEu FOW2u4dgESqxvzLePV7t im6mqSy8x4asjlTyEPYx ELMvlLGTZTUqD7MbiXst Cs1ksKq0xNdkOndmPWI6 Hjj2HW5lua24bqm0eIlf HGAztjspHaF0NFjgYSDq aslvMZe8PJunFCUzdJJ7 KIDqfGKiE8JhQGVfVC2z dzi7ZQD0SHngDAObIcX7 NDBcaGVhZGVyeTcyMFxm d182VLV8MxZkVI5dV8Tt k6D0tZ1vpWAjRUGlwYPw VzUlNFXbiv9ynPLhFZdt c8RlOXV7bsC6qDRqwLEq NZHjLM26Nscuc9ReSknk HFM0NJPdzfKjr7Wcw8pr AmDrpeMnO3btY8TmXICm NUOzDILwSyJrjmTqs2Vc o9CgaHIyjOe7r9jaMKEd BXIhaRlmu3okRLT8PNCv H5P6uICzx6zoNMplEBNt wLF2bkQ0JZNqgZYrU3Zg pL1oLZVjIS2kfvi0t4qm PNM0YBimVMXdTrD7tcM7 NDBcaGVhZGVyeTcyMFxm q990LHU4UoQwVVGzk0Tu L8LqnVfqC56moNobL84j AJHodGykbP3swUzltX9u ZjBcZnMyNFxxbFxwbGFp pjrxVWsuugA0IPcvbpuo EPCzIPuaX6pvApMkQREt gHzbQYnrx4NjNDQlANVg CgaqecO8RXIZf24bNIRp n0YyFJSjuW1yyMPgNZmt ucHclTL5OZgnrdPrVhZr vkLvDAXqlF5wRBHvJI4l FLItymKbed4vbsNoMALq UKItW3FmrybgfKeuxwTc NYHdmh8bgvEeABJ6BVHS JD5VJCHiUGPxf92eAOPk jHqhcY7zdXUefpKxKAVd r9VelU0gkVPEZOTiV5wg LC0eHQraz7JmoAUhnRVo dGT5MGFwv3VfInFxidIr iGHbnRXhX7PcrBoqE4qs JZVsEGEwnaVstSEqo6Vc NOFbwTD8oTTgKP9ZEvMD o20wMPAzBMIZfjRpTKJt vQnlvNP9odQ6lH7sUnOH ZiBhcHBsaWNhYmxlLCBj u397fl8qvcE9BZFzCAEp xreyo8HiWXWiVHMdoM74 TSGjJAOnrd6iiamqzMBg lkGlL2Diccx4nX8iCDDo YWluXGYxXGZzMjJcbGFu ZzEwMzNcaGljaFxmMVxk YhJqTNTyRIcsN2kvGhOi ZnMyMlxwYXJ9 [facility] [place]Free Lambda Ratio 2021-10-21 18:12:56 Test Item Value Reference Range Interpretation Comments FKap/FLam RT (test code = 5566) 1.14 0.26-1.[address] [facility]Free Lambda Ratio 2021-10-21 18:12:56 Test Item Value Reference Range Interpretation Comments FKap/FLam RT (test code = 5566) 1.14 0.26-1.65 [facility] Lambda Light [id number] 18:12:55 Test Item Value Reference Range Interpretation Comments Free Lambda (test code = 5630) 20.49 mg/L 5.71-26.30 [facility] L[facility] Light [id number] 18:12:55 Test Item Value Reference Range Interpretation Comments Free Lambda (test code = 5630) 20.49 mg/L 5.71-26.[address] [place] Light [id number] 18:12:54 Test Item Value Reference Range Interpretation Comments Free [place] (test code = 5629) 23.37 mg/L 3.30-19.40 H Lab Interpretation (test code = Abnormal 00373-8) [facility] [place] Light [id number] 18:12:54 Test Item Value Reference Range Interpretation Comments Free [facility] (test code = 5629) 23.37 mg/L 3.30-19.40 H Lab Interpretation (test code = Abnormal 13365-6) [facility] 2 [id number] 18:12:53 Test Item Value Reference Range Interpretation Comments Beta2 Microglob (test code = 5090) 2.0 mg/L 0.8-2.3 [facility] 2 [id number] 18:12:53 Test Item Value Reference Range Interpretation Comments Beta2 Microglob (test code = 5090) 2.0 mg/L 0.8-2.3 [facility]M2022-02-02 18:12:52 Test Item Value Reference Range Interpretation Comments IgM (test code = 6023) 658 mg/dL 35-242 H Lab Interpretation (test code = Abnormal 49975-6) [facility] 18:12:52 Test Item Value Reference Range Interpretation Comments IgM (test code = 6023) 658 mg/dL 35-242 H Lab Interpretation (test code = Abnormal 90013-2) [facility]22-[facility]-02 18:12:51 Test Item Value Reference Range Interpretation Comments IgG (test code = 6001) 996 mg/dL 610-1616 [facility]2022-[facility]-02 18:12:51 Test Item Value Reference Range Interpretation Comments IgG (test code = 6001) 996 mg/dL 610-1616 [facility]2022-02-02 18:12:50 Test Item Value Reference Range Interpretation Comments IgA (test code = 5992) 240 mg/dL 85-499 [facility] 18:12:50 Test Item Value Reference Range Interpretation Comments IgA (test code = 5992) 240 mg/dL 85-499 [facility] HCV Ab Path [id number] 16:41:24 Test Item Value Reference Range Interpretation Comments HCV Ab Path There is NO Interp (test serologic code = 8923) evidence of ____KAMI RHOADES EA Hepatitis C MD HILARIO, PhD - virus antibody. 23236Efvonwy d by: Payam GAGNON, PhD - [id number] D ate/Time: 10.21.2021 10:4 1 AM PERSONAL INJURY ATTORNEY Transcribed Mehdi e/Time: 10.21.2021 10:4 1 AM CSTElectronical ly Signed By: KAMI RICH MD, PhD - [id number] on 10.21.2021 1 0:41 [facility] [id number] 16:41:24 Test Item Value Reference Range Interpretation Comments HCV Ab Path There is NO Interp (test serologic code = 8923) evidence of ____KAMI RHOADES EA Hepatitis C MD HILARIO, PhD - virus antibody. 23447Jyejzye d by: Payam GAGNON, PhD - [id number] D ate/Time: 10.21.2021 10:4 1 AM PERSONAL INJURY ATTORNEY Transcribed Mehdi e/Time: 10.21.2021 10:4 1 AM CSTElectronical ly Signed By: KAMI RICH MD, PhD - [id number] on 10.21.2021 1 0:41 AM [facility] HIV 1/2 Ag&Ab Path Inter 2021-10-21 16:39:21 Test Item Value Reference Range Interpretation Comments HIV 1/2 Ag&Ab Negative for Interp (test HIV-1 antigen and code = 9394) HIV-1/HIV-2 ____MAYRIN JF EA antibodies. Danielle RICH MD, Ph D - laboratory [id number] b y: KAMI evidence of HIV KIRAN Palacios MD, PhD - [place]. [place] [id number] Date/Time: acute HIV 10.21.2021 10:3 9 AM PERSONAL INJURY ATTORNEY infection is Transcribed Mehdi e/Time: suspected, 10.21.2021 10:3 9 AM consider testing CSTElectron ically Signed for HIV-1 RNA. By: KAMI RICH MD, PhD - [id number] on 10.21.2021 1 0:39 AM [facility] HIV 1/2 Ag&Ab Path Interp 2021-10-21 16:39:21 Test Item Value Reference Range Interpretation Comments HIV 1/2 Ag&Ab Negative for Interp (test HIV-1 antigen and code = 9394) HIV-1/HIV-2 ____MAYRIN JF EA antibodies. Danielle RICH MD, Ph D - laboratory 81575Cvrexxtx b y: KAMI evidence of HIV KIRAN Palacios MD, PhD - [place]. [place] [address]Omjtwyca Date/Time: acute HIV 10.21.2021 10:3 9 AM PERSONAL INJURY ATTORNEY infection is Transcribed Mehdi e/Time: suspected, 10.21.2021 10:3 9 AM consider testing CSTElectron ically Signed for HIV-1 RNA. By: KAMI RICH MD, PhD - on 10.21.2021 1 0:39 AM [facility] Antigen and Antibodies, Fourth Vqnowcuzal2566-03-10 04:59:03 Test Item Value Reference Range Interpretation Comments HIV 1/2 Ag & Ab, Non Reactive Non Reactive Performed a t: 4th Gen (test code [facility] = 9280) [place] [address] [facility] Antigen and Antibodies, Fourth Tnktxfbxpt9307-84-96 04:59:03 Test Item Value Reference Range Interpretation Comments HIV 1/2 Ag & Ab, Non Reactive Non Reactive Performed a t: 4th Gen (test code [place] [facility] = 9280) [address] [address] [facility] Interpretation Antibody Screen Zznhqetk5407-59-30 04:45:54 Test Item Value Reference Range Interpretation Comments TMP Auto Neg At the present ABSC Interp time, patient (test code = plasma shows no ____KAMI Ramirez ORREA 7535) evidence of RBC MD RICH P hD - alloantibodies. 80152Alotyhr d by: Payam GAGNON, PhD - [id number] D ate/Time: 10.20.2021 22:4 5 PM PERSONAL INJURY ATTORNEY Transcribed Mehdi e/Time: 10.20.2021 22:4 5 PM CSTElectronical ly Signed By: KAMI RICH MD, PhD - [id number] on 10.20.2021 2 2:45 PM [facility]ody Screen [id number] 04:45:54 Test Item Value Reference Range Interpretation Comments TMP Auto Neg At the present ABSC Interp time, patient (test code = plasma shows no ____KAMI Ramirez ORREA 7535) evidence of RBC MD RICH P hD - alloantibodies. 31182Ylabtoc d by: Payam GAGNON, PhD - [id number] D ate/Time: 10.20.2021 22:4 5 PM PERSONAL INJURY ATTORNEY Transcribed Mehdi e/Time: 10.20.2021 22:4 5 PM CSTElectronical ly Signed By: KAMI RICH MD, PhD - [id number] on 10.20.2021 2 2:45 PM [facility] Virus [id number] 04:10:08 Test Item Value Reference Range Interpretation Comments HCVAb. (test Non Reactive Non Reactive Antibody detect ion in the code = 5762) immunocompromis ed and immunosuppresse d population may be delayed or absent entirely. There fore serial testing, correl ation with other clinical findings, and supplementa l testing (if available) should be taken into cons ideration when interpreti ng the results.Perform ed at:[facility] [id number] [place], [place] [address] [facility]aHepatitis C Virus [id number] 04:10:08 Test Item Value Reference Range Interpretation Comments HCVAb. (test Non Reactive Non Reactive Antibody detect ion in the code = 5762) immunocompromis ed and immunosuppresse d population may be delayed or absent entirely. There fore serial testing, correl ation with other clinical findings, and supplementa l testing (if available) should be taken into cons ideration when interpreti ng the results.Perform ed at:[facility] [id number] [place], [place] [address] [facility]aAntibody Odmfyg6493-62-80 00:31:15 Test Item Value Reference Range Interpretation Comments ABSC. (test code = 890-4) Negative ABSC [facility]Ant[facility] Ullgek4522-50-38 00:31:15 Test Item Value Reference Range Interpretation Comments ABSC. (test code = 890-4) Negative ABSC [facility]ABORh2022-02-02 00:31:14 Test Item Value Reference Range Interpretation Comments ABORh. (test code = 882-1) B POS [facility]aABORh2022-02-02 00:31:14 Test Item Value Reference Range Interpretation Comments ABORh. (test code = 882-1) B POS [facility]aClot Expiration [id number] 00:31:08 Test Item Value Reference Range Interpretation Comments T & S Expiration (test code = 10/23/2021 5318) [facility] Expiration [id number] 00:31:08 Test Item Value Reference Range Interpretation Comments T & S Expiration (test code = 10/23/2021 5318) [facility] [id number] 00:07:10 Test Item Value Reference Range Interpretation Comments ABORh Confirm. (test code = 882-1) B POS [facility]aConfirm [id number] 00:07:10 Test Item Value Reference Range Interpretation Comments ABORh Confirm. (test code = 882-1) B POS [facility]it[facility] D [id number] 22:02:24 Test Item Value Reference Range Interpretation Comments Vitamin D 25 [place] (test 55 ng/mL 30-100 Refere nce Range: code = 8018) Deficiency: <1 0 ng/mLInsufficie ncy: 10-29 ng/mLSuff iciency: 30-100 ng/mLPot ential toxicity: >100 ng/mL [facility] D [id number] 22:02:24 Test Item Value Reference Range Interpretation Comments Vitamin D 25 [place] (test 55 ng/mL 30-100 Refere nce Range: code = 8018) Deficiency: <10 ng/mLInsufficie ncy: 10-29 ng/mLSuff iciency: 30-100 ng/mLPot ential toxicity: >100 ng/mL [facility]aHepatitis B Surface [id number] 21:37:06 Test Item Value Reference Range Interpretation Comments HBsAg Received (test See Note HBsAg w as sent to a code = 17673) reference lab for testing. Expect results on Hepatitis B Surface Antigen w/ Conf irm within 96 hours . [facility]atitis B Surface [id number] 21:37:06 Test Item Value Reference Range Interpretation Comments HBsAg Received (test See Note HBsAg w as sent to a code = 21607) reference lab for testing. Expect results on Hepatitis B Surface Antigen w/ Conf irm within 96 hours . [facility] B Total Ig Core Ab (SCREENING) (anti-HBc total Ig; HBcAb total Ig)2021-10-20 21:37:05 Test Item Value Reference Range Interpretation Comments HBcAb Received (test See Note HBcAb w as sent to a code = 80667) reference lab for testing. Expect results on Hepatitis B Core Total Ab within 96 hours. [facility] Total Ig Core Ab (SCREENING) (anti-HBc total Ig; HBcAb total Ig)2021-10-20 21:37:05 Test Item Value Reference Range Interpretation Comments HBcAb Received (test See Note HBcAb w as sent to a code = 68184) reference lab for testing. Expect results on Hepatitis B Core Total Ab within 96 hours. [facility] [id number] 21:35:03 Test Item Value Reference Range Interpretation Comments T4 Free (test code = 7502) 1.55 ng/dL 0.93-1.70 [facility]aFr [id number] 21:35:03 Test Item Value Reference Range Interpretation Comments T4 Free (test code = 7502) 1.55 ng/dL 0.93-1.70 [facility], [id number] 20:59:40 Test Item Value Reference Range Interpretation Comments Glucose Random (test 97 mg/dL 70-199 Effecti ve 04/14/16, the code = 9360) glucose referen ce intervals have been updated based o n [place] jose delines (Standards of M edical Care in Diabete s 2016. Diabetes Care 2 016; 39: S13-S22).Fastin g blood glucose:Normal: 70-99 mg/dLImpaired f asting glucose (increa sed risk for diabetes or pre-diabetes): 100-125 mg/dLDiabetes m ellitus: >/=126 mg/dL Ra ndom blood glucose:N ormal: 70-199 mg/dLNot e: Random glucose >100 mg /dL is associated with increased risk for diabetes [facility], [id number] 20:59:40 Test Item Value Reference Range Interpretation Comments Glucose Random (test 97 mg/dL 70-199 Effecti ve 04/14/16, the code = 9360) glucose referen ce intervals have been updated based o n [place] jose delines (Standards of M edical Care in Diabete s 2016. Diabetes Care 2 016; 39: S13-S22).Fastin g blood glucose:Normal: 70-99 mg/dLImpaired f asting glucose (increa sed risk for diabetes or pre-diabetes): 100-125 mg/dLDiabetes m ellitus: >/=126 mg/dL Ra ndom blood glucose:N ormal: 70-199 mg/dLNot e: Random glucose >100 mg /dL is associated with increased risk for diabetes [facility]osph[facility] [id number] 20:59:38 Test Item Value Reference Range Interpretation Comments Phosphorus (test code = 6817) 3.4 mg/dL 2.5-4.5 [facility] [id number] 20:59:38 Test Item Value Reference Range Interpretation Comments Phosphorus (test code = 6817) 3.4 mg/dL 2.5-4.5 [facility] [id number] 20:59:37 Test Item Value Reference Range Interpretation Comments Uric Acid (test code = 7955) 4.3 mg/dL 2.4-5.7 [facility] [id number] 20:59:37 Test Item Value Reference Range Interpretation Comments Uric Acid (test code = 7955) 4.3 mg/dL 2.4-5.7 [facility] [id number] 20:59:33 Test Item Value Reference Range Interpretation Comments Magnesium (test code = 6359) 2.2 mg/dL 1.6-2.6 [facility] [id number] 20:59:33 Test Item Value Reference Range Interpretation Comments Magnesium (test code = 6359) 2.2 mg/dL 1.6-2.6 [facility]PTT2022-02-01 20:33:10 Test Item Value Reference Range Interpretation Comments aPTT (test 30.8 See_Comment [Automated mes feliciano] code = 6773) The system [employer] generated this result transmitted ref erence range: 24.7 - 3 6.8 second(s). The reference range was not used to int erpret this result as normal/abnormal . ELIZABETH (test code This lab cannot be = ELIZABETH) scheduled at the following locations due to collection/proccess ing restrictions: [facility] and [facility]. [facility]aaPTT2022-02-01 20:33:10 Test Item Value Reference Range Interpretation Comments aPTT (test 30.8 See_Comment [Automated mes feliciano] code = 6773) The system [employer] generated this result transmitted ref erence range: 24.7 - 3 6.8 second(s). The reference range was not used to int erpret this result as normal/abnormal . ELIZABETH (test code This lab cannot be = ELIZABETH) scheduled at the following locations due to collection/proccess ing restrictions: [facility] and [facility]. [facility]aProth[facility] [id number] 20:33:09 Test Item Value Reference Range Interpretation Comments PT (test code 12.3 See_Comment [Automated me ssage] = 6746) The system [employer] generated this result transmitted ref erence range: 11.5 - 1 3.9 second(s). The reference range was not used to int erpret this result as normal/abnormal . INR (test code 0.99 0.90-1.10 = 5973) ELIZABETH (test code This lab cannot be = ELIZABETH) scheduled at the following locations due to collection/proccess ing restrictions: [facility] and [facility]. [facility] [id number] 20:33:09 Test Item Value Reference Range Interpretation Comments PT (test code 12.3 See_Comment [Automated me ssage] = 6746) The system [employer] generated this result transmitted ref erence range: 11.5 - 1 3.9 second(s). The reference range was not used to int erpret this result as normal/abnormal . INR (test code 0.99 0.90-1.10 = 5973) ELIZABETH (test code This lab cannot be = ELIZABETH) scheduled at the following locations due to collection/proccess ing restrictions: [facility] and [facility]. [facility]aISTAT-EC8+2021-06-10 06:51:00 Test Item Value Reference Range Interpretation [...] mL/min 60-115 H (test code = GFRP) Notes Date/Time Note Provider Source 2022-06-16 11:11:00-00:00 [facility] ([facility]) Operative Report REPORT #: [id number] REPORT STATUS: Signed DATE: 06/16/22 TIME: 1111 PATIENT: JAY SHAHID UNIT #: [id number] ROOM #: BED: : 44 AGE: 76 SEX: F ATTEND: Karen Cho MD ADM AUTHOR: Elan Cho MD ATTENTION *EDITS and/or ADDENDA must be made in Patient Ke eper for this note. * * Edits and ammendments created in [facility] are not visible * * in Patient Keeper or the legal medical record (HPF). * -- OPERATION -- SURGERY START DATE/TIME: 2022-06-16 09:30 PRE-OPERATIVE DIAGNOSIS: RIGHT carpal tunnel syndrome POST-OPERATIVE DIAGNOSIS: RIGHT carpal tunnel syndrome NAME OF PROCEDURE: RIGHT open carpal tunnel release Right volar forearm fascia release TIME OUT COMPLETED: Yes SURGEON: Elan Cho MD PROCESS SUPERVISOR(S): none ANESTHESIA: general/LMA ESTIMATED BLOOD LOSS: 1 ml's FINDINGS: see report SPECIMEN(S) REMOVED AND/OR ALTERED: none COMPLICATION(S): no immediate complications -- DESCRIPTION -- DESCRIPTION OF TECHNIQUE/PROCEDURE: Indications: 76 year old female with long standing history of RIGHT hand pain, numbness/tingling which has persisted despite co nservative measures. Patient has had an EMG which showed moderately s evere RIGHT carpal tunnel syndrome. We discussed continued conservative measure s, versus operative intervention for a RIGHT open carpal tunnel rel ease and volar forearm fascia release. Patient felt that her symptoms were bothersome enough that sh e wished to proceed with operative intervention. Risks of surgery include infection, pain, scaring, nerve/vessel/tendon damage, bleeding, continued/ worsening symptoms, complex regional pain syndrome, weakness, stiffness, los s of function, anesthesia complications, blood clot, heart attack, stroke, loss of limb or life and possible need for further procedures. Patient un derstands these risks and wished to proceed. Consent was signed and site m arked. Procedure: Patient was brought to the OR and placed supine upon the OR table with a hand table attached. General anesthesia was induced a nd LMA placed. A well padded upper arm tourniquet was placed about the right upper extremity. The right upper extremity was prepped and draped in the [facility] sterile fashion and a surgical timeout was performed confirming the co rrect side and procedure. Patient received preoperative antibiotics as per protocol. The arm was exsanguinated with an esmarch and tourniquet inf lated to 250 mmHg. The procedure was carried out un arik 3.5x loupe magnification and bipolar cautery to maintain hemostasis. The hand was placed into a l ead hand for the retraction of the digits. A 2.5 cm longitudinal incision was made just dist al to the wrist flexion crease in line with the radial aspect of the ring finger ray, w ith a 15 blade through skin, followed by blunt dissection with curved tenotomy scissors through subcutaneous tissue, protecting all surrounding neurovascular structures. A blunt self retainer was introduced to m aintain exposure. The crossing fibers of the palmar fascia were identified and sharply divided longi tudinally with a fresh 15 blade. The ulnar neurovascular bundle was swept ulnarly with a freer elevator and protected/retracted with a blunt an f retainer. This allowed good exposure of the underlying transverse fibers of the trans verse carpal ligament. The central aspect of the transverse carpal ligament was divided with a 15 blade, extending distally in line with the radial aspec t of the ring finger ray, remaining ulnar to the median nerve. The distal few fibers of the transverse carpal ligament were bluntly dissected out with curved tenotomy scissors and divided under direct visualization, exposing the underlying carpal tunnel contents, and exposing the m idpalmar fat distally. Similarly, the proximal half of the transverse carpal ligament was divided wi th the 15 blade. The most proximal extent of the transverse carpal ligamen t and distal extent of the volar forearm fascia was vis ualized. Blunt dissection was performed superficial to the distal volar forearm fascia with curved t enotomy scissors and the deep surface freed of adhesions o f the carpal tunnel contents with a freer elevator. The flat end of a Lawanda retractor was the placed superficial to the volar forearm fascia and the carpal tunnel contents we re visualized and freed from the deep surface of the distal volar forearm fas graham. The curved tenotomy scissors were then used to divide the pr oximal extent of the transverse carpal ligament and the distal most 4-5 cm of the volar forearm fascia, under direct visualization, to further decompress the median nerve at the wrist. The transverse carpal ligament and the volar forearm fascia were quite thickened. The division of the volar forearm fascia was per formed to decrease perineural scaring, decrease risk of a transitional point o f nerve compression and to decrease likelihood of day time symptoms. A comp lete release of the median nerve at the wrist was confirmed with a freer el evator, back end of the forceps, and the tip of my s mall finger. The wound was copiously irrigated with saline. Skin was closed with 4-0 nylon suture in horizontal mattress fashion. Several cc of 0.25% Marcaine was infused over th e median nerve in the distal forearm. The tourniquet was let down aft er approximately 20 minutes with brisk capillary refill to all digits. The incision was dressed with xeroform, 4x4s, and loosely secured in place with an linda bandage . All final counts were correct. There were no immediate complications. Anesthesia was reversed, LMA removed, and patient was transferred to the [facility] and PACU in stable condition. Signed in PatientKeeper by Elan Cho MD on 06/16/22 at 11:15 Electronically Signed by Elan Cho MD on at 1115 ATTENTION *EDITS and/or ADDENDA must be made in Patient Ke eper for this note. * * Edits and ammendments created in [facility] are not visible * * in Patient Keeper or the legal medical record (HPF). * [facility] #: [id number] END OF REPORT
--- NOTE | 2023-02-17 06:29 | ER ---
Nurse's Notes [facility] Name: Deepti Rome Age: 77 yrs Sex: Female : 1945 Arrival Date: 02/17/2023 Time: 05:43 Bed 5 Private MD: Diagnosis: Left lower extremity herpes zoster, acute shingles Presentation: 02/17 05:50 Chief complaint: Patient states: left leg pain and rash this morning with itchiness. as6 Coronavirus screen: Vaccine status: Patient reports receiving the 2nd dose of the covid vaccine. Date 2020. Ebola Screen: Patient negative for fever greater than or equal to 101.5 degrees Fahrenheit, and additional compatible Ebola Virus Disease symptoms Patient denies exposure to infectious person. Patient denies travel to an Ebola-affected area in the 21 days before illness onset. Initial Sepsis Screen: Does the patient meet any 2 criteria? No. Patient's initial sepsis screen is negative. Does the patient have a suspected source of infection? No. Patient's initial sepsis screen is negative. Risk Assessment: Do you want to hurt yourself or someone else? Patient reports no desire to harm self or others. Onset of symptoms was February 17, 2023 at 05:00. 05:50 Method Of Arrival: Ambulatory as6 05:50 Acuity: ALEXANDRA 4 as6 Triage Assessment: 05:57 General: Appears comfortable, Behavior is calm, cooperative. Pain: Complains of pain in rv left leg Pain currently is 8 out of 10 on a pain scale. Neuro: Level of Consciousness is awake, alert, obeys commands, Oriented to person, place, time, situation. Cardiovascular: Capillary refill < 3 seconds. Respiratory: Airway is patent. GI: No signs and/or symptoms were reported involving the gastrointestinal system. : No signs and/or symptoms were reported regarding the genitourinary system. Derm: Rash noted that is itchy, red, raised. Historical: - Allergies: 05:55 No Known Allergies; as6 - PMHx: 05:55 GERD; Hypertensive disorder; Rheumatoid Arthritis; as6 - Immunization history:: Client reports receiving the 2nd dose of the Covid vaccine. - Social history:: Smoking status: Patient denies any tobacco usage or history of. - Family history:: not pertinent. Screenin:58 [facility] ED Fall Risk Assessment (Adult) History of falling in the last 3 months, rv including since admission. Abuse screen: Denies threats or abuse. Denies injuries from another. Nutritional screening: No deficits noted. Tuberculosis screening: No symptoms or risk factors identified. Vital Signs: 05:50 BP 174 / 84; Pulse 78; Resp 18; Temp 98.4; Pulse Ox 96% on R/A; Weight 54.43 kg; Height as6 4 ft. 9 in. ; Pain 8/10; 05:50 Body Mass Index 25.97 (54.43 kg, 144.78 cm) as6 05:50 Pain Scale: Adult as6 ED Course: 05:47 Patient arrived in ED. ja2 05:51 Elian Yap, RN is Primary Nurse. rv 05:54 Triage completed. as6 05:55 Arm band placed on. as6 05:58 Patient has correct armband on for positive identification. Placed in gown. Bed in low rv position. Call light in reach. Side rails up X 1. Client placed on continuous cardiac and pulse oximetry monitoring. NIBP monitoring applied. 05:58 No provider procedures requiring assistance completed. rv 06:11 Evin Pino MD is Attending Physician. sp4 06:40 Patient did not have IV access during this emergency room visit. rv Administered Medications: 06:39 Drug: Acyclovir PO 800 mg Route: PO; rv 06:39 Follow up: Response: Medication administered at discharge. rv 06:40 Drug: Ibuprofen PO 400 mg Route: PO; rv 06:40 Follow up: Response: Medication administered at discharge. rv 06:40 Drug: Acetaminophen-Codeine PO (300 mg-30 mg) 2 tabs Route: PO; rv 06:40 Follow up: Response: Medication administered at discharge. rv 06:40 Drug: Ondansetron PO 4 mg Route: PO; rv 06:40 Follow up: Response: Medication administered at discharge. rv Medication: 05:58 VIS not applicable for this client. rv Outcome: 06:29 Discharge ordered by . sp4 06:40 Discharged to home ambulatory. rv 06:40 Condition: good 06:40 Discharge instructions given to patient, Instructed on discharge instructions, follow up and referral plans. medication usage, Demonstrated understanding of instructions, follow-up care, medications, Prescriptions given X 3. 06:40 Patient left the ED. rv Signatures: Elian Yap RN RN rv Mirella Becerra Ashby, RN RN as6 Evin Pino MD MD sp4 Corrections: (The following items were deleted from the chart) 05:58 05:58 Social history: Smoking status: Patient reports the use of cigarette tobacco rv products, rv
--- NOTE | 2023-02-17 06:29 | EDPHYS ---
Physician Documentation [facility] Name: Deepti Rome Age: 77 yrs Sex: Female : 1945 Arrival Date: 02/17/2023 Time: 05:43 Bed 5 Private MD: ED Physician Evin Pino HPI: 02/17 06:11 This 77 yrs old Female presents to ER via Ambulatory with complaints of Leg Pain, sp4 Rash. 06:21 Patient is 77-year-old [place] female residing here in the [facility] presents with sp4 acute onset of left lower extremity blistering vesicular rash associated with painless starting this morning.. Patient suspects shingles . Rash is distributed left inner thigh left posterior thigh and buttock. Historical: - Allergies: 05:55 No Known Allergies; as6 - PMHx: 05:55 GERD; Hypertensive disorder; Rheumatoid Arthritis; as6 - Immunization history:: Client reports receiving the 2nd dose of the Covid vaccine. - Social history:: Smoking status: Patient denies any tobacco usage or history of. - Family history:: not pertinent. ROS: 06:21 Constitutional: Negative for fever, chills, and weight loss, Skin: Negative for injury, sp4 positive for left lower extremity posterior and inner thigh rash that is blistering and painful Exam: 06:21 Constitutional: This is a well developed, well nourished patient who is awake, alert, sp4 and in no acute distress. Head/Face: Normocephalic, atraumatic. Eyes: Pupils equal round and reactive to light, extra-ocular motions intact. Lids and lashes normal. Conjunctiva and sclera are not injected. Cornea within normal limits. Periorbital areas with no swelling, redness, or edema. ENT: Nares patent. No nasal discharge, no septal abnormalities noted. Tympanic membranes are normal and external auditory canals are clear. Oropharynx with no redness, swelling, or masses, exudates, or evidence of obstruction, uvula midline. Mucous membranes moist. Neck: Trachea midline, no thyromegaly or masses palpated, and no cervical lymphadenopathy. Supple, full range of motion without nuchal rigidity, or vertebral point tenderness. No Meningismus. Chest/axilla: Normal chest wall appearance and motion. Nontender with no deformity. No lesions are appreciated. Cardiovascular: Regular rate and rhythm with a normal S1 and S2. No gallops, murmurs, or rubs. Normal PMI, no JVD. No pulse deficits. Respiratory: Lungs have equal breath sounds bilaterally, clear to auscultation and percussion. No rales, rhonchi or wheezes noted. No increased work of breathing, no retractions or nasal flaring. Abdomen/GI: Soft, non-tender, with normal bowel sounds. No distension or tympany. No guarding or rebound. No evidence of tenderness throughout. Back: No spinal tenderness. No costovertebral tenderness. Skin: Warm, dry with normal turgor. Normal color , there is ulcerating blistering rash consistent with acute shingles and lateral and posterior thigh in left S1-S2, L1 dermatomal distribution consistent with acute herpes zoster MS/ Extremity: Pulses equal, no cyanosis. Neurovascular intact. Full, normal range of motion. Neuro: Awake and alert, GCS 15, oriented to person, place, time, and situation. Cranial nerves II-XII grossly intact. Motor strength 5/5 in all extremities. Sensory grossly intact. Psych: Awake, alert, with orientation to person, place and time. Behavior, mood, and affect are within normal limits Vital Signs: 05:50 BP 174 / 84; Pulse 78; Resp 18; Temp 98.4; Pulse Ox 96% on R/A; Weight 54.43 kg; Height as6 4 ft. 9 in. ; Pain 8/10; 05:50 Body Mass Index 25.97 (54.43 kg, 144.78 cm) as6 05:50 Pain Scale: Adult as6 MDM: 06:21 Differential diagnosis: contusion, abrasion, tendonitis. Data reviewed: vital signs, sp4 nurses notes, old medical records. ED course: Patient will be provided initial dose of her acyclovir. Will provide prescription for Valtrex, ibuprofen and tramadol. 06:29 Patient medically screened. sp4 Administered Medications: 06:39 Drug: Acyclovir PO 800 mg Route: PO; rv 06:39 Follow up: Response: Medication administered at discharge. rv 06:40 Drug: Ibuprofen PO 400 mg Route: PO; rv 06:40 Follow up: Response: Medication administered at discharge. rv 06:40 Drug: Acetaminophen-Codeine PO (300 mg-30 mg) 2 tabs Route: PO; rv 06:40 Follow up: Response: Medication administered at discharge. rv 06:40 Drug: Ondansetron PO 4 mg Route: PO; rv 06:40 Follow up: Response: Medication administered at discharge. rv Disposition Summary: 02/17/23 06:29 Discharge Ordered Location: Home sp4 Problem: new sp4 Symptoms: have improved sp4 Condition: Stable sp4 Diagnosis - Left lower extremity herpes zoster, acute shingles sp4 Followup: sp4 - With: Private Physician - When: 7 - 10 days - Reason: Recheck today's complaints Discharge Instructions: - Discharge Summary Sheet sp4 - Shingles, [id number] sp4 Prescriptions: - valacyclovir 1 gram Oral tablet - take 1 tablet by ORAL route every 12 hours for 10 days; 20 tablet; Refills: 0, sp4 Product Selection Permitted - Ibuprofen 600 mg Oral Tablet - take 1 tablet by ORAL route every 8 hours As needed take with food , as needed sp4 for pain; 30 tablet; Refills: 0, Product Selection Permitted - Tramadol 50 mg Oral Tablet - take 1 tablet by ORAL route every 8 hours as needed for pain; 30 tablet; sp4 Refills: 0, Product Selection Permitted Signatures: Elian Yap RN RN rv Slawson, Ashby, RN RN as6 Evin Pino MD MD sp4 Corrections: (The following items were deleted from the chart) 05:58 05:58 Social history: Smoking status: Patient reports the use of cigarette tobacco rv products, rv
[2023-02-17] MEDS ORDERED: CODEINE 30MG/APAP 300MG TAB ONE (06:42)
[2023-02-17] MEDS ORDERED: ACYCLOVIR 400 MG TABLET ONE (06:42)
[2023-02-17] MEDS ORDERED: IBUPROFEN 400 MG TAB ONE (06:43)
[2023-02-17] MEDS ORDERED: ONDANSETRON 4 MG (ODT) TAB ONE (06:43)
[2023-02-17 06:45] VITALS: BP 174/84; TEMP 98.4; O2SAT 96
== END 2023-02-17 06:40 | disposition home or self-care (01) ==
LOC: ER 05:43
DX: B02.9 Zoster without complications (principal)
CPT/HCPCS: 99283; Q0162

== ENCOUNTER 2023-05-02 05:49 | Emergency (ER) | payer OTHER ==
--- OUTSIDE RECORDS SUMMARY | 2023-05-02 05:52 | XMS REPORT | Clinical Summary ---
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 05/04/2022 Travel after 05/02/2022 Surgical History Surgery Date Site/Laterality Comments HERNIA [...] at Date Recorded Female 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 Occupation Industry Not on [...] Body Mass Index 25.33 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 Plan of Treatment Health Maintenance Due Date Last Done Comments COVID-19 Vaccination (#1) 1950 Procedures Procedure Name Priority Date/Time Associated Comments [...] of lymph nodes of multiple sites after 05/02/2022 Results .Serum Creatinine (05/04/2022 11:07 AM CDT) P athologist Signature Creatinine 0.63 0.51 - 0.95 [facility] mg/dL DIAGNOSTIC CENTER Specimen Anatomical Collection Method Collection Time Receive d Time (Source) Location / / Volume Laterality Blood 05/04/2022 11:07 05/04/2022 AM CDT 11:27 AM CDT Carole Rogers MD LAB BLOOD ORDERABLES Performing Organization Address City/State/ZIP Code Phon e Number [facility] DIAGNOSTIC Unless otherwise noted, [place], [place] [address] [place] all lab tests performed by: Division of Pathology and Laboratory Medicine [address] (ABNORMAL) .CBC (05/04/2022 11:07 AM CDT) Analysis Performed At Patho logist Time Signature WBC 3.7 (L) 4.0 - 11.0 [facility] K/uL DIAGNOSTIC CENTER RBC 3.59 (L) 4.00 - [facility] 5.50 M/uL DIAG[facility]IC CENTER Hgb 12.3 12.0 - [facility] 16.0 gm/dL DIAGNOSTIC CENTER Hct 35.6 (L) 37.0 - [facility] 47.0 % DIAGNOSTIC CENTER MCV 99 (H) 82 - 98 fL [facility] DIAGNOSTIC CENTER MCH 34.3 (H) 27.0 - [facility] 31.0 pg DIAGNOSTIC CENTER MCHC 34.6 31.0 - [facility] 36.0 gm/dL DIAGNOSTIC CENTER RDW-SD 45.6 35.1 - [facility] 46.3 [place] DIAGNOSTIC CENTER RDW-CV 12.9 12.0 - [facility] 15.5 % DIAGNOSTIC CENTER Platelet count 164 140 - 440 [facility] K/uL DIAGNOSTIC CENTER MPV 8.7 4.0 - 10.4 [facility] DIAGNOSTIC CENTER INRBC 0.0 <=0.0 % [place] [facility] Comment: The INRBC (instrument NRBC) value reflec [...] Organization Address City/State/ZIP Code Phon e Number [place] [facility] Unless otherwise noted, [place], [place] [address] CENTER all lab tests performed by: Division of Pathology and Laboratory Medicine [address] Glomerular Filtration Rate (05/04/2022 11:07 AM CDT) athologist Signature eGFR-AA 100 >=60 [place] [facility] mL/min/1.73 DIAGNOSTIC sq. m CENTER [...] <15 eGFR-ÁLVARO 87 >=60 mL/min/1.73 sq. m [place] MD [facility] Comment: Normal [...] MD LAB BLOOD ORDERABLES Performing Organization Address City/[facility] Code Phon e Number [place] [facility] Unless otherwise noted, [address] all lab tests performed by: Division of Pathology and Laboratory Medicine [address] [place] [address] Fractionated Bilirubin (05/04/2022 11:07 AM CDT) athologist Signature Bili Total 0.3 <=1.2 mg/dL [facility] DIAGNOSTIC CENTER Comment: Indocyanine Green (ICG) may cause falsel y elevated bilirubin results. Total and direct bilirubin must not be measured from samples containing indocyanine green. False elevation of total bilirubin can b e seen in patients with IgG concentrations above 28 g/L. Bili Direct <0.2 <=0.3 mg/dL [facility] D IAGNOSTIC CENTER Comment: Indocyanine Green (ICG) may cau se falsely elevated bilirubin results. Total and direct bilirubin must not be measure d from samples containing indocyanine green. Bili Indirect See Note 0.0 - 0.9 mg/dL [place] [facility] Comment: Unable to calculate Indirect Bi lirubin result due to some parameters are outside reportable range Specimen Anatomical Collection Method Collection Time Receive d Time (Source) Location / / Volume Laterality Blood 05/04/2022 11:07 05/04/2022 AM CDT 11:27 AM CDT Carole Rogers MD LAB BLOOD ORDERABLES Performing Organization Address City/[facility] Phon e Number [facility] DIAGNOSTIC Unless otherwise noted, [address] all lab tests performed by: Division of Pathology and Laboratory Medicine [address] [place] [address] (ABNORMAL) Differential (05/04/2022 11:07 AM CDT) athologist Signature Neutrophil % 64.4 42.0 - [facility] 66.0 % DIAGNOSTIC CENTER Lymphocyte % 14.6 (L) 24.0 - [facility] 44.0 % DIAGNOSTIC CENTER Monocyte % 15.9 (H) 2.0 - 7.0 [facility] % DIAGNOSTIC CENTER Eosinophil % 3.0 1.0 - 4.0 [facility] % DIAGNOSTIC CENTER Basophil % 0.5 0.0 - 1.0 [facility] % DIAGNOSTIC CENTER IGRE % 1.6 (H) 0.0 - 0.4 [facility] % DIAGNOSTIC CENTER Comment: IGRE % count includes Metamyelo cytes, Myelocytes, and Promyelocytes. Neutrophil Abs 2.39 1.70 - 7.30 K/uL [facility] DIAG[facility]IC [place] Lymphocyte Abs 0.54 (L) 1.00 - 4.80 K/uL [facility] Monocyte Abs 0.59 0.08 - 0.70 K/uL [place] [facility] CENTER Eosinophil Abs 0.11 0.04 - 0.40 K/uL [facility] DIAGNOSTIC [place] Basophil Abs 0.02 0.00 - 0.10 K/uL [place] [facility] DIAG[facility]IC CENTER IG Abs 0.06 (H) 0.00 - 0.04 K/uL [place] [facility] C[facility] Specimen Anatomical Collection Method Collection Time Receive d Time (Source) Location / / Volume Laterality Blood 05/04/2022 11:07 05/04/2022 AM CDT 11:19 AM CDT Carole Rogers MD LAB BLOOD ORDERABLES Performing Organization Address City/State/ZIP Code Phon e Number [facility] DIAGNOSTIC Unless otherwise noted, [place] [phone] [place] all lab tests performed by: Division of Pathology and Laboratory Medicine [facility] BUN (05/04/2022 11:07 AM CDT) athologist Signature BUN 16 6 - 23 [facility] mg/dL DIAGNOSTIC CENTER Specimen Anatomical Collection Method Collection Time Receive d Time (Source) Location / / Volume Laterality Blood 05/04/2022 11:07 05/04/2022 AM CDT 11:27 AM CDT Carole Rogers MD LAB BLOOD ORDERABLES Performing Organization Address City/State/ZIP Code Phon e Number [facility] DIAGNOSTIC Unless otherwise noted, [address] all lab tests performed by: Division of Pathology and Laboratory Medicine [address] [place] [address] [place] ALT (05/04/2022 11:07 AM CDT) P athologist Signature ALT 31 <=33 U/L [facility] Specimen Anatomical Collection Method Collection Time Receive d Time (Source) Location / / Volume Laterality Blood 05/04/2022 11:07 05/04/2022 AM CDT 11:27 AM CDT Carole Rogers MD LAB BLOOD ORDERABLES Performing Organization Address City/[facility]/ZIP Code Phon e Number [facility] DIAGNOSTIC Unless otherwise noted, [address] all lab tests performed by: Division of Pathology and Laboratory Medicine [address] [place] [address] (ABNORMAL) Aspartate Aminotransferase (05/04/2022 11:07 AM CDT) P athologist Signature AST 33 (H) <=32 U/L [facility] Specimen Anatomical Collection Method Collection Time Receive d Time (Source) Location / / Volume Laterality Blood 05/04/2022 11:07 05/04/2022 AM CDT 11:27 AM CDT Carole Rogers MD LAB BLOOD ORDERABLES Performing Organization Address City/State/ZIP Code Phon e Number [facility] DIAGNOSTIC Unless otherwise noted, [address] all lab tests performed by: Division of Pathology and Laboratory Medicine [address] [place] [address] [place] TSH (05/04/2022 11:07 AM CDT) P athologist Signature TSH 1.79 0.27 - 4.20 [facility] mcunit/mL DIAGNOSTIC CENTER Specimen Anatomical Collection Method Collection Time Receive d Time (Source) Location / / Volume Laterality Blood 05/04/2022 11:07 05/04/2022 AM CDT 11:27 AM CDT Carole Rogers MD LAB BLOOD ORDERABLES Performing Organization Address City/State/ZIP Code Phon e Number [facility] DIAGNOSTIC Unless otherwise noted, [place] [phone] [place] all lab tests performed by: Division of Pathology and Laboratory Medicine [address] Total Protein (05/04/2022 11:07 AM CDT) athologist [facility] Total Protein 7.5 6.4 - 8.3 [facility] g/dL DIAGNOSTIC CENTER Specimen Anatomical Collection Method Collection Time Receive d Time (Source) Location / / Volume Laterality Blood 05/04/2022 11:07 05/04/2022 AM CDT 11:27 AM CDT Carole Rogers MD LAB BLOOD ORDERABLES Performing Organization Address City/[facility]/ZIP Code Phon e Number [facility] DIAGNOSTIC Unless otherwise noted, [place] [phone] [place] all lab tests performed by: Division of Pathology and Laboratory Medicine [address] Alkaline Phosphatase (05/04/2022 11:07 AM CDT) athologist [facility] Alk Phos 87 35 - 104 [facility] U/L DIAGNOSTIC CENTER Specimen Anatomical Collection Method Collection Time Receive d Time (Source) Location / / Volume Laterality Blood 05/04/2022 11:07 05/04/2022 AM CDT 11:27 AM CDT Carole Rogers MD LAB BLOOD ORDERABLES Performing Organization Address City/[facility]/ZIP Code Phon e Number [facility] DIAGNOSTIC Unless otherwise noted, [place] [phone] [place] all lab tests performed by: Division of Pathology and Laboratory Medicine [address] (ABNORMAL) LDH (05/04/2022 11:07 AM CDT) athologist [facility] LDH 310 (H) 135 - 214 [facility] U/L DI[facility]IC CENTER Comment: Results greater than [...] Organization Address City/State/ZIP Code Phon e Number [facility] DIAGNOSTIC Unless otherwise noted, [address] all lab tests performed by: Division of Pathology and Laboratory Medicine [address] Glucose Level (05/04/2022 11:07 AM CDT) athologist Signature Glucose Level 93 70 - 99 [facility] mg/dL DIAGNOSTIC CENTER Comment: Effective 04/14/16, the glucose reference intervals have been updated based on [place] [employer] guidelines (Standards of Medical Care [...] MD LAB BLOOD ORDERABLES Performing Organization Address City/[facility]/ZIP Code Phon e Number [facility] DIAGNOSTIC Unless otherwise noted, [address] all lab tests performed by: Division of Pathology and Laboratory Medicine [address] (ABNORMAL) Calcium Level (05/04/2022 11:07 AM CDT) athologist Signature Calcium Lvl 10.3 (H) 8.4 - 10.2 [facility] mg/dL DIAGNOSTIC CENTER Specimen Anatomical Collection Method Collection Time Receive d Time (Source) Location / / Volume Laterality Blood 05/04/2022 11:07 05/04/2022 AM CDT 11:27 AM CDT Carole Rogers MD LAB BLOOD ORDERABLES Performing Organization Address City/[facility]/ZIP Code Phon e Number [facility] DIAGNOSTIC Unless otherwise noted, [address] all lab tests performed by: Division of Pathology and Laboratory Medicine [address] Albumin Level (05/04/2022 11:07 AM CDT) athologist Signature Albumin Lvl 4.7 3.5 - 5.2 [facility] gm/dL DIAGNOSTIC CENTER Specimen Anatomical Collection Method Collection Time Receive d Time (Source) Location / / Volume Laterality Blood 05/04/2022 11:07 05/04/2022 AM CDT 11:27 AM CDT Carole Rogers MD LAB BLOOD ORDERABLES Performing Organization Address City/[facility]/ZIP Code Phon e Number [facility] DIAGNOSTIC Unless otherwise noted, [address] all lab tests performed by: Division of Pathology and Laboratory Medicine [facility] [address] (ABNORMAL) Electrolyte Panel (05/04/2022 11:07 AM CDT) athologist Signature Sodium Lvl 142 136 - 145 [facility] mEq/L DIAGNOSTIC CENTER Potassium Lvl 4.5 3.5 - 5.1 [facility] mEq/L DI[facility]NOSTIC CENTER Chloride 105 98 - 107 [facility] mEq/L DIAGNOSTIC CENTER CO2 30 (H) 22 - 29 [facility] mEq/L DI[facility]IC CENTER Anion Gap 7 4 - 14 [facility] mEq/L DI[facility]NOSTIC CENTER Specimen Anatomical Collection Method Collection Time Receive d Time (Source) Location / / Volume Laterality Blood 05/04/2022 11:07 05/04/2022 AM CDT 11:27 AM CDT Carole Rogers MD LAB BLOOD ORDERABLES Performing Organization Address [facility]/ZIP [facility] Phon e Number [facility] DIAGNOSTIC Unless otherwise noted, [address] all lab tests performed by: Division of Pathology and Laboratory Medicine [facility] [address] after 05/02/2022 Insurance Payer Benefit Plan Subscriber ID Effective Phone Address Typ e / Group Dates MEDICARE MEDICARE PART [id number] 2009-Pres [phone] [facility] Medicare A AND B ent [id number] [address] [facility] [place] [address] AETNA SENIOR AETNA SENIOR [id number] 2019-Prese [address] [employer] [place] [id number] [place] [address] Care Teams Scaffolder Relationship Specialty Start Date End Date Marimar Tinajero PCP - External Hematology and Oncology 10/13/21 Referring Carole Rogers PCP - General Lymphoma and Myeloma 10/14/21 MD Lynda [address] [place] [phone] Gabbie Tipton, Physician Rheumatology 10/15/[address] [place] [phone] Garfield Rucker Physician Internal Medicine 10/15/21 MD Tahir [address] [place] [phone]
--- OUTSIDE RECORDS SUMMARY | 2023-05-02 05:56 | XMS REPORT | Continuity of Care Document ---
:1945 Author Organization [facility] t Address [address] [place] [address] [place] [id number] Care Team Providers Name Role Phone Asked, No Pcp Primary Care Physician Unavailable SYSTEM, PROVIDER NOT IN Attending Clinician Unavailable MEI_Marquis_Elan_ Attending Clinician Unavailable Elan Cho Attending Clinician Unavailable Elan Cho Attending Clinician [phone] Nino Rogers MD Attending Clinician NINO ROGERS [...] Date Expiration Date Sami grier MEDICARE B-[place]: [id number] 2009 [employer] 00:00:00 [employer] [id number] INS[employer]ANCE [employer] (MEDICARE SUPPLEMENT) Problems Condition Condition [...] Memoria (finding) pain d 00:34:14 l (finding) [place] Resolved Problem 04/06/2021 [facility] Carpal Carpal [...] Known DA [facility] [place] [facility] [place] No Known DA Active [facility] [place] 00:[facility]: [facility] 00 are [place] [facility] No Known DA Active [facility] 06[facility] [place] 00:[facility]: [facility] 00 are [place] [facility] No Known No Known Active Memori a [facility] Medic[facility] l on on [place] Allergie Allergie s s Family History Family Member Diagnosis Comments Start Date Stop Date Source Natural sister Colon cancer [facility] [place] MD [facility] Social History Social Habit Start Date Stop Date Quantity Comments Source Gender identity 2022-04-07 Identifies as Method ist 09:09:40 female gender Hospital (finding) Sexual orientation 2022-04-07 Heterosexual Meth odist 09:09:40 (finding) Hospital History of Social 2022-04-09 2022-04-[address] function 00:00:00 00:00:00 Hospital Tobacco use and 2022-04-09 2022-04-09 Smokeless tobacco Me thodist exposure 00:00:00 00:00:00 non-user Hospital Alcohol intake 2021-11-03 2021-11-03 Ex-drinker [facility] 00:00:00 00:00:00 (finding) [place] MD [facility] Sex Assigned At [birth year] F Sabianism 00:00:00 00:00:00 Hospital Smoking Status Start Date Stop Date Source Social History [facility] Medications Ordered Filled Start Stop Current Ordering Indication Dosage Frequency Signature Comments Components Source Medication Medication Date Date Medication? Clinician (SIG) Name Name coenzyme Yes 100mg Take 100 Univ ers Q10 (Co 8-16 mg by ity of Q-10) 100 12:51: mouth [place] mg capsule 41 daily. MD Anna dowell [facility] UNABLE TO Yes 1{tbl} Take 1 Univ ers FIND 8-16 tablet by ity of 12:51: mouth [place] 41 daily. [facility] Yes 400mg Take 400 Uni vers oxide 8-16 mg by ity of (MAOX) 400 12:51: mouth as John as mg tablet 41 needed. MD Anna dowell [facility] multivit Yes 1{tbl} Take 1 Unive rs with 8-16 tablet by ity of calcium,iro 12:51: mouth [place] n,min 41 daily. (MULTIPLE Anderso VITAMIN, n WOMENS Cancer ORAL) [place] coenzyme Yes 100mg Take 100 Univ ers Q10 (Co 8-16 mg by ity of Q-10) 100 12:51: mouth [place] mg capsule 41 daily. MD Anna dowell [facility] UNABLE TO Yes 1{tbl} Take 1 Univ ers FIND 8-16 tablet by ity of 12:51: mouth [place] 41 daily. [facility] magnesium Yes 400mg Take 400 Uni vers oxide 8-16 mg by ity of (MAOX) 400 12:51: mouth as John as mg tablet 41 needed. MD Anna dowell [facility] multivit Yes 1{tbl} Take 1 Unive rs with 8-16 tablet by ity of calcium,iro 12:51: mouth [place] n,min 41 daily. (MULTIPLE Anderso VITAMIN, n WOMENS Cancer ORAL) Emerson coenzyme Yes 100mg Take 100 Univ ers Q10 (Co 8-16 mg by ity of Q-10) 100 12:51: mouth [place] mg capsule 41 daily. MD Anna dowell [facility] UNABLE TO Yes 1{tbl} Take 1 Univ ers FIND 8-16 tablet by ity of 12:51: mouth [place] 41 daily. MD Yumiko Castillo [facility] magnesium Yes 400mg Take 400 Uni vers oxide 8-16 mg by ity of (MAOX) 400 12:51: mouth as John as mg tablet 41 needed. MD Anna dowell [facility] multivit Yes 1{tbl} Take 1 Unive rs with 8-16 tablet by ity of calcium,iro 12:51: mouth [place] n,min 41 daily. ([facility]AL) [place] coenzyme Yes 100mg Take 100 Univ ers Q10 (Co 8-16 mg by ity of Q-10) 100 12:51: mouth [place] mg capsule 41 daily. MD Anna dowell [facility] UNABLE TO Yes 1{tbl} Take 1 Univ ers FIND 8-16 tablet by ity of 12:51: mouth [place] 41 daily. MD Yumiko felix [facility] magnesium Yes 400mg Take 400 Uni vers oxide 8-16 mg by ity of (MAOX) 400 12:51: mouth as John as mg tablet 41 needed. MD Anna dowell [facility] multivit Yes 1{tbl} Take 1 Unive rs with 8-16 tablet by ity of calcium,iro 12:51: mouth [place] n,min 41 daily. MD SheikhMULTIPLE Anna VITAMIN, n WOMENS Cancer ORAL) [place] folic acid Yes 1mg Take 1 mg Un laly (FOLVITE) 1 8-16 by mouth ity of mg tablet 12:49: daily. [place] 43 MD Anna dowell [facility] folic acid Yes 1mg Take 1 mg Un laly (FOLVITE) 1 8-16 by mouth ity of mg tablet 12:49: daily. [place] Enrique dowell [facility] folic acid Yes 1mg Take 1 mg Un laly (FOLVITE) 1 8-16 by mouth ity of mg tablet 12:49: daily. [place] Enrique dowell [facility] folic acid Yes 1mg Take 1 mg Un laly (FOLVITE) 1 8-16 by mouth ity of mg tablet 12:49: daily. [place] Enrique dowell [facility] melatonin 3 2021- No 3mg Take 3 mg Univers mg tablet 8-16 08-16 by mouth ity o f 12:49: 00:00 nightly as [place] 20 :00 needed. MD Anna dowell [facility] melatonin 3 2021- No 3mg Take 3 mg Univers mg tablet 05-04 by mouth ity o f 12:49: 00:00 nightly as [place] 20 :00 needed. MD Anna dowell [facility] melatonin 3 2021- No 3mg Take 3 mg Univers mg tablet 05-04 by mouth ity o f 12:49: 00:00 nightly as [place] 20 :00 needed. MD Anna dowell [facility] melatonin 3 2021- No 3mg Take 3 mg Univers mg tablet 05-04 by mouth ity o f 12:49: 00:00 nightly as [place] 20 :00 needed. MD Anna dowell [facility] ubidecareno Yes Take by Met josseline jaimes (COQ-10 7-[address] ORAL) 13:10: Hospita 21 ubidecareno Yes Take by Met josseline jaimes (COQ-10 7-[address] ORAL) 13:10: Hospita 21 l ubidecareno Yes Take by Met josseline ne (COQ-10 7-[address] ORAL) 13:10: Hospita 21 l folic acid Yes 1mg QD Take 1 mg Me thodi (FOLVITE) 1 7-[address] MG tablet 13:10: daily. Hospit a l folic acid Yes 1mg QD Take 1 mg Me thodi (FOLVITE) 1 7-[address] MG tablet 13:10: daily. Hospit a l folic acid Yes 1mg QD Take [...] 0 l oral tablet 19:28: Refill(s) H Folic Acid Yes 1 mg = 1 Mem oria 1 MG Oral 6-28 tab, PO, l Tablet 19:28: Daily, # [place] 00 30 tab, 0 Refill(s) predniSONE 0 Yes 2.5 mg = 1 M emoria 2.5 mg oral 6-28 tab, PO, l tablet 19:28: Daily, # 7 Ana M nn 00 tab, 0 Refill(s) pantoprazol 0 Yes 40 mg = 1 M emoria e 40 mg 6-28 tab, PO, l oral 19:28: Daily, # [place] enteric 00 30 tab, 0 coated Refill(s) tablet Famotidine Yes 0 Memoria 20 MG Oral 6-28 Refill(s) l Tablet 19:28: methotrexat Yes 0 Memori a e 2.5 mg 6-28 Refill(s) l oral tablet 19:28: Frankie n 00 leflunomide Yes 0 Memori a 20 mg oral 6-28 Refill(s) l tablet 19:28: atorvastati Yes 20 mg = 1 M emoria n 20 mg 6-28 tab, 0 l oral tablet 19:28: Refill(s) H Folic Acid Yes 1 mg = 1 Mem oria 1 MG Oral 6-28 tab, PO, l Tablet 19:28: Daily, # Bhanu 00 30 tab, 0 Refill(s) predniSONE 0 Yes 2.5 mg = 1 M emoria 2.5 mg oral 6-28 tab, PO, l tablet 19:28: Daily, # 7 Ana M nn 00 tab, 0 Refill(s) pantoprazol 0 Yes 40 mg = 1 M emoria e 40 mg 6-28 tab, PO, l oral 19:28: Daily, # [place] enteric 00 30 tab, 0 coated Refill(s) tablet Famotidine Yes 0 Memoria 20 MG Oral 6-28 Refill(s) l Tablet 19:28: methotrexat Yes 0 Memori a e 2.5 mg 6-28 Refill(s) l oral tablet 19:28: Frankie n leflunomide Yes 0 Memori a 20 mg oral 6-28 Refill(s) l tablet 19:28: atorvastati Yes 20 mg = 1 M emoria n 20 mg 6-28 tab, 0 l oral tablet 19:28: Refill(s) H erm Folic Acid Yes 1 mg = 1 Mem oria 1 MG Oral 6-28 tab, PO, l Tablet 19:28: Daily, # [place] 00 30 tab, 0 Refill(s) predniSONE Yes 2.5 mg = 1 M emoria 2.5 mg oral 6-28 tab, PO, l tablet 19:28: Daily, # 7 Ana M nn 00 tab, 0 Refill(s) pantoprazol Yes 40 mg = 1 M emoria e 40 mg 6-28 tab, PO, l oral 19:28: Daily, # [place] enteric 00 30 tab, 0 coated Refill(s) tablet Famotidine Yes 0 Memoria 20 MG Oral 6-28 Refill(s) l Tablet 19:28: methotrexat Yes 0 Memori a e 2.5 mg 6-28 Refill(s) l oral tablet 19:28: Frankie n leflunomide Yes 0 Memori a 20 mg oral 6-28 Refill(s) l tablet 19:28: atorvastati Yes 1{tbl} Take 1 Un laly n (LIPITOR) 6-28 tablet by ity of 20 mg 00:00: mouth as [place] tablet 00 needed. MD Anna dowell [facility] pantoprazol Yes 1{tbl} Take 1 Un laly e 6-28 tablet by ity of (PROTONIX) 00:00: mouth as John as 20 mg EC 00 needed. MD evan Castillo [facility] methotrexat Yes 4{tbl} Take 4 Un laly e 2.5 mg 6-28 tablets by ity o f tablet 00:00: mouth once [place] 00 a week. [facility] leflunomide Yes 1{tbl} Take 1 Un laly (ARAVA) 20 6-28 tablet by ity of mg tablet 00:00: mouth [place] 00 every MD other day. [facility] atorvastati Yes 1{tbl} Take 1 Un laly n (LIPITOR) 6-28 tablet by ity of 20 mg 00:00: mouth as [place] tablet 00 needed. [facility] pantoprazol Yes 1{tbl} Take 1 Un laly e 6-28 tablet by ity of (PROTONIX) 00:00: mouth as John as 20 mg EC 00 needed. MD gordon [facility] methotrexat Yes 4{tbl} Take 4 Un laly e 2.5 mg 6-28 tablets by ity o f tablet 00:00: mouth once [place] 00 a week. [facility] 1{tbl} Take 1 Un laly (ARAVA) 20 6-28 tablet by ity of mg tablet 00:00: mouth [place] 00 every MD other day. [facility] atorvastati Yes 1{tbl} Take 1 Un laly n (LIPITOR) 6-28 tablet by ity of 20 mg 00:00: mouth as [place] tablet 00 needed. [facility] pantoprazol Yes 1{tbl} Take 1 Un laly e 6-28 tablet by ity of (PROTONIX) 00:00: mouth as John as 20 mg EC 00 needed. MD gordon [facility] methotrexat Yes 4{tbl} Take 4 Un laly e 2.5 mg 6-28 tablets by ity o f tablet 00:00: mouth once [place] 00 [facility]. [facility] leflunomide Yes 1{tbl} Take 1 Un laly (ARAVA) 20 6-28 tablet by ity of mg tablet 00:00: mouth [place] 00 every MD other day. [facility] atorvastati Yes 1{tbl} Take 1 Un laly n (LIPITOR) 6-28 tablet by ity of 20 mg 00:00: mouth as [place] tablet 00 needed. [facility] pantoprazol Yes 1{tbl} Take 1 Un laly e 6-28 tablet by ity of (PROTONIX) 00:00: mouth as John as 20 mg EC 00 needed. [facility] Yes 4{tbl} Take 4 Un laly e 2.5 mg 6-28 tablets by ity o f tablet 00:00: mouth once [place] 00 a week. [facility] leflunomide Yes 1{tbl} Take 1 Un laly (ARAVA) 20 6-28 tablet by ity of mg tablet 00:00: mouth every MD other day. [facility] methotrexat Yes 4{tbl} Take 4 Me thodi e 2.5 MG 6-[address] tablet 00:00: mouth. Hospita l leflunomide Yes 1{tbl} Q7D Take 1 Me thodi (ARAVA) 20 6-[address] MG tablet 00:00: mouth once Ho spita 00 a week. l methotrexat Yes 4{tbl} Take 4 Me thodi e 2.5 MG 6-[address] tablet 00:00: mouth. Hospita l leflunomide Yes 1{tbl} Q7D Take 1 Me thodi (ARAVA) 20 6-[address] MG tablet 00:00: mouth once Ho spita 00 a week. l methotrexat Yes 4{tbl} Take 4 Me thodi [...] 144 mm[Hg] Univer sity of pressure [facility] Diastolic blood 2022-05-04 17:27:32 75 mm[Hg] Unive rsity of pressure [place] MD [facility] Heart rate 2022-05-04 17:27:32 73 /min [facility] Body temperature 2022-05-04 17:27:32 36.39 Norma [facility] Respiratory rate 2022-05-04 17:27:32 20 /min [facility] Oxygen saturation in 2022-05-04 17:27:32 97 /min [facility] Arterial blood by Calvin bustillo Pulse oximetry [facility] Body weight 2022-05-04 17:24:00 55.1 kg [facility] BMI 2022-05-04 17:24:00 25.33 kg/m2 [facility] Diastolic blood 2022-04-07 18:04:00 75 mm[Hg] Metho dist [facility] pressure Heart rate 2022-04-07 18:04:00 82 /min [facility] [place] [facility] Body height 2022-04-07 18:04:00 144.8 cm [facility] [place] [facility] Body weight 2022-04-07 18:04:00 53.071 kg [facility] BMI 2022-04-07 18:04:00 25.32 kg/m2 [facility] [place] [facility] Systolic blood 2022-04-07 18:04:00 127 mm[Hg] Method [facility] pressure Body height 2021-10-20 18:05:00 147.5 cm Universi ty [place] [facility] MD [facility] Systolic (mm Hg) 2021-04-03 13:39:00 Charly rial Bhanu Diastolic (mm Hg) 2021-04-03 13:39:00 Mem orial Bhanu Heart Rate 2021-04-03 13:39:00 [facility] [place] Respitory Rate 2021-04-03 13:39:00 Memori al [place] Height 2021-04-03 13:39:00 152.4 cm [facility]u Weight 2021-04-03 13:39:00 [facility] [place] BMI Calculated 2021-04-03 13:39:00 Memori al [place] Systolic (mm Hg) 2021-03-16 19:10:00 Charly rial [place] Diastolic (mm Hg) 2021-03-16 19:10:00 Mem orial [place] Heart Rate 2021-03-16 19:10:00 [facility] Bhanu Respitory Rate 2021-03-16 19:10:00 Memori al Bhanu Height 2021-03-16 19:10:00 147.32 cm [facility] [place] Weight 2021-03-16 19:10:00 [facility] [place] BMI Calculated 2021-03-16 19:10:00 Memori al Bhanu Procedures Procedure Date / Time Performing Clinician Source Performed XR, hand, 3 or more view 2022-05-28 00:00:00 Hannah [facility] COMPLETE BLOOD COUNT W/ 2022-05-04 16:07:00 Nino Rogers [facility] DIFFERENTIAL Lynda LEUNG [facility] COMPREHENSIVE METABOLIC 2022-05-04 16:07:00 Nino Rogers [facility] PANEL Lynda LEUNG [facility] LACTATE DEHYDROGENASE 2022-05-04 16:07:00 NastoupNino [place] [facility] Lynda LEUNG [facility] THYROID STIMULATING 2022-05-04 16:07:00 Nino Rogers [facility] HORMONE Lynda LEUNG [facility] Results CBC 2022-05-04 16:07:00 Nino Rogers [facility] Lynda LEUNG [facility] MANUAL DIFFERENTIAL 2022-05-04 16:07:00 Nino Rogers [facility] Lynda LEUNG [facility] GLUCOSE LEVEL 2022-05-04 16:07:00 Nastoupil, [facility] J. [facility] BLOOD UREA NITROGEN 2022-05-04 16:07:00 Nastoupil, [facility] Lynda LEUNG [facility] ELECTROLYTE PANEL 2022-05-04 16:07:00 Nastoupil, Nino [facility] J. [facility] SERUM CREATININE 2022-05-04 16:07:00 Nastoupil [facility] J. [facility] .GLOMERULAR FILTRATION 2022-05-04 16:07:00 NastoupNino [place] [facility] RATE J. [facility] CALCIUM LEVEL TOTAL 2022-05-04 16:07:00 Nastoupil [facility] JWilmer LEUNG [facility] ALBUMIN LEVEL 2022-05-04 16:07:00 Nastouppadmini [facility] JWilmer LEUNG [facility] ALKALINE PHOSPHATASE 2022-05-04 16:07:00 Nastoupil, [facility] J. [facility] ALANINE AMINOTRANSFERASE 2022-05-04 16:07:00 Nastoupil [facility] Lynda LEUNG [facility] ASPARTATE AMINOTRANSFERASE 2022-05-04 16:07:00 NastoupOneil [place] [facility] J. [facility] TOTAL PROTEIN 2022-05-04 16:07:00 Nastouppadmini [facility] JWilmer LEUNG [facility] FRACTIONATED BILIRUBIN 2022-05-04 16:07:00 Nastouppadmini [facility] Lynda LEUNG [facility] IR CT GUIDED BIOPSY 2021-11-03 21:01:52 Staci Mathur [facility] RETROPERITONEAL [facility] HP FC FLOW CYTOMETRY BLOOD 2021-11-03 20:19:00 Staci Mathur [facility] COLLECTION [facility] HP FC LYMPHOMA B EXTENDED 2021-11-03 20:19:00 Staci Mathur [facility] INTERPRETATION AND REPORT MD [facility] CYTOLOGY IMAGE-GUIDED FNA 2021-11-03 20:19:00 [facility] PATHOLOGY BIOPSY 2021-11-03 20:18:00 Staci Mathur [facility] INTERPRETATION [facility] EKG, 12-LEAD (PORTABLE) 2021-11-03 00:00:[address] [facility] COMPLETE BLOOD COUNT W/ 2021-10-20 19:51:00 Staci Mathur [facility] DIFFERENTIAL [facility] PROTHROMBIN TIME 2021-10-20 19:51:00 Kevan [facility] APTT 2021-10-20 19:51:00 Kevan [facility] TYPE AND SCREEN 2021-10-20 19:51:00 Kevan [facility] [place] TOTAL PROTEIN 2021-10-20 19:51:00 Kevan [facility] [place] ALBUMIN LEVEL 2021-10-20 19:51:00 Kevan [facility] [place] CALCIUM LEVEL TOTAL 2021-10-20 19:51:00 Staci Mathur [facility] PHOSPHORUS LEVEL 2021-10-20 19:51:00 Kevan [facility] GLUCOSE, RANDOM 2021-10-20 19:51:00 Kevan [facility] [place] BLOOD UREA NITROGEN 2021-10-20 19:51:00 Staci Mathur [facility] SERUM CREATININE 2021-10-20 19:51:00 Kevan [facility] URIC ACID 2021-10-20 19:51:00 Staci Mathur [facility] FRACTIONATED BILIRUBIN 2021-10-20 19:51:00 Staci Mathur [facility] ALKALINE PHOSPHATASE 2021-10-20 19:51:00 Staci Mathur [facility] LACTATE DEHYDROGENASE 2021-10-20 19:51:00 Staci Mathur [facility] ALANINE AMINOTRANSFERASE 2021-10-20 19:51:00 Staci Mathur [facility] MAGNESIUM LEVEL 2021-10-20 19:51:00 Staci Mathur [facility] ASPARTATE AMINOTRANSFERASE 2021-10-20 19:51:00 Staci Mathur [facility] ELECTROLYTE PANEL 2021-10-20 19:51:[address] [facility] VITAMIN D 25 HYDROXY LEVEL 2021-10-20 19:51:00 [facility] PROTEIN ELECTROPHORESIS, 2021-10-20 19:51:00 Staci Mathur [facility] SERUM [facility] IMMUNOGLOBULIN A SERUM 2021-10-20 19:51:00 Staci Mathur [facility] IMMUNOGLOBULIN G SERUM 2021-10-20 19:51:00 [facility] IMMUNOGLOB[facility]IN M SERUM 2021-10-20 19:51:00 Staci Mathur [facility] BETA 2 MICROGLOBULIN 2021-10-20 19:51:00 Staci Mathur [facility] FREE THYROXINE 2021-10-20 19:51:00 Staci Mathur [facility] THYROID STIMULATING 2021-10-20 19:51:00 Staci Mathur [facility] HORMONE [facility] HEPATITIS B CORE ANTIBODY 2021-10-20 19:51:00 [facility] HEPATITIS B SURFACE 2021-10-20 19:51:00 Staci Mathur [facility] ANTIGEN, SERUM [facility] HEPATITIS C VIRUS ANTIBODY 2021-10-20 19:51:00 Staci Mathur [facility] HIV-1/2 ANTIGEN AND 2021-10-20 19:51:00 Staci Mathur [facility] ANTIBODIES, FOURTH [facility] C ancer [facility] Center FREE KAPPA LIGHT CHAIN 2021-10-20 19:51:00 Staci Mathur [facility] FREE LAMBDA LIGHT CHAIN 2021-10-20 19:51:00 Staci Mathur [facility] IMMUNOFIXATION 2021-10-20 19:51:00 Staci Mathur [facility] ELECTROPHORESIS [facility] Results CBC 2021-10-20 19:51:00 Staci Mathur [facility] MANUAL DIFFERENTIAL 2021-10-20 19:51:00 Staci Mathur [facility] SERUM CREATININE 2021-10-20 19:51:00 Kevan [facility] .GLOMERULAR FILTRATION 2021-10-20 19:51:00 Staci Mathur [facility] RATE [facility] ABORH 2021-10-20 19:51:00 Staci Mathur [facility] ANTIBODY SCREEN 2021-10-20 19:51:00 Staci Mathur [facility] HEPATITIS B CORE TOTAL 2021-10-20 19:51:00 Staci Mathur [facility] ANTIBODY [facility] HEPATITIS B SURFACE AG 2021-10-20 19:51:00 Staci Mathur [facility] W/CONFIRM [facility] FREE KAPPA/FREE LAMBDA 2021-10-20 19:51:00 Staci Mathur [facility] RATIO [facility] CLOT EXPIRATION DATE 2021-10-20 19:51:00 Staci Mathur [facility] TMP INTERPRETATION 2021-10-20 19:51:00 Staci Mathur [facility] ANTIBODY SCREEN NEGATIVE [facility] TMP HCVAB INTERP 2021-10-20 19:51:[address] [facility] TMP HIV 1/2 AG&AB PATH 2021-10-20 19:51:00 Staci Mathur [facility] INTERP [facility] .DR. BOOTHE PROT ELEC PATH 2021-10-20 19:51:00 [facility] REVIEW [facility] .DR. BOOTHE ROSETTE PATH REVIEW 2021-10-20 19:51:00 Staci Mathur U [facility] CONFIRM ABORH TYPE 2021-10-20 19:43:00 Staci Mathur [facility] OSI PET CT SKULL TO MID 2021-10-08 21:58:00 NastoupNino [place] [facility] THIGH J. [facility] OSI CT ABDOMEN AND PELVIS 2021-09-04 10:23:00 Nino Rogers [facility] Lynda [facility] PATHOLOGY OUTSIDE 2021-08-31 00:00:00 Mya Mcknight [facility] INTERPRETATION [facility] Cardiac catheterization [facility] Plan of Care Planned Activity Planned Date Details Comments Source Future Scheduled 2023-04-15 COVID-19 Vaccination Uni versity [facility] Test 05:33:36 (#1) [code = COVID-19 And [facility] Vaccination (#1)] Center Future Scheduled 2022-12-18 COVID-19 VACCINE (#1) [facility] Test 03:59:45 [code = COVID-19 VACCINE (#1)] Future Scheduled 2022-12-18 65+ [facility]CCAL [facility] Test 03:59:45 VACCINE (1 - PCV) [code = 65+ PNEUMOCOCCAL VACCINE (1 - PCV)] Future Scheduled 2022-12-18 Hepatitis C screening [facility] Test 03:59:45 (procedure) [code = 739028812] Future Scheduled 2022-12-18 SHINGLES VACCINES (1 Met [facility] Test 03:59:45 of 2) [code = SHINGLES VACCINES (1 of 2)] Future Scheduled 2022-12-18 INFLUENZA VACCINE [facility] Test 03:59:45 [code = INFLUENZA VACCINE] Future Scheduled 2022-10-12 COVID-19 Vaccination Uni versity [facility] Test 10:54:26 (#1) [code = COVID-19 MD And [facility] Vaccination (#1)] Center Future Scheduled 2022-06-18 HEPATITIS B VACCINES [facility] Test 10:02:34 (1 of 3 - 3-dose series) [code = HEPATITIS B VACCINES (1 of 3 - 3-dose series)] Future Scheduled 2022-06-18 COVID-19 VACCINE (#1) [facility] Test 10:02:34 [code = COVID-19 VACCINE (#1)] Future Scheduled 2022-06-18 65+ [facility]34 VACCINE (1 - PCV) [code = 65+ PNEUMOCOCCAL VACCINE (1 - PCV)] Future Scheduled 2022-06-18 Hepatitis C screening [facility] Test 10:02:34 (procedure) [code = 833837436] Future Scheduled 2022-06-18 SHINGLES VACCINES (1 Met [facility] Test 10:02:34 of 2) [code = SHINGLES VACCINES (1 of 2)] Future Scheduled 2022-06-18 INFLUENZA VACCINE [facility] Test 10:02:34 [code = INFLUENZA VACCINE] Future Scheduled 2022-06-11 COVID-19 Vaccination [facility] [place] Test 14:12:19 (#1) [code = COVID-19 [facility] (#1)] Center Future Scheduled 2022-06-11 COVID-19 Vaccination [facility] [place] Test 14:12:19 (#1) [code = COVID-19 [facility] Vaccination (#1)] Center Future Scheduled 2022-05-20 HEPATITIS B VACCINES [facility] Test 13:12:19 (1 of 3 - 3-dose series) [code = HEPATITIS B VACCINES (1 of 3 - 3-dose series)] Future Scheduled 2022-05-20 COVID-19 VACCINE (#1) [facility] Test 13:12:19 [code = COVID-19 VACCINE (#1)] Future Scheduled 2022-05-20 65+ [facility] 13:12:19 VACCINE (1 - PCV) [code = 65+ PNEUMOCOCCAL VACCINE (1 - PCV)] Future Scheduled 2022-05-20 Hepatitis C screening [facility] Test 13:12:19 (procedure) [code = 638146268] Future Scheduled 2022-05-20 SHINGLES VACCINES (1 Met [facility] Test 13:12:19 of 2) [code = SHINGLES VACCINES (1 of 2)] Future Scheduled 2022-05-20 INFLUENZA VACCINE Method [facility] Test 13:12:19 [code = INFLUENZA VACCINE] Encounters Start End Encounter Admission Attending Care Care Encounter Source Date/Time Date/Time Type Type Clinicians Facility Department ID 2022-05-06 Outpatient SYSTEM, [facility] [id number] 12:50:43 PROVIDER Drake o n 2021-10-14 Outpatient SYSTEM, [facility] [id number] 12:00:46 PROVIDER Drake o n 2022-07-06 2022-07-06 Outpatient AO_Mills_Br AOSM AOSM 509 [id number] Sherice 00:00:00 00:00:00 Zeinab [id number] [facility]op [facility] 2022-07-06 2022-07-06 Elan AOSM [place] - Ortho [id number] Sherice 00:00:00 00:00:00 MD Marquis: Ember Gomez Orthope [id number] AO_Ofc dic [place] [facility] [facility] [place], d [address] [place] [address] , Ph. 2022-07-05 2022-07-05 Outpatient AO_Mills_Br AOSM AOSM 509 [id number] Sherice 00:00:00 00:00:00 Zeinab [id number] Orthop e [facility] 2022-06-30 2022-06-30 Outpatient AO_Mills_Br AOSM AOSM 509 [id number] Sherice 00:00:00 00:00:00 Zeinab [id number] Orthop e dic Sports Medicin e 2022-06-23 2022-06-23 Outpatient AO_Mills_Br AOSM AOSM 509 [id number] Sherice 00:00:00 00:00:00 Zeinab [id number] Orthop e dic [facility] Medic[facility] 2022-06-21 2022-06-21 Outpatient AO_Mills_Br AOSM AOSM 509 [id number] Sherice 00:00:00 00:00:00 Zeinab [id number] Orthop e dic Sports Medicin e 2022-06-16 2022-06-16 Outpatient JUSTO Cho, [facility] DAYS [id number] [facility] 07:46:00 07:46:00 Elan 60 [facility] 2022-05-28 2022-05-28 Outpatient AO_Mills_Br AOSM AOSM 509 [id number] Sherice 00:00:00 00:00:00 Zeinab [id number] Orthop e dic Sports Medicin e 2022-05-28 2022-05-28 Elan AOSM [place] - Ortho [id number] Sherice 00:00:00 00:00:00 MD Marquis: Ember Nobles - Orthope 46237 AO_Ofc dic [place] NCO_[address], [facility] [address], [place] [address] , Ph. 2022-05-28 2022-05-28 Outpatient Marquis, AOSM AOSM [id number] 00:00:00 00:00:00 Elan [id number] 2022-05-27 2022-05-27 Outpatient AO_Mills_Br AOSM AOSM 509 [id number] Sherice 00:00:00 00:00:00 Zeinab [id number] Orthop e dic Sports Medicin e 2022-05-17 2022-05-17 Outpatient AO_Mills_Br AOSM AOSM 509 [id number] Sherice 00:00:00 00:00:00 Zeinab [id number] Orthop e dic Sports Medicin e 2022-05-04 2022-05-04 Office EL Nastoupil, 1.2.840.1 [id number] [facility] 13:20:00 13:21:31 Visit Nino Howell 09891.1.1 i ty of 3.412.2.7 [place] .3.411340 .8 [facility] 2022-05-04 2022-05-04 Office Nastoupil, 1.2.840.1 [id number] [id number] Univers 13:20:00 13:21:31 Visit Nino Howell 27187.1.1 i ty of 3.412.2.7 [place] .3.446907 MD Guillen8 [facility] 2022-05-04 2022-05-04 Outpatient JUSTO [facility] [id number] 10:46:52 10:46:52 NINO avalos 2022-05-04 2022-05-04 Travel 1.2.840.1 1.2.881.064 9784 [id number] Univers 00:00:00 00:00:00 05692.1.1 350.1.13.41 ity of 3.412.2.[place].698 [place].427798 084.8 MD Guillen8 [facility] 2022-05-04 2022-05-04 Travel 1.2.840.1 1.2.513.868 0966 [id number] Univers 00:00:00 00:00:00 82062.1.1 350.1.13.41 ity of 3.412.2.[place]3.698 [place]3.461980 084.8 MD Guillen8 [facility] 2022-04-12 2022-04-12 Telephone Seymour, 1.2.840.1 [id number] 1095 [id number] Univers 00:00:00 00:00:00 Jes T 31136.1.1 ity of 3.412.2.7 [place] .3.672871 MD Guillen8 [facility] 2022-04-07 2022-04-07 Office Winslow, 1.2.840.1 [id number] 5771 Methodi 13:00:00 13:50:49 Visit Sukhjinder 73326.1.[address] [place] 3.430.2.7 Hospit a .3.733000 l .8 2022-04-07 2022-04-07 Travel 1.2.840.1 1.2.696.425 8639 [id number] Methodi 00:00:00 00:00:[address] 3.430.2.7 0.2.7.3.698 Ho spita .3.751701 084.8 l .8 2022-03-15 2022-03-15 Orders Nastoupil, 1.2.840.1 [id number] [id number] Univers 00:00:00 00:00:00 Only Nino Howell 40329.1.1 i ty of 3.412.2.7 [place] .3.594846 .8 [facility] 2022-02-03 2022-02-03 Outpatient AO_Mills_Br AOSM AOSM 509 4039-20 Sherice 00:00:00 00:00:00 Zeinab [id number] Orthop e dic Sports Medicin e 2021-11-12 2021-11-12 Ancillary EL Nastoupil, 1.2.840.1 [id number] 1 [id number] Univers 20:30:00 20:35:00 Procedure Nino Howell 46863.1.1 ity of 3.412.2.7 [place] .3.366761 .8 [facility] 2021-11-12 2021-11-12 Ancillary EL Nastoupil, 1.2.840.1 [id number] 1 [id number] Univers 20:25:00 20:30:00 Procedure Nino Howell 90385.1.1 ity of 3.412.2.7 [place] .3.758866 MD Tripp [facility] 2021-11-12 2021-11-12 Ancillary EL Nastoupil, 1.2.840.1 [id number] 1 [id number] Univers 20:20:00 20:25:00 Procedure Nino Howell 77839.1.1 ity of 3.412.2.7 [place] .3.572031 .8 [facility] 2021-11-12 2021-11-12 Ancillary EL Nastoupil, 1.2.840.1 [id number] 1 [id number] Univers 20:15:00 20:20:00 Procedure Nino Howell 68306.1.1 ity of 3.412.2.7 [place] .3.902725 .8 [facility] 2021-11-12 2021-11-12 Ancillary EL Nastoupil, 1.2.840.1 [id number] 1 [id number] Univers 20:10:00 20:15:00 Procedure Nino Howell 09041.1.1 ity of 3.412.2.7 [place] .3.126511 MD Tripp [facility] 2021-11-12 2021-11-12 Ancillary EL Nastoupil, 1.2.840.1 [id number] 1 [id number] Univers 20:05:00 20:10:00 Procedure Nino Howell 82438.1.1 ity of 3.412.2.7 [place] .3.777642 MD Tripp [facility] 2021-11-12 2021-11-12 Ancillary EL Nastoupil, 1.2.840.1 [id number] 1 [id number] Univers 20:00:00 20:05:00 Procedure Nino Howell 63110.1.1 ity of 3.412.2.7 [place] .3.478441 MD Tripp [facility] 2021-11-10 2021-11-10 Telemedici EL Nastoupil, 1.2.840.1 [id number] Univers 15:40:00 16:00:00 ne Nino Howell 77633.1.1 i ty of 3.412.2.7 [place] .3.245483 MD Tripp [facility] 2021-11-09 2021-11-09 Telephone Visitacion, 1.2.840.1 [id number] Univers 00:00:00 00:00:00 Nidia Angel 57250.1.1 ity of 3.412.2.7 [place] .3.224483 MD Tripp [facility] 2021-11-09 2021-11-09 [facility] Kevan, 1.2.840.1 [id number] 1089 [id number] Univers 00:00:00 00:00:00 Only Staci 29043.1.1 ity of 3.412.2.7 [place] .3.348863 MD Tripp [facility] 2021-11-03 2021-11-03 Staci Tiwari 1.2.840.1 [id number] Univers 10:23:18 23:59:00 Encounter Amanuel Hardy 99670.1.1 ity of 3.412.2.7 [place] .3.315631 MD Guillen8 [facility] 2021-11-03 2021-11-03 Travel 1.2.840.1 1.2.855.672 9644 [id number] Univers 00:00:00 00:00:00 42560.1.1 350.1.13.41 ity of 3.412.2.[place].3.698 [place]3.934624 084.8 MD Guillen8 [facility] 2021-11-02 2021-11-02 Yogi Li 1.2.840.1 [id number] 10 [id number] Univers 00:00:00 00:00:00 Ame Diego 33087.1.1 ity of 3.412.2.7 [place] .3.335984 MD Guillen8 [facility] 2021-11-02 2021-11-02 Edin Rosa 1.2.840.1 [id number] 584 [id number] Univers 00:00:00 00:00:00 Only Boland 34061.1.1 ity of 3.412.2.7 [place] .3.838092 MD Tripp [facility] 2021-10-30 2021-10-30 Ancillary EL Nastoupil, 1.2.840.1 [id number] 1 [id number] Univers 02:40:00 02:45:00 Procedure Nino Howell 81657.1.1 ity of 3.412.2.7 [place] .3.628361 MD Tripp [facility] 2021-10-30 2021-10-30 Ancillary EL Nastoupil, 1.2.840.1 [id number] 1 [id number] Univers 02:35:00 02:40:00 Procedure Nino Howell 90816.1.1 ity of 3.412.2.7 [place] .3.407099 MD Tripp [facility] 2021-10-30 2021-10-30 Ancillary EL Nastoupil, 1.2.840.1 [id number] 1 [id number] Univers 02:30:00 02:35:00 Procedure Nino Howell 87578.1.1 ity of 3.412.2.7 [place] .3.054700 MD Guillen8 [facility] 2021-10-30 2021-10-30 Ancillary EL Nastoupil, 1.2.840.1 [id number] 1 [id number] Univers 02:25:00 02:30:00 Procedure Nino Howell 01528.1.1 ity of 3.412.2.7 [place] .3.846503 MD Guillen8 [facility] 2021-10-30 2021-10-30 Ancillary EL Nastoupil, 1.2.840.1 [id number] 1 [id number] Univers 02:20:00 02:25:00 Procedure Nino Howell 12003.1.1 ity of 3.412.2.7 [place] .3.715614 MD Guillen8 [facility] 2021-10-30 2021-10-30 Ancillary EL Nastoupil, 1.2.840.1 [id number] 1 [id number] Univers 02:15:00 02:20:00 Procedure Nino Howell 66826.1.1 ity of 3.412.2.7 [place] .3.153281 MD Guillen8 [facility] 2021-10-29 2021-10-29 Orders Nastoupil, 1.2.840.1 [id number] 823 [id number] Univers 00:00:00 00:00:00 Only Nino Howell 83154.1.1 i ty of 3.412.2.7 [place] .3.475941 MD Guillen8 [facility] 2021-10-29 2021-10-29 Orders Mathur, 1.2.840.1 [id number] 1089 [id number] Univers 00:00:00 00:00:00 Only Staci 87021.1.1 ity of 3.412.2.7 [place] .3.383196 MD Guillen8 [facility] 2021-10-29 2021-10-29 Lab Doug Ambrosio Libra 1.2.840.1 [id number] Univers 00:00:00 00:00:00 Kenny Mathew 00289.1.1 ity of n 3.412.2.7 [place] .3.268937 MD Tripp [facility] 2021-10-19 2021-10-22 NPR EL Nastoupil, 1.2.840.1 [id number] Univers 15:00:00 08:04:25 Nino Howell 07158.1.1 i ty of 3.412.2.7 [place] .3.513598 MD Tripp [facility] 2021-10-21 2021-10-21 [facility] Doug Ambrosio 1.2.840.1 [id number] 52 [id number] Univers 00:00:00 00:00:00 Mya Flores 76460.1.1 ity of n 3.412.2.7 [place] .3.945590 MD Tripp [facility] 2021-10-20 2021-10-20 Hospital [facility], 1.2.840.1 [id number] 011 [id number] Univers 13:30:00 23:59:00 Tray Small 93240.1.1 it y of 3.412.2.7 [place] .3.340178 MD Tripp [facility] 2021-10-20 2021-10-20 Ancillary EL Nastoupil, 1.2.840.1 [id number] 1 [id number] Univers 20:05:00 20:10:00 Procedure Nino Howell 57640.1.1 ity of 3.412.2.7 [place] .3Wilmer682754 MD Tripp [facility] 2021-10-20 2021-10-20 Ancillary EL Nastoupil, 1.2.840.1 [id number] 1 [id number] Univers 20:00:00 20:05:00 Procedure Nino Howell 44412.1.1 ity of 3.412.2.7 [place] .3Wilmer370387 MD Tripp [facility] 2021-10-20 2021-10-20 Office EL Ken, 1.2.840.1 [id number] Univers 12:00:00 13:53:05 Visit Nino FuentesWilmer 03973.1.1 i ty of 3.412.2.7 [place] .3.525005 MD Guillen8 [facility] 2021-10-20 2021-10-20 Documentat Ramiro, 1.2.840.1 [id number] 10 [id number] Univers 00:00:00 00:00:00 tlaia Perez 18310.1.1 ity of 3.412.2.7 [place] .3.678824 MD Guillen8 [facility] 2021-10-20 2021-10-20 Neel Mathur, 1.2.840.1 [id number] 1088 [id number] Univers 00:00:00 00:00:00 Only Staci 33727.1.1 ity of 3.412.2.7 [place] .3.328008 MD Guillen8 [facility] 2021-10-20 2021-10-20 Travel 1.2.840.1 1.2.500.819 2017 [id number] Univers 00:00:00 00:00:00 02766.1.1 350.1.13.41 ity of 3.412.2.[place]3.698 [place] .[place].149201 084.8 MD Guillen8 [facility] 2021-10-20 2021-10-20 Doug Lockwood 1.2.840.1 [id number] Univers 00:00:00 00:00:00 Shekhar Kiran 73399.1.1 ity of n 3.412.2.7 [place] .3.729365 MD Guillen8 [facility] 2021-10-15 2021-10-15 Travel 1.2.840.1 1.2.277.605 1064 [id number] Univers 00:00:00 00:00:00 20372.1.1 350.1.13.41 ity of 3.412.2.7 [place].3.698 [place] .3.285305 084.8 MD Guillen8 [facility] 2021-10-15 2021-10-15 Telephone Ahuja, 1.2.840.1 [id number] Univers 00:00:00 00:00:00 Stephanie 48055.1.1 it y of 3.412.2.7 [place] .3.111673 MD Guillen8 [facility] 2021-06-10 2021-06-10 Inpatient JUSTO Cho, [facility] DAYS [id number] [facility] 07:30:00 05:53:[address] 2021-06-04 2021-06-04 Outpatient MHIE MHIE [id number] [facility] 10:15:00 10:15:00 02 jonathan [place] 2021-06-04 2021-06-04 Outpatient MHIE MHIE [id number] [facility] 10:15:00 10:15:00 02 jonathan Bhanu 2021-04-03 2021-04-04 Outpatient nullFlavo MNA [id number] [facility] 13:15:00 04:59:59 r Neurology 01 jonathan Lee Bhanu 2021-04-03 2021-04-04 Outpatient nullFlavo MNA [id number] [facility] 13:15:00 04:59:59 r Neurology 01 jonathan Drummond 2021-04-03 2021-04-03 Outpatient ALEX Stack DAQUANSCHSENTHIL [id number] 08:15:00 23:59:59 Joe 01 Danish 2021-04-03 2021-04-03 Outpatient MHIE MHIE [id number] [facility] 08:15:00 08:15:00 01 jonathan Drummond 2021-03-16 2021-03-17 Outpatient nullFlavo MNA [id number] [facility] 19:00:00 04:59:59 r Neurology 00 jonathan Drummond 2021-03-16 2021-03-17 Outpatient nullFlavo MNA 79913 [id number] [facility] 19:00:00 04:59:59 r Neurology 00 jonathan Drummond 2021-03-16 2021-03-16 Outpatient Krell, [facility] 846 [id number] 14:00:00 23:59:59 Joe 00 Danish 2021-03-16 2021-03-16 Outpatient [facility] [id number] [facility] 14:00:00 14:00:00 00 l Bhanu Results Test Description Test Time Test Comments Results Result Comments Source DEBBIE8+ 2022-06-16 08:49:00 Test Item Value Reference Range [...] 60 mL/min 60-1 15 N Pathology Biopsy [id number] 22:02:05 Test Item Value Reference Range Interpretation Comments Submitted Clinical History o4mppJNyMQMki0kbWGG (test code = 90224) mbGFuZzEwMzNcZnRuYm pcdWMxIHtccnRmMVxzc 4OmC9QwGlNiZDtbqjQp XGRlZmxhbmcxMDMzXGZ 0bmJqXHVjMVxkZWZmMH ltAa8ecCCvlPfnNgBnF NHtc8dxbiHPgxquqMb8 c1qfDQJfHfW3gJVtKHp yS7cbfuEhsKEuIORwNC o0dC39SJPwnM6nvAQuE IhihaFrPyG7IYqcETAn PuX6LYAmjSTjSIErC1m yZWQwXGdyZWVuMFxibH HbRSY8oMnyl1Q5qGXzq GVldHtcZjBcZnMyMiBO v1JtXUd3jKzlL6ZaLRD iGpH3uJRfTJXlKXpjSG AoEKHxxaV3cY08TKaiu pX8bHWgv0Phi98zd951 kD4voXAeCWJ6IDSaBCP nfKUnTUXzYRP6DISkuH SeM0zoTKVbIK1uazkcY NvyWDhcDVBejNE7WYVy iUDoO1XtPJIiJKohLGV jbvs1RtTsHe1gqVIxdS bmWRbtz6ssh9rnbRKiG ts2PMBeHtAhKmngXIwd j0Ets7fuTDSpjm0xBER 1gNRiqMxvl0G7kVImNH BitTRtanTsZDAvScY1Q DotXS7akq86RLPwGOE8 tb0zuHPcxTjrpkZhiER bXQnnQ6SqBJQyf519UG DtQ4NnASLxg3Y2ooWhE mLuZDVycLA1uwH5EBFs BMv8zVEvrkM0vbOqzTJ hK8lalC8pUTQqVU1kcj qwj5omIIvfWDqdMUSfa VV1fiO5KUOchBOsG6Ri nD0aYEFtHHajXZDagnm 5TmWrOk6kvMKgdYdkOC xzYmtwYWdlXHBnbmNvb nRccGduZGVjXHBsYWlu XHBsYWluXGYwXGZzMjR qiExjaKlknL2mBuXvHf IkTXpaUU5gGHPeO9eqa RKgQYCcRFYvX0rpUtSj sV8qaNatWBpnpgAxOEB bzEikM2MdEZVzeQxbwA lteLSqS9GjTXXyKEago 0GjcHufjRhsfy5pREHm s0GrxEHdvIgclFYnb4g 3YVKnS0D7Xz2zYI5wlG xagZ4wSlQcCiQlDqxnC C7lCCMeL4gprMRaPEYc KFGkN4jmThStnQ6qaIn rQPweotHzGDUuwi96 Diagnosis (test code = 34) s7firROdITVseKL7NmG fJKBrv7srx1NzzAUrsL RfNMmonUXxggFfot20l BM0nW48XN6sFWTpUvW2 RCEevlD9Jzo4ENZsHJQ hdCEzY516y7jah2ifsr QeaKO8uJhzIQCvdxvqY pX4MNsiMLBwjldpUQa4 CXezACRfeTP2ZMYdwMJ sF0GdLRZiWJ1auqz2YN G6ZCcbWHRmCeZ1NUXfy JUpDDNidRfySGetz643 FZE1LvVeMJJllnMyaNv dfR7pExLwGWESuY9zoI Ths2HnRFTxgFnugMAdK GCby5Oyurx9z23jmY4b IGNvcmUgYmlvcHNpZXM 6XHBhclxwYXJcdGFiIE YQRBmYM0CFHYSjRQpJY BzKWOEtNDCNXSdNB8DQ QVIgUEFUVEVSTiwgTE9 XLUdSQURFIChzZWUgY2 9tbWVudClccGFyXHBhc n0= Comment (test code = 9835) c1qvkTVoFSEaiCD2HwY lVWCgn8slz1XrmVPldT CrFMxacHAeykVzid28j ZX7vF34YM3dINMrCwH1 MFOfpmB3Wbi0FSTzXID ucPMtD777w0gba2ovht EvoGT6RLIaRBUwU2JeY Y7fXXCfaQNaR32udGJq SNW5JIOlUPEhdXCoEAO pUAP8JROweZXpV4zvJG OxMY9ehrakKFlgLQdgH LRojYR6TIVsqUYmT6Qi XXYoGGvsXYRywhy0RmT vXc9htZYlaVtvOFfiOA JkXHBsYWluXGZzMjAgV JgudwDffgEaWLl5PEdz DAFvq9ixQBghoZRcEAp hhDyvOAEibMO6l5F9YL 9mIElnTSBrYXBwYSBtb 88wU9haydZaRAadeY7i cUR1jCtwd4HivX4dIME bko6yorVxAYGdO71fHi buBN5xTPSsZKsKFotsS N0dXMEnqMlhH6GwZBFs hAbhmObgoPGvrT5oXmU oYkMkfLU8jOEkaF7yrZ PyFMLxZGWhq69gmR4au xXwhBWwnE3jMuPfCGfr GCKNQL9qoAL0s6ytL9w rVACwE7Aqb13aESXtm0 cgbmVlZGxlIHNoYXBlZ ZIrqfGjbWUkgMSpr6Ke vXuhkKiasPDnrIlbf6Q sAIWNPWKsTE2lx86eJE 5eAJNkTZEcu3hwLNKcb YWqoq3kaQSmo0hyEzXl BUYsx1TdfUw5TWDjn6X iKFMrOWRwVEpcusS0qT UgZGlhcGhyYWdtLCBzd FCcmEVxp5HsNFItmyMa QLmmfKWqSFQccV8plX8 dVF7caDCmROWlqnHJmM X4z7wtG6buOKQaC5Gqj 33rXJUjr7eukzHgECvk IHNoYXBlZCBmcmFnbWV ttCRvt6LieCnilOtceK JhwFtan6VoGTbcgOehV UI2oMoxHYkixRaiiIrf aZSeoE7sjHi7myP2CA9 zLEZrSZNldJ0odX1zHT BpbmZpbHRyYXRlIGhhc eVeLBEuU0IstGfvok1e zSdcmjRsek32xCnpaGQ 7nUDselEhmyDbkAEiD4 1rqXXyf4IjPO9cZFUqc Vc2vZNtEHPmPzOrxEMn vKBfTX19mm2rhVMkjdN ghbXjJ2IgoLObImmib2 JiAWV1LUWusahzVcnbZ ONms6BnoaIsj40hAoBd VGhlIGxhcmdlIGNlbGx nTRVnYHAkq7FqlQ6lgh Iwi0KaYRw+OCBwZXIga BrkwA1rc7wvgvRjtYZv APluJQS4pMTjkdZhfmg dM5HwXYHvSm5nMSIzCF C2sgVzPbCiRZJdUVTqK TvtkpHsotXwKDJwz3Tb bbEnjsWspx65VNNnDK5 iJVBcjjkyPGQqQT6baP 2usUtijN2scYSxcJWua CGqcCKgnmmcQyIrpD56 sdY4mSQ4XWGoERFlHKn jvlq1jICpXbO5lXQueF jceYaowFGnN1HtjQDmC CTdTMSxq1s6fXWvGLQg rdSJCYk4GWTKT4e1CSL fJHZQW2ufVJXynmOvrr ScBHTzmuLwQt5rMLJPZ xfqA1udbGkkQBFzNSHz MENNO7deUV1kMZDrv46 mpDaam4Lic7V5FP5hAQ KwPEQkyA3bjC7uVNGxB FxkewJyvjHqbY7nsWMx hrCvDg6gCVFXHINuIJH MQVRjx7QpyH2vWOKaPZ M0ILHsJIOQZFRvrYarK oAkY4HzYJZdoyKjb7Iy bnRpYWxseSBuZWdhdGl 1STSkgJTbyVBePe4qXR WlJPHkqT9lmMYqKISwx 8rzbSEuYIMkV9ckg8Cs Sq4rwGawhQmsudMgHC3 ndhh5iCSiM1FpqDEdSE Lxf40fu5BrODLHpD02K yBoaWdobGlnaHRzIHRo z6FbIA1bF7ZrFIVtxZt wD6oijxVmxtJhw8wqr1 FoGVNrw6spiPDkfPnsO XJhdGlvbiBpbmRleCBv OnZubRUks5umbZS5JOy 1FOZcZS0nfQDmUCJawy EGlD12PPT2zB3hTMNhq AKjlF7oaV1frRgnzb04 eXBpbmcgaWRlbnRpZml lZCBhIGxhbWJkYSBsaW hclFLvwHOhdpFkFHU5e bajvABmHQSjJ1WuiKXf c8Z4yTB3kH6mHWg8PSA of1CjwG99XCieO3DhpT MpIHRoYXQgZXhwcmVzc 2VzIENEMTAgKHBhcnRp UFacZTTFPTI3ESDYNFQ wLCBDRDIyLCBDRDIzLC NRMCQ1TASYBSW9FNsen P2jULLtUOLOKKVcKCQs cGFydGlhbCkuICBUaGV zZSBhYmVycmFudCBCIG NlbGxzIGFyZSBuZWdhd Vz1ZDPbx9YzQ2P8MLOS GBYbRiaeF1ChRXfrZ8W 7DbtkW4M1SBXwanKpKk 1FXG8jfMFqTQCruoYKe mTeDWrzMXZ8jLRaaY4p vWxjyE3hcRXmBR8zUPm fxFWei2TyXC1mnBuquV QcQbbsCNieT4HbVXOiF SHbwNHqnFiapCZtx4o1 aGKuLPLziSY8KK34VGB myAhuG2OrAPJgrLcpvT lmpZIgJMJsvAxkU7DeE TTjxHO7iTYdtanwsU48 LWdyYWRlLiBccGFyXHB hclxsaTFccmkxXGxpbj IwA2EzQT3tVSpqCMflv nNqSOXwzGS8ELu4c8Xr ZcqkYMExm99vNl3pTXZ eINKimZ44uf6rnLW8f3 ZcTP3bF3AkSRN9BUebh eR1lDL0RRivwfAngcEy NASpJNpuLNBiFWz8pA1 vNSYhSOHaDTSyoE93HO S2yW0vORYrxNAexF0mx T9taFraio02sJRlThPw hSHojYLhFUEjouP4eAC nVaPgvPYvsHSfyh4jjL JjpO2ku7objASmiFLzE SKyXm8cvB38gjpdbvIL aGUgZmxvdyBjeXRvbWV 7ynkwNBC9aYKxUDHkMT VyVO9hvDQtfCAahus2Q QFckBLac6GbgGS1oZXw LF5kJZWxcKH3vTXjDqJ hdHVyZXMgcmVxdWlyaW 4uAFS5BTv7UPSto37jj H4rwOropaHtvMShqK4g cp6tdLMnEXDrhbArZ1J wXHBhcn0= Gross Description (test c9qcvUGjNTLniIOWCSk code = [id number]) wMFxhbnNpXHNwbHRwZ3 BesehdEWqjAC2wON5km RqhcNCqlGJyCB7PMHSq ZmYxXHBhcGVydzEyMjQ dWKVanGMymAQ3XJTqIC 1hcmdsMTgwMFxtYXJnc vR5FSVmmRMkW5GsKAOl KN0nxhkeATV9HIsyhT9 wqiVAFvoxKw1tlYQfrT tcZjFcZmNoYXJzZXQwX MUhlNjsBHGtMPq1mT6P KvqaH96us9E4Dcj7UFZ tGXClT5KtIC4iHJPotU HbR80NKeanXUR5HITQO zmpLZWgQB9Ku6idENVe nOBfOQO2DKzbxSWfIYF rQMAqVPa9BSGwYJdtxM ZcZQ4ipExnGoitvMney 2VjdCBcXGlkIDUxMDAy ZPvkBFHhJC9PCcGhVAM tMFE8NilsAFj1DBc4TS 9WUyAiICAgNTAxOTQwM kGzHKj3TSatQF5BXMf8 FsqeJLj5YDR6FBB3FSR cXHQgMiBcXGYgQXJpYW wgXFxmcyAxMCBcXGZiI ZvqYsoiBUljB45rvUvf pI1dGfcayrNnZMA3GTM hciANClxwbGFpblxlcG ljTmVzdERvYzEgDQpcb HRycGFyXGxpbjBccmlu MCANClxsdHJjaFxiXGN iWHfdthQwFRk5wDJkTD 2lGRDavyxeRZSvE1z1U OOtSIBrb0Jldoa0c35x dI5rYFQlO1m2AQUesBD vcGVyaXRvbmVhbCBseW 3kmXVer6WgFGCqt2Cor GnvImMwX6UrXCLWtOQy ZTT8EM3rElZoj97jO59 fBHNhlB7zq1imsiJtHD 3bqA3vNTJsn21iDB14J HRvIDEuNSBjbSBpbiBs LH8euQkky8y8vBJxTFX tJA5kkKXlHD9hJHzar2 RdkTcbwyAiIaKuD58tJ PZvaVgyXCf8MSW5Ly9o gVSnXTSwxcGYQM6HDg0 xAKjcqb41FFO8n2ilcR OaUPseKjxutYQxzkA7N QlVWJAMMVdOTiPrKU4y PUxJTktCRUdJTnwyMTA gObxtnEABDWX2VGxgyI fgiZk1d5ddbLYpv4t5T WbeWCR4yDdGj8lzcRAd ZLyoBygadLMyfnX7ROx XFIPQHXgFVqWgMG6wZF mHJgdPPpT0FuTrWKM0W RnJZ8HXoID7Hnn5OYm8 fXtcZmxkcnNsdCBcJzF YuH2elIulsO3hgZHkD4 hcZnMyMCANClxlcGljT kPuhTVxTaHgwkS6AWUf rMGmQLY6RQ6lAGYktyb xXEEwNJKvRAK8UOttnW 11bHQwXGZzMTZccGFyf YyncDQxhgSHWyajnR3f ZzWub9kcrEr7LJXWOfj bbGOjdvfihaC2MCKiq6 qxeDujo4FnnWJzRF7rz OkygQ5nMoZvHaVBAu6= Disclaimer (test code = h5sifXZmZABqxMVrNcZ 9844) yQNUmRNHvj1ooKEAjtY FuZzEwMzNcZnRuYmpcd MEjMRAqPsWge2stp301 qKVuy2shYIZaHgN9kRD eFKKjkUIfB325JYWeCN arz6piy7MtUUZllFHuf 4D6CWGKmkwfjEo5iJtu R48hr8Q5CjqzS1mwADO nLIYcI6FeFP8gNDPsCt j2UNO5ZFR1ZOVaRLEkY 3AvWX6mZWGwqZFtKEt9 d7xyaFmwNYChCCN9b0k zPGjxceLtIK2jco0nkP a8c7ugfxTzOGBvFUNgk PRFKAIiU1RdqAmyPs8r zQf6lYpuYoegWCZ2Lpp 6EN1abs60wgr9xIfgKP WawzusVaM1GFaqKMKmc twsFBl1PKhqFRVtaJC1 ATFigQAfQ9BoBSDxKW3 rgmx2BKM2ESunEZRkIr J8CLPdfSQqEHXydWkpK Hvzv113MQH5GzDjYC9a U0Jku1S0nU5teCAvYRE drEGbHyWnREKmgh0xpW LsJGkqm7ZlTPK0dmM7p AUywGOiPIXaJN24Ccxy i5NeWxmaRML5IBRuolO pi8Iqr4urOfUdoxZsB5 ouG5SuNPRhAKRzQFIvI dLkobIgs6Hdw0OqtCUe kZz2g1tjBHUbVHRwfUm ph4dzCMS4UNWhN4Y5wK Jpc5bgLEzxQRIcuUU0e iY9CVKmiTLsL9PynE2m HKBlNP6vtpf2b4hnBYA 0BGzhXBPxFtR7brW5XF BcaGVhZGVyeTcyMFxmb 952HMV6RkEoGNXew8Oo J0DnjDadA95csXpqY55 qXKPmhOuhsR1plXaasA 5cZjBcZnMyNFxxbFxwb TRlampeUJjlhoY2FNer ppgeISQsDXvyA8fcIzA eKPHikOejBTjwi3JpWS RzPJSyZebjkzP9PTTPh 89aDGTmb1JsWBKnjM9q vMVpREkwisRbgLG4CEc hdmUgYmVlbiBkZXZlbG 5dSUCvHX9nJANzerQrm l0fboRnKJIsRPJaV9At cmlzdGljcyBkZXRlcm1 gecKbGSN1BLQRAM9QEL YlCQPge11sDBTkjCzuc R2caHBxvsPnKMCsv9Kj vU9kkSTMDRCjH4emUG6 zYDiao5WukEVkkOTmfN V4DXCxt2XhRnUtgcRgk JIdtZJmM9MvcLzdR6lw VFJhODVaizPsiIWkg3U gVFNomWW3dXArNU5EPj VZv63vREFlMRIGogNcT AHvmYdjxQW9ffQ3gS7f LiBJZiBhcHBsaWNhYmx yLAGgx848hr3gbgA9IY NwDLCeqqiqo9ErTGPpU LYssV68WYHaWCQzdf9r gyksyUQqwcIyW8Nbjia 2uF8mWQVfGAicVSOoEJ ZzMjJcbGFuZzEwMzNca GljaFxmMVxkYmNoXGYx FYhhH3oeHfFgAsEtEwd wYXJ9 [facility] Interpretation 2021-11-07 22:02:05 Test Item Value Reference Range Interpretation Comments Submitted Clinical History a4wcqTEtTZJtu0kqDXM (test code = 20050) mbGFuZzEwMzNcZnRuYm pcdWMxIHtccnRmMVxzc 0VzX3EbObPuKHfmvgMa XGRlZmxhbmcxMDMzXGZ 0bmJqXHVjMVxkZWZmMH jgOr0koQCxmIkdBaXqK UKfk9igevGDmkbnfGz3 s9gnQCCwJiV8iXIpASb yC4gwzhQauTLfTAQbXO r3cL79CISazL7ruGIkR VvholHwMfB2ULabBVGj OiO9HTIxvFKgTSYsV2z yZWQwXGdyZWVuMFxibH UmDFA9aHuzk9I9gZEuc GVldHtcZjBcZnMyMiBO k5CuWBx7vYkwT6DnFJC dTzD7bHMqBGUwVRftWW YrYDZiqlM3jJ36YBcxe qG9fPFpe8Drk52lx076 rU4tsUSfMWZ8RGSyADZ cgHLgAACfLLI6SBHnmB OgI7zwAELqDM3epxvpP HguBOsmVBFduFF8VWYh rBVqY2WsJAJxLDgjBVR xrqs7DmGfKg3gwPZpkA yjWGurw7gxv9lcsLYjJ fp2CDAtJbOvKsfbYDnj z8Msi1kjMRSbdk6ySZZ 0xPGusUdhw5X4qJWgGC ZibLOvwhXtWWYdFaB7Q LhuLZ0wvx92ZXJbKIZ2 bz8edOFnjPpmwgOijQP gDXxxM3UmZDSfl311NU QiR5LzGCXpu2Z5qaSrR eEuGABnsHE1utU5MOXw PPy0oANdvsE4hzVneTD oV8avdQ7yGJPoUX0cbs gfm1kkQEqhOBmgXWMug ID0lnA5AXDdxOGmG1Kf jR6tJUHgCXelKRCemav 9OjRcOi4rtFDyjQzzXQ xzYmtwYWdlXHBnbmNvb nRccGduZGVjXHBsYWlu XHBsYWluXGYwXGZzMjR glIiihCwhwR3wYqLsAq DjUYaxMA4rMOAfF1nti REoXRBaPODtB6xkCyBg qG9vyJlzYPcfblFgIIX ijCiyR2OgTHXcwKisvZ sjvQYtT8CfURKkUXpaj 1XqsVrpkHioxc1lIWJh z5DcfWTjwKdqjIUdq5v 7YTGvL3X3Hn8mCE3zlG rcuJ7wYiAxUdEgMsjnL Z6bGIQfZ5bgxGVpHVWu FPZeY3coGiWpmN6ftRz xEFjjieUrQXUhgr43 Diagnosis (test code = 34) c5tnlFDrAPQadHS7OhQ aRWXpq0ezn2NmrQFxyM OmCKmjbMTjzyDesv36d SC6sJ76PU0uFMBsMtC3 KKRdsnT9Mus5NVPwFVJ mnCEcF556e9nyl1hdmq ZcrMS7sQkrADHslalxB nG5CDdpURNkpjtrRHr4 LKkrJKUcwZN4DGQaoJF hJ6NeDOKsCB8gfkv4MO C8XSrdUOIoKsQ4WRAbf YMjCMKmtMntKJgie131 FHD9OvRmHLFbvdPczGw nbS8lQxMnOALQzK0plS Ysc5YiYJKnlYvguIFrP RAid0Dcuyf8p37ytA6f IGNvcmUgYmlvcHNpZXM 6XHBhclxwYXJcdGFiIE NPYNmPQ0PFMKNvAQsLX RfYYPOgNSQYTAmHI9OJ QVIgUEFUVEVSTiwgTE9 XLUdSQURFIChzZWUgY2 9tbWVudClccGFyXHBhc n0= Comment (test code = 9835) r7vlvEKfEQRiuYE1FrJ xPLNyj0wrk1GadVAbjZ XiCPdgfHEfxiZoni77y MF4bK34MU8eYWQgSeD4 UDOplpW5Xaf5BIAhXCW hmENhW675p1kdj5acgw ChnLA4DXBvOCQgD1WwE M7sLPEgeLSyN05kjWRi UIW2CHWdQRIczSOqWOH dWUL4VWMtoPCzB1wxIO DwGI1flabzPLaeDSxnU VAtwSQ2UQJfoTTeC8Ad JGUmMXwtEIXpcqa2CdJ kHu7kgDHfcCpfTYdnON JkXHBsYWluXGZzMjAgV IvdvrJtulYoYBq7IDee SWWgu7fvUZwwvQFuAWm pdBcrYVLjfAD7q6O5LK 9mIElnTSBrYXBwYSBtb 82jK8fhdgJoMYuyzD2l dKE1xZqss8GpvK5lAXG lwa5szlUfCIKqJ16kVq hfMX7rYIHdCDrIXfhaA H8oOIPxwDijA0WdAWRz wMizfBrcjWBtvY9iMmG zLcUdlCN8oOVngI5vkJ UsYMZyVLHcs24xaD4ja gZczYTkzS0vKhRgLNmd ZFRKKU4rlNO0h8uxM4m qXRAhV7Hpt70vDHPaa8 cgbmVlZGxlIHNoYXBlZ LZyqjYrqNKkeIKar0Lr iKaiyRhzaQVusCxfd8E iCOSXISLtHC8ei29vKK 6gZQDbJSXcl8wpITWwa PGqoh5eoOIdu1mzXjSz EOHzu0LybLk9KJQkz8C fWDLwIEWeJVzbrsV9dR UgZGlhcGhyYWdtLCBzd QEmjIPee8HdKLMnhnCo GXcfvCHnRAVjnV5qyM6 tVO2kmJNiUHCvftJNzH G9h4dtD7xeXYCdT5Dti 82mSHNvl0jsweXySWwb IHNoYXBlZCBmcmFnbWV kcJJog0PveZismIaquQ NxnUuiq6UeHRlceCtlD ZR6hChjMTktbJhjaJnj nREcgB2rmOo0haS4ID1 jVEDoSFKrsJ9ojW5nVB BpbmZpbHRyYXRlIGhhc vPrMILrE5XwdUronp1s hVdyveYrgh23mKbdkMS 8tNJuvtGcgtKdnDSdR2 9viHNnb7VtNQ2jXYAom Xa4pXReTWKcGuYpiSAl mSHiIL09oq6ggJLwboN sjnQkT1BqaOWkXgjsa8 HuVDF6PWShzttcOxwtF UGnq6SpwtVjr40gAiFh VGhlIGxhcmdlIGNlbGx gQQJiLWYvm3YnuY1lyw Fnf8EjGMj+OCBwZXIga WbqhL1hl3gdvwOvuDGw SJhfIUF7pQKufnPfqsc bO4TbRZZrPl1cTDOaLD J5huShInDbBBFnUPExG KcbsiQsqeEoPYFpd0Sv xnClnqMbys06PRArYA5 zNNGfjemgICPbPO3hkF 8ktVptfS4gtNZfyZTdr ALfxFJfprjjRwBhvJ26 ytA1gOD5QHAqXGOjPRx rtww0sWHbTuT3kSSzsU nbiAwerFKhM4IgsHDvV ATqUFCzs1x3jXAqTRZm ycHZGBn5TVPLQ5r6LXP zTOKOU5zcOUGqnkYjrq FpUKYjjvMjGj9xLLKNS jsdO4uxuBmzCDJgGEYs FVYUM8qxAS4tVSZfl89 hoCmyi5Fsc3R7CU8dGR CfORXbvA0lbT3uMJLfA OhsodOjkjCqjS1tiJHn mkZqAm2qTCQPZNYxNKG JKJAfq5LzmJ3mRISjXX H6IGLpBKIWOJDwnYjnT cGuV8YaKNUlucEbh7Ib bnRpYWxseSBuZWdhdGl 7NZKouAJquNCpMv9nZJ OfUVBmcB8nwLXfQNWoq 0tfjCNrVLJdN3lsa2Zi Cs5mnIrjhRmgupCfXL1 lpev4mGZtX3EmtDAkIY Xlm56dx9BpBMLLfJ41A yBoaWdobGlnaHRzIHRo r7AbHW9zZ2KlJQTtvPz sH8yradYlmoJjj3lbq4 ImVLTjv9epfRLfoMhmE XJhdGlvbiBpbmRleCBv GkJqiNKpt9nksHD8OIm 6ROIwLX7onZKkSRQkpc HMvR97FAT8iU8oFRZnb DAmqD5yfG4gkWzxaw95 eXBpbmcgaWRlbnRpZml lZCBhIGxhbWJkYSBsaW depIAhyBBncvXtDAS7z vtyxDKeZFUdI2QslXKa y9J6tFO5xX2qEPz2XCT gl0UtyU72NTymD4DgaT MpIHRoYXQgZXhwcmVzc 2VzIENEMTAgKHBhcnRp HEvqFTQMZYL0NGAGMBH wLCBDRDIyLCBDRDIzLC PKXKF1SIAEJVK0ZGguh G4iTRWfRXKQDEGlJXBr cGFydGlhbCkuICBUaGV zZSBhYmVycmFudCBCIG NlbGxzIGFyZSBuZWdhd Ak3OTOwq6PuI2U8PRBF ENHiZxzbI5RtBAzsF6L 6CgeyX6S3WEOyauVjZi 5VUY9dcTGbJMJiqbFGz vDxMGlwVYZ7zRAxpK1z hQuupA1bwLYcRK0dZJw raIIqi8YaNL8leVxleB ZzRjdeICotE3PiRSGjX YOwsZXeyWuezEQxk5j0 zMGuVPYcuTI8UW67HJU laBwxV7ZmUTDeeRxhhS vvgUHiXOApoKtyP4PhH STwtFV3dPGhhzzgsV33 LWdyYWRlLiBccGFyXHB hclxsaTFccmkxXGxpbj AsX3EvIZ9cOCgjYUwhh zVbRPKixXY0SAg3j1Fh SquuMNRrh29bOq4aPVT hMGVpkG45ma1ktDD8e9 MbZU3xB4DrIFK9NHitt vD4lYP3JOqninLhjjXz TZAvEJqrTZPfSEm4qZ2 qQDRjUJLlRIEhqT21JK I9mU5uYKMphHBkkR3gs F0meFbmnk40bURvTsAz wUGsdHWbRKDzgqE4rPX vLvUguXSvdUIqpg9msA LpoM3ih3asmYUhmZWbA PFiAc7nkA35wadbcoND aGUgZmxvdyBjeXRvbWV 7loliTBI2gEDhXKQoCE CeLN2qtEDncJJuqyj8F HQmzTRma3BcqSP3jPUs IN6vMNHicZD6lZBvOlI hdHVyZXMgcmVxdWlyaW 7hGAX3TPr2NCYcw23mw E6mpGnlvbZaiCAisC7i lw5fcYYfXAPrqpYbH2A wXHBhcn0= Gross Description (test y1yigMUzNFFlrLFDOWy code = [id number]) wMFxhbnNpXHNwbHRwZ3 LvhazzZYqgXK1bSY7oc EpxiCGuiTPwCW4NFYSx ZmYxXHBhcGVydzEyMjQ tCUMjoTHerQC1VAJePH 1hcmdsMTgwMFxtYXJnc jC8SHZxaYYnD5YcJBMs LQ7gtpdkNDA6QCmqjH7 etdVCUwnkJm9fmNTesJ tcZjFcZmNoYXJzZXQwX GXprSqfVLUhZXo0bU7U XrckE54ac5P0Afh7UPQ cSLElQ6MrRU9mMMGlaC EwY73ICaujFQE5APFMQ pwwWTPjEP8Re4nyLHWb zPNyVRA6NMwnrTLtVYT yXPHdSFf6TVWaDDubbR VaJR6sgNqzHblooNkvm 2VjdCBcXGlkIDUxMDAy UJkfKBWxKB5DUjDsVRL wOUO1ZgmuGHm6OPn9ES 9WUyAiICAgNTAxOTQwM tDoPJn4EAqkLP2DXPq0 RihcNLz1GJO8JQF4YVG cXHQgMiBcXGYgQXJpYW wgXFxmcyAxMCBcXGZiI MzzTtbtRYzxW32moGgx vO6rGqkbpiDmKXN4GVF hciANClxwbGFpblxlcG ljTmVzdERvYzEgDQpcb HRycGFyXGxpbjBccmlu MCANClxsdHJjaFxiXGN lRTirybAtDHt1bNSeWA 1rZLZoizxyQQDjR3h8I ASrATMxo0Uftcs2d34s gT4rSCXvR0o6JJDclNH vcGVyaXRvbmVhbCBseW 8urJOyj5GaXOWsi3Mtd XhbEoApS6WfTBOZvRNw VJG3FH7cUwKej26dI40 fHUCeiI1fo3ykfsEhBL 9iwH0bHHZnr21xNN22D HRvIDEuNSBjbSBpbiBs SP7sfBvtc9k8fKUiAKZ mOE4pbMFsKO7bTLgmi8 QfnAutqlItCbRfO88vB JFjtXegIFs4TAY7Zm9c sNPgGUQbrkEDTZ8DXz8 qIByshu11DOB9w0cznT HpOSfcCyrtmQNrujZ2I HjZQJMTAUhINjAfBX9t PUxJTktCRUdJTnwyMTA nOndvlTVYREG7JNzgpS enrQw7h3fngHGyr6i1W JreRJQ1zBaYv4abbTCs CLoeBiewcLBmckN1WYz RGASMRZeKKlOzBI7dUH jXAzaYFxV6BdWtNJB1Z DaHC8GUxMP2Jry3MWl0 fXtcZmxkcnNsdCBcJzF TsL4ysFzifQ6hoMVkJ5 hcZnMyMCANClxlcGljT lVgbXOxFhBvptA8LGBb bLWtDXF9CK6mWJYpkfy eKJGyCLFjCYA6EMixkJ 11bHQwXGZzMTZccGFyf VgowASnabOALlpzgC3x BsMqo2jimGo2HKNEQwe fzWPcfefwsaW9JGMij6 qdeMywf0SogYSwLS6jl MfctH8wUtCfFtTZWc1= Disclaimer (test code = i3yspMUsRHGpvMSxWeO 9844) oTSKdGTXsf5saCHMhvW FuZzEwMzNcZnRuYmpcd RYpIBBhLpBoz0xzr231 uWDlc3xaVQMeTyV1sYV vBFVnuMCkF547ZTUxCC ehu5nfv1FaUFYqfWQnp 8F2MGLZlmbpbNb2qSwu P03co6Z6ScpaB6iuVWA hIQFcW7VlXV8fHRTyBc l8FOV0RSA3XXDzNPVsH 6AcUS0xUNXngUJcWCu8 e3ykdFpnJDRhIEX3v4c sQVexohXzNB6dws0baH u4b6auccCnSYVhPPQqt DMOIUEeH4KnnHrjMj0z cMm4zUqlOnggMZE7Fyx 7DI0ier33tmr8lEwsLY ZwvvscEnL8QNqhKAQpm juvOIl4UYmdLCKgpXP6 IDOehNWpT2LoYIDcUX4 krmj2EZS4EXxqIFIxCb B6TVCadNGeEJWgvRizA Frei347FGF5ItUfJO2c H9Xku9D6sX7rrFIwJVQ poUDiMjRaHJZrqa5idM VeDMxas1MwACD6qeA5z QDlcPBxKFGnWG55Zcmj u5AsLsbgSYQ3JBOtsoB ez5Iuf0wtPiLwvqSzF0 odU0SwWQTyTXFtIBHnX bCavuCxq8Cdb4CcoMEd wAs7b0thOZSiHWUckMd hq0rdULG9WWFuA6O7qB Gqw7kzOVfbBDUqiQI7c hM1WDUrnMIoQ6QykA8j IUFrEZ2jhpg4z4xuVJD 5EMidGFUoMyD5ghY4XK BcaGVhZGVyeTcyMFxmb 991DSA1AiTaNIPej9Up G3LqkEpaS84jrUdyQ64 yNZCjsAnsjL3oiHbpdG 5cZjBcZnMyNFxxbFxwb MEgbhaeROtsyqJ7RFty cwsfLVSjXDqzZ2njVzX rNSCgeTjeSIgss0KlSS TaIUSwGsxeodF5YCBNb 50qBRSyf1CuHFIhvX9z dVRdCQdekxGceVI3WZi hdmUgYmVlbiBkZXZlbG 8dZNFhQF9gJAQxrzRls c8whgKnMGJhFQNxJ8Wk cmlzdGljcyBkZXRlcm1 nbcPvOWO7QXDDAB9IKZ FyCRZgt71gHECnuLluc C7njLFavdIuHXFji1Cj jO8klSITCMXqW3lpXZ3 iWHdpw1NpnLQwuNGepX V8HCTts9SySgUmmzWbb PMfpJUqC7OkyBpwW4ei QBGxOFVvucGgrFYaw3R tCFEhxAU3dEAbBG3KOr ZXy63lYAQiOYQJvlLvX SJiwQrmdME9ibF7sU1c LiBJZiBhcHBsaWNhYmx aNSLzm174dl4aoaG6WW OvNVMntmxxg4IcXJVoA DZmmY68KECaVXYltz3g yxgezOVwphKbW7Vstpn 5aQ7kOVLvXNkxZUBnDQ ZzMjJcbGFuZzEwMzNca GljaFxmMVxkYmNoXGYx BMyeB0ldFtPoKkEeSmo wYXJ9 [facility] [id number] 19:30:47 Test Item Value Reference Range Interpretation Comments Gross Description (test k2vxmBUtBLYvwDHAAOkr code = [id number]) ENwwcaHpRXJnzCGkP0Iv xmhjORfbQM1jFI1pdXlx yUGgzFLfTL9AVWEsBcWc XHBhcGVydzEyMjQwXHBh nPJziLE4JHUgOR4puaqx XTwfXUfqAMFinoA8NRRi kNHuZ5GxKXYkXZ6lvyuu IDZ8QLbcoP5znmCYDhvd Ke7yeTVwwBtsLqMzKxUx YXJzZXQwXGZuaWwgQXJp GTk9wM3FCmhlX43ol5H2 Moz6SPHhZMBoV7SpRV6a XWJeqDJyR30DGlmwHUD7 GESSPvblWWReIF3Wh9rk EOFprHCwVXI6TPmfxARd ENRhMDErSFa8QGQoSVgl oJScJL8tlRbsTwumsAww s9JepLZxUYaxAAFsUFNk IVbeCGAfIH0REiXiUNOm IBNuDVcsTAf0RMg2MN9K UyAiICAgNTAxOTQwMiIg FQn0UHmwFU5KRCi3MtQ3 MlUaKOT4RRK7AzGaZQMc MiBcXGYgQXJpYWwgXFxm cyAxMCBcXGZiIFxcZmwg MFhqG58lcYewgZ2bWjeb alCtPHS8WTUynhFBYlec bGFpblxlcGljTmVzdERv YzEgDQpcbHRycGFyXGxp bjBccmluMCANClxsdHJj aFxjZjFcZnMyMCBTcGVj pU8dnyPziXBmJ6DcHZL5 XHBhciANCjMgRGlmZiBR dWlrOyAyIFBhcCBTdGFp duJFrQlaCOCahINbUX3P KXIxnXbxZJjccn90UPG0 s4msvZNyAXynFszzeHQc knR0KMmVNUEILNlLKpQa KL4pVQkSE2APBNyLQzye KOJ7LPlbuOJ6d2xjuVNf d4n3DFdyQJE5pSLna8Co tIVjqHEroAJsvWV1EVNw RJvdq3zmBPQgZOofj6Qi QKfNYOBUCU2COR4pwIY5 S1qYXBQAW3qReLK6i1cu fWRuu5z4RUgjJKI1pBLt w01bwAxxVykddBQ9ZEyh MahxyM6sdIMPPLCKXnrI ZmxybiGaEQ4KEKjEFY7U pMB3z8qibLHml5m7YBck NWA2qZafiDDnsaamcMZf kGgewh79USJ4OKGqLZgd czIwICBmbHVpZHtcZmll cBI7DGemUgfdoQ5cqHMQ EDLCEjuGGbwtveFvXT8A DEVCKO2TeQJ5CbKeyYH1 EC25YQDbUXXotEGqCOki Q376FOAkBMdyYVd1soEw XGNmMVxmczIwICBpbiBS YL6LJLPdryMSKbJuQdyh b7dyCCWjABkuHNHizFvw JbkbN6ewNZfaQPzuJAGf JTpODWVdO6EdmPHiCVyf F7TuUEntWVXohl3cfIuj OiBccHJvdGVjdHtcZmll yCE6QHttNopvpP3wvLMR UKNPQfuKVrsyuvMzKL5H TF0BZcWUQS22YUBxSmT1 I2eFN1ZWNMLZPVR1LCe2 dQQ7lI25CSGfHVVsyJSi EKfyJ262QSFtMVUqDvT5 PDPeSSzfs2egWROlBUkq t9LkYGoYEDMFAR5BBN7z nPP1EVlUC8EXGVv2YPL3 MnwzfFRPREFZREFURXww wCm0YHs9jEugKktpbkOg hSWcAuOYtD1nkAnsyS3n bZSeQ3ypR2MxWQLfLhAn RMXkBRZdu3ObD5F7WNAv JLzhl1kiOUCjDIjtx4Nd DHeGNBZQOR4CIH3vhQR6 GPiVU0HLU2yOrHdstSQ3 We5XjPQ1cKcgaLm3t2ab kXYil4u5IFciAVZ4aAS2 LLSrWV92NGBvDPpyv8ty UWJiHLupr4MtOVyLXZLG KG1AWR7huJB2MXuUQ5PZ XUj3Bol5zH1RW2mjoKp9 IXo0qZyxYykahhQplYNa IxIJrI2irBlkqC0eqDIt W4elZ8NxAUKgNdIzkAPe MJ0BBLAjrpJHZrGjwvT7 KY8nNWqtZWEoOFmKoO2o ZGlhdGUgYXNzZXNzbWVu xROuw8Mzo9MsL8yvYH5b XRPupMVwT9lix8DdQC1o QRXyVSBoy9ZsJ8X4VTXh LIoyl8axDVDsNHxkj7Hb KPuQSVSBRY4XNQ3dgKE7 IZgBBGMAO5aIlPQ7GoD8 dAG7BC47LYHbSTEbvJSd UDntK674yOA3OUCdCMof j8vkLKUnNZkkm3LbWHoZ PGTPOQ8ZXV6jlNB6STpB OHJGPHcoSBw3ZFt3vOS0 r8ithGOmo5h2IYunVHV2 fVxwbGFpblxsdHJjaFxj ZjFcZnMyMCAgYnkgRHIu YEvdtFsekn7YCvt2MMXM ALAASZaJWQ0ECQBDAJLS QB9OIUuGPwOmTYF3RYrh UWM7DvNbKgE7JsD6GQ0n NRKFJXPNRVyLXK7CMMUR RYGKHH3PCoMfE8oHGFCD UkRfTUVUQURBVEFfQkVH AF0vUzd4Ulblv3I6D5lD RENBUkRfTUVUQURBVEFf LJ1GEXIRTZSJWP2XPTNO Q67VEFJUIRPOJ9DJH7rC VZHih1ZgsTksBpX9RmDp FK56AIz5FMLsqzW2Hnjr GAe3GIg4GCTLTBAJJR4M ZSTYA46JADQKEUQHG2GS HDYERbMTAITVQ71CWEYL XKQCC8KPX7jZPUVSHwYT USHVX11ALXKPKVEOV9XW EPPWEPDWNmSHPaLAAY1U SAVDUNCNRN6JGEjWOuIw GONMJ5HBSxNRR5fjTLUA YZOOQKXoEG0KLBslQEGy J76tw2ETd0VlMWLmc1as nRlgo0HzbADmTSvmOARs fDDcXEiqzJ0eSsOzf6fy vHg6LKiivwD2OSYfkh5l yUlwdQ2iGGtsh6gpMMV2 XHNsbXVsdDAgDQpccGxh bF3uYeSzInl7VRorKGHl N8LeP2VuonP6EWYiUUmp XGZzMTYgDQp9 Immediate Assessment Adequate (test code = 9837) cellularity, further review needed Major Classification MALIGNANT A (test code = 9839) Diagnosis (test code = i6mvnRDnMNZzwPU5JpOf 34) FCHyk9cuh0ZyeXGgdSEc MJsdwZLxctTuop09hDC7 pT94BB3fCWLnDrL8PIFm qfT5Qmw2NXBmJFEniYMh C808d2gdh6xqrvDqcXK8 EDExJVZpS5DfHJ2kVAPh hTByE78zqCInOLH2EFJi SEFkgPNgXMItCEN5XIRi mRZcW9elYUDrLX0pplrn SKobBTtnLJYehKW9FZYc uORiJ2QeJISnYFfwBXBx yxd9TkJoNi0dxCMumSjn OQptV5iuoT9zKcE7GHvz D0icwS0eBGv4STpdHHOl zPN7zvC3VNNphHPvV3Xy dV9aPGYiTO6ekpt1f4dt ZCY9KRogKVSpPsF2scG6 NDBccGFyZFxwbGFpblxm abNgYAWaDYRMKpHLeZ4l aWLbr6WeLQCzUFSnrFge gVreheM7qf2gHKVpqF8t FWFaSQExbM5pPL8fQRHt KLPxs1AbhzB2dQ5lPsrm YXJcdGFiXHBhclxmaTcy WXYYONTsNYINW8uAZVLN JDAjH9CZLUBMXQ9DGV6A GUEdT1NeVQpDUVMoY17x bWVudClccGFyXGNmMVxw UNMniFa6PmZkZulwOKQb cn0= Comment (test code = v6ktnZRhYTOhjSE3OpYh 9833) HWTcw9ncx5WbrKVldWDo QUkmgXZeztXjzr46sZG7 yF72RW3oVONmDeM7MJUy xqB7Sbh8YRVzDQGqcOUd H537y7ils5obddPujOS9 oMypHKWfjvekRaX4UHsj LQFkyyofOYd1TSjaKJQq uRV2HYNftMKpP4EjUWXt ZO7nvgh6GWR4FJsjLTUz RgY4KYJpvFYaXDJodXqe DJclk804IDZ8GnNcJXDx grBveRakeI6uEgYwKBMX tVCbQ8Vpd98eRLJaWIEb FXVmYYpyMJEkc9OiFWUv l8dwfMSsIW1wwW6fueJw mTIniAFhuCQbyS9euY4j gKWrll1tKT5ysS5xnBtg ir26wJYbvugwWwqwOgok juXfwUDkuTN7lozru0su a5RrAX7cUEXywpTwbtKb Tv7tNMowSDHmxNKiRLMj m10iz4y2lXWsTK9qRVWv jYuviPFyW9lbkL4apcMl aIAbF7Ztb44pJNsmupLf d1edUvDUOOYaRWWLHSU9 LCBDRDIwLCBDRDIyLCBD QZFjLRZiQQDXLBN1PEQp znQrvcNcGMGctdSnBk3u MDAEQMvxE5CyODNaOW6d LUJCYnWnGLAjMPIai6Mk jP8lp8onZvYfEVY2xCBf rmMwsP5pKgW0lVKgGVLy SWRmVGHhh5SkyDPrGSSk RIAbyfTbw4KhxrYkp5g3 rDVpBEN2uoRwdtVjxVKd o3khgRZlvKCmt7jpySZ9 wEFzEEr5aGTre23qWyUD hGDtn6Ume6PiYHSgBSGv k52nuZYkSL29lOquICNt dWlyZWQgbmVlZGxlIGNv wfLnHjqdhQI4XPzOVkRu UOY6AFAjURTbq7LfAAMu zJBzp79ayQWbldYflWH5 qU8cGxNryRNxJDAzmalp YXJ9 Retained/Biomarker s5xqyMQkDOEgaBQ3CoSj Testing (test code = UWVlm7ywa9OdxVUawBDn 9877) ZFqsqFAtjxCbud56eQN0 kT32LV4gPKOiCxQ3FGXi mcM6Xlm1ZVXqXAOpnBYc D758e5rny9iaedUcgPP3 tWtyZWLpftviStG9EVip RJKxtdhzDUm9MFfxQEYa sWZ3LXBpdLGkC7UxFGNs UV5fzpn8OJX4YTglXHEj RkP3BFTpgPZzKRLihErv OCtqe392DVT2YgFcCDBg zpAlqKkejU7eTbPbKGNK UjogNSBTLCAxIENCXHBh cn0= Informational Points q5ptzVPeTBCyiTGsCiVf (test code = 9836) HNSrMZKtq6rfVMCudEBp ZzEwMzNcZnRuYmpcdWMx KNQpLxCmn3esw085sMGr l9ykBXMjDyP7nYZfJCZr xHIgM530LFBfALsht3nz p8VcSQMvvHJna5W0JZWL GPupXAMTPAj8q3fnFaCb LzG9oUEnQIjbI4vzhwIg bDKgTWKkFEb1zV75IUMc oN3jzRArXTqithYyVzT0 HHdxYDAbHvH5GJZppXPb UAAsE7ndUGEvOVrdDXNc SRfbgWJzWWC8zYovd0U0 bGVzaGVldHtcZjBcZnMy FzOLj0BkHLb9wTksN1Hk HPAtIeA8hDHeKUTfIBsr ZEReZSIyhdZ5vJ15OQtk lfU6gQFkp3Frk98ky519 jR5nqMXfIKW7ETOiAFXp gRZcOUQzZEW2UGRzmUOu A8flTLAxDC3slvedNUys SOopGTCegXU1IVGdiAAh V4UsSILhSRxeCWRhasx7 YwWiMx8znNEvfOruSZau b4dmo2hsgDXrSza6NSPo IwWxUwclYMrpx2Yox9ol ZXUlwk3cDAK9dOYfqNff b0O4aVDbSDOapZYazrJq KNAntn47fRNtnMJboGWx dg8iyzYktHMsjMKgBEC9 cHNocnRuXGZldDRcYWVu XHNtR1zhSzOduuEaP6ct H6FqTCWxJSIjXOEbKeKx elDlj6Rsq6LsaPYbiGf1 o1ytCMJkLSDuwAsri1tn LPJ0JTPvV6E2gQXvm2at XNweWISyuQA5neT0AXBr cEFoM9PyjG9oUPRiKI6l uoj2o9pvKJX9TUsdLJQr YtK0flS4UZDkpCQyYFMt cWnmXCljl651OKR3QwMn JJBjc4HxA1ZdsBneJ91z jMngS57aNAWilTuvqL2y eJoeoD4dBgKuAnOmGRoi bFxwbGFpblxmMVxmczE4 NTfyjgqfREYuCRdiJ0yj YmCtQOHwxApaIGwgj7Af BOHdQBZjMMlowZDTx76e GPXdr3LbAWSxfU0doHVw GGxwyeZjySR0GNrvnwSr JfQidaPgFBVahC3vGXBt PX5sJYZyyfZete9gluZx EQIwDVNyM3VhrcsayWmh otRdGYCzqi5kcxAtGNR8 EJOBGM5XRWNjBFBhn43q JFBuqZljpX2tkKWkaeGv OZFxt9PwbD6ngCDZDMRb N0jcHX3fXUybr8FnmLVk zVXavNZ9DVKwc8OaTrYk cwDhoJHdjGEpC9WoaCrf B7svPBNiWZZiasWviSEv r8XrLXBowSC5aRUaRG0U CbCBj11hKUHiWIDRxpKu KVXdkZbznEE0qoZ4zP3k KnCPpGxkVJYgz7Ubh5Fx K1nbMFMyVATlkGUnlIqw yK3mYqOkUtPqVSffBX3j AFSeY5ijnWXaXRNaWQKc Y2sbUmOztD9gpPhbKQsu ZjJcZnMxOFxsdHJjaFxp SZgxo6TfMZ9ohkYAqDVa bMS9tA5lu9z6OSvzPf6e BUItsvztiMcuyQ6qQgUz HbPuRNywUQ5mVYWyB7qn kJPrQPZfOBAkR7laRiHm uB1pbLttVJaxXyWkWoNg OFxpICwgXHBsYWluXGYx XGZzMThcbGFuZzEwMzNc aGljaFxmMVxkYmNoXGYx LXzyK4diGuZfV2GaZJOk FMkneKFbJ2qgfHBgFAXd RyTqdQ31w5vuqSSWtav5 XKysW03dca0kTWAUAVuj hsY7BaZ3IH9xkNzqbA4o SkXjSfYuJaflCV8pOLAn B1wazDCeZFQpPJMyS1et NqNinY6ukLkqRlxbbbEs XHBhcn0= Lab Interpretation (test Abnormal code = 66743-8) [facility] Nmwjyzjtjgtmek2342-73-81 19:30:47 Test Item Value Reference Range Interpretation Comments Gross Description (test l3owzNWbNHYdvCKQJVci code = [id number]) XMmrngQnIRGlkFCtU2Ic mwfpIMxzGL5oIX0uiMmy gTSpvWTlOX1CPIIgVbFu XHBhcGVydzEyMjQwXHBh cCRmfCM2LSLzKK3ohtnp XNdvRKrhVVMohvL3OROt rDPrB5OvYNViAU7xkrim BBM1NWaveE3amiFLZytc Kf5wpJGbqFjdKtSsEnDt YXJzZXQwXGZuaWwgQXJp MWs8vL6EUwrdP41pg0H6 Dwt0WSPeEBVvS1KuCX7h GKSqfZVjX85VDczdZMY0 SXAZNrjbSIMrDE5Se4ua VFColFCzHXF6FHcsgQGy NUIkOHIjGDq4ULMjCYya bOBoAP9lnAveQoewwVtd t7JurBNhJJzgFTIrENJq KSwfHITmTB1QUoKjCFOc UKGyVHmkJUm1DHx0AE4Z UyAiICAgNTAxOTQwMiIg SRh2PWbmMM0JMHn2DnC4 XlKrNLM4RFW4RyClXDVd MiBcXGYgQXJpYWwgXFxm cyAxMCBcXGZiIFxcZmwg JHddI53qxCyziC3iQykj ckKdPYL3MIIahwRZDtlj bGFpblxlcGljTmVzdERv YzEgDQpcbHRycGFyXGxp bjBccmluMCANClxsdHJj aFxjZjFcZnMyMCBTcGVj sN6htsKyyKUzF5RcEMM8 XHBhciANCjMgRGlmZiBR dWlrOyAyIFBhcCBTdGFp vcSQuAayFBJjnSXbTC3Y VCWmcDtiHLkpsz09HJK2 j3kfxIYeGJiqRxmnpETy qcJ2IRnBDOUSARwFYeJk LB7bOFsNJ7SDLGwXYfsu JEH3XKfunOV6x3wqhFLw v5o0PPujCPC4hOGng6Vu yZPjxBEhtKCbeCP4HAFu MBwzy8lxVHDyUXhzv0Yg PCaZDCOQYN2SHC1arNH7 J6hDLXRGL2vXjNR1n5vt vMBbq2r6GEduAPI2hMJs q61xxOziUxymdOS3HNns EzlwcS4auUQZBLXWQbhL FfgxpdCoTC7SIQdSQL9W iLY9t0jwpHQsa5s7CUyz PUB2bAcpaFIxyghzzQKh tKwoby01GQW6LALwLOmp czIwICBmbHVpZHtcZmll cHZ7LHyxTkmgwT3pgBJX AGGVNplVTipstiRoXQ9F WWUAYX5DqWL5VgSyeYM2 RK57PORbWLKrhFGxPGpe K641XBOxJFdhNHq0wlTv XGNmMVxmczIwICBpbiBS QE6BVQRxevWCHaXcKson y0gmRPExVRebQYEpsUlb WydeS4yjLDakIMxdSQVc THmPVUTjD3JvlXBvZSwl U7GjZNiaWITpcz5twTpy OiBccHJvdGVjdHtcZmll lYF7JIqcYprnzF2tuYNC EBYMYthHVbodrdHxOV8F CL1BLrQAEM48GGQcJrN2 T4zFG8FLCGZCKZF8VYm4 vHI2tY47IRJeKKPzkGZe RVthR553CJNcMQMbYxZ7 BYHsFDhxd1kbEWWhVFng p2RcMEkZHFDRZW0RPH0w yYU1THxEF1HRMEr1NMZ8 MnwzfFRPREFZREFURXww pXk2PBg1gJzzYeitsgPh uQRaOdPHfL1shUofaD6j aTCqA7jgG7TqLSHvRtSf SLVxIFHuv2FbN5Z9GISv NFtje2xxRAHtIPcqi9Ys JAkXBPNERP3QSZ9sfFF2 MQqJO5OVK1tMfVvzfES0 Wn6XaRD6nPttcXw4x3es uRLer4u9KNrzZUJ9bTS9 YFZpUC57RTDqWIaup4hi XPGmHBokg9JeSGmVBCDE BG1UJS8xvOA2GQnIN0LP EWr0Yvq4fE8LX7ashUe6 PXm5mEimAphppzZdzYTq EqGCoS3bkElfwX7hpOOi A1geP9DbZDAgPqUinYRs SG1BTJJhswWNOjTrpgI6 QO6gLPswKXKxOYxSrT9j ZGlhdGUgYXNzZXNzbWVu lROsh8Iuf0AuQ8hmSU0u KHXylMNyS7wmd8MmLE7s ZAPwZEUwy6HiS3S7NJLw PHnmc1grOYFuPJine8Za ICnYFYSJMT6PQB5mmJT8 DIjLHOHVG7gVmKB9HqQ0 rIO0NU42INGvWYQexOXa OTkhL426xXB2TKOeEOjm r3qgJBBbBKoml0RnKBqG XTGHIU2CAS1vzLR9UYoQ ABZFNWpkTVw9PAc7hCC1 c5myzJQfw5o1HSysIYY1 fVxwbGFpblxsdHJjaFxj ZjFcZnMyMCAgYnkgRHIu RBxioVmxal2TLzj8TTZM VMIQFCaBAJ9VJPEJXYVH UG7FGBmOXdTsQMY5CGxf NWL0EwXuLhH1IcQ6JN1g GWAUGTTZKHvVFT4EVSLJ QZCDSY9CXjAyR1vPFSHJ UkRfTUVUQURBVEFfQkVH PF6iIgf2Wlemn5O9U0sX RENBUkRfTUVUQURBVEFf TB0UAHZTDVZVLL7JHFFZ R06GMTYLPNTFJ3QIT9bM KFOgx5EfwHjiMsM2VfAa VJ47AHv3DICmcuS1Vqjh DFz2GYz4ZMZWLRRKFD5I TYOJW11PUZDAIWBPU6VI KKCWTnSQXBXPS39KSFHS FJBTZ0QVQ7vRXQZRZjQR GWNCY30XKECZOZPFC2NW XEZWPGIGKzWIZmOEKK1D IQSKELJFEK9MTJcGWlFy TXKRR3KPGqMLJ5vsLQVD XOHYCXOzVY2GKKgdQZHx C29vd4RDp2EgKLIfg9ef dItwp4DcmXTtFVfhIBAb xPSeJVodaM2nQmGjl2vj uKf5YJytkjD0UGFguv4i iZvayQ1yWScfn6bhRVC7 XHNsbXVsdDAgDQpccGxh uU9xNiEvFgp1IYckEOWa Y3IkH4PiujY4DHPdXMvx XGZzMTYgDQp9 Immediate Assessment Adequate (test code = 9837) cellularity, further review needed Major Classification MALIGNANT A (test code = 9839) Diagnosis (test code = i8pdtUClSEHfrTU2WbOl 34) DTEro8six3BxwHYvgNTk LUubzUDzrvXvvk57hBX6 jE52PK4bBQVuYgG0RNEm yaX6Grl5SWRdFPYueLEq O642e0dsi5hizpHprPY4 HVPgFYXoG5QbBJ8fHNVl qOWkO82nnJDzWXK3DPHj DNVsqEZkFPBrLOZ3RMQh jQMwD9dwNDHeOR5vrgxn UHbwHDtrXRFrqHJ3SEHk gLYuQ5RxJWGcPWhlXKKv zrn1VvNcJa8qaKWyyBvv NMnbL2oufS8lEeX0NHug V8uofB8dSBr9CZwcCVFi nRW1caX7ZQXsgWQyJ2Im nG9xWIBiMV8bxav9q2si TDS9SUmaBJSkFfG5kyN1 NDBccGFyZFxwbGFpblxm zeRoPELoCRPEGpUGaM8c cHHhu5MdSNMtETXvkPjd cSqcmoK7gq0qXPWljR4h FVKkJAHhcT5jSH9vMCEq XRFhb5JjwfF8xM7bVtjz YXJcdGFiXHBhclxmaTcy DFGZQUJzTWRJC6qAJBSG RBVdQ1ESJPFRQF5ZMG3U CRDtH9GqGCyNUEIpV56d bWVudClccGFyXGNmMVxw SHPciZk7ZoHkQvuwMUOg cn0= Comment (test code = e0yzjQSbUVBviBB9YhZn 9835) HUThf0byr0WvvKYpmCPo YLlucDLizyDgsj35gYT6 xM90WL7zGPReCoY9WATy qiL1Bhy1FHQtWFDibCHy S539r0aco3xqnxFteWX1 oJfxMZOfvctoYrI9TWty NVMfntphYXn1TDakHOAi bZU6PPThlUEyR6OeWZKd LP6ndks7FMA8GHjgMLOr QcA5ZODjmITqHOFkiSoo TTsdu962VOO9CaDwANPr qaTcmBmaxE9tWeZmINYB dMMiI9Tfs19jIDCpIKRm KUXqMBojVCPue7ZxUIZl z1hcaTGdZC0vxA2mfdIn uATxlAZmqVIovK1lmR8s oZZlud5nMH3jcS2cuRyr kp99aQLumzkjFhzxPrwt rvAubOPtyYK2fnnfs9br u8KoPX4bFZOvbvGnthIr Ex5qCKwuDPXyaICqOVOl y00tc8s8yCMfFE5dCYOm yBogxFTlY4tdcN4qsrBg fOZwS0Lzy09sFKbowmPr x0vlMcKUNEObRUPVMUA9 LCBDRDIwLCBDRDIyLCBD EEBnKZOhNFRHFJY4MKKj ouUhomFmTZJvisPgQk0b IMPLBVrnI3EqZGAvUJ0e WZSUQaQmYVFbHIPvq9He rQ0gk9rzUuHpWJS3iCDd inSunM2uDbE0eRUyYWNk WQYrMETdo4EsxHKaBTMr ZMWomcDkz9VvhyKgz5b1 fWInVOH7pbLiwlOocNEh n6tvgZQjfHQot9bimDO7 iXEkGWv3wXEcg58yBrOH mQZga7Uoh9LcPYGoXSOn l69ueWSvHA57zSnjIZGv dWlyZWQgbmVlZGxlIGNv rzWdQrugfOW6CWfLAmEw SWS9NMSlKPItr1BcDECx lAXzz96kpLUciwEtnLR8 lU8zJtCqhZLcWWMsdkoo YXJ9 Retained/Biomarker q1ueuRCoVDPqsSR8PkTe Testing (test code = XCFur8wkw4UjkKLliGJk 9838) AHpcqYFrehSyct95bDW0 jZ84CT6nZEBuSpP4BNKg cfH9Ytb6HFJtIFOeaTUd I668a8qst5aqafLtdSF8 bQtpTQAkemqxKaY0KEex XLXhtywoKDy8PHhjEXIx vHR6IKFocYZrC0BmRPMh TP9rbhy6DHE2DNtvRLIr PiY5KNSssUByRJVbiLyn RDfys161CTB6UsSxLTEs exTvvYllkT5lQmCwMPEI UjogNSBTLCAxIENCXHBh cn0= Informational Points p9lejDQwURRbtCLvAcPn (test code = 9836) YNRmTEBmy5itHALxiVCb ZzEwMzNcZnRuYmpcdWMx RGYjSqDkv1swo684nUVy p0ylPVAsBuX5sQIeMKOx yZHrJ957TUVmCVuni9he z7CkHVSsyNLmj1I1LJXN OXpeAKXRXDa5h8jjDnCa TcW4aCZfXWabV3heoyUg aMKoJKMkTBj1rZ38TULm dL1fpSGrNFrpzsLcBsA6 VBirWZRuDvC1QYHoiFBk FTNoY3cvGPLcVMxfWTYk FZtcvXZaRKI1gSrbg2D7 bGVzaGVldHtcZjBcZnMy GrKDa0QyZUe1iIbhX6Bb VEDiAjG5jXRkXUHwZEkj IWYwSMTrseJ0lL08PXhg lqQ6cNZlc7Ohm40mu567 rL5deOVvZHB9RSLaPUEl cFLnJOUyFCZ3UCLdwSVi M6wvFMPxAU0dtlycFGhu XGmyZFMrmDE1RQDmpWNp O2GbFHBqQXwhHWSfdxy6 CqMtNw7qoHTxwBrfJLen u4uux4jvwOFkBhm1MUKd YsTgQsbaUCmfb9Bwz0xs ARCvqn0wDUT1fBTbdIuj j1C7rBOrOGBplSOjuaPc PRUvou62qOLthKYycOKp cu3natYnpZHbnEDlNDS7 cHNocnRuXGZldDRcYWVu DDCtP4qlBbNhrfZvC5gz Z1PvHTKlTXJbGLUlWcQe vgAbn0Zfc1UgiVRiwYt3 b9ykRTKkZFPhiEjkb3vm LHF0PPVbG4F5cFZse4tx CRnjJPPmjEY4teA1DMUc oJYzV6ZtfY1hYMXuNP5k avw2q3kdQYA7FTtrVJPr CwL0nnD4DTGskUAcTINu oQceBJbts029ZDN5AxBb LCUjm0AmR4IyfEfqX80z hHvuU20mIASinGxkmV4e bXsaeV7vNfTmGvDvYPpw bFxwbGFpblxmMVxmczE4 SOjedqynCHTsFIarW5xm HjPkZACjnZuaISlhu5Vn MCGjYLOqLLjqbRIPt88l FCXck1HuHWUdhU8wsMMv TKuvwgZhzSZ1UMykcxHn EtNgixXuZXVbzH5wFWYq OA1tAFMmgtMjma4aqjWv HZJaRIIfL8MbdvbyqVtd ofGrHZPdrk0mplQaBWZ4 TEQMQY5JEXXpXXWux34r NLBvxBeoaB6dtEFmxpJo FFLer5CztO4hxEEHNPAp M3cfGQ5kSBhsr9OujIZo eHTgqPX4TQHoz6XtCzYa oyEwqHGsdMVzE0DyqKbe L7yrYLXfJLOseaYtoPGz r1XqRNNueLS0qJSfLR6T AnLNq30sOFDeRDECnkRi OHDqnRsntTH4csM8kG6s JhIYaSbpOVNdj7Pvw1Uy O5ozKNFwULCssREqjIwf dG2jLnInWaReOZuiFD7g KQEcS0duuHGaGSUsSNHu Z1keHuPyeI8bqUiiIWtn ZjJcZnMxOFxsdHJjaFxp QMllj2LiYM6frcGRrNPs wQT0qD6ro1s7IUxaDh2i AEXuiublcQoqcV9qIbVw FvDfHFdvRS2sWLCsT7qt gJDkEIPoGHSiY1ooChNy aK6awOmtEQrlXuWcWtJx OFxpICwgXHBsYWluXGYx XGZzMThcbGFuZzEwMzNc aGljaFxmMVxkYmNoXGYx OFntA5itVrMfU6MuGZMm GIvdfRUgF2resHZpNMWn RgMcwE61o8jcvGRGvnr5 GMyaY76hxp0oFPKPNPkl ndT2GtL7LN9xeIrsiL0l GaAmXsNuXmmrVX1nEXCi V4mnwAEhHCVxWHFgC8zz EuPnbI7dyDptFlfbdoVe XHBhcn0= Lab Interpretation (test Abnormal code = 80658-3) [facility] -Fine Needle [id number] 14:05:08 Test Item Value Reference Range Interpretation Comments Flow Cytometry Yes Test performe d by:The (Received) (test [facility] code = 8319) [facility] Cyto metry [id number] [place] [address] [employer] Link (test [id number] A code = 54668) [facility] Spec[facility] -Fine Needle [id number] 14:05:08 Test Item Value Reference Range Interpretation Comments Flow Cytometry Yes Test performe d by:The (Received) (test [facility] code = 8319) [facility] Cyto metry [id number] [place] [address] [employer] Link (test [id number] A code = 68883) [facility] HospitalProtein Electrophoresis Path Review 2021-10-21 22:27:31SPE Path InterpThe serum protein electrophoretic pattern shows a barely discernible protein peak in the gamma region which corresponds with an IgM kappa band by immunofixation studies. 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 [facility] Electrophoresis Path [id number] 22:27:31SPE Path InterpThe serum protein electrophoretic pattern shows a barely discernible protein peak in the gamma region which corresponds with an IgM kappa band by immunofixation studies. 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 [facility]Un[facility] AmericaIFE Path [id number] 22:27:30IFE Path IntThe serum protein immunofixation electrophoretic patterns obtained with the use of antisera against IgG, IgA, IgM, bound Stoddard and bound Lambda light chain proteins show a small IgM kappa band in the gamma region.Given the patient's history, these findings are suspicious for an IgM kappa monoclonal gammopathy. [facility]ITALUn[facility] AmericaIFE Path Review 2021-10-21 22:27:30IFE Path IntThe serum protein immunofixation electrophoretic patterns obtained with the use of antisera against IgG, IgA, IgM, bound Stoddard and bound Lambda light chain proteins show a small IgM kappa band in the gamma region.Given the patient's history, these findings are suspicious for an IgM kappa monoclonal gammopathy. [facility] CenterER[facility] Rfgfaesemareac0504-75-39 22:27:29 Test Item Value Reference Range Interpretation Comments ROSETTE (test code = 5948) susp. [facility] Explqbsnpbmmlw7930-62-46 22:27:29 Test Item Value Reference Range Interpretation Comments ROSETTE (test code = 5948) susp. [facility]PEP[facility] 22:27:28 Test Item Value Reference Range Interpretation Comments TOT PROTEIN (test code = 7.7 See_Comment [A utomated message] 4172) The system [employer] generated this result transmitted ref erence range: 6.4 - 8. 3 gm/dL. The refe rence range was not u sed to interpret this result as normal/abnor mal. Albumin (test code = 4.7 See_Comment [Autom ated message] 3129-7) The system [facility] [employer] ([employer]AM) generated this result transmitted ref erence range: 3.6 - 5. 4 gm/dL. The refe rence range was not u sed to interpret this result as normal/abnor mal. Alpha 1 Globulin (test 0.3 See_Comment [Aut omated message] code = 2865-4) The system [employer] generated this result transmitted ref erence range: 0.2 - 0. 4 gm/dL. The refe rence range was not u sed to interpret this result as normal/abnor mal. Alpha 2 Globulin (test 0.7 See_Comment [Aut omated message] code = 2868-8) The system [employer] generated this result transmitted ref erence range: 0.5 - 1. 0 gm/dL. The refe rence range was not u sed to interpret this result as normal/abnor mal. Beta Globulin (test code 0.8 See_Comment [A utomated message] = 2871-2) The system [facility] [employer] (ABAM) generated this result transmitted ref erence range: 0.5 - 1. 1 gm/dL. The refe rence range was not u sed to interpret this result as normal/abnor mal. Gamma Globulin (test 1.2 See_Comment [Autom ated message] code = 9184-6) The system [facility] generated this result transmitted ref erence range: 0.7 - 1. 6 gm/dL. The refe rence range was not u sed to interpret this result as normal/abnor mal. Paraprotein1 (test code 0.3 See_Comment H [Au tomated message] = 23816-9) The [facility] generated this result transmitted ref erence range: 0.0 - 0. 0 gm/dL. The refe rence range was not u sed to interpret this result as normal/abnor mal. Lab Interpretation (test Abnormal code = 81136-1) [facility] [id number] 22:27:28 Test Item Value Reference Range Interpretation Comments TOT PROTEIN (test code = 7.7 See_Comment [A utomated message] 8545) The system [facility] [employer] (ABAM) generated this result transmitted ref erence range: 6.4 - 8. 3 gm/dL. The refe rence range was not u sed to interpret this result as normal/abnor mal. Albumin (test code = 4.7 See_Comment [Autom ated message] 1621-7) The system [employer] generated this result transmitted ref erence range: 3.6 - 5. 4 gm/dL. The refe rence range was not u sed to interpret this result as normal/abnor mal. Alpha 1 Globulin (test 0.3 See_Comment [Aut omated message] code = 2865-4) The system [employer] generated this result transmitted ref erence range: 0.2 - 0. 4 gm/dL. The refe rence range was not u sed to interpret this result as normal/abnor mal. Alpha 2 Globulin (test 0.7 See_Comment [Aut omated message] code = 9848-8) The system [employer] generated this result transmitted ref erence range: 0.5 - 1. 0 gm/dL. The refe rence range was not u sed to interpret this result as normal/abnor mal. Beta Globulin (test code 0.8 See_Comment [A utomated message] = 2871-2) The system [employer] generated this result transmitted ref erence range: 0.5 - 1. 1 gm/dL. The refe rence range was not u sed to interpret this result as normal/abnor mal. Gamma Globulin (test 1.2 See_Comment [Autom ated message] code = 2874-6) The system [employer] generated this result transmitted ref erence range: 0.7 - 1. 6 gm/dL. The refe rence range was not u sed to interpret this result as normal/abnor mal. Paraprotein1 (test code 0.3 See_Comment H [Au tomated message] = 10127-0) The system [employer] generated this result transmitted ref erence range: 0.0 - 0. 0 gm/dL. The refe rence range was not u sed to interpret this result as normal/abnor mal. Lab Interpretation (test Abnormal code = 18313-2) [facility] Total Antibody 2021-10-21 21:57:51 Test Item Value Reference Range Interpretation Comments HBc Total Ab-[facility] Negative Negative Test Perf ormed by:[facility] (test code = [facility] - 50430-7) [facility] [id number] [place] [facility] [employer] [place] [id number] Director: Shahram Garcia M.D. Ph. D.; CLIA# [id number] [facility] Core Total Antibody 2021-10-21 21:57:51 Test Item Value Reference Range Interpretation Comments HBc Total Ab-[place] Negative Negative Test Perf ormed by:[place] (test code = [facility] - 76891-4) [facility] [id number] [place] [facility] [employer] [address] Director: Shahram Garcia M.D. Ph. D.; CLIA# [id number] [facility] Ag w/Confirm 2021-10-21 21:40:33 Test Item Value Reference Range Interpretation Comments Hep Bs Ag-[place] Negative Negative Test Perform ed by:[facility] (test code = [facility] - 5196-1) [facility] [id number] [place] [facility] [address] Director: Shahram Garcia M.D. Ph. D.; CLIA# [id number] [facility] B Surface Ag w/Confirm 2021-10-21 21:40:33 Test Item Value Reference Range Interpretation Comments Hep Bs Ag-Marcano Negative Negative Test Perform ed by:[place] (test code = [facility] - 5196-1) [facility] [id number] [place], [place] [address]Lab Director: Shahram Garcia M.D. Ph. D.; CLIA# [id number] [facility] Interpretation 2021-10-21 19:35:36 Test Item Value Reference Range Interpretation Comments Materials Received (test p0cfbERuONTapRAvPdRe code = 9973) BSVsZWQvg3gfGIWfwYUc ZzEwMzNcZnRuYmpcdWMx OWLgTsKdv4zpl390gPPi o4kxDXLpOwA0mBDmVERv lNGyL936RPJlFIprp8ln l6ZjUUZqtFGxv8T2VDQV mlvgpRu0cCahJ06ui8H5 ZmfcK8uoIHGzIIQeO6Aq JR4nMOJvRkp7PNC0MJQ3 EERwKRNkC4YuOU2pSVVm cXOcIGc7a2fyuIoaRIKk NCU8m9smZGaljtDpSY5l md5wgSh9q7edvvGtWNMd XCNxqZZNYIIbQ8BqxMmf Sz4ojSt8qQeqQfhgSNA2 Jem8YM0ctm57awz9oHys HUHlrcnlKfE1HPriCZXi qcoiSZp1YFpoVWKvrPyq MFxtYXJncjcyMFxtYXJn oEW6JAEihTDcC0HxZTPx FMyyNIKptch9ZxWxHl3n mGXcaEfpKWwvf4vra1ti eNBhEbp5SVAmBmUfNlwt JHbdj9Ngf7gaEFIqph1v THO4fNWbyYyhv6D7fPQw PQUgbRFyczErGNLyio75 oBBmoQVtsRUcoo5awvZk wQCjgLZvKWE2xRKptjPn RCXbvBQcZXBlFH2ghXGj EUQpsB1pyzxjCEKvZpQs mienMZWauOijrpFdGr1x tBnyFAD8RGigE3tveQ1l SpL5TWwoJ8hayX9bOPr3 PYqwbQZ8DGFlvC7bFI8g rrsyw5tpVhIxEY7inooe x9acUpBjUK3dtji3c7ld HHL4NBliJQEjRyC5lqX2 NDBcaGVhZGVyeTcyMFxm i628BBP7YePsHZDtj4Df Z3WsmYbyN30ifXesG04m ZIImcMcgoL9hkWegcW4v IhFfZkDfWGl1mk14SWb5 luddmYksRBp2phVrKPFc VLF2BKQuoHAeWWZxV0n4 drBcPAFzVZE2AJVfsGJf YLNhQ2i4jrGnJVH8VOy4 cnBhZGRmdDNcdHJwYWRk YjBcdHJwYWRkZmIzXHRy dTMllCNokRKqgC3ciXnw WRHzgQMowT2nGYL0OHMm cmgzMjBcdHJoZHJcbHRy fs91ICCplzNaoNDkzFaq bYRxTTK7RNUbETFcKKXj YEC8QUTfToRcgtKeWUhm bGJyZHJiXGJyZHJzXGJy AVS9QAOfKlHrqmVjQMkm bGJyZHJsXGJyZHJzXGJy YGQ4KTTqLfDnpbKyNLoy bGJyZHJyXGJyZHJzXGJy SAY0KFIiLfQsscLfGIsh bHBhZHQxMFxjbHBhZGZ0 D3yyhEFdUPNyTAkwgRJe QEUzC2wbdAFpARokRJIi cGFkZmwzXGNscGFkYjBc L1ufERFsCxOpS8WlsVn7 MDAwXGNsdmVydGFsdFxj wZEbZCN3LZUdOFMmXYOh EIK9GEXwWvUduzOnHIas bGJyZHJiXGJyZHJzXGJy MYH4VEMcShDprmUfMYnx bGJyZHJsXGJyZHJzXGJy QKH1PBOhMxMtfkXhCLpp bGJyZHJyXGJyZHJzXGJy RVC9IMVgFpXhzqPtDBne bHBhZHQxMFxjbHBhZGZ0 E2fplAZhWCXwGKhnvDFx TVTsU3hrzXXyYLlxKHVi cGFkZmwzXGNscGFkYjBc N0ihBVKdHpTlX6ZjlQv5 NjAwXGNsdmVydGFsdFxj dJHuANA2VRJvTSNwSACg EIG3LLNyCfSmacEiKOqc bGJyZHJiXGJyZHJzXGJy DAT5FXOaBxVgwgGbILwb bGJyZHJsXGJyZHJzXGJy VLD0PQYtMzUdcsIjQKur bGJyZHJyXGJyZHJzXGJy YSG1PITvBjZnygPaRDgj bHBhZHQxMFxjbHBhZGZ0 E4ompODhODCbIDlvyNVq ECLmH1uhyKQsGQphGPPu cGFkZmwzXGNscGFkYjBc A9hgSSMiWbFdY6ViaRi1 HsTlCGQflqPmjG20Hehx l5BcQLYaNBL9FIccREey bFxwbGFpblxmMVxmczIw DFcxjpjfUWMcROcdB7wg DnXkKQPkcSqzTUlsv7Nq XGYxXGNmMlxmczIwXGIg YVOsBQJsmO3tQvcnK8Fe mX9qTSetCbdjU2hhYOEb d2WucI4nLCimsSBhwagw MVxmczIwXGxhbmcxMDMz YIsvO8zaOuWyDBLmiEox FYcct5SiCTBsHUTnBuqw xhYtOWc3kmXpSZWwnTee qNBqHNgbsfDacJmku8Nd kzGfiLfaDSYbYEp4guIy blvlzLh8eMZelNafLMCf eBbkoU3kAyFiFrEpGKkt bGFpblxmMVxmczIwXGxh amomGVShDQrwO8diDnAq BSDfmBxjWRdib4FlGTUg BQRlGnhpvpObAPBbK07m bGVjdGVkXHBsYWluXGYx XGZzMjBcbGFuZzEwMzNc aGljaFxmMVxkYmNoXGYx CIzoP9rsDrHgV0CyMUKs MdSykFKfC9voZ2ZxqYaf YXJkXGludGJsXHNzcGFy SMF2vMWfztOngCDviPVy EETzPSyjNGP4jSTarjru aZVvjgdmTFvdxiE5QEDb YWluXGYxXGZzMjBcbGFu ZzEwMzNcaGljaFxmMVxk XmQtEACtGTbyL2iyDmAb K5UpAQToRbJnDbVRGZAn aXZlZFxwbGFpblxmMVxm czIwXGxhbmcxMDMzXGhp U3asVrLvHMMvlMblBQfb a7LbCFRyHFHiDddnfmHc WYe7hqAwLXDgyHzbrM46 Rogeag07KHKut9bqPPIb O3ShiDPyCJRjjECzNDit MDhcdHJwYWRkZmwzXHRy cGFkZHIxMDhcdHJwYWRk ZnIzXHRycGFkZHQwXHRy vZOgLPB7J6j8jbUtQFDb CLf4emXzJHZvIsKgmCZb MUY1BBb9EktcssO3xGJb I8j7UrmiiuUyRMryrGKj rg83KKKrxtTnvYJizYle iPFhYLE8FAGrWSEwDUGf COG6OJJeVkJwruWvEAok bGJyZHJiXGJyZHJzXGJy BJQ7YEWyDjRfrbYxEGhl bGJyZHJsXGJyZHJzXGJy CBB3WCAeIdTimdAzCWxj bGJyZHJyXGJyZHJzXGJy JGV0EWGjGzZgslOyFKrp bHBhZHQxMFxjbHBhZGZ0 H3uzrNZuQHDtKVifdNHx NHDiP1dbiDDxZQpmLHWk cGFkZmwzXGNscGFkYjBc O0ddVADaYeWcX0TdaQu0 MDAwXGNsdmVydGFsdFxj qERzKHV2EBIfRUDeEBQu NYS9TTIcPdVwoxWcYJgz bGJyZHJiXGJyZHJzXGJy SES4JIVmRtZhcnUzKRsa bGJyZHJsXGJyZHJzXGJy QSV1TAIlReInnmDhSTfd bGJyZHJyXGJyZHJzXGJy EBP7ELAjKmAwdvScYUhz bHBhZHQxMFxjbHBhZGZ0 C7dndUWwSCAlEIvjiCBn SMJeL2rxmGEaPGoqXTQp cGFkZmwzXGNscGFkYjBc U2qyNQNjYlErU9VptMw0 NjAwXGNsdmVydGFsdFxj bUIsSAN7TEQdNWHaELLz EJE9FAWvHuMpkmZhGEyh bGJyZHJiXGJyZHJzXGJy RSA5WUAaBmKdtbGqCDpr bGJyZHJsXGJyZHJzXGJy OEY9BUHyCoFuvoOyRMsu bGJyZHJyXGJyZHJzXGJy NCK1VQEkBkZrzjUgGYrx bHBhZHQxMFxjbHBhZGZ0 L7vedHFmICFzSPvhzQLe GAFnJ0runFKdBRfpTPZm cGFkZmwzXGNscGFkYjBc E1sdXOLlWvQlH8WbsSm9 ChSbTYMpoePdxL42Yzuw o0KnCVVlWAL6WKebMQqm bFxwbGFpblxmMFxmczI0 XHBsYWluXGYxXGZzMjBc bGFuZzEwMzNcaGljaFxm HZarOyHeCUWpBZptN5lf YfMaB4UnDCKpFrWoYR6w EgV6VTElJYHoQYCeWFRS OPAuFDYDE2OIVhtuLAYU H9MhyGkulS9aOsOxXfCp TWkiXR2zNWQtG0yagPXs GOOgZGOxE1uhRlOtwS2d aFxmMVxjZjJcZnMyMFxs dHJjaFxjZWxsXHBhcmRc zK77Tdawr3VcZTYdYUV3 MFxzMFxxbFxwbGFpblxm FAxthiJ4HXPiJLnyQHGd XGZzMjBcbGFuZzEwMzNc aGljaFxmMVxkYmNoXGYx ELuyV5vxEsKdK7LwDFXj MjAgMTIvMTMvMjAyMVxw bGFpblxmMVxmczIwXGxh jhcxOVBdHSuyL4lyGwHh ZTVcbHchWExny3ZwMNUa SAZdUwkopePfXXe8zsUj XGNlbGxccGFyZFxpbnRi cOwpg0DjzlIghMcrKJEh XHFsXHBsYWluXGYwXGZz CyEcgNgdaN1kVwDbGgRw NOzvJK5fOKTiB5ndwMIh MYPlLVBpW2nhZnHdaZ5v aFxmMVxjZjJcZnMyMCAy LzIvMjAyMlxwbGFpblxm MVxmczIwXGxhbmcxMDMz XDsmH2tuYbIiRIFvsLgw XLfyv2BzURMaLMVsVjlg vjWmWQb4cuCrTZTewCcc aB22Ofkqpi70WMYiorUk a8JuACChAVZ8TBfwBSfp bFxwbGFpblxmMFxmczI0 XHBsYWluXGYxXGZzMjBc bGFuZzEwMzNcaGljaFxm OMlqNtTkLTIvODqfR5no ZjFcZnMyMFxwYXJ9 Diagnosis (test code = o0hafBVeZCVqeSN0YxLh 34) XXWxv5jyk6WloJRiiZVe JKiplWPkwnZnfn35yRO9 fA64WN5uIRTiJsD5LUJw fyX5Nun8MRDyTFTxfBXs I739s4qux2qfibNlbER5 EAWrFARxA8QrVT4eUQXy pDVoJ20wpRWeHCN7PLWd WORneHCdCXDvRIX7QUHh zMUjM3wyEEHkJG8wyvyf PEppHZaaNLAekKH9TTEq jINlZ1ByTYSaJCvfNGKl zqy3UbOyDy4eyZIdmFzi MFxwYXJkXHBsYWluXGZz AaYqX9ZbJT05rBVaYGJm KDIxOklTMTgyMCwgMTIv MTMvMjAyMSkgZGVzaWdu YXRlZCBhcyBlbmRvbWV0 qlnugZWraH2vz1naSYqt CGKUIpd8QWQkoiraKlRe cGFyXGxpNzIwXGxpbjcy DQGIzAD4csOofpNkGool l2Ulq9i9uTRiY5UgiSHl qcCfzBUgdFKem1YgZX7s m5BvmjBcW5EeTYxjVF2c cyBhbmQgcmFyZSBzdHJp jTJes1UbrM6it0veuHJt QG4pr08goVVqEMbyf3Wa YtPcSMLjnDt8sLFphOBp CxMeP4WrAJEjqP5zaoVy IYAyfzibZKPxToKaD94l baAjCB3jFVWqeUDrSKZy e4Ioa89mToioUHFcaDve XGxpbjBccGFyXHBhcmQg UFhSXHBhcn0= Comment (test code = i4uajMHtPDTdcYA1JwJh 9875) YDAxp7whq6RfpIFaoCQm VKtnpDEmfeAijc87wNV6 oR17RD2hAVEbGyD5VJSn okR6Rec0GZJaAHUbuXVx V529b6ipo4bpzcJtnOV1 hDeiGBJvfjqpKmJ9EYfe VDJoqhutXUt5YCjoCCDy hTA4WMRfdTMoJ4IgJTLz VF4hiaa4ZZB0PHosZTPf IpB4MNJzhOUzHPUxbPto CXsaz400RCK8UtOmDAQg xyKkzLccbU4rZkOpRITT cDMiLmqvjOB3HApvDGgo s4EgOmpowDZmpHVff9Kk ZXZhbHVhdGlvbiBvZiB0 qAKnWH9rw24pvRLpvV4b VZXFgs9yfFGlsBAtnQVt ZiBhZGRpdGlvbmFsIHRp k1H5VYFfZFrbWkVdB45r i6jaKCDkEFnqkNNwU5wv fyxrCVpjaPVcxpRzS1Q6 ZWQuXHBhcn0= [employer](s) (test y1icwRKwCUVdhCS5PqTg code = 9841) GBDie0hqj7UyqPIklCNj OHgfmLLagoFotr30iQV9 pA79SS6cKGKqJuB9OJPm vdX4Ydv6BFWsUSWbrAZn D697j6gjr6actgRjjHS2 vJvdFKRdsxpkDjA3IJto UFMeqkihTJl3NOwyAQRz uJN8OEZsjXTtA7CvSFYv JT0crbz8DUD8FTgrFEOf ZsT2ZZIpjUUePVOlcSgg VZmbu736DGY0KqHoQOWt tmEjgGftiK6uExQpUJVE QVxwYXJ9 Disclaimer (test code = l6qseAQcDTAthYReShHj 9844) ZXKsPLXhy1hdFMXhmDEy ZzEwMzNcZnRuYmpcdWMx VVQgHrLlh7ttl878xPEq t2ryKOCiYhX3vYQsRVSh zKCeD743IJIfNPaqu3vp p8BpQWBkgPEdb6R5LZXN wukzbTs8tRutX25yw7B4 DpwoE8cvSJHdGQEmL4Ft TQ0dZOFjQzt7DUN4VXI9 BZGeJKNpM2LoYZ2sIJIo uQAoEAx2i7oljLfqUSPp CRR9g1txOBgjcbKjJN2b eg1reQg4c8fsufPaDBEs ANOdeVZDGUHgL6TspOku Qj8bsKp7dWzlQlgkWCA6 Rga6EF0whd23frc4aBlj FWNhbrwkSmH3WWciPRRu uzddKYd2ZPkmYAKsgAV4 LDZupKRlY5AqSEOvHD6b tuf7XER2LUeiLHPsJsS1 NDBcaGVhZGVyeTcyMFxm m443GVE8NzBxOB4qX0Wg x8T8fT1daBUgPSNpxAWm JhAvBYXxoh2vwCTcLObf l9CyPBD2snU6jYYmrWOu TRRvCU46Pduyh2KtQzep YJS4OBLezqSzy9Wkt4sw DlRzzfViZ6teM5VyFCZl KMViVRMhMgAuylJlr5Of p1FglVRyxVs8o4inUTFl CUYfzWjeo3vpKXU0CBCj K9S1lMJrn5hdVRelZVEx gSB6drC8SITwfJZjG1Eh qO7jLXUnRA8ofop4m2pt FZN3KUewPCKiZjZ2owI7 NDBcaGVhZGVyeTcyMFxm l518BQL7WwCbPQBqg2Uo A6EwiVjmQ97rdVxlK98k NKRocDpxnN2bmHxuhZ3d ZjBcZnMyNFxxbFxwbGFp cnqzLGqjagY4VHsromiw CQFlNIbeV9umMjTzWSHe bQgtUIcir4DbUZJlTCSy PynhjnZ0WVRBj96iAIFd m7NhDHHscM9zkDZxFXiq hvIofVB9YQclykDmNlTe yhAfMWMswN2aPZXwLP6z TVRxlfPfmz0zebFfQSZb FVFxD8GyyimzbAvhkdJh XEEblv5jzuVmOUV5QSOP UW8CLOSoOMUes63xWCNx qPzygE9glMXnxxLeSGXb g9YeiF2mbBCSVBAvG0jk QE0bGFbhc0XczNXtmRLl jVK8SQCzi7HhPvAngvFa vXTjhXCqR5WmoPmjS6md USGfIRYecxRsuJGkg0Uu JBJjzNP8vJRkOZ4TMxGV e91cKGWfBBVAdzIqTVCp fDvuaRH3htX3nU7iVgGL ZiBhcHBsaWNhYmxlLCBj x287xe0fidA5TVImSQCm ftbnq5BnRLRvTYOsjK19 MVIhSHGybj2vpkwnyIWn mlLgM5Ntvqp4fI9aPKPo YWluXGYxXGZzMjJcbGFu ZzEwMzNcaGljaFxmMVxk QiDqDYEkVReaZ9llTtWg ZnMyMlxwYXJ9 [facility] 2021-10-21 19:35:36 Test Item Value Reference Range Interpretation Comments Materials Received (test b1cpwAVuFCQxhPIpRdSw code = 9973) TJCtWQOya5uwMFRbsFWb ZzEwMzNcZnRuYmpcdWMx KAMzWmNnu2fjd069nTLo s0ldSOAtTlW3uTKbPZZn sVPxO411HLVnACobe1hv p9HpUSKpoEImo6E5YZRO kwemrZd1cUnxX09sf6X0 PuypF2mhWSHqXJQqH2Oo EG0dXFKbCvw5EFX8MBI6 VWDtZGReE9YtKQ0yIWJy mKKxHYf8y2risWpqKQAp YNO2l3zaHVqhzjAgLX3j bn3ptUk1q3vanyPdFRYn YQEbnPBZIWOeE2BadWxl Af7heDj9rPgsQtgoWSB9 Kfq8SD6gdf39bdo6mUfa JNWafjkxHtP4UGddLBFv loeoDIl2KHsqQNKozZre MFxtYXJncjcyMFxtYXJn wKL5QDEsjYVjO4BvTJDj FJmuXILvgfu3JnYnQm4u dJYwvVkbJOhkk5hig6xk hVJyOxy5VIApAfIqDhcm UPysi5Ndk7zdSWGdrg2y DOT4cYPwoKkzf8P7rQEn SOQmxPIgehUkLMNuzj59 dPVmgPKvpUOcdk6vbhHl xYUrlFTlMUD0uNQpkdVl BFAikQNxQOTiHL9ecCDe FESwjU7akeanFNUrOnVy xysaLPNjrLbqweIoKa3f uPmmEVR0PYdqS4kcaN7j SsJ1SMicY8yfpN7nZNz1 RMuymHW5EQEfkD8lYD1v ucppk2dyQcLzWP1fnfeo z1yeWhDtWN9thgr6c8jn PCC2OSogBFFdHzG8ywT4 NDBcaGVhZGVyeTcyMFxm g800NYJ6DtObRFQln3Xk J4CzaScmI54wsEqnK88h BQEyjEhldT6txNdkyA3w XiIfApPgITk7lr31VTg1 elduuZwdJNk8qdNlNRMy BLB3ZAMkrJTpAJDwQ2r3 gtYdSRYtPYF8EXClcDAi LFPhW9e0ktGmFIR5CCt6 cnBhZGRmdDNcdHJwYWRk YjBcdHJwYWRkZmIzXHRy vHVebBCfyBEwwZ0arYjx AFOvwUPjwK8vSFL3ECOy cmgzMjBcdHJoZHJcbHRy xa86BDNdzaHkyQHofTjk kMWuSTS6XSLlKZCmMRRb YZM9NLQuBkIgwvZuEHbj bGJyZHJiXGJyZHJzXGJy COF0TEGbMdLmubKhYCzw bGJyZHJsXGJyZHJzXGJy CVI9OAXpTbVenuMpTWcv bGJyZHJyXGJyZHJzXGJy RUW0RNSiOzJlwlYyRVlc bHBhZHQxMFxjbHBhZGZ0 S7bvxBMnIGIdWCjulHPq PCPyA0sxlNDaYGtqLEQi cGFkZmwzXGNscGFkYjBc A1xySAXrWsRtQ3UscCf0 MDAwXGNsdmVydGFsdFxj vKVvHVB2RJLtYFNhVZBe SDG7PWIsGaSjqpHoAAqc bGJyZHJiXGJyZHJzXGJy BDQ8LRGuZnVwggGnMRor bGJyZHJsXGJyZHJzXGJy KFY2MJMpMqDzbfTmXVfc bGJyZHJyXGJyZHJzXGJy OSP2ETXpMhKqubYzXGbn bHBhZHQxMFxjbHBhZGZ0 I8wadMBtZTAfYWgemYZb WEKlJ7kdiCYoMMerJIGk cGFkZmwzXGNscGFkYjBc V6baQCPjMsRkB3KzeFw1 NjAwXGNsdmVydGFsdFxj mRSfJJQ1KRMoYROyRLYb LAY4UHWdCqMnjvEvRMqu bGJyZHJiXGJyZHJzXGJy GVP8DGCfDrRzafQvNCui bGJyZHJsXGJyZHJzXGJy MWZ9YMDgTtHngmBrVQes bGJyZHJyXGJyZHJzXGJy CEB1VKExPuXvygZaPGsf bHBhZHQxMFxjbHBhZGZ0 I1zkrZRlHQHkKVzeeHBr LVLdP8taeZRsNTnjENSm cGFkZmwzXGNscGFkYjBc E3axMTOfPnFiR5OawCp6 QoLkWZZoftPsoT97Rowi k7TtAQGmGYZ5EUzkZZyk bFxwbGFpblxmMVxmczIw KMrsdjwqWYYxNApjI7tb LeHoINTmdQbqDBupv3Ga XGYxXGNmMlxmczIwXGIg NRLlEMXvaO6oPhsvM3Iy xR4pUKseHuruP7lhHGRw b8CbqM4iOEcprBCvhmhn MVxmczIwXGxhbmcxMDMz OOieL6lzHsGfIWWemJfm QUgyf1XvWTHxCCRrTkqr bdPpSQw7dsFyJPDdcCle hJYsERvrewWncFcpc9Ef gsCiaAdxKQSrXNe4ngWw qekigVr3kJHjrQlrFIKb rEdoiM9vZuTuIwYmFEnd bGFpblxmMVxmczIwXGxh kcamVSDgUDhoW9rqTcJc MPXqzZkeCVtcc3DpZEDj JLBeUrpwfoOfYALwL72h bGVjdGVkXHBsYWluXGYx XGZzMjBcbGFuZzEwMzNc aGljaFxmMVxkYmNoXGYx YHdcP3pdGzWwR7DeEFMh YuXzcIAoM6trN5UumPwb YXJkXGludGJsXHNzcGFy MNP1yMCcyaPbyFMjmEFs VDIuEDurDVJ8bNUnkghm aCFenpaaVZeuyqR3NMZw YWluXGYxXGZzMjBcbGFu ZzEwMzNcaGljaFxmMVxk FfHiIIUxSRxzV1mdEcVh K6FpPBYpFqYwGjQFRCTh aXZlZFxwbGFpblxmMVxm czIwXGxhbmcxMDMzXGhp E4vuZbEkQBFlsHqoZNwa z7CaDVNdGFYxTamfoyGk CAy5xnIxZWKoyMnioS81 Glmlrw36SQRvj9jjKIHc T3WhyGVnHITrsNNnTBmv MDhcdHJwYWRkZmwzXHRy cGFkZHIxMDhcdHJwYWRk ZnIzXHRycGFkZHQwXHRy gCIgYVB8M6s0hsDlBMNm FEz3giPqILWqDhBwzXYh MIY5XIr6CnuschP4nNNt U6w6HmssjiKyILudrNMg gf88IJPgwrBoqLGdiPsz uWVgZZT9CNBpOQZcIJTa TTK2BSIbYtGnapLoEYkt bGJyZHJiXGJyZHJzXGJy YJR4CEVkSgUolzSgQQga bGJyZHJsXGJyZHJzXGJy DWI0ILTcMwGiikOuIDwg bGJyZHJyXGJyZHJzXGJy UHW8YOPmGdGdgdAaSUjs bHBhZHQxMFxjbHBhZGZ0 G9tpaTGvGTPzKLsrmKUu KNVmO7urbXRqDDlsTEFu cGFkZmwzXGNscGFkYjBc A7bxMLAnAfZtB9JdsNv9 MDAwXGNsdmVydGFsdFxj dUDjTIY7CSLpPSBxECOa EBA1DYFrXvCbctStPBed bGJyZHJiXGJyZHJzXGJy MQG7KJWmDiHrwmDhZPhq bGJyZHJsXGJyZHJzXGJy TBP7SVUnUbYtwgJdAZkd bGJyZHJyXGJyZHJzXGJy RBN1JJSjZgCdklIgUFee bHBhZHQxMFxjbHBhZGZ0 I1xhzQLeULOwSZjgvEFv ICLuE9inrPOzFRdpIZXt cGFkZmwzXGNscGFkYjBc L7cuJUDiTwRnH7TsjAs0 NjAwXGNsdmVydGFsdFxj fUCfEAW8ZHJiKAMwEZYd UKV4TXRpHuUsheBbOWpy bGJyZHJiXGJyZHJzXGJy CXS5LXRzUqOthiMqKYuy bGJyZHJsXGJyZHJzXGJy MHI5RCMlAfRpiqOtEJbb bGJyZHJyXGJyZHJzXGJy DEM5FUOgBuTddoWqXZnn bHBhZHQxMFxjbHBhZGZ0 W6eidMMhMNReJVkswIKk UCJkN8kuqYZkEPovWNNj cGFkZmwzXGNscGFkYjBc A5avTOOnBxWhY7YomAq3 ZjVlLSEdulZraR17Zkks a5KwKYZaEOX8AIkoRZcy bFxwbGFpblxmMFxmczI0 XHBsYWluXGYxXGZzMjBc bGFuZzEwMzNcaGljaFxm GFjzJwBxXGReMBcgS2hr EiElB6BxDJKwOhHwOT1w SfT4BDGuXQHgGHIzWDSA BSNeTFGZK4WGLaluEYHQ Q5YejRscmU3hHxYhBfEx LYsgCQ5mMYEjN4aijLQa YQOmZCAgM1lsFmYeaZ7p aFxmMVxjZjJcZnMyMFxs dHJjaFxjZWxsXHBhcmRc dH86Zcsoa4MdDXWzLJI3 MFxzMFxxbFxwbGFpblxm NMvrfzG7XQNoDDzyXPWc XGZzMjBcbGFuZzEwMzNc aGljaFxmMVxkYmNoXGYx ZWabX9naZdFmR6DqEKHg MjAgMTIvMTMvMjAyMVxw bGFpblxmMVxmczIwXGxh cnhzUXWwNOazL5xyZuJv TKLcjVnpTXzfa7VvKGZu HGAyGmknnlAaAIh2wsZi XGNlbGxccGFyZFxpbnRi vTylr6TvxfVdeDmaJBLc XHFsXHBsYWluXGYwXGZz PwWyxXzvsG8qLnYkTxLe CLhtSR8qLCKjL6vheXMr HWYiCCWyA6diQeGwjS4i aFxmMVxjZjJcZnMyMCAy LzIvMjAyMlxwbGFpblxm MVxmczIwXGxhbmcxMDMz RAahT4rgBhFdWRDgbSww GSgrp2UcFQKgKXPjGmwf yaQeOIg4hiYkUXEioDjh pG57Xfrolz14FLNtxiQa r7HjBPWnZEV9TMseAXpw bFxwbGFpblxmMFxmczI0 XHBsYWluXGYxXGZzMjBc bGFuZzEwMzNcaGljaFxm SMrhWlUtWIQmPWelX5dn ZjFcZnMyMFxwYXJ9 Diagnosis (test code = y3wrpMWaEIGybYN6PkEc 34) YXPyi4asc8QlnIJuyDYp GMcitEQasmCyqw40pFW6 tL59TJ1lQGAtVfQ1WWTa hiY7Hte0CVHvGFAfgNCv M506f9urr1exnvXedYH9 PFRwVPZoV3HlRI6yNRUy cQIeL12cxDHkXSD3TKKv DGDwoBWzLGQsHJC5LCOu iHLuM1zeGSEkFK6dsvjx VIerYGrzNOTwvOR5TRZq mWQxU2TdZWIsGFjwECOo mxo8KxMkBp7bsSIvoKkk MFxwYXJkXHBsYWluXGZz FqQsW7QhYT46gHWfSIMj KDIxOklTMTgyMCwgMTIv MTMvMjAyMSkgZGVzaWdu YXRlZCBhcyBlbmRvbWV0 ucbkfFWwmE7hu9omUZej DOTCWqq4CPEpmdvpDbBn cGFyXGxpNzIwXGxpbjcy RNQLxJV3dhZqtqIxXnne g8Fcd5s6yEAqT6LxdDLd jqQpuEVgrIHxr8SdCF3i e9ZxxiSvV2XgKQpyQX6a cyBhbmQgcmFyZSBzdHJp bRKdd1FdcJ4wq2wntEGl OB6ib84trHUjVUsff8Nj ApMgUMPeqTs2nPAncPBw MyIiN1TeFWBkmB6zvbVd BODhlumzCFMxVjCsJ43w voDbMY5cOCJgvQHpLVBw h9Exp34gKowqKOYabDnt XGxpbjBccGFyXHBhcmQg UFhSXHBhcn0= Comment (test code = i7omtJNzLAJcmRS2QpLs 9835) DOSrr3mxi5NqlKMzrTKi TCcflTUuupJftf89tDO9 cO78MX0jNGArTxZ2JKDd bgR9Joa3GQGrGVTkcSPc W039x4tnz2euvyMrmAC9 tRfdUQCezxjwVvU3BNwt UXRfxdcuGKd5PDpgCWZa yIV4FJVzzCDwU6SiEGSz LH1jvhm0HJC7TTmjNPVb YyH2XJPuxOOlOLEufMlg MWbnm875EIW6EwBiAGCg clPecXhrsM5bZvLsSQBD jDGeWbyxzME1PNdoXSeo w4EgQxedfHTjcJZjw7Td ZXZhbHVhdGlvbiBvZiB0 uCKpIJ2qj55myHTctN0u RBZApi4dpNAloRRafERk ZiBhZGRpdGlvbmFsIHRp l8W7GHByEJwtBzIyI27b k4beRXTaJHjnuZUkX9ip rdejKRqfmBBdfoLrU0K4 ZWQuXHBhcn0= [employer](s) (test l2mwtKXsLGNkzVF2TyOt code = 9841) ODIqs4chw7ShaUZdyIPo JDwxzIDgmjDwln27hZV6 hL54LQ6lLIMiDvK0BGUj meG4Aiw9KZPqMQOowKOj U152s0ngn8acadYurKC0 fFtkYJWodkohSyL7FZqp TZOygyquVJa3VXfbMATv wYO1TTJneEGxB1WnSCIh SW3zezb9GSQ5OXgyCDDm SmL8LRTvjHPgASDoeYow NWrfu633ABM1UgXkYUZk jxHyhPcwvF2oNhZkJDYZ QVxwYXJ9 Disclaimer (test code = k3ycqFPbCZJyhESxYiLj 9866) BHWoFGMtf8rsVISxySHh ZzEwMzNcZnRuYmpcdWMx BAZzQeYke0xtm163qSWj b7yiPAJwHpR0zCCuQTYs tRKsP284LKZgLTbva9gf c9AlOZJcqBLvp5I6MZBI cktkiFq2pKowX99jr4J6 RhaqD8jySGVwJFZtM9Ny FC7fCRIiHms3RJV0JTC6 JEHlILZhE5SnTP9aBOWd jSFeSOc4i9uauZyoLUOi QFF3k4ojATtcjpObHV0c lu9grBh6h1xymgOpOQCz NEWkoWDMNVBlV3SbpQcy Rd1loBi9mXqlOzafVBU1 Lgh7UH3wwt94ech4wJgf KEWjqeyzKwH0GOpxIQCn qbsqARw2FJmtCWXnaUH0 WJPzbVMiO5NsLUJtYY7g nhc9JBD5BAtlELJfBhF9 NDBcaGVhZGVyeTcyMFxm u449HHX0SkWlUH6tG6Lh g3K8qW3seCVdAWXgmHRc LlZuCUPngf9ctBFtOYdw s0KsSLD1mjE7dBTkdNSj HFBrUF99Tuzyn1DmWrws GAB5GJMayaBcs2Ybr2jq XsUhviSlS8gmW6KaEZWj DTGcEAIdVmZcchRhm0Ew g6RdgEPezXy8h9flIZQw PFFcpAbjg3ytQAX7LORy P1Z0xUVnw1akHIoyEQNf bEZ6fkR5VTAmhTYnH8Eo eJ1tAKXhDV1dzrg5v7wf FZM0OYqxSKNxPuO6osJ0 NDBcaGVhZGVyeTcyMFxm a583DNC2FqVvTCEnp9Dx A6WvxSknI27huNjjH64u KGQscSmhrA1buXwtiC7y ZjBcZnMyNFxxbFxwbGFp elynFQzzdtZ6FSxmgdlq UPArACaaM5frNeNhRUIn bRebGAics6XnRUYbSAKh ZpobppI9NKCSb73kHAKs o8LlWZQpoB9mjHPtAPfc qvNpeKW6KXdlahLiEkAa siUdLNSeiJ8uAYUkPQ7a VIIrboEprm4fgqZgXXTl KUDtE2TqeqrhwGpupoUd YCZysj5khjFyZTV4RUDR LC5ZBZTeJBYbs87kZCFl qYfvtB6rdWXojoAjPWMg f4XzlM5sjFXRRFHhK2hu WM4jDEgbs3InvGTjzUTu kAE2NMCsd8AlKsAgrgEu pSBlzFXtW5HypCpiL4nk MHKkEKQwzjUejDKla2Bi HWWtuRQ7nNQtNL5WNsEW g27nCSGzTOQHyaCyCIZo zByruKN5juL8nQ0wLrDU ZiBhcHBsaWNhYmxlLCBj k640ex2pmeS2HUZvKUSq pxxun8ZsSAVdGSLbiR64 ESEgJPMupu5gzfytcYAd ruNbQ4Oncui9cJ6yJFOh YWluXGYxXGZzMjJcbGFu ZzEwMzNcaGljaFxmMVxk SqLyNWXkHPjfS2zqXbDq ZnMyMlxwYXJ9 [facility] 2021-10-21 18:12:56 Test Item Value Reference Range Interpretation Comments FKap/FLam RT (test code = 5566) 1.14 0.26-1.65 [facility]Free Lambda Ratio 2021-10-21 18:12:56 Test Item Value Reference Range Interpretation Comments FKap/FLam RT (test code = 5566) 1.14 0.26-1.65 [facility] L[facility] [id number] 18:12:55 Test Item Value Reference Range Interpretation Comments Free Lambda (test code = 5630) 20.49 mg/L 5.71-26.30 [facility] [id number] 18:12:55 Test Item Value Reference Range Interpretation Comments Free Lambda (test code = 5630) 20.49 mg/L 5.71-26.30 [facility] [place] [id number] 18:12:54 Test Item Value Reference Range Interpretation Comments Free Stoddard (test code = 5629) 23.37 mg/L 3.30-19.40 H Lab Interpretation (test code = Abnormal 93806-9) [facility] [place] [id number] 18:12:54 Test Item Value Reference Range Interpretation Comments Free Stoddard (test code = 5629) 23.37 mg/L 3.30-19.40 H Lab Interpretation (test code = Abnormal 19462-0) [facility] 2 [id number] 18:12:53 Test Item Value Reference Range Interpretation Comments Beta2 Microglob (test code = 5090) 2.0 mg/L 0.8-2.3 [facility] [id number] 18:12:53 Test Item Value Reference Range Interpretation Comments Beta2 Microglob (test code = 5090) 2.0 mg/L 0.8-2.3 [facility] 18:12:52 Test Item Value Reference Range Interpretation Comments IgM (test code = 6023) 658 mg/dL 35-242 H Lab Interpretation (test code = Abnormal 17611-1) [facility] 18:12:52 Test Item Value Reference Range Interpretation Comments IgM (test code = 6023) 658 mg/dL 35-242 H Lab Interpretation (test code = Abnormal 17785-7) [facility] 18:12:51 Test Item Value Reference Range Interpretation Comments IgG (test code = 6001) 996 mg/dL 610-1616 [facility] 18:12:51 Test Item Value Reference Range Interpretation Comments IgG (test code = 6001) 996 mg/dL 610-1616 [facility] 18:12:50 Test Item Value Reference Range Interpretation Comments IgA (test code = 5992) 240 mg/dL 85-499 [facility]:12:50 Test Item Value Reference Range Interpretation Comments IgA (test code = 5992) 240 mg/dL 85-499 [facility] HCV Ab Path [id number] 16:41:24 Test Item Value Reference Range Interpretation Comments HCV Ab Path There is NO Interp (test serologic code = 8923) evidence of ____KAMI RHOADES EA Hepatitis C MD HILARIO, PhD - virus antibody. [id number] d by: Payam GAGNON, PhD - [id number] D ate/Time: 10.21.2021 10:4 1 AM UTILIZATION REVIEW RN Transcribed Mehdi e/Time: 10.21.2021 10:4 1 AM CSTElectronical ly Signed By: KAMI RICH MD, PhD - [id number] on 10.21.2021 1 0:41 AM [facility] [id number] 16:41:24 Test Item Value Reference Range Interpretation Comments HCV Ab Path There is NO Interp (test serologic code = 8923) evidence of ____KAMI RHOADES EA Hepatitis C MD HILARIO, PhD - virus antibody. [id number] d by: Payam GAGNON, PhD - [id number] D ate/Time: 10.21.2021 10:4 1 AM UTILIZATION REVIEW RN Transcribed Mehdi e/Time: 10.21.2021 10:4 1 AM CSTElectronical ly Signed By: KAMI RICH MD, PhD - [id number] on 10.21.2021 1 0:[address] [facility]/2 Ag&Ab Path Inter 2021-10-21 16:39:21 Test Item Value Reference Range Interpretation Comments HIV 1/2 Ag&Ab Negative for Interp (test HIV-1 antigen and code = 9394) HIV-1/HIV-2 ____MAYRIN JF EA antibodies. Danielle RICH MD, Ph D - laboratory [id number] b y: KAMI evidence of HIV KIRAN Palacios MD, PhD - [place]. [place] [id number] Date/Time: acute HIV 10.21.2021 10:3 9 AM UTILIZATION REVIEW RN infection is Transcribed Mehdi e/Time: suspected, 10.21.2021 10:3 9 AM consider testing CSTElectron ically Signed for HIV-1 RNA. By: KAMI RICH MD, PhD - [id number] on 10.21.2021 1 0:[address] [facility] HIV 1/2 Ag&Ab Path Interp 2021-10-21 16:39:21 Test Item Value Reference Range Interpretation Comments HIV 1/2 Ag&Ab Negative for Interp (test HIV-1 antigen and code = 9394) HIV-1/HIV-2 ____MAYRIN JF EA antibodies. Danielle RICH MD, Ph D - laboratory [id number] b y: KAMI evidence of HIV KIRAN Palacios MD, PhD - [place] [id number] Date/Time: acute HIV 10.21.2021 10:3 9 AM UTILIZATION REVIEW RN infection is Transcribed Mehdi e/Time: suspected, 10.21.2021 10:3 9 AM consider testing CSTElectron ically Signed for HIV-1 RNA. By: KAMI RICH MD, PhD - [id number] on 10.21.2021 1 0:[address] [facility] Antigen and Antibodies, Fourth [id number] 04:59:03 Test Item Value Reference Range Interpretation Comments HIV 1/2 Ag & Ab, Non Reactive Non Reactive Performed a t: 4th Gen (test code [facility] = 9280) [place] [address] [facility] Antigen and Antibodies, Fourth [id number] 04:59:03 Test Item Value Reference Range Interpretation Comments HIV 1/2 Ag & Ab, Non Reactive Non Reactive Performed a t: 4th Gen (test code [facility] = 9280) [address] [facility] Interpretation Antibody Screen [id number] 04:45:54 Test Item Value Reference Range Interpretation Comments TMP Auto Neg At the present ABSC Interp time, patient (test code = plasma shows no ____KAMI Ramirez ORREA 7535) evidence of RBC MD RICH P hD - alloantibodies. [id number] d by: Payam GAGNON, PhD - [id number] D ate/Time: 10.20.2021 22:4 5 PM UTILIZATION REVIEW RN Transcribed Mehdi e/Time: 10.20.2021 22:4 5 PM CSTElectronical ly Signed By: KAMI RICH MD, PhD - [id number] on 10.20.2021 2 2:45 PM [facility] Antibody Screen [id number] 04:45:54 Test Item Value Reference Range Interpretation Comments TMP Auto Neg At the present ABSC Interp time, patient (test code = plasma shows no ____KAMI Ramirez ORREA 7535) evidence of RBC MD RICH P hD - alloantibodies. [id number] d by: Payam GAGNON, PhD - [id number] D ate/Time: 10.20.2021 22:4 5 PM UTILIZATION REVIEW RN Transcribed Mehdi e/Time: 10.20.2021 22:4 5 PM CSTElectronical ly Signed By: KAMI RICH MD, PhD - [id number] on 10.20.2021 2 2:[address] [facility] HospitalHepatitis C Virus [id number] 04:10:08 Test Item Value Reference Range Interpretation Comments HCVAb. (test Non Reactive Non Reactive Antibody detect ion in the code = 5762) immunocompromis ed and immunosuppresse d population may be delayed or absent entirely. There fore serial testing, correl ation with other clinical findings, and supplementa l testing (if available) should be taken into cons ideration when interpreti ng the results.Perform ed at:[facility] [address] [place], [place] [address] [facility] [facility] HospitalHepatitis C Virus [id number] 04:10:08 Test Item Value Reference Range Interpretation Comments HCVAb. (test Non Reactive Non Reactive Antibody detect ion in the code = 5762) immunocompromis ed and immunosuppresse d population may be delayed or absent entirely. There fore serial testing, correl ation with other clinical findings, and supplementa l testing (if available) should be taken into cons ideration when interpreti ng the results.Perform ed at:[facility] [id number] [place] [address] [facility] HospitalAntibody [id number] 00:31:15 Test Item Value Reference Range Interpretation Comments ABSC. (test code = 890-4) Negative ABSC [facility]Antib[facility] [id number] 00:31:15 Test Item Value Reference Range Interpretation Comments ABSC. (test code = 890-4) Negative ABSC [facility] HospitalABORh2022-02-02 00:31:14 Test Item Value Reference Range Interpretation Comments ABORh. (test code = 882-1) B POS [facility] HospitalABORh2022-02-02 00:31:14 Test Item Value Reference Range Interpretation Comments ABORh. (test code = 882-1) B POS [facility] HospitalClot Expiration [id number] 00:31:08 Test Item Value Reference Range Interpretation Comments T & S Expiration (test code = 10/23/2021 5318) [facility] Hospital[facility] Expiration [id number] 00:31:08 Test Item Value Reference Range Interpretation Comments T & S Expiration (test code = 10/23/2021 5318) [facility] HospitalConfirm [id number] 00:07:10 Test Item Value Reference Range Interpretation Comments ABORh Confirm. (test code = 882-1) B POS [facility] HospitalConfirm [id number] 00:07:10 Test Item Value Reference Range Interpretation Comments ABORh Confirm. (test code = 882-1) B POS [facility] HospitalVitamin D [id number] 22:02:24 Test Item Value Reference Range Interpretation Comments Vitamin D 25 [place] (test 55 ng/mL 30-100 Refere nce Range: code = 8018) Deficiency: <10 ng/mLInsufficie ncy: 10-29 ng/mLSuff iciency: 30-100 ng/mLPot ential toxicity: >100 ng/mL [facility] HospitalVitamin D [id number] 22:02:24 Test Item Value Reference Range Interpretation Comments Vitamin D 25 OH (test 55 ng/mL 30-100 Refere nce Range: code = 8018) Deficiency: <10 ng/mLInsufficie ncy: 10-29 ng/mLSuff iciency: 30-100 ng/mLPot ential toxicity: >100 ng/mL [facility] HospitalHepatitis B Surface [id number] 21:37:06 Test Item Value Reference Range Interpretation Comments HBsAg Received (test See Note HBsAg w as sent to a code = 48787) reference lab for testing. Expect results on Hepatitis B Surface Antigen w/ Conf irm within [address] [facility] HospitalHelourdes hospitaltis B Surface [id number] 21:37:06 Test Item Value Reference Range Interpretation Comments HBsAg Received (test See Note HBsAg w as sent to a code = 49911) reference lab for testing. Expect results on Hepatitis B Surface Antigen w/ Conf irm within [address] [facility] HospitalHepatitis B Total Ig Core Ab (SCREENING) (anti-HBc total Ig; HBcAb total Ig)2021-10-20 21:37:05 Test Item Value Reference Range Interpretation Comments HBcAb Received (test See Note HBcAb w as sent to a code = 83675) reference lab for testing. Expect results on Hepatitis B Core Total Ab within [address] [facility] HospitalHepatitis B Total Ig Core Ab (SCREENING) (anti-HBc total Ig; HBcAb total Ig)2021-10-20 21:37:05 Test Item Value Reference Range Interpretation Comments HBcAb Received (test See Note HBcAb w as sent to a code = 92659) reference lab for testing. Expect results on Hepatitis B Core Total Ab within [address] [facility] HospitalFree [id number] 21:35:03 Test Item Value Reference Range Interpretation Comments T4 Free (test code = 7502) 1.55 ng/dL 0.93-1.70 [facility] HospitalFr [id number] 21:35:03 Test Item Value Reference Range Interpretation Comments T4 Free (test code = 7502) 1.55 ng/dL 0.93-1.70 [facility] HospitalGlucose, [id number] 20:59:40 Test Item Value Reference Range Interpretation Comments Glucose Random (test 97 mg/dL 70-199 Effecti ve 04/14/16, the code = 9360) glucose referen ce intervals have been updated based o n [employer] jose delines (Standards of M edical Care in Diabete s 2016. Diabetes Care 2 016; 39: S13-S22).Fastin g blood glucose:Normal: 70-99 mg/dLImpaired f asting glucose (increa sed risk for diabetes or pre-diabetes): 100-125 mg/dLDiabetes m ellitus: >/=126 mg/dL Ra ndom blood glucose:N ormal: 70-199 mg/dLNot e: Random glucose >100 mg /dL is associated with increased risk for diabetes [facility] HospitalGlucose, [id number] 20:59:40 Test Item Value Reference Range Interpretation Comments Glucose Random (test 97 mg/dL 70-199 Effecti ve 04/14/16, the code = 9360) glucose referen ce intervals have been updated based o n [employer] jose delines (Standards of M edical Care in Diabete s 2016. Diabetes Care 2 016; 39: S13-S22).Fastin g blood glucose:Normal: 70-99 mg/dLImpaired f asting glucose (increa sed risk for diabetes or pre-diabetes): 100-125 mg/dLDiabetes m ellitus: >/=126 mg/dL Ra ndom blood glucose:N ormal: 70-199 mg/dLNot e: Random glucose >100 mg /dL is associated with increased risk for diabetes [facility] HospitalPhosphorus [id number] 20:59:38 Test Item Value Reference Range Interpretation Comments Phosphorus (test code = 6817) 3.4 mg/dL 2.5-4.5 [facility] HospitalPhosphorus [id number] 20:59:38 Test Item Value Reference Range Interpretation Comments Phosphorus (test code = 6817) 3.4 mg/dL 2.5-4.5 [facility] HospitalUric [id number] 20:59:37 Test Item Value Reference Range Interpretation Comments Uric Acid (test code = 7955) 4.3 mg/dL 2.4-5.7 [facility] HospitalUric [id number] 20:59:37 Test Item Value Reference Range Interpretation Comments Uric Acid (test code = 7955) 4.3 mg/dL 2.4-5.7 [facility] HospitalMagnesium [id number] 20:59:33 Test Item Value Reference Range Interpretation Comments Magnesium (test code = 6359) 2.2 mg/dL 1.6-2.6 [facility] HospitalMagnesium [id number] 20:59:33 Test Item Value Reference Range Interpretation Comments Magnesium (test code = 6359) 2.2 mg/dL 1.6-2.6 [facility] HospitalaPTT2022-02-01 20:33:10 Test Item Value Reference Range Interpretation Comments aPTT (test 30.8 See_Comment [Automated mes feliciano] code = 6773) The system [employer] generated this result transmitted ref erence range: 24.7 - 3 6.8 second(s). The reference range was not used to int erpret this result as normal/abnormal . ELIZABETH (test code This lab cannot be = ELIZABETH) scheduled at the following locations due to collection/proccess ing restrictions: [facility] and [facility]. [facility] HospitalaPTT2022-02-01 20:33:10 Test Item Value Reference Range Interpretation Comments aPTT (test 30.8 See_Comment [Automated mes feliciano] code = 6773) The system [employer] generated this result transmitted ref erence range: 24.7 - 3 6.8 second(s). The reference range was not used to int erpret this result as normal/abnormal . ELIZABETH (test code This lab cannot be = ELIZABETH) scheduled at the following locations due to collection/proccess ing restrictions: [facility] and [facility]. [facility] HospitalProthrombin [id number] 20:33:09 Test Item Value Reference Range Interpretation Comments PT (test code 12.3 See_Comment [Automated me ssage] = 6746) The system [employer] generated this result transmitted ref erence range: 11.5 - 1 3.9 second(s). The reference range was not used to int erpret this result as normal/abnormal . INR (test code 0.99 0.90-1.10 = 5973) ELIZABETH (test code This lab cannot be = ELIZABETH) scheduled at the following locations due to collection/proccess ing restrictions: [facility] and [facility]. [facility] HospitalProthrombin [id number] 20:33:09 Test Item Value Reference Range Interpretation Comments PT (test code 12.3 See_Comment [Automated me ssage] = 6746) The system [employer] generated this result transmitted ref erence range: 11.5 - 1 3.9 second(s). The reference range was not used to int erpret this result as normal/abnormal . INR (test code 0.99 0.90-1.10 = 5973) ELIZABETH (test code This lab cannot be = ELIZABETH) scheduled at the following locations due to collection/proccess ing restrictions: [facility] and [facility]. [facility] HospitalISTAT-EC8+2021-06-10 06:51:00 Test Item Value Reference Range Interpretation [...] Notes Date/Time Note Provider Source 2022-06-16 11:11:00-00:00 [facility] Operative Report REPORT #: [id number] REPORT STATUS: Signed DATE: 06/16/22 TIME: 1111 PATIENT: JAY SHAHID UNIT #: [id number] ROOM #: BED: : 44 AGE: 76 SEX: F ATTEND: Elan Cho MD ADM AUTHOR: Elan Cho MD ATTENTION *EDITS and/or ADDENDA must be made in Patient Ke eper for this note. * * Edits and ammendments created in [facility] are not visible * * in Patient Keeper or the legal medical record (HPF). * -- OPERATION -- SURGERY START DATE/TIME: 2022-06-16 09:30 PRE-OPERATIVE DIAGNOSIS: RIGHT carpal tunnel syndrome POST-OPERATIVE DIAGNOSIS: RIGHT carpal tunnel syndrome NAME OF PROCEDURE: RIGHT open carpal tunnel release Right volar forearm fascia release TIME OUT COMPLETED: Yes SURGEON: Elan Cho MD PULP PILER(S): none ANESTHESIA: general/LMA ESTIMATED BLOOD LOSS: 1 [...] was prepped and draped in the [facility] sterile fashion and a surgical timeout [...] and patient was transferred to the [facility] and PACU in stable condition. Signed in PatientKeeper by Elan Cho MD on 06/16/22 at 11:15 Electronically Signed by Elan Cho MD on at 1115 ATTENTION *EDITS and/or ADDENDA must be made in Patient Ke eper for this note. * * Edits and ammendments created in [facility] are not visible * * in Patient Keeper or the legal medical record (HPF). * [facility] #: [id number] END OF REPORT
--- NOTE | 2023-05-02 06:23 | ER ---
Nurse's Notes [facility] Name: Deepti Rome Age: 77 yrs Sex: Female : 1945 Arrival Date: 05/02/2023 Time: 05:49 Bed 7 Private MD: Diagnosis: Pain in right leg Presentation: 05/02 06:16 Chief complaint: Patient states: I've been having right leg pain at first heat helped vc1 but I couldn't sleep last night because it hurt so bad. Coronavirus screen: At this time, the client does not indicate any symptoms associated with coronavirus-19. Ebola Screen: Patient negative for fever greater than or equal to 101.5 degrees Fahrenheit, and additional compatible Ebola Virus Disease symptoms Patient denies exposure to infectious person. Patient denies travel to an Ebola-affected area in the 21 days before illness onset. No symptoms or risks identified at this time. Initial Sepsis Screen: Does the patient meet any 2 criteria? No. Patient's initial sepsis screen is negative. Does the patient have a suspected source of infection? No. Patient's initial sepsis screen is negative. Risk Assessment: Do you want to hurt yourself or someone else? Patient reports no desire to harm self or others. Onset of symptoms is unknown. 06:16 Method Of Arrival: Ambulatory vc1 06:16 Acuity: ALEXANDRA 4 vc1 Triage Assessment: 06:20 General: Appears in no apparent distress. uncomfortable, Behavior is calm, cooperative, vc1 appropriate for age. Pain: Complains of pain in right leg Pain currently is 10 out of 10 on a pain scale. Quality of pain is described as aching, Noted to be grimacing. EENT: No deficits noted. No signs and/or symptoms were reported regarding the EENT system. Neuro: Level of Consciousness is awake, alert, obeys commands, Oriented to person, place, time, situation, Appropriate for age. Cardiovascular: No deficits noted. Respiratory: Airway is patent Respiratory effort is even, unlabored, Respiratory pattern is regular, symmetrical. GI: No deficits noted. No signs and/or symptoms were reported involving the gastrointestinal system. : No deficits noted. No signs and/or symptoms were reported regarding the genitourinary system. Derm: No deficits noted. No signs and/or symptoms reported regarding the dermatologic system. Musculoskeletal: Reports pain in right leg. Historical: - Allergies: 06:19 No Known Allergies; vc1 - PMHx: 06:19 GERD; Hypertensive disorder; Rheumatoid Arthritis; Lymphoma; vc1 - PSHx: 06:19 None; vc1 - Social history:: Smoking status: Patient denies any tobacco usage or history of. - Family history:: not pertinent. Screenin:20 [facility] ED Fall Risk Assessment (Adult) History of falling in the last 3 months, vc1 including since admission No falls in past 3 months (0 pts) Confusion or Disorientation No (0 pts) Intoxicated or Sedated No (0 pts) Impaired Gait No (0 pts) Mobility Assist Device Used No (0 pt) Altered Elimination No (0 pt) Score/Fall Risk Level 0 - 2 = Low Risk Oriented to surroundings, Maintained a safe environment, Educated pt \T\ family on fall prevention, incl call for assistance when getting out of bed. Abuse screen: Denies threats or abuse. Nutritional screening: No deficits noted. Tuberculosis screening: No symptoms or risk factors identified. Assessment: 07:01 General: Appears in no apparent distress. Behavior is calm, cooperative. Pain: kd3 Complains of pain in right leg. Neuro: Level of Consciousness is awake, alert, obeys commands, Oriented to person, place, time, situation. Cardiovascular: Patient's skin is warm and dry. Respiratory: Airway is patent Trachea midline Respiratory effort is even, unlabored, Respiratory pattern is regular, symmetrical. Vital Signs: 06:16 Pulse 69; Resp 15; Temp 97.9; Pulse Ox 96% ; Weight 54.43 kg; Height 4 ft. 9 in. ; Pain vc1 06/28; 06:16 Body Mass Index 25.97 (54.43 kg, 144.78 cm) vc1 06:16 Pain Scale: Adult vc1 ED Course: 05:51 Patient arrived in ED. ag3 06:17 Andrew Ulloa MD is Attending Physician. rt 06:19 Triage completed. vc1 06:20 Arm band placed on right wrist. EKG completed in triage. Results shown to MD. vc1 06:20 Patient has correct armband on for positive identification. Bed in low position. Call vc1 light in reach. Pulse ox on. NIBP on. 06:56 Lucía, Cammie, RN is Primary Nurse. kd3 07:01 No provider procedures requiring assistance completed. Patient did not have IV access kd3 during this emergency room visit. 07:02 Provided Education on: . kd3 Administered Medications: 07:01 Drug: Ketorolac IM 15 mg Route: IM; Site: right gluteus; kd3 07:02 Follow up: Response: No adverse reaction kd3 Medication: 06:21 VIS not applicable for this client. vc1 Outcome: 06:22 Discharge ordered by . rt 07:02 Discharged to home ambulatory. kd3 07:02 Condition: stable 07:02 Discharge instructions given to patient, Instructed on discharge instructions, follow up and referral plans. Demonstrated understanding of instructions, follow-up care, medications, Prescriptions given X 2. 07:02 Patient left the ED. kd3 Signatures: Yara Marion Kyli, RN RN kd3 Shira Dawn RN RN vc1 Andrew Ulloa MD MD rt
--- NOTE | 2023-05-02 06:23 | EDPHYS ---
Physician Documentation [facility] Name: Deepti Rome Age: 77 yrs Sex: Female : 1945 Arrival Date: 05/02/2023 Time: 05:49 Bed 7 Private MD: ED Physician Andrew Ulloa HPI: 05/02 06:57 This 77 yrs old Female presents to ER via Ambulatory with complaints of Leg Pain. rt 06:57 Patient presents to the ED with pain to the right anterior leg at about the ankle to rt the bose starting yesterday evening. This is atraumatic. Denies any skin changes. Denies numbness, tingling. Denies other acute complaints at this time. Symptoms are aching in nature, otherwise radiating, mild severity, no other aggravating or alleviating factors.. Historical: - Allergies: 06:19 No Known Allergies; vc1 - PMHx: 06:19 GERD; Hypertensive disorder; Rheumatoid Arthritis; Lymphoma; vc1 - PSHx: 06:19 None; vc1 - Social history:: Smoking status: Patient denies any tobacco usage or history of. - Family history:: not pertinent. ROS: 06:57 Constitutional: Negative for fever, chills, and weight loss, Cardiovascular: Negative rt for chest pain, palpitations, and edema, Respiratory: Negative for shortness of breath, cough, wheezing, and pleuritic chest pain, Abdomen/GI: Negative for abdominal pain, nausea, vomiting, diarrhea, and constipation, Skin: Negative for injury, rash, and discoloration, Neuro: Negative for headache, weakness, numbness, tingling, and seizure, Psych: Negative for depression, anxiety, suicide ideation, homicidal ideation, and hallucinations. 06:57 MS/extremity: Positive for pain, Negative for injury or acute deformity. Exam: 06:57 Constitutional: This is a well developed, well nourished patient who is awake, alert, rt and in no acute distress. Head/Face: Normocephalic, atraumatic. Skin: Warm, dry with normal turgor. Normal color with no rashes, no lesions, and no evidence of cellulitis. Neuro: Awake and alert, GCS 15, oriented to person, place, time, and situation. Cranial nerves II-XII grossly intact. Motor strength 5/5 in all extremities. Sensory grossly intact. Cerebellar exam normal. Normal gait. Psych: Awake, alert, with orientation to person, place and time. Behavior, mood, and affect are within normal limits. 06:57 Musculoskeletal/extremity: No swelling, deformity, tenderness to palpation on the right leg, pulses, motor, sensation intact skin is not erythematous. Vital Signs: 06:16 Pulse 69; Resp 15; Temp 97.9; Pulse Ox 96% ; Weight 54.43 kg; Height 4 ft. 9 in. ; Pain vc1 10; 06:16 Body Mass Index 25.97 (54.43 kg, 144.78 cm) vc1 06:16 Pain Scale: Adult vc1 MDM: 06:17 Patient medically screened. rt 06:57 Differential diagnosis: tendonitis, Nerve impingement. Data reviewed: vital signs, rt nurses notes. Test considered but Not performed: X-ray: No trauma, signs of compartment syndrome, x-ray, CT scan not indicated. Counseling: I had a detailed discussion with the patient and/or guardian regarding: the historical points, exam findings, and any diagnostic results supporting the discharge/admit diagnosis, the need for outpatient follow up, to return to the emergency department if symptoms worsen or persist or if there are any questions or concerns that arise at home. Administered Medications: 07:01 Drug: Ketorolac IM 15 mg Route: IM; Site: right gluteus; kd3 07:02 Follow up: Response: No adverse reaction kd3 Disposition Summary: 05/02/23 06:22 Discharge Ordered Location: Home rt Problem: new rt Symptoms: have improved rt Condition: Stable rt Diagnosis - Pain in right leg rt Followup: rt - With: Private Physician - When: 2 - 3 days - Reason: Discharge Instructions: - Discharge Summary Sheet rt - Musculoskeletal Pain rt Forms: - Medication Reconciliation Form rt - Thank You Letter rt - Antibiotic Education rt - Prescription Opioid Use rt - Patient Portal Instructions rt - Leadership Thank You Letter rt Prescriptions: - gabapentin 100 mg Oral capsule - take 1 capsule by ORAL route 3 times per day; 21 capsule; Refills: 0, Product rt Selection Permitted - Tramadol 50 mg Oral Tablet - take 1 tablet by ORAL route every 8 hours as needed; 12 tablet; Refills: 0, rt Product Selection Permitted Signatures: Cammie Castrejon RN RN kd3 Shira Dawn RN RN vc1 Andrew Ulloa MD MD rt
[2023-05-02 07:07] VITALS: TEMP 97.9; O2SAT 96
[2023-05-02] MEDS ORDERED: KETOROLAC 30 MG/ML INJ ONE (07:07)
== END 2023-05-02 07:02 | disposition home or self-care (01) ==
LOC: ER 05:49
DX: M79.604 Pain in right leg (principal)
CPT/HCPCS: 96372; 99284

== ENCOUNTER 2025-02-04 05:50 | Emergency (ER) | payer OTHER ==
--- OUTSIDE RECORDS SUMMARY | 2025-02-04 05:53 | XMS REPORT | Clinical Summary ---
Author Name Unknown Organization [facility] Address [address] [place] [address] Care Team Providers Care Crew Member Name Role Phone SamyMarimar mendez Unavailable [phone] Carole Rogers MD Primary Care Provider + Gabbie Tipton MD Unavailable [phone] Garfield Rucker MD Unavailable [phone] Allergies No known active allergies Medications * This document contains information received from the source organization and may not represent a complete record from that organization. atorvastatin (LIPITOR) 20 mg tablet Take 1 tablet by mouth as needed. 03/16/2021 Active pantoprazole (PROTONIX) 20 mg EC tablet Take 1 tablet by mouth as needed. 03/16/2021 Active methotrexate 2.5 mg tablet Take 4 tablets by mouth once a week. 03/16/2021 Active leflunomide (ARAVA) 20 mg tablet Take 1 tablet by mouth every other day. 03/16/2021 Active folic acid (FOLVITE) 1 mg tablet Take 1 mg by mouth daily. Active coenzyme Q10 (Co Q-10) 100 mg capsule Take 100 mg by mouth daily. Active UNABLE TO FIND Take 1 tablet by mouth daily. Immune system Active magnesium oxide (MAOX) 400 mg tablet Take 400 mg by mouth as needed. Active multivit with calcium,iron,mi n (MULTIPLE VITAMIN, WOMENS ORAL) Take 1 tablet by mouth daily. 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 Obstetrics History Plan of Treatment Health Maintenance Due Date Last Done Comments COVID-19 Vaccine (#1) 1950 Pneumococcal Vaccine: 50+ Years (1 of 2 - PCV) 963 Influenza Vaccine (Season Ended) [address] [place] [address] MEDICARE PART A AND B [facility] SENIOR SUPPLEMENT-SECONDARY ONLY [facility] [place] [address] [address] [place] [address] MEDICARE PART A AND B T SENIOR SUPPLEMENT-SECONDARY ONLY Care Teams Crew Member Relationship Specialty Start Date End Date Marimar Tinajero [email or web address] PCP - External Referring Hematology and Oncology 10/13/21 Carole Rogers MD [address] [place] [id number] [email or web address] PCP - General Lymphoma and Myeloma 10/14/21 Gabbie Tipton MD [address] [place] [id number] Physician Rheumatology 10/15/21 Garfield Rucker MD [address] [place] [id number] [email or web address] Physician Internal Medicine 10/15/21
--- NOTE | 2025-02-04 06:20 | EDPHYS ---
Physician Documentation [facility] Name: Deepti Rome Age: 79 yrs Sex: Female : 1945 Arrival Date: 02/04/2025 Time: 05:50 Bed 8 Private MD: ED Physician Andrew Ulloa HPI: 02/04 06:23 This 79 yrs old Female presents to ER via Ambulatory with complaints of Blisters. rt 06:23 Patient presents to the ED with a rash to the face. This was first noticed yesterday. rt She reported some blistering to the left lower jawline and some redness to the right lateral cheek. Denies any significant pain but does report some itching. States that she is concerned for shingles. Denies other acute complaints at this time, symptoms are mild in severity, no other aggravating alleviating factors.. Historical: - Allergies: 06:15 No Known Allergies; br2 - PMHx: 06:15 GERD; Hypertensive disorder; LYMPHOMA; Rheumatoid Arthritis; br2 - PSHx: 06:15 Appendectomy; section; Repair of inguinal hernia; br2 - Immunization history:: Adult Immunizations up to date. - Infectious Disease History:: Denies. - Social history:: Smoking status: Patient denies any tobacco usage or history of. Patient uses alcohol, but reports only rare drinking. Patient/guardian denies using street drugs. - Family history:: not pertinent. ROS: 06:23 Constitutional: Negative for fever, chills, and weight loss, Cardiovascular: Negative rt for chest pain, palpitations, and edema, Respiratory: Negative for shortness of breath, cough, wheezing, and pleuritic chest pain, Abdomen/GI: Negative for abdominal pain, nausea, vomiting, diarrhea, and constipation, MS/Extremity: Negative for injury and deformity, 06:23 Skin: Positive for rash, Exam: 06:23 Constitutional: This is a well developed, well nourished patient who is awake, alert, rt and in no acute distress. Head/Face: Normocephalic, atraumatic. Chest/axilla: Normal chest wall appearance and motion. Nontender with no deformity. No lesions are appreciated. Cardiovascular: Regular rate and rhythm with a normal S1 and S2. No gallops, murmurs, or rubs. Normal PMI, no JVD. No pulse deficits. Respiratory: Lungs have equal breath sounds bilaterally, clear to auscultation and percussion. No rales, rhonchi or wheezes noted. No increased work of breathing, no retractions or nasal flaring. 06:23 Skin: A few vesicles with honey coating to the left lower jawline, minimal erythema noted to the right cheek.. Vital Signs: 06:11 BP 174 / 88; Pulse 68; Resp 18; Temp 97.4(TE); Pulse Ox 99% on R/A; Weight 49.9 kg; br2 Height 4 ft. 9 in. ; Pain 0/10; 06:11 Body Mass Index 23.80 (49.90 kg, 144.78 cm) br2 06:11 Pain Scale: Adult br2 MDM: 06:13 Medical Screening Exam initiated rt 06:23 Differential Diagnosis Impetigo, shingles. Data reviewed: vital signs, nurses notes. rt Test considered but Not performed: Other Details Stable vital signs, no signs of abscess, labs are not indicated. ED course: More likely, patient has impetigo as the etiology, is not a clear-cut presentation of shingles, nonetheless, will treat with antivirals. Patient stable for outpatient care, return precautions discussed.. Administered Medications: No medications were administered Disposition Summary: 02/04/25 06:19 Discharge Ordered Notes: Location: Home rt Problem: new rt Symptoms: are unchanged rt Condition: Stable rt Diagnosis - Rash to face rt Followup: rt - With: Private Physician - When: 2 - 3 days - Reason: Discharge Instructions: - Discharge Summary Sheet rt - Shingles rt - Impetigo, Adult rt Forms: - Medication Reconciliation Form rt - Antibiotic Education rt - Prescription Opioid Use rt - Patient Portal Instructions rt - Leadership Thank You Letter rt Prescriptions: - Valtrex 1 gram Oral tablet - take 1 tablet ORAL route every 12 hours; 14 tablet; Refills: 0, Product rt Selection Permitted - mupirocin 2 % Topical ointment - apply 1 application TOPICAL route 3 times per day; 1 Each; Refills: 0, Product rt Selection Permitted - Cephalexin 500 mg Oral Capsule - take 1 capsule ORAL route every 8 hours for 10 days; 30 capsule; Refills: 0, rt Product Selection Permitted Signatures: Andrew Ulloa MD MD rt Gillespie, Sharlene, RN RN br2
--- NOTE | 2025-02-04 06:20 | ER ---
Nurse's Notes [facility] Name: Deepti Rome Age: 79 yrs Sex: Female : 1945 Arrival Date: 02/04/2025 Time: 05:50 Bed 8 Private MD: Diagnosis: Rash to face Presentation: 02/04 06:11 Chief complaint: Patient states: PT HAS REDNESS/BLISTER TO LEFT CHEEK AND RIGHT br2 TEMPORAL AREA, DENIES PAIN. CONCERNED WITH SHINGLES. Coronavirus screen: Client denies travel out of the [place] in the last 14 days. Ebola Screen: Patient denies exposure to infectious person. Initial Sepsis Screen: Does the patient meet any 2 criteria? No. Patient's initial sepsis screen is negative. Does the patient have a suspected source of infection? No. Patient's initial sepsis screen is negative. Risk Assessment: Do you want to hurt yourself or someone else? Patient reports no desire to harm self or others. Onset of symptoms was February 03, 2025. 06:11 Method Of Arrival: Ambulatory br2 06:11 Acuity: ALEXANDRA 4 br2 Triage Assessment: 06:15 General: Appears in no apparent distress. comfortable, Behavior is calm, cooperative. br2 Pain: Denies pain. Derm: Skin has blisters on REDNESS WITH A BLISTER Rash noted that is itchy. Historical: - Allergies: 06:15 No Known Allergies; br2 - PMHx: 06:15 GERD; Hypertensive disorder; LYMPHOMA; Rheumatoid Arthritis; br2 - PSHx: 06:15 Appendectomy; section; Repair of inguinal hernia; br2 - Immunization history:: Adult Immunizations up to date. - Infectious Disease History:: Denies. - Social history:: Smoking status: Patient denies any tobacco usage or history of. Patient uses alcohol, but reports only rare drinking. Patient/guardian denies using street drugs. - Family history:: not pertinent. Screenin:19 [facility] ED Fall Risk Assessment (Adult) History of falling in the last 3 months, al5 including since admission No falls in past 3 months (0 pts) Confusion or Disorientation No (0 pts) Intoxicated or Sedated No (0 pts) Impaired Gait No (0 pts) Mobility Assist Device Used No (0 pt) Altered Elimination No (0 pt) Score/Fall Risk Level 0 - 2 = Low Risk Oriented to surroundings, Maintained a safe environment, Educated pt \T\ family on fall prevention, incl call for assistance when getting out of bed, Provided non-skid footwear. Abuse screen: Denies threats or abuse. Nutritional screening: No deficits noted. Tuberculosis screening: No symptoms or risk factors identified. Assessment: 06:21 General: Appears in no apparent distress. uncomfortable, Behavior is calm, cooperative, al5 appropriate for age. Pain: Denies pain. Neuro: Level of Consciousness is awake, alert, obeys commands, Oriented to person, place, time, situation, Appropriate for age. Cardiovascular: Heart tones S1 S2 present Capillary refill < 3 seconds Patient's skin is warm and dry. Respiratory: Airway is patent Respiratory effort is even, unlabored, Respiratory pattern is regular, symmetrical, Breath sounds are clear bilaterally. GI: No deficits noted. No signs and/or symptoms were reported involving the gastrointestinal system. : No deficits noted. No signs and/or symptoms were reported regarding the genitourinary system. EENT: No deficits noted. No signs and/or symptoms were reported regarding the EENT system. Derm: Skin is intact, is healthy with good turgor, Skin is dry, Skin is normal, Rash noted that is red, on right cheek and left cheek. Vital Signs: 06:11 BP 174 / 88; Pulse 68; Resp 18; Temp 97.4(TE); Pulse Ox 99% on R/A; Weight 49.9 kg; br2 Height 4 ft. 9 in. ; Pain 0/10; 06:11 Body Mass Index 23.80 (49.90 kg, 144.78 cm) br2 06:11 Pain Scale: Adult br2 ED Course: 05:54 Patient arrived in ED. mr 06:00 Andrew Ulloa MD is Attending Physician. rt 06:15 Triage completed. br2 06:15 Arm band placed on right wrist. br2 06:19 Patient has correct armband on for positive identification. Bed in low position. al5 Provided Education on: Plan of care. 06:20 No provider procedures requiring assistance completed. Patient did not have IV access al5 during this emergency room visit. 06:23 Marika Cheng, CLINT is Primary Nurse. hm5 Administered Medications: No medications were administered Medication: 06:19 VIS not applicable for this client. al5 Outcome: :19 Discharge ordered by MD. rt 06:21 Discharged to home ambulatory, al5 06:21 Condition: stable 06:21 Discharge instructions given to patient, Instructed on discharge instructions, follow up and referral plans. Demonstrated understanding of instructions, follow-up care, 06:23 Instructed on medication usage, Demonstrated understanding of medications, al5 Prescriptions given X 3, 06:25 Patient left the ED. hm5 Signatures: Kayla Dee, Reg Reg mr Andrew Ulloa MD MD rt Maty Paredes, RN RN al5 Sharlene Dimas RN RN br2 Marika Cheng RN RN hm5
[2025-02-04 06:34] VITALS: BP 174/88; TEMP 97.4; O2SAT 99
== END 2025-02-04 06:25 | disposition home or self-care (01) ==
LOC: ER 05:50
DX: R21 Rash and other nonspecific skin eruption (principal)
CPT/HCPCS: 99283